=== PATIENT | female | born 1960 | race Caucasian/White ===

== ENCOUNTER 2020-09-26 15:17 | Inpatient (IN) | payer OTHER, SELFPAY ==
[2020-09-26] VITALS (10 sets, daily range): BP systolic 124–175; BP diastolic 64–111; PULSE 100–123; RESP 16–24; TEMP 36.2–39; O2SAT 96–100
--- NOTE | ~2020-09-26 | MR_ITS ---
EXAMINATION: MR brain/brain stem wo/w con EXAM DATE: 09/28/2020 12:40 INDICATION: Confusion, lethargy. TECHNIQUE: Magnetic resonance imaging (MRI) of the brain/brain stem obtained without contrast. Sagit shruthi T1, axial diffusion, gradient echo (T2*), T1, T2, FLAIR sequences obtained. Patient was then inj ected with 10 cc intravenous Multihance contrast. Axial and coronal postcontrast T1 weighted sequence s obtained. There is no prior study for comparison. FINDINGS: There are no areas of restricted diffusion to suggest acute infarction. There is no acute hemorrhage seen on the T2*, a hemosiderin sensitive sequence. No intraparenchymal brain mass lesion. There is mild periventricular and subcortical T2/FLAIR signal hyperintensity, nonspecific but probab ly related to small vessel ischemic disease (microangiopathy). There is mild prominence of the sulc i and ventricles related to cerebral atrophy. There are no extra-axial collections. Flow voids are seen in the cerebral arteries on the T2-weighted sequences consistent with their expected patency. The orbits are unremarkable. Soft tissue is unremarkable. Motion limiting postcontrast images, but no areas of abnormal enhancement suspected. IMPRESSION: 1. No acute intracranial findings. 2. Chronic age related findings. Reviewed, dictated and finalized at location B. S SALESPERSON
--- NOTE | ~2020-09-26 | XR_ITS ---
EXAMINATION: XR lumbar puncture diagnostic DATE: 09/27/2020 14:05 INDICATION: Fever and encephalopathy TECHNIQUE: Consent for the procedure was obtained in the ICU. Patient identity was confirmed. The ski n overlying the L4-5 level was prepared and draped in usual sterile fashion. Subcutaneous 1% lidocai ne was used for local anesthesia. A 22 gauge spinal needle was advanced under fluoroscopic guidance. The needle was removed and the entry site was cleaned and dressed. There were no immediate complicat ions. Fluoroscopy exposure time was 0.1 minutes. The DAP for this procedure was 0.436 Gycm2. One imag e was obtained. FINDINGS: Real-time fluoroscopy demonstrates the needle at the L4-5 level. 6 mL of clear fluid was co llected in 2 tubes. IMPRESSION: 1. Successful fluoro-guided lumbar puncture. Reviewed, dictated and finalized at location A. TAIN BRUSH ASSEMBLER
--- NOTE | ~2020-09-26 | CT_ITS ---
EXAMINATION: CT abdomen pelvis wo con DATE: 09/26/2020 17:21 INDICATION: Vomiting. Abdomen pain. TECHNIQUE: Computed tomography (CT) of the abdomen and pelvis was performed without intravenous contr ast. The dose-length product was 351.27 mGy-cm. Automated exposure control and iterative reconstructi on technique were employed. COMPARISON: None. FINDINGS: Lung bases unremarkable. Heart size normal. No significant pleural or pericardial effusion. There are calcified granulomas in the spleen. There is atherosclerosis of the aorta. The liver, pancreas, adrenal glands and right kidney are unremarkable. There is a small 11 mm fat-con taining mass in the left kidney consistent with angiomyolipoma. No renal stones. No ureteral stones. No lymphadenopathy. Nonobstructive bowel gas pattern. Moderate thoracic and lumbar spondylosis. There is scoliosis. No free air or free fluid. IMPRESSION: 1. No acute abdominal abnormality. Reviewed, dictated and finalized at location A.
--- NOTE | ~2020-09-26 | CT_ITS ---
EXAMINATION: CT brain wo con DATE: 09/26/2020 17:21 INDICATION: Altered mental status TECHNIQUE: Computed tomography (CT) of the head was performed without intravenous contrast. The dose- length product was 681.00 mGy-cm. The mA was adjusted according to patient size. Iterative reconstruc tion technique was employed. COMPARISON: None FINDINGS: Study is significantly limited by motion artifact. Generalized brain parenchymal atrophy. T here are scattered mild periventricular and subcortical white matter changes, most likely related to small vessel ischemic disease (microangiopathy). There is intracranial atherosclerosis. No acute intr acranial hemorrhage, infarction, mass or mass effect. Paranasal sinuses and mastoids are pneumatized. No depressed skull fractures. IMPRESSION: 1. No acute intracranial abnormality. 2: Chronic age-related findings. Reviewed, dictated and finalized at location A.
--- NOTE | ~2020-09-26 | XR_ITS ---
EXAMINATION: XR chest 1V portable 09/26/2020 17:33 INDICATION: Transient alteration of awareness. Nausea and vomiting. Diabetes. PROCEDURE: AP portable chest COMPARISON: No prior studies for comparison. FINDINGS: The lungs are clear. The cardiomediastinal silhouette is within normal limits. There are no pleural effusions. There is no pneumothorax suspected. There are calcified granulomas in the rig ht lung base. IMPRESSION: 1: NO ACUTE CARDIOPULMONARY DISEASE. Reviewed, dictated and finalized at location A.
[2020-09-26 15:24] LABS: Glucose Point of Care 369 (65-105)
--- NOTE | 2020-09-26 15:37 | ECG_ITS ---
Measurements Intervals Bee Rate: 107 P: 60 KY: 98 QRS: 58 QRSD: 74 T: 49 QT: 348 QTc: 465 Interpretive Statements SINUS TACHYCARDIA WITH SHORT [place] INTERVAL BASELINE ARTIFACT- I, III, AVR, AVL, AVF, V1-V6 ABNORMAL ECG Electronically Signed On 09-26-2020 18:07:10 CDT by Ryan Lim D.O.
[2020-09-26 15:47] LABS: Basophils Percent Auto 0.3 % (0.2-1.2); Hematocrit 43.3 % (37.0-47.0); Hemoglobin 14.7 g/dL (12.0-15.0); Immature Granulocyte Absolute 0.05 K/mm3 (0.00-0.031); Immature Granulocyte Percent A 0.4 % (0-0.5); Lymphocytes Absolute Auto 0.55 K/mm3 (0.9-3.2); Lymphocytes Percent Auto 4.7 % (18.3-44.2); Mean Corpuscular HGB Conc 33.9 g/dl (32-36); Mean Corpuscular Hemoglobin 30.9 pg (26-34); Mean Platelet Volume 10.5 fl (7.4-10.4); Monocytes Absolute Auto 0.5 K/mm3 (0.1-0.6); Monocytes Percent Auto 3.9 % (2.6-8.5); Neutrophils Absolute Auto 10.6 K/mm3 (1.3-6.7); Neutrophils Percent Auto 90.7 % (45.5-73.1); Platelet Count Result 287 k/mm3 (150-375); Red Blood Count 4.76 M/mm3 (4.2-5.4); Red Cell Distribution Width 12.4 % (11.5-14.5); White Blood Count 11.7 K/mm3 (4.5-10.0)
[2020-09-26 15:59] LABS: Lactic Acid Reflex 3.4 mmol/L (0.7-2.1)
[2020-09-26 16:04] LABS: Alanine Aminotransferase 22 U/L (4-35); Albumin Level 4.9 g/dL (3.5-5.1); Alkaline Phosphatase 129 U/L (38-126); Anion Gap 19 mmol/L (8-16); Aspartate Amino Transferase 43 U/L (14-36); Bilirubin,Total 0.8 mg/dL (0.2-1.3); Blood Urea Nitrogen 11 mg/dL (7-17); Calcium 10.1 mg/dL (8.4-10.2); Carbon Dioxide 21 mmol/L (22-30); Chloride 95 mmol/L (98-107); Estimated CRCL calculation 69 ml/min; Estimated Glomerular Filt Rate > 60; Glucose 392 mg/dL (65-105); Magnesium 1.6 mg/dL (1.6-2.3); Phosphorus 4.5 mg/dL (2.5-4.5); Potassium 4.6 mmol/L (3.4-5.0); Sodium 135 mmol/L (137-145)
[2020-09-26] MEDS: SODIUM CHLORIDE 0.9% IV 1,000 ML 999 ML IV CONT ×3 (16:07→18:59)
[2020-09-26] MEDS: ONDANSETRON INJ 4 MG/2 ML VIAL IV PUSH ×2 (16:07→18:01)
[2020-09-26] MEDS: FAMOTIDINE 20 MG/2 ML VIAL IV PUSH (16:07)
--- NOTE | 2020-09-26 16:28 | ED.GENADULT ---
HPI - General Adult General Chief complaint: Nausea/Vomiting/Diarrhea Stated complaint: N/V HX OF DM Time Seen by Provider: 09/26/20 15:32 Source: patient and family Mode of arrival: ambulatory Limitations: altered mental status History of Present Illness HPI narrative: Patient is a 59-year-old female who presents with nausea vomiting and altered mentation patient has been vomiting since the early hours of the morning notes that around 3 AM she began vomiting believes she may became altered around 9 AM, had been fine yesterday and had been without recent illness patient on arrival is uncomfortable appears to be in acute distress has been vomiting throughout the night and has become acutely altered. patient with history of insulin-dependent diabetes mellitus patient with multiple episodes of emesis is present on arrival patient has not had any new injury or trauma URI symptoms or complaint of other complaints on arrival patient is a limited historian due to clinical condition. Patient unable to answer questions appropriately and is writhing in the bed Related Data Home Medications Medication Instructions Recorded Confirmed citalopram mg 09/26/20 hydroxyzine HCl 09/26/20 09/26/20 insulin glargine [Lantus Solostar SUBCUT 09/26/20 U-100 Insulin] insulin lispro [Humalog KwikPen unit SUBCUT 09/26/20 Insulin] Allergies Allergy/AdvReac Type Severity Reaction Status Date / Time No Known Allergies Allergy Verified 09/26/20 15:36 Review of Systems Review of Systems: ROS unobtainable: Yes unobtainable due to medical condition PMFSH Past Medical History Medical History Diabetes mellitus type 1 Social History Social History (Updated 09/26/20 @ 16:32 by Darren Marin PA-C) Smoking status: Never smoker Alcohol intake: unknown Gender identity (if verbalized by the patient): Female Exam Narrative: Exam Narrative: GENERAL: Ill-appearing, well-nourished, uncomfortable in acute distress. HEAD: Normocephalic, atraumatic. EYES: PERRLA and EOMI. ENT: Nares clear, no rhinorrhea or epistaxis. Mucous membranes dry. NECK: Supple. No adenopathy or masses. CHEST: Clear to auscultation. No respiratory distress. No wheezes rales or rhonchi HEART: Regular rate and rhythm. No murmur heard. Normal peripheral pulses. ABDOMEN: Soft, patient appears uncomfortable on palpation of the abdomen, nondistended EXTREMITIES: Normal range of motion. No edema. SKIN: Warm, dry, no rash. NEURO: Patient is uncomfortable in the room writhing does not answer questions appropriately with garbled speech at this time i Course Course Emergency Course: Patient in the room at this time with normal vital signs aside from tachycardia patient's airway is stable and patient does not appear to have any respiratory compromise at this time continues to have some emesis has been hydrated given insulin and was started on insulin drip patient continues to be altered of unknown etiology patient will be placed in the ICU with continued hydration insulin drip and will be managed by the hospitalist and message and delivery service pricer team. Consultations Consultation #1: Discussed case with hospitalist who agrees to accept the patient would like message and delivery service pricer to be consulted Date: 09/26/20 Time: 18:28 Consultation #2: Discussed case with the message and delivery service pricer who does recommend placing the patient in the ICU with continued hydration on the insulin drip with no further instructions at this time and will evaluate the patient Date: 09/26/20 Time: 18:28 Vital Signs Vital signs: Vital Signs Temperature 97.2 F L 09/26/20 15:32 Pulse Rate 102 H 09/26/20 15:32 Respiratory Rate 20 09/26/20 15:32 Blood Pressure 175/91 H 09/26/20 15:32 Pulse Oximetry 99 09/26/20 15:32 Temperature 97.2 F L 09/26/20 15:32 Pulse Rate 120 H 09/26/20 18:00 Respiratory Rate 24 H 09/26/20 18:00 Blood Pressure 168/111 H
[2020-09-26 16:46] LABS: Add Urine Microscopic? YES; Appearance Urine Clear (Clear); Bilirubin Urine Negative (Negative); Blood Urine Negative (Negative); Color Urine Straw (Yellow); Glucose Urine UA 3+ mg/dL (Negative); Ketones Urine 2+ mg/dL (Negative); Leukocyte Esterase Ur 1+ LEU/UL (Negative); Mucus Urine Rare /lpf; Nitrate Urine Negative (Negative); Protein Urine 1+ mg/dL (Negative); RBC Urine 0-2 /hpf (0-2); Squamous Epithelial Cell Urine Rare /hpf (Few); Urobilinogen Urine Negative mg/dL (<2.0)
[2020-09-26 17:00] LABS: Alveolar/Arterial O2 Gradient 27.9 mmHg; Base Excess ABG -7.6 mEq/l (+/-2.0); Carboxyhemoglobin 0.7 % THb (0-2.0); Fractional Inspired Oxygen 21 %; HCO3 ABG 15.8 mEq/l (22.0-26.0); Methemoglobin ABG 0.2 %THb (0-1.5); Oxygen Content ABG 19.1 %vol (16.0-22.0); Oxygen Saturation ABG 96.9 % (95.0-100.0); Oxyhemoglobin 95.5 % THb (90.0-100.0); PCO2 ABG 27.2 mmHg (35.0-45.0); PO2 ABG 89.3 mmHg (80.0-100.0); PO2 FiO2 Ratio Arterial Blood 4.25 %; Reduced Hemoglobin 3.6 %THb (0-5.0); Total Hemoglobin 14.2 g/dL (12.0-18.0); pH ABG 7.383 (7.350-7.450)
[2020-09-26 17:01] LABS: Device ROOM AIR; Site Drawn RIGHT BRACHIAL
[2020-09-26] MEDS: LACTATED RINGERS 1,000 ML 999 ML IV CONT (17:07)
[2020-09-26] MEDS: INSULIN HUMAN REGULAR (*BKC) 100 UNITS/ML 7 UNITS IV PUSH (17:39)
[2020-09-26 18:11] LABS: Amphetamine Screen Urine Negative (Negative); Barbiturate Screen Urine Negative (Negative); Benzodiazepines Screen Urine Negative (Negative); Cannabinoid Screen Urine Negative (Negative); Cocaine Screen Urine Negative (Negative); Methadone Screen Urine Negative (Negative); Opiate Screen Urine Negative (Negative); Phencyclidine Screen Urine Negative (Negative)
[2020-09-26] MEDS: LORazepam INJ (*CRX) 2 MG/ML VIAL 0.5 MG IV PUSH ×2 (18:34→22:55)
[2020-09-26 18:43] LABS: Glucose Point of Care 451 (65-105)
[2020-09-26 18:45] LABS: Reflex Lactic Acid Yes or No Add Lactic
[2020-09-26 18:49] LABS: Ammonia < 9 umol/L (9-30)
[2020-09-26 18:50] LABS: Lactic Acid Reflex 4.1 mmol/L (0.7-2.1)
[2020-09-26 19:01] LABS: Troponin I < 0.012 ng/mL (0.000-0.034)
[2020-09-26 19:01] LABS: Glucose Point of Care 307 (65-105)
[2020-09-26] MEDS: INSULIN HUMAN REGULAR (*BKC) 100 UNITS in SODIUM CHLORIDE 0.9% IV 99 ML IV CONT (19:01)
[2020-09-26 19:04] LABS: Acetaminophen < 10 ug/mL (10-30); Ethanol < 10 mg/dL (<10); Salicylate < 1.0 mg/dL (2-20)
[2020-09-26 19:09] LABS: Beta-Hydroxybutyrate/Acetoacetate 3.44 mmol/L (0.02-0.27)
--- NOTE | 2020-09-26 19:21 | PC.NURSE ---
Report received from JAME Narayan. Assumed care of patient at this time.
[2020-09-26 19:26] LABS: CRP < 0.5 mg/dL (<1.0); Magnesium 1.4 mg/dL (1.6-2.3)
[2020-09-26 19:28] LABS: Hemoglobin A1C 9.1 % (<5.7)
--- NOTE | 2020-09-26 20:05 | PC.NURSE ---
Patient's bedside glucose is 199.
[2020-09-26 20:06] LABS: Glucose Point of Care 199 (65-105)
[2020-09-26 20:34] LABS: Thyroid Stimulating Hormone Reflex 0.033 uIU/mL (0.465-4.68)
--- NOTE | 2020-09-26 20:45 | PM.IMHP ---
H&P: HPI History of Present Illness Date/Time: 09/26/20 20:45 Chief complaint: Nausea, vomiting, confusion. Narrative: Kendy Hook is a 59-year-old female with type 1 diabetes mellitus and hypothyroidism presented to the emergency department earlier this afternoon from home for evaluation of nausea, vomiting, and confusion. She is encephalopathic at the time of my evaluation and is unable to provide me any history whatsoever. As such, all of this medical history is obtained via a review of her electronic medical records as well as discussions with her , Bryce, via phone. She was in her usual state of health yesterday and they spent today with her grandchildren, ate dinner at [employer], and then retired home for the night where they watched television. At approximately 03:30 she awoke with nausea and has had innumerable bouts of emesis since that time. As the day progressed, she became confused and according to her she was ?babbling and not making sense.? In fact he found her lying in bed in her own emesis and several times instead of vomiting into the trash or the toilet bowl, she would simply vomit on the floor, seemingly confused. She has had no recent signs of illness and denies any sick contacts. They have not had any recent travel, camping excursions, or exposure to those positive for COVID-19. To his knowledge she has not had fever however she did spike a temperature of 102.2? this evening. At the time my evaluation she is alert, opens her eyes, and withdrawals to pain, but is not answering questions. Review of Systems Review of Systems: Narrative: Unable to be assessed given the patient's current clinical condition. [facility] Past Medical History Medical History (Updated 09/26/20 @ 21:32 by Soniya Renteria PA-C) Diabetes mellitus type 1 Hypothyroidism Shingles Surgical History Surgical History (Updated 09/26/20 @ 21:20 by Soniya Renteria PA-C) History of hysteroscopy Family History Family History (Updated 09/26/20 @ 21:20 by Soniya Renteria PA-C) Mother Lung cancer Father Cerebrovascular accident Social History Social History (Updated 09/26/20 @ 21:21 by Soniya Renteria PA-C) Social History: The patient lives in [place] with her of 10 years, Bryce. She has no children. Former smoker, quit about 10 years ago. She used to drink alcohol in excess, but has not drank for several years. No illicit substance use. She is on disability. Tobacco type: cigarettes Substance use: never Spiritual care concerns: No Meds Home Medications and Allergies Home Medications Medication Instructions Recorded Confirmed Type citalopram mg 09/26/20 History hydroxyzine HCl 09/26/20 09/26/20 History insulin glargine [Lantus Solostar SUBCUT 09/26/20 History U-100 Insulin] insulin lispro [Humalog KwikPen unit SUBCUT 09/26/20 History Insulin] Allergies Allergy/AdvReac Type Severity Reaction Status Date / Time No Known Allergies Allergy Verified 09/26/20 15:36 Vital Signs Vital Signs - 24 hr 09/26/20 15:32 09/26/20 17:00 09/26/20 18:00 Temperature 97.2 F L Pulse Rate 102 H 100 120 H Respiratory Rate 20 20 24 H Blood Pressure 175/91 H 174/110 H 168/111 H Pulse Oximetry 99 98 100 09/26/20 18:30 09/26/20 18:38 09/26/20 19:06 Temperature Pulse Rate 120 H 122 H 123 H Respiratory Rate 22 H 18 20 Blood Pressure 140/81 168/86 H 152/86 H Pulse Oximetry 98 100 99 09/26/20 20:00 09/26/20 20:26 Temperature 102.2 F H 99.5 F Pulse Rate 117 H 120 H Respiratory Rate 16 20 Blood Pressure 142/64 H 124/76 Pulse Oximetry 96 97 Exam Narrative: Exam Narrative: General: Acutely ill-appearing female. Lying in her hospital bed, frequently moving to get in a more comfortable position. Weight: 73 kg. BMI: 26.8. HEENT: Normocephalic, atraumatic. Pupils are approximately 3 mm and are sluggishly reactive. Unable to assess extraocul
--- NOTE | 2020-09-26 20:51 | ADMGEN ---
This patient, Kendy Hook, was admitted to Intensive Care Unit-2 AT 2020. Patient/family oriented to hospital policies and general routines including ID bracelet, bed and alarms, visiting hours, pain management, procedures, bathroom and other care routines, personal items, smoking policy, room service/diet, and visiting hours. Information on how to activate the Rapid Response Team has been discussed. Patient/Family are encouraged to report perceived risks to care and to ask questions if they do not understand what they are told or what they should do.
[2020-09-26 21:23] LABS: Glucose Point of Care 189 (65-105)
[2020-09-26 21:23] LABS: Glucose Point of Care 209 (65-105)
--- NOTE | 2020-09-26 21:30 | PC.NURSE ---
Unable to administer multiple antibiotics at this time due to limited IV access, IV occlusion due to patient thrashing, Inability to obtain new access due to patient movement. Patient not following commands and unable to be redirected. Hospitalist Dexter notified. Awaiting orders.
--- NOTE | 2020-09-26 21:30 | PC.NURSE ---
Patient repeatedly pulling on IV tubing,
[2020-09-26 21:40] LABS: Free T4 Free Thyroxine Reflex 1.97 ng/dL (0.78-2.19)
[2020-09-26 22:00] LABS: Anion Gap 11 mmol/L (8-16); Blood Urea Nitrogen 10 mg/dL (7-17); Calcium 9.6 mg/dL (8.4-10.2); Carbon Dioxide 23 mmol/L (22-30); Chloride 107 mmol/L (98-107); Estimated CRCL calculation 79 ml/min; Estimated Glomerular Filt Rate > 60; Glucose 143 mg/dL (65-105); Potassium 3.5 mmol/L (3.4-5.0); Sodium 141 mmol/L (137-145)
[2020-09-26] MEDS: KCL 20 MEQ/D5/0.45% SOD CHL 1,000 ML 150 ML IV CONT (22:02)
[2020-09-26] MEDS: ACYCLOVIR SODIUM IVPB 800 MG in DEXTROSE 5% IN WATER 250 ML 266 MG IVPB (22:03)
[2020-09-26 22:08] LABS: Glucose Point of Care 94 (65-105)
[2020-09-26 22:12] LABS: Influenza Control Positive
[2020-09-26 22:25] LABS: Total Triiodothyronine (T3) 1.01 NG/ML (0.97-1.69)
[2020-09-26 22:26] LABS: Lactate Dehydrogenase 454 U/L (313-618)
[2020-09-26 22:53] LABS: Erythrocyte Sedimentation Rate 22 mm/hr (0-20)
[2020-09-26 23:00] LABS: Glucose Point of Care 99 (65-105)
[2020-09-27] VITALS (17 sets, daily range): BP systolic 104–145; BP diastolic 47–117; PULSE 64–121; RESP 14–30; TEMP 36.4–38.8; O2SAT 94–99
[2020-09-27 00:12] LABS: Glucose Point of Care 238 (65-105)
[2020-09-27] MEDS: INSULIN GLARGINE (*BKC) 100 UNITS/ML 10 UNITS SUB-Q (00:15)
[2020-09-27] MEDS: LACTATED RINGERS 1,000 ML 125 ML IV CONT ×3 (00:26→17:57)
[2020-09-27 00:51] LABS: Glucose Point of Care 266 (65-105)
[2020-09-27] MEDS: OLANZapine 10 MG INJ VIAL 5 MG IM (01:06)
[2020-09-27] MEDS: AMPICILLIN 2 GM/NS 100 ML 2 GM/100 ML BAG IVPB ×6 (01:15→20:55)
[2020-09-27] MEDS: THIAMINE HCL 200 MG/2 ML VIAL 100 MG IV PUSH (01:19)
[2020-09-27] MEDS: MAGNESIUM SULF 2 GM/WATER 50ML 2 GM/50 ML BAG IVPB (01:20)
[2020-09-27 02:00] LABS: Glucose Point of Care 145 (65-105)
[2020-09-27 02:03] LABS: Glucose Point of Care 131 (65-105)
[2020-09-27 02:07] LABS: Alanine Aminotransferase 16 U/L (4-35); Albumin Level 3.5 g/dL (3.5-5.1); Alkaline Phosphatase 76 U/L (38-126); Aspartate Amino Transferase 29 U/L (14-36); Bilirubin,Total 0.3 mg/dL (0.2-1.3); Magnesium 1.8 mg/dL (1.6-2.3)
[2020-09-27 02:11] LABS: Anion Gap 9 mmol/L (8-16); Blood Urea Nitrogen 8 mg/dL (7-17); Calcium 7.9 mg/dL (8.4-10.2); Carbon Dioxide 21 mmol/L (22-30); Chloride 109 mmol/L (98-107); Estimated CRCL calculation 93 ml/min; Estimated Glomerular Filt Rate > 60; Glucose 117 mg/dL (65-105); Potassium 3.1 mmol/L (3.4-5.0); Sodium 139 mmol/L (137-145)
[2020-09-27 03:16] LABS: Glucose Point of Care 125 (65-105)
[2020-09-27] MEDS: dexmedeTOMIDine 400 MCG/100 ML 400 MCG/100 ML BAG 10.95 MCG IV CONT (03:26)
--- NOTE | 2020-09-27 04:06 | PC.NURSE ---
Daylight Savings Time For Daylight Savings Time Ending in the Fall - Clocks are moved back. For Daylight Savings Time Beginning in the Spring - Clocks are moved ahead. For [facility], the time of change occurs at 0200 hrs. Time is taken from the room service server. This entry on the patient's chart recognizes the change in time reflected during documentation. Example: 2 entries for vital signs may be charted for 0200 hrs.
[2020-09-27 05:23] LABS: Glucose Point of Care 87 (65-105)
[2020-09-27] MEDS: ACYCLOVIR SODIUM IVPB 800 MG in DEXTROSE 5% IN WATER 250 ML 266 MG IVPB ×3 (05:24→20:56)
[2020-09-27] MEDS: LEVOTHYROXINE SODIUM INJ 100 MCG/5 ML VIAL 62.5 MCG IV PUSH (05:30)
[2020-09-27] MEDS: PANTOPRAZOLE SODIUM IV 40 MG VIAL IV PUSH (08:08)
[2020-09-27 08:13] LABS: Glucose Point of Care 138 (65-105)
[2020-09-27 08:37] LABS: Lactic Acid Reflex 1.4 mmol/L (0.7-2.1)
--- NOTE | 2020-09-27 09:23 | WPDCNINT ---
Assessment and Plan Assessment and plan (1) Acute encephalopathy: Code(s): G93.40 - Encephalopathy, unspecified Status: Acute Assessment and Plan: acute encephalopathy multifactorial, DKA, infection, medication related. - patient has been afebrile, started on ceftriaxone, vancomycin, has bacillus, acyclovir for possible encephalitis given history of shingles. - Patient able to protect her airway at this time - patient will require lumbar puncture - neurology and Infectious Disease has been consulted (2) DKA (diabetic ketoacidoses): Code(s): E11.10 - Type 2 diabetes mellitus with ketoacidosis without coma Status: Acute Assessment and Plan: patient with nausea, vomiting with anion gap metabolic acidosis was found to be in DKA in the ER, given adequate IV fluids, was started on insulin infusion per DKA protocol. - Early this morning patient was transition to long-acting insulin Lantus and sliding scale insulin with Accu-Cheks - hemoglobin A1c is 9.1 this admiss (3) Nausea & vomiting: Code(s): R11.2 - Nausea with vomiting, unspecified Status: Acute Assessment and Plan: resolved, patient adequately fluid-resuscitated and treated for DKA (4) Acute dehydration: Code(s): E86.0 - Dehydration Status: Acute Assessment and Plan: resolved, adequate fluid resuscitation (5) Strep throat: Code(s): J02.0 - Streptococcal pharyngitis Status: Acute Assessment and Plan: patient had positive group a strep from differential swab - continue antibiotics as above (6) Sepsis: Code(s): A41.9 - Sepsis, unspecified organism Status: Acute Assessment and Plan: patient with fevers, leukocytosis, lactic acidosis - lactic acid levels normalized - fevers persist, patient on antibiotics above - blood and urine cultures have been obtained (7) Suspected 2019 novel coronavirus infection: Code(s): Z20.828 - Contact with and (suspected) exposure to other viral communicable diseases Status: Acute Assessment and Plan: SARS-CoV-2 PCR has been obtained and pending - in the meantime will place patient on airborne, contact, droplet isolation /precautions Additional Plan discussed with family and updated him with patient's condition and plan of care code status: Full code critical care time spent: 47 minutes Due to a high probability of clinically significant, life threatening deterioration, the patient required my highest level of preparedness to intervene emergently and I personally spent this critical care time directly and personally managing the patient. This critical care time included obtaining a history; examining the patient; pulse oximetry; ordering and review of studies; arranging urgent treatment with development of a management plan; evaluation of patient's response to treatment; frequent reassessment; and discussions with other providers. It was exclusive of separately billable procedures and treating other patients and teaching time. Please see Assessment and Plan section and the rest of the note for further information on patient assessment and treatment Emergency Room Clerk Consult Note Consult date: 09/27/20 Time Seen: 07:01 Reason for consult: DKA, encephalopathy, strep throat , lactic acidosis HPI: Kendy Hook is a 59 year old female with past medical history of diabetes type 1 presented the ED complains of altered mental status, nausea, vomiting. according the records patient was her usual self a day prior to the admission with she had gone with her grandchildren to have dinner at [email or web address], went home, they all watch television. She woke up the early hours of the night with multiple episodes of nausea and vomiting. Her on the day of admission patient started become confused and her speech did not make sense. Patient was brought to ED which she had a temperature of 102.2?. Patient was found to be in DKA along with s
--- NOTE | 2020-09-27 10:55 | WPDNEURCNPN ---
Assessment and Plan Assessment and plan (1) Strep throat: Code(s): J02.0 - Streptococcal pharyngitis Status: Acute (2) Diabetic ketoacidosis: Code(s): E11.10 - Type 2 diabetes mellitus with ketoacidosis without coma Status: Acute (3) Acute alteration in mental status: Code(s): R41.82 - Altered mental status, unspecified Status: Acute (4) Encephalopathy: Code(s): G93.40 - Encephalopathy, unspecified Status: Acute Additional Plan agree with the plan of treatment as such will obtain the EEG later on Consult date: 09/27/20 Time Seen: 10:15 HPI: Kendy Hook is a 59 year old female Admitted to the hospital through the emergency room for the evaluation of nausea vomiting and confusion. At the time of initial evaluation she was noted to be encephalopathic, was unable to provide any further history except the information was obtained from the electronic records as well as former , by the initial physician, reportedly she was in her usual state of health , spent time with her grandchildren, went out for dinner and came back ,she has several bouts of vomiting as the time progressed became confused ,was babbling and not making sense ,she had no history of recent illness and she was not sick prior to that and at this time her temperature was 102.2?. patient does have history of diabetes mellitus type 1, hypothyroidism and in the past has had shingles . She has been taking citalopram daily in addition to her insulin. evaluation documented potassium 3.1 with sodium of 139 CO2 21 creatinine 0.5 glucose 117 calcium 7.9 SARS-CoV-2 pending, CT head negative chest x-ray negative abdomen and pelvis CT negative cultures pending and is receiving now ampicillin and ceftriaxone along with vancomycin, acyclovir, patient's step throat was positive ,ammonia level normal,hemoglobin A1c 9.1 Review of Systems Review of Systems: All systems reviewed & are unremarkable except as noted in HPI and below PMFSH Past Medical History Medical History (Updated 09/27/20 @ 11:12 by Shayan Arshad MD) Diabetes mellitus type 1 Hypothyroidism Shingles Surgical History Surgical History (Updated 09/26/20 @ 21:20 by Soniya Renteria PA-C) History of hysteroscopy Family History Family History (Updated 09/26/20 @ 21:20 by Soniya Renteria PA-C) Mother Lung cancer Father Cerebrovascular accident Social History Social History (Updated 09/26/20 @ 21:21 by Soniya Renteria PA-C) Social History: The patient lives in [place] with her of 10 years, Bryce. She has no children. Former smoker, quit about 10 years ago. She used to drink alcohol in excess, but has not drank for several years. No illicit substance use. She is on disability. Tobacco type: cigarettes Substance use: never Spiritual care concerns: No Meds Home Medications and Allergies Home Medications Medication Instructions Recorded Confirmed Type citalopram 10 mg PO DAILY 09/26/20 09/26/20 History hydroxyzine HCl 50 mg PO HS 09/26/20 09/26/20 History insulin glargine [Lantus Solostar See Protocol SUBCUT ACINSULIN 09/26/20 09/26/20 History U-100 Insulin] insulin lispro [Humalog KwikPen See Protocol SUBCUT ACINSULIN 09/26/20 09/26/20 History Insulin] levothyroxine 125 mcg PO DAILY 09/26/20 09/26/20 History lisinopril 5 mg PO DAILY 09/26/20 09/26/20 History Allergies Allergy/AdvReac Type Severity Reaction Status Date / Time No Known Allergies Allergy Verified 09/26/20 15:36 Vital Signs Vital Signs - 24 hr 09/26/20 15:32 09/26/20 17:00 09/26/20 18:00 Temperature 36.2 C L Pulse Rate 102 H 100 120 H Respiratory Rate 20 20 24 H Blood Pressure 175/91 H 174/110 H 168/111 H Pulse Oximetry 99 98 100 09/26/20 18:30 09/26/20 18:38 09/26/20 19:06 Temperature Pulse Rate 120 H 122 H 123 H Respiratory Rate 22 H 18 20 Blood Pressure 140/81 168/86 H 152/86 H Pulse Oximetry 98 100 99
[2020-09-27 10:59] LABS: Hematocrit 33.5 % (37.0-47.0); Hemoglobin 11.3 g/dL (12.0-15.0); Mean Corpuscular HGB Conc 33.7 g/dl (32-36); Mean Corpuscular Hemoglobin 30.9 pg (26-34); Mean Corpuscular Volume 91.5 fl (80-100); Mean Platelet Volume 10.7 fl (7.4-10.4); Platelet Count Result 201 k/mm3 (150-375); Red Blood Count 3.66 M/mm3 (4.2-5.4); Red Cell Distribution Width 12.5 % (11.5-14.5); White Blood Count 11.3 K/mm3 (4.5-10.0)
[2020-09-27] MEDS: dexmedeTOMIDine 400 MCG/100 ML 400 MCG/100 ML BAG 12.78 MCG IV CONT (11:28)
[2020-09-27 11:46] LABS: INR 1.1; Prothrombin Time 13.4 Seconds (11.1-14.7)
[2020-09-27 13:10] LABS: SARS-CoV-2 RNA PCR Negative
[2020-09-27 14:22] LABS: Glucose CSF 97 mg/dL (40-70); Total Protein CSF 68 mg/dL (12-60)
[2020-09-27 14:34] LABS: Appearance CSF Clear (Clear); CSF source CSF; Color CSF Colorless (Colorless); Lymphocytes CSF 68 % (40-80); Monocytes CSF 13 % (15-45); Neutrophils CSF 19 % (0-6); Nucleated Cell CSF 33 /uL (0-5); Red Blood Cell CSF 0 (0-2)
--- NOTE | 2020-09-27 14:55 | PM.IMPN ---
Progress Note: A&P Assessment and Plan (1) Acute encephalopathy: Code(s): G93.40 - Encephalopathy, unspecified Status: Acute (2) Diabetic ketoacidosis: Code(s): E11.10 - Type 2 diabetes mellitus with ketoacidosis without coma Status: Acute (3) Sepsis: Code(s): A41.9 - Sepsis, unspecified organism Status: Acute (4) Diabetes mellitus type 1: Code(s): E10.9 - Type 1 diabetes mellitus without complications Status: Acute (5) Dehydration: Code(s): E86.0 - Dehydration Status: Acute (6) Hypomagnesemia: Code(s): E83.42 - Hypomagnesemia Status: Acute (7) Hypothyroidism: Code(s): E03.9 - Hypothyroidism, unspecified Status: Acute (8) DVT prophylaxis: Code(s): Z29.9 - Encounter for prophylactic measures, unspecified Status: Acute Additional Plan :: 09/26/20 :: The patient was seen in the ED and found to have DKA with AG 19, BHO 3.44 and 2+urine ketones. Brain CT and Abd/Pelvis CT both normal. CXR clear. She had sepsis on admission with elevated Lactic acid, elevated WBC, mental status changes, fever, and tachycardia. She was admitted to the hospitalist service for further evaluation of acute encephalopathy, sepsis and treatment of diabetic ketoacidosis. She was started on DKA protocol. Her magnesium was replaced and monitored. She is receiving aggressive IV fluid rehydration given dehydration. Her lactic acid level has continued to climb, and we will monitor that closely. Blood cultures have been obtained and are pending. She has spiking fevers. Influenza negative. Group A Strept positive. She will need a lumbar puncture as well. That will have to be postponed unfortunately until her COVID testing comes back. In the interim she was started on broad-spectrum antibiotics including ceftriaxone, vancomycin, and ampicillin. Acyclovir has been started as well with concerns for herpes encephalitis given history of shingles in the last year or so. [place] coma scale at this time is 10 and she is protecting her airway. She will of course be a NPO. Her medications will be resumed and transition to IV form if indicated. :: 09/27/20 :: The patient was agitated with pulling out lines and thus was sedated with Precedex. COVID negative. LP performed today. CSF clear. 33 Nuc cells with 19% neutrophils, elevated protein and elevated glucose. Lactic acid normal now. She remains NPO. She has transitioned of the insulin drip and was given Lantus 10U around midnight. states she takes Lantus 15U QHS at home. Resume Lantus at half dose while NPO. Follow up on cultures. Continue IV abx. Wean off sedation. Consider MRI brain if no improvement. Subjective Date/time seen: 09/27/20 14:55 Interval history: Date of service 09/27 59yo female with DM Type I here for AMS, n/v and fever. She was found to have DKA, sepsis and possible meningitis/encephalitis. Patient currently sedated and unable to provide history. in the room and he was updated. No recent marijuana use. They have 2dogs and 2cats at home. Patient agitated and was pulling out lines so she was started on Precedex Exam Narrative: Exam Narrative: Tm 102.2 98.9 120/69 67 19 94% ra Gen - NARD lying semirecumbent in bed Chest - CTA bilaterally with quiet respirations, nml RR CV - RRR S1/S2; Tele showing no significant dysrhythmias Abd - Soft, ND, +BS, no apparent tenderness - Jaimes secured draining clear yellow urine Ext - No pedal edema Neuro - sedated, pupils 2-3mm Psych - unable to assess Skin - Warm and dry; no rash Objective Data Vital Signs Vital Signs: Vital Signs - 24 hr 09/26/20 17:00 09/26/20 18:00 09/26/20 18:30 Temperature Pulse Rate 100 120 H 120 H Respiratory Rate 20 24 H 22 H Blood Pressure 174/110 H 168/111 H 140/81 Pulse Oximetry 98 100 98 09/26/20 18:38 09/26/20 19:06 09/26/20 20:00 Temperature 102.2 F H Puls
[2020-09-27 15:19] LABS: Glucose Point of Care 311 (65-105)
[2020-09-27] MEDS: INSULIN ASPART (*BKC) 100 UNITS/ML SUB-Q (15:22)
[2020-09-27] MEDS: INSULIN GLARGINE (*BKC) 100 UNITS/ML 8 UNITS SUB-Q (20:55)
[2020-09-27 21:11] LABS: Glucose Point of Care 192 (65-105)
[2020-09-28] VITALS (16 sets, daily range): BP systolic 133–161; BP diastolic 45–90; PULSE 72–99; RESP 13–22; TEMP 37.2–38.2; O2SAT 92–97
[2020-09-28] MEDS: dexmedeTOMIDine 400 MCG/100 ML 400 MCG/100 ML BAG 9.13 MCG IV CONT
[2020-09-28 00:12] LABS: Glucose Point of Care 158 (65-105)
[2020-09-28] MEDS: LACTATED RINGERS 1,000 ML 125 ML IV CONT (02:15)
[2020-09-28 04:09] LABS: Basophils Percent Auto 0.4 % (0.2-1.2); Eosinophils Percent Auto 0.3 % (0-4.4); Hematocrit 38.7 % (37.0-47.0); Hemoglobin 12.9 g/dL (12.0-15.0); Immature Granulocyte Absolute 0.03 K/mm3 (0.00-0.031); Immature Granulocyte Percent A 0.3 % (0-0.5); Lymphocytes Absolute Auto 1.87 K/mm3 (0.9-3.2); Lymphocytes Percent Auto 20.8 % (18.3-44.2); Mean Corpuscular HGB Conc 33.3 g/dl (32-36); Mean Corpuscular Hemoglobin 30.9 pg (26-34); Mean Corpuscular Volume 92.6 fl (80-100); Mean Platelet Volume 10.6 fl (7.4-10.4); Monocytes Absolute Auto 0.8 K/mm3 (0.1-0.6); Monocytes Percent Auto 8.7 % (2.6-8.5); Neutrophils Absolute Auto 6.2 K/mm3 (1.3-6.7); Neutrophils Percent Auto 69.5 % (45.5-73.1); Platelet Count Result 209 k/mm3 (150-375); Red Blood Count 4.18 M/mm3 (4.2-5.4); Red Cell Distribution Width 12.4 % (11.5-14.5)
[2020-09-28 04:22] LABS: Lactic Acid Reflex 1.5 mmol/L (0.7-2.1)
[2020-09-28 04:23] LABS: Alanine Aminotransferase 18 U/L (4-35); Albumin Level 3.5 g/dL (3.5-5.1); Alkaline Phosphatase 93 U/L (38-126); Anion Gap 7 mmol/L (8-16); Aspartate Amino Transferase 30 U/L (14-36); Bilirubin,Total 0.5 mg/dL (0.2-1.3); Blood Urea Nitrogen 5 mg/dL (7-17); CRP 0.5 mg/dL (<1.0); Carbon Dioxide 26 mmol/L (22-30); Chloride 107 mmol/L (98-107); Estimated CRCL calculation 75 ml/min; Estimated Glomerular Filt Rate > 60; Glucose 221 mg/dL (65-105); Magnesium 1.8 mg/dL (1.6-2.3); Phosphorus 3.1 mg/dL (2.5-4.5); Potassium 3.6 mmol/L (3.4-5.0); Sodium 140 mmol/L (137-145)
[2020-09-28] MEDS: ACYCLOVIR SODIUM IVPB 800 MG in DEXTROSE 5% IN WATER 250 ML 266 MG IVPB ×2 (05:50→14:24)
[2020-09-28] MEDS: AMPICILLIN 2 GM/NS 100 ML 2 GM/100 ML BAG IVPB ×6 (05:50→21:08)
[2020-09-28] MEDS: LEVOTHYROXINE SODIUM INJ 100 MCG/5 ML VIAL 62.5 MCG IV PUSH (05:50)
[2020-09-28 06:20] LABS: Glucose Point of Care 276 (65-105)
--- NOTE | 2020-09-28 07:20 | WPDINTPN ---
Progress Note: A&P Assessment and Plan (1) Acute encephalopathy: Code(s): G93.40 - Encephalopathy, unspecified Status: Acute Assessment and Plan: acute encephalopathy multifactorial, DKA, infection, medication related. - patient has been afebrile, started empirically for meningitis and encephalitis on on ceftriaxone, vancomycin, ampicillin, acyclovir for possible encephalitis given history of shingles. - CT head was negative - patient patient had LP done yesterday which showed elevated glucose, protein and WBC of 33 suggestive of viral picture - patient seen by Neurology EEG ordered - will check MRI - ID consult pending. Will wait for Infectious Disease consultation before deescalating on antibiotics - hold Precedex and monitor during the day (2) DKA (diabetic ketoacidoses): Code(s): E11.10 - Type 2 diabetes mellitus with ketoacidosis without coma Status: Acute Assessment and Plan: patient with nausea, vomiting with anion gap metabolic acidosis was found to be in DKA in the ER, given adequate IV fluids, was started on insulin infusion per DKA protocol. - patient has been transitioned to long-acting insulin Lantus and sliding scale insulin with Accu-Cheks - increase Lantus dose - hemoglobin A1c is 9.1 this admiss (3) Nausea & vomiting: Code(s): R11.2 - Nausea with vomiting, unspecified Status: Acute Assessment and Plan: resolved, patient adequately fluid-resuscitated and treated for DKA swallow eval and start diet (4) Acute dehydration: Code(s): E86.0 - Dehydration Status: Acute Assessment and Plan: resolved, adequate fluid resuscitation (5) Strep throat: Code(s): J02.0 - Streptococcal pharyngitis Status: Acute Assessment and Plan: patient had positive group a strep from differential swab - continue antibiotics as above (6) Sepsis: Code(s): A41.9 - Sepsis, unspecified organism Status: Acute Assessment and Plan: patient with fevers, leukocytosis, lactic acidosis - lactic acid levels normalized - fevers persist, patient on antibiotics above - blood and urine cultures have been obtained (7) Suspected 2019 novel coronavirus infection: Code(s): Z20.828 - Contact with and (suspected) exposure to other viral communicable diseases Status: Acute Assessment and Plan: COVID-19 was suspected on admission SARS-CoV-2 PCR sent and results negative Patient was on Airborne, Droplet and Contact Isolation which has been discontinued now. Additional Plan Swallow eval start Lovenox for DVT prophylaxis code status: Full code Subjective Date/time seen: 09/28/20 patient was on Precedex infusion overnight she is awake but little confused. She follows commands with all 4 extremities answer some questions appropriately and is alert oriented x2 denies any pain or breathing difficulty Interval history: Date of service 09/27 59yo female with DM Type I here for AMS, n/v and fever. She was found to have DKA, sepsis and possible meningitis/encephalitis. Review of Systems Review of Systems: ROS unobtainable: Yes unobtainable due to mental status Exam Const: General: comfortable and no acute distress Other: calm and confused HENMT: Mouth: Yes moist mucous membranes Other: no teeth no redness seen on posterior pharyngeal wall Eyes: Sclera: sclerae normal Pupils: Equal, round and reactive pupils present Neck: Neck: supple Resp: Effort & Inspection: normal respiratory effort Auscultation: clear to auscultation bilaterally Cardio: Rate: regular rate Rhythm: regular rhythm GI: Inspection: non-distended Auscultation: abnormal bowel sounds ( hypoactive bowel sounds) : Other: Jaimes catheter in place Urinary Catheter: Urinary Catheter: patent and draining and urine clear Skin: Other: bruise noted on the right inner thigh and right forearm Neuro: Cranial nerves:
[2020-09-28 09:02] LABS: Glucose Point of Care 231 (65-105)
[2020-09-28] MEDS: INSULIN ASPART (*BKC) 100 UNITS/ML SUB-Q ×3 (09:03→17:39)
[2020-09-28] MEDS: LIDOCAINE HCL 1% PF INJ 5 ML VIAL INFILTRATE (09:25)
[2020-09-28] MEDS: PANTOPRAZOLE SODIUM IV 40 MG VIAL IV PUSH (10:00)
--- NOTE | 2020-09-28 11:02 | WPDINFPN2 ---
Progress Note: A&P Assessment and Plan (1) Fever: Code(s): R50.9 - Fever, unspecified Status: Acute Assessment and Plan: 1. Fever with CSF pleocytosis. 2. DKA. Type 1 DM REC Ctx/Vanc/Amp/ACV, CSF analysis in process Subjective Date/time seen: 09/28/20 11:02 Objective Data Vital Signs Vital Signs: Vital Signs - 24 hr 09/27/20 12:00 09/27/20 13:00 09/27/20 13:50 Temperature 36.4 C Pulse Rate 66 66 66 Respiratory Rate 19 17 14 Blood Pressure 111/59 L 126/69 134/71 Pulse Oximetry 94 96 95 09/27/20 14:00 09/27/20 15:10 09/27/20 16:00 Temperature 37.1 C Pulse Rate 64 72 73 Respiratory Rate 15 17 17 Blood Pressure 134/71 115/72 Pulse Oximetry 98 94 09/27/20 18:00 09/27/20 20:00 09/27/20 22:00 Temperature 37.3 C 37.7 C H Pulse Rate 69 71 80 Respiratory Rate 19 18 18 Blood Pressure 128/71 104/88 117/62 Pulse Oximetry 97 96 94 09/28/20 00:00 09/28/20 02:00 09/28/20 04:00 Temperature 37.9 C H 37.9 C H Pulse Rate 86 82 99 Respiratory Rate 18 18 22 H Blood Pressure 138/45 L 133/71 161/73 H Pulse Oximetry 92 94 95 09/28/20 05:47 09/28/20 06:00 09/28/20 06:17 Temperature 38.2 C H 38.2 C H Pulse Rate 88 Respiratory Rate 20 Blood Pressure 146/57 H Pulse Oximetry 96 Intake/Output Intake/Output: Intake & Output 09/26/20 09/27/20 09/27/20 09/28/20 00:59 00:59 23:59 23:59 Intake Total 2016 Output Total 1050 Balance 966 Meds/Results Medications: Active Medications Generic Name Dose Route Start Last Admin Trade Name Freq PRN Reason Stop Dose Admin Dextrose 12.5 gm 09/26/20 16:56 Dextrose 50% 25 Gm/50 Ml Syringe IV PUSH PRN PRN Hypoglycemia Protocol Enoxaparin Sodium 40 mg 09/29/20 09:00 Enoxaparin 40 Mg/0.4 Ml Syringe SUB-Q DAILY CHAZ Glucagon 1 mg 09/26/20 16:56 Glucagon For Inj 1 Mg Vial IM PRN PRN Hypoglycemia Protocol Glucose 15 gm 09/26/20 16:56 Glucose Oral Gel 15 Gm Of Glucse In 37.5 Gm Tube PO PRN PRN Hypoglycemia Protocol Dextrose 1,000 mls @ 100 mls/hr 09/26/20 16:56 Dextrose 5% 1,000 Ml IVPB PRN PRN Hypoglycemia Protocol Lactated Ringer's 1,000 mls @ 75 mls/hr 09/26/20 18:35 09/28/20 02:15 Lr - Lactated Ringers Iv IV CONT 125 mls/hr .[id number] CHAZ Administration Acyclovir Sodium 800 mg/ 266 mls @ 266 mls/hr 09/26/20 22:00 09/28/20 06:17 Dextrose IVPB Infused Q8HR CHAZ Infusion Ampicillin Sodium 2 gm in 100 mls @ 200 mls/hr 09/27/20 01:00 SUPERVISOR TYPE DISK QUALITY CONTROL 09/28/20 10:30 Ampicillin 2 Gm/Ns 100 Ml IVPB Infused Q4HR CHAZ Infusion Ceftriaxone Sodium 2 gm in 100 mls @ 200 mls/hr 09/27/20 01:00 SUPERVISOR TYPE DISK QUALITY CONTROL 09/28/20 10:30 Rocephin 2 Gm/D5w 100 Ml IVPB Infused Q12HR CHAZ Infusion Vancomycin HCl 1,250 mg in 250 mls @ 200 mls/hr 09/27/20 11:00 09/28/20 01:56 Vancomycin 1,250 Mg/D5w 250 Ml IVPB Infused Q12H CHAZ Infusion Dexmedetomidine HCl 400 mcg in 100 mls @ 9.125 mls/hr 09/27/20 02:55 09/28/20 00:00 Precedex 400 Mcg/100 Ml IV CONT 0.5 mcg/kg/hr .[id number] HCAZ 9.13 mls/hr Administration Protocol 0.5 MCG/KG/HR Acetaminophen 1,000 mg in 100 mls @ 400 mls/hr 09/27/20 22:08 09/28/20 06:17 Ofirmev 1,000 Mg Ivpb IVPB 09/28/20 22:09 Infused Q6H PRN Infusion Pain Rated 4-6 Insulin Aspart 3 - 6 units 09/27/20 12:00 09/28/20 09:03 Insulin Aspart (*Bkc) 100 Units/Ml SUB-Q 3 units TIDWM [facility] Administration Protocol Insulin Glargine 12 units 09/28/20 21:00 Insulin Glargine (*Bkc) 100 Units/Ml SUB-Q HS [facility] Levothyroxine Sodium 62.5 mcg 09/27/20 06:30 09/28/20 05:50 Levothyroxine Sodium Inj 100 Mcg/5 Ml Vial IV PUSH 62.5 mcg DAILY@0630 [facility] Administration Multi-Ingred Cream/Lotion/Oil/Oint 1 applic 09/27/20 09:00 09/28/20 07:40 Mineral Oil/Petrolatum,White 1 Applic EACH EYE Not Given Q12HR [facility] Ondansetron HCl 4 mg 09/26/20 18:31 On
[2020-09-28] MEDS: ENOXAPARIN 40 MG/0.4 ML SYRINGE SUB-Q (11:37)
--- NOTE | 2020-09-28 11:40 | PCSTNOTE ---
Please refer to the Bedside Swallow Evaluation in the EMR. Please note, silent aspiration cannot be ruled out at bedside.
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
[2020-09-28 12:32] LABS: Vancomycin Trough 5.2 ug/mL (10.0-20.0)
--- NOTE | 2020-09-28 14:44 | PM.IMPN ---
Progress Note: A&P Assessment and Plan (1) Acute encephalopathy: Code(s): G93.40 - Encephalopathy, unspecified Status: Acute (2) Diabetic ketoacidosis: Code(s): E11.10 - Type 2 diabetes mellitus with ketoacidosis without coma Status: Acute (3) Sepsis: Code(s): A41.9 - Sepsis, unspecified organism Status: Acute (4) Diabetes mellitus type 1: Code(s): E10.9 - Type 1 diabetes mellitus without complications Status: Acute (5) Dehydration: Code(s): E86.0 - Dehydration Status: Acute (6) Hypomagnesemia: Code(s): E83.42 - Hypomagnesemia Status: Acute (7) Hypothyroidism: Code(s): E03.9 - Hypothyroidism, unspecified Status: Acute (8) DVT prophylaxis: Code(s): Z29.9 - Encounter for prophylactic measures, unspecified Status: Acute Assessment and Plan: Lovenox Additional Plan :: 09/26/20 :: The patient was seen in the ED and found to have DKA with AG 19, BHO 3.44 and 2+urine ketones. Brain CT and Abd/Pelvis CT both normal. CXR clear. She had sepsis on admission with elevated Lactic acid, elevated WBC, mental status changes, fever, and tachycardia. She was admitted to the hospitalist service for further evaluation of acute encephalopathy, sepsis and treatment of diabetic ketoacidosis. She was started on DKA protocol. Her magnesium was replaced and monitored. She received aggressive IV fluid rehydration given dehydration. Her lactic acid level has continued to climb, and we will monitor that closely. Blood cultures have been obtained and are pending. She has spiking fevers. Influenza negative. Group A Strept positive. She will need a lumbar puncture as well. That will have to be postponed unfortunately until her COVID testing comes back. In the interim she was started on broad-spectrum antibiotics including ceftriaxone, vancomycin, and ampicillin. Acyclovir has been started as well with concerns for herpes encephalitis given history of shingles in the last year or so. [place] coma scale at this time is 10 and she is protecting her airway. She will of course be a NPO. Her medications will be resumed and transition to IV form if indicated. :: 09/27/20 :: The patient was agitated with pulling out lines and thus was sedated with Precedex. COVID negative. LP performed today. CSF clear. 33 Nuc cells with 19% neutrophils, elevated protein and elevated glucose. Lactic acid normal now. She remains NPO. She has transitioned of the insulin drip and was given Lantus 10U around midnight. states she takes Lantus 15U QHS at home. Resume Lantus at half dose while NPO. Follow up on cultures. Continue IV abx. Wean off sedation. Consider MRI brain if no improvement. :: 09/28/20 :: The patient's mental status is much improved and almost back to baseline. ID following and appreciate their input. Still having fevers. WBC normal. Brain MRI without contrast performed showing no acute findings. Gram stain negative. Cx remain negative. Continue current antibiotics and antivirals. Follow up on CSF studies. Increase activity. Remove Jaimes. Stop IV fluids once eating okay. A1c 9.1. Glucose higher this morning. Lantus advanced. Continue sliding scale. Subjective Date/time seen: 09/28/20 14:44 Interval history: Date of service 09/28 59yo female with DM Type I here for AMS, n/v and fever. She was found to have DKA, sepsis and possible meningitis/encephalitis. Patietn more awake and alert. She has been weaned off Precedex. She denies CP or SOB. SHe has been having ORTEGA which began on the day of admission. Had nausea with liquids today. Exam Narrative: Exam Narrative: Tm 100.7 99.0 134/65 79 18 97% ra Gen - NARD Chest - CTA bilaterally, nml RR CV - RRR S1/S2; Tele showing no significant dysrhythmias Abd - Soft, NT/ND, +BS - Jaimes secured draining clear yellow urine Ext - No pedal edema; 2+ DP and radi
[2020-09-28] MEDS: CENTRAL LINE FLUSH 10 ML IV PUSH ×2 (15:01→22:26)
[2020-09-28 17:34] LABS: Glucose Point of Care 290 (65-105)
[2020-09-28 17:38] LABS: Glucose Point of Care 227 (65-105)
[2020-09-28] MEDS: INSULIN GLARGINE (*BKC) 100 UNITS/ML 12 UNITS SUB-Q (21:08)
[2020-09-28] MEDS: ACYCLOVIR SODIUM IVPB 800 MG in DEXTROSE 5% IN WATER 250 ML 200 MG IVPB (22:26)
[2020-09-29] VITALS (8 sets, daily range): BP systolic 127–165; BP diastolic 64–92; PULSE 81–99; RESP 12–19; TEMP 36.8–37.7; O2SAT 94–100
[2020-09-29 00:09] LABS: Glucose Point of Care 126 (65-105)
[2020-09-29] MEDS: LACTATED RINGERS 1,000 ML 75 ML IV CONT (00:49)
[2020-09-29] MEDS: AMPICILLIN 2 GM/NS 100 ML 2 GM/100 ML BAG IVPB ×6 (00:51→20:34)
[2020-09-29 05:52] LABS: Basophils Absolute Auto 0.1 K/mm3 (0.0-0.1); Basophils Percent Auto 0.7 % (0.2-1.2); Eosinophils Absolute Auto 0.1 K/mm3 (0-0.3); Eosinophils Percent Auto 1.7 % (0-4.4); Hematocrit 36.7 % (37.0-47.0); Hemoglobin 12.4 g/dL (12.0-15.0); Immature Granulocyte Absolute 0.01 K/mm3 (0.00-0.031); Immature Granulocyte Percent A 0.1 % (0-0.5); Lymphocytes Absolute Auto 2.38 K/mm3 (0.9-3.2); Lymphocytes Percent Auto 34.5 % (18.3-44.2); Mean Corpuscular HGB Conc 33.8 g/dl (32-36); Mean Corpuscular Hemoglobin 30.4 pg (26-34); Mean Platelet Volume 10.9 fl (7.4-10.4); Monocytes Absolute Auto 0.7 K/mm3 (0.1-0.6); Monocytes Percent Auto 9.4 % (2.6-8.5); Neutrophils Absolute Auto 3.7 K/mm3 (1.3-6.7); Neutrophils Percent Auto 53.6 % (45.5-73.1); Platelet Count Result 202 k/mm3 (150-375); Red Blood Count 4.08 M/mm3 (4.2-5.4); Red Cell Distribution Width 11.9 % (11.5-14.5); White Blood Count 6.9 K/mm3 (4.5-10.0)
[2020-09-29] MEDS: ACYCLOVIR SODIUM IVPB 800 MG in DEXTROSE 5% IN WATER 250 ML 200 MG IVPB (05:55)
[2020-09-29] MEDS: CENTRAL LINE FLUSH 10 ML IV PUSH ×2 (05:56→13:07)
[2020-09-29] MEDS: LEVOTHYROXINE SODIUM INJ 100 MCG/5 ML VIAL 62.5 MCG IV PUSH (05:56)
[2020-09-29 06:19] LABS: Glucose Point of Care 90 (65-105)
[2020-09-29 06:43] LABS: Anion Gap 5 mmol/L (8-16); CRP 0.6 mg/dL (<1.0); Calcium 8.7 mg/dL (8.4-10.2); Carbon Dioxide 34 mmol/L (22-30); Chloride 103 mmol/L (98-107); Estimated CRCL calculation 90 ml/min; Estimated Glomerular Filt Rate > 60; Glucose 57 mg/dL (65-105); Potassium 2.8 mmol/L (3.4-5.0); Sodium 142 mmol/L (137-145)
[2020-09-29 06:46] LABS: Blood Urea Nitrogen < 2 mg/dL (7-17)
[2020-09-29 07:58] LABS: Glucose Point of Care 124 (65-105)
[2020-09-29] MEDS: PANTOPRAZOLE SODIUM IV 40 MG VIAL IV PUSH (08:33)
[2020-09-29] MEDS: ENOXAPARIN 40 MG/0.4 ML SYRINGE SUB-Q (08:33)
[2020-09-29] MEDS: POTASSIUM CHLORIDE 20 MEQ PACKET (FOR LIQUID) 40 MEQ PO ×2 (09:21→17:38)
[2020-09-29] MEDS: lisinopriL 5 MG TABLET PO (09:47)
--- NOTE | 2020-09-29 11:31 | PC.NURSE ---
TRANSFERRED TO ROOM 303-1 AT 1125. REPORT GIVEN TO JAME FIGUEROA. ALL QUESTIONS ANSWERED. ALL BELONGINGS SENT.
--- NOTE | 2020-09-29 11:31 | PC.NURSE ---
patient arrived to room 303 from ICU. patient in chair at this time and family at bedside
[2020-09-29] MEDS: CITALOPRAM HYDROBROMIDE 10 MG TABLET PO (11:35)
[2020-09-29 12:23] LABS: Glucose Point of Care 281 (65-105)
[2020-09-29] MEDS: INSULIN ASPART (*BKC) 100 UNITS/ML SUB-Q ×2 (12:30→17:38)
[2020-09-29] MEDS: ACYCLOVIR SODIUM IVPB 800 MG in DEXTROSE 5% IN WATER 250 ML 266 MG IVPB (13:06)
--- NOTE | 2020-09-29 13:20 | WPDINFPN2 ---
Progress Note: A&P Assessment and Plan (1) Fever: Code(s): R50.9 - Fever, unspecified Status: Acute Assessment and Plan: 1. Fever with CSF pleocytosis. Aseptic meningitis is likely 2. DKA. Type 1 DM REC Ctx/Vanc/Amp for another 1 day while culture incubates further. Stop ACV Subjective Date/time seen: 09/29/20 13:20 Interval history: no nichols no rash Exam Narrative: Exam Narrative: t max 37.7 Const: General: no acute distress Eyes: General: appearance normal, both eyes and all related structures Neck: Neck: supple Resp: Auscultation: clear to auscultation bilaterally Cardio: Rate: regular rate Rhythm: regular rhythm Heart sounds: no gallops and no murmurs Skin: General skin exam: normal color and no rashes or lesions noted Objective Data Vital Signs Vital Signs: Vital Signs - 24 hr 09/28/20 14:00 09/28/20 16:00 09/28/20 17:06 Temperature 37.5 C 37.6 C 37.8 C H Pulse Rate 86 93 Respiratory Rate 19 16 Blood Pressure 158/90 H 153/70 H Pulse Oximetry 09/28/20 17:39 09/28/20 18:00 09/28/20 20:00 Temperature 37.7 C H 37.9 C H Pulse Rate 84 91 Respiratory Rate 16 17 Blood Pressure 133/65 144/80 H Pulse Oximetry 95 09/28/20 22:00 09/29/20 00:00 09/29/20 02:00 Temperature 37.9 C H 37.7 C H 37.4 C Pulse Rate 87 89 96 Respiratory Rate 13 15 19 Blood Pressure 151/74 H 152/83 H 152/92 H Pulse Oximetry 97 09/29/20 04:00 09/29/20 06:00 09/29/20 08:00 Temperature 37.3 C 37.1 C 37.4 C Pulse Rate 83 81 98 Respiratory Rate 16 16 12 Blood Pressure 128/78 165/82 H 165/82 H Pulse Oximetry 94 100 09/29/20 11:36 Temperature 37.6 C Pulse Rate 99 Respiratory Rate 16 Blood Pressure 141/85 H Pulse Oximetry 99 Intake/Output Intake/Output: Intake & Output 09/27/20 09/27/20 09/28/20 09/29/20 00:59 23:59 23:59 23:59 Intake Total 5225 2216 Output Total 1428 7465 Balance 9248 -4847 Meds/Results Medications: Active Medications Generic Name Dose Route Start Last Admin Trade Name Freq PRN Reason Stop Dose Admin Citalopram Hydrobromide 10 mg 09/29/20 10:10 09/29/20 11:35 Citalopram Hydrobromide 10 Mg Tablet PO 10 mg QAM CHAZ Administration Dextrose 12.5 gm 09/26/20 16:56 Dextrose 50% 25 Gm/50 Ml Syringe IV PUSH PRN PRN Hypoglycemia Protocol Enoxaparin Sodium 40 mg 09/29/20 09:00 09/29/20 08:33 Enoxaparin 40 Mg/0.4 Ml Syringe SUB-Q 40 mg DAILY CHAZ Administration Glucagon 1 mg 09/26/20 16:56 Glucagon For Inj 1 Mg Vial IM PRN PRN Hypoglycemia Protocol Glucose 15 gm 09/26/20 16:56 Glucose Oral Gel 15 Gm Of Glucse In 37.5 Gm Tube PO PRN PRN Hypoglycemia Protocol Dextrose 1,000 mls @ 100 mls/hr 09/26/20 16:56 Dextrose 5% 1,000 Ml IVPB PRN PRN Hypoglycemia Protocol Acyclovir Sodium 800 mg/ 266 mls @ 266 mls/hr 09/26/20 22:00 09/29/20 13:06 Dextrose IVPB 266 mls/hr Q8HR CHAZ Administration Ampicillin Sodium 2 gm in 100 mls @ 200 mls/hr 09/27/20 01:00 [employer] REPA[employer]ER 09/29/20 13:04 Ampicillin 2 Gm/Ns 100 Ml IVPB Infused Q4HR CHAZ Infusion Ceftriaxone Sodium 2 gm in 100 mls @ 200 mls/hr 09/27/20 01:00 [employer] REPAIRER 09/29/20 10:54 Rocephin 2 Gm/D5w 100 Ml IVPB Infused Q12HR CHAZ Infusion Vancomycin HCl 1,750 mg in 500 mls @ 250 mls/hr 09/28/20 14:00 09/29/20 13:07 Vancomycin 1,750 Mg/D5w 500 Ml IVPB 250 mls/hr Q12H CHAZ Administration Insulin Aspart 3 - 6 units 09/27/20 12:00 09/29/20 12:30 Insulin Aspart (*Bkc) 100 Units/Ml SUB-Q 4 units TIDWM CHAZ Administration Protocol Insulin Glargine 10 units 09/29/20 21:00 Insulin Glargine (*Bkc) 100 Units/Ml SUB-Q HS CHAZ Levothyroxine Sodium 62.5 mcg 09/27/20 06:30 09/29/20 05:56 Levothyroxine Sodium Inj 100 Mcg/5 Ml Vial IV PUSH 62.5 mcg DAILY@0630 [facility] Administration Lisinopril 5 mg 09/29/20 09:00 09/29/20 09:47 Lisinopril 5 Mg Tablet PO 5 mg
--- NOTE | 2020-09-29 14:58 | PM.IMPN ---
Progress Note: A&P Assessment and Plan (1) Acute encephalopathy: Code(s): G93.40 - Encephalopathy, unspecified Status: Acute Assessment and Plan: probable aseptic meningitis per ID. Antiviral DC today and wait 1 more day on cultures before discontinuing antibiotics mental status slowly improving but not at baseline yet (2) Diabetic ketoacidosis: Code(s): E11.10 - Type 2 diabetes mellitus with ketoacidosis without coma Status: Acute Assessment and Plan: resolved with normal CO2 and gap. Fasting blood sugar 57 so Lantus HS decreased disc 10 units (3) Sepsis: Code(s): A41.9 - Sepsis, unspecified organism Status: Acute Assessment and Plan: resolved. secondary to DKA and aseptic meningitis (4) Diabetes mellitus type 1: Code(s): E10.9 - Type 1 diabetes mellitus without complications Status: Acute Assessment and Plan: as above on Lantus and sliding scale (5) Hypothyroidism: Code(s): E03.9 - Hypothyroidism, unspecified Status: Acute Assessment and Plan: continue thyroid replacement (6) DVT prophylaxis: Code(s): Z29.9 - Encounter for prophylactic measures, unspecified Status: Acute Assessment and Plan: Lovenox Subjective Date/time seen: 09/29/20 14:58 Interval history: Date of service 09/29 59yo female with DM Type I here for AMS, n/v and fever. She was found to have DKA, sepsis and possible meningitis/encephalitis. Patietn more awake and alert. She has been weaned off Precedex. She denies CP or SOB. Regular ada diet today and feels better Exam Narrative: Exam Narrative: Tm 37.9 37.6 140/84 90 18 97% ra Gen - NARD Chest - clear CV - RRR S1/S2; Abd - Soft, NT/ND, +BS Ext - No pedal edema; 2+ DP and radial bilaterally Neuro - AOx3 (except location) Psych - unml mood and affect; pleasant and cooperative Skin - Warm and dry; red, slightly warm reddish patch left forearm that is well demarcated Objective Data Vital Signs Vital Signs: Vital Signs - 24 hr 09/28/20 16:00 09/28/20 17:06 09/28/20 17:39 Temperature 37.6 C 37.8 C H 37.7 C H Pulse Rate 93 Respiratory Rate 16 Blood Pressure 153/70 H Pulse Oximetry 09/28/20 18:00 09/28/20 20:00 09/28/20 22:00 Temperature 37.9 C H 37.9 C H Pulse Rate 84 91 87 Respiratory Rate 16 17 13 Blood Pressure 133/65 144/80 H 151/74 H Pulse Oximetry 95 09/29/20 00:00 09/29/20 02:00 09/29/20 04:00 Temperature 37.7 C H 37.4 C 37.3 C Pulse Rate 89 96 83 Respiratory Rate 15 19 16 Blood Pressure 152/83 H 152/92 H 128/78 Pulse Oximetry 97 94 09/29/20 06:00 09/29/20 08:00 09/29/20 11:36 Temperature 37.1 C 37.4 C 37.6 C Pulse Rate 81 98 99 Respiratory Rate 16 12 16 Blood Pressure 165/82 H 165/82 H 141/85 H Pulse Oximetry 100 99 09/29/20 14:00 Temperature 36.9 C Pulse Rate 96 Respiratory Rate 16 Blood Pressure 133/75 Pulse Oximetry 100 Intake/Output Intake/Output: Intake & Output 09/27/20 09/27/20 09/28/20 09/29/20 00:59 23:59 23:59 23:59 Intake Total 5248 2482 Output Total 2550 3450 Balance 2698 -951 Meds/Results Medications: Active Medications Generic Name Dose Route Start Last Admin Trade Name Freq PRN Reason Stop Dose Admin Citalopram Hydrobromide 10 mg 09/29/20 10:10 09/29/20 11:35 Citalopram Hydrobromide 10 Mg Tablet PO 10 mg QAM CHAZ Administration Dextrose 12.5 gm 09/26/20 16:56 Dextrose 50% 25 Gm/50 Ml Syringe IV PUSH PRN PRN Hypoglycemia Protocol Enoxaparin Sodium 40 mg 09/29/20 09:00 09/29/20 08:33 Enoxaparin 40 Mg/0.4 Ml Syringe SUB-Q 40 mg DAILY CHAZ Administration Glucagon 1 mg 09/26/20 16:56 Glucagon For Inj 1 Mg Vial IM PRN PRN Hypoglycemia Protocol Glucose 15 gm 09/26/20 16:56 Glucose Oral Gel 15 Gm Of Glucse In 37.5 Gm Tube PO PRN PRN Hypoglycemia Protocol Dextrose 1,000 mls @ 100
[2020-09-29 18:18] LABS: Glucose Point of Care 254 (65-105)
[2020-09-29] MEDS: INSULIN GLARGINE (*BKC) 100 UNITS/ML 10 UNITS SUB-Q (20:37)
[2020-09-29 22:55] LABS: Glucose Point of Care 189 (65-105)
[2020-09-30] MEDS: CENTRAL LINE FLUSH 10 ML IV PUSH ×4 (03:52→22:48)
[2020-09-30] MEDS: AMPICILLIN 2 GM/NS 100 ML 2 GM/100 ML BAG IVPB ×6 (03:54→21:23)
[2020-09-30 06:00] VITALS: BP 139/67; PULSE 75; RESP 18; TEMP 36.9; O2SAT 98
[2020-09-30 06:07] LABS: Basophils Percent Auto 0.7 % (0.2-1.2); Eosinophils Absolute Auto 0.1 K/mm3 (0-0.3); Eosinophils Percent Auto 3.1 % (0-4.4); Hematocrit 33.6 % (37.0-47.0); Hemoglobin 11.1 g/dL (12.0-15.0); Immature Granulocyte Absolute 0.01 K/mm3 (0.00-0.031); Immature Granulocyte Percent A 0.2 % (0-0.5); Lymphocytes Absolute Auto 1.45 K/mm3 (0.9-3.2); Lymphocytes Percent Auto 31.9 % (18.3-44.2); Mean Corpuscular Volume 93.9 fl (80-100); Mean Platelet Volume 10.9 fl (7.4-10.4); Monocytes Absolute Auto 0.5 K/mm3 (0.1-0.6); Monocytes Percent Auto 10.1 % (2.6-8.5); Neutrophils Absolute Auto 2.5 K/mm3 (1.3-6.7); Platelet Count Result 166 k/mm3 (150-375); Red Blood Count 3.58 M/mm3 (4.2-5.4); Red Cell Distribution Width 12.3 % (11.5-14.5); White Blood Count 4.6 K/mm3 (4.5-10.0)
[2020-09-30] MEDS: LEVOTHYROXINE SODIUM INJ 100 MCG/5 ML VIAL 62.5 MCG IV PUSH (06:53)
[2020-09-30 07:01] LABS: Albumin Level 3.5 g/dL (3.5-5.1); Anion Gap 7 mmol/L (8-16); Blood Urea Nitrogen 5 mg/dL (7-17); Calcium 8.9 mg/dL (8.4-10.2); Carbon Dioxide 29 mmol/L (22-30); Chloride 101 mmol/L (98-107); Estimated CRCL calculation 93 ml/min; Estimated Glomerular Filt Rate > 60; Glucose 339 mg/dL (65-105); Phosphorus 3.8 mg/dL (2.5-4.5); Potassium 4.2 mmol/L (3.4-5.0); Sodium 137 mmol/L (137-145)
[2020-09-30 08:07] LABS: Glucose Point of Care 338 (65-105)
[2020-09-30] MEDS: INSULIN ASPART (*BKC) 100 UNITS/ML SUB-Q ×6 (08:58→17:47)
[2020-09-30] MEDS: ENOXAPARIN 40 MG/0.4 ML SYRINGE SUB-Q (09:55)
[2020-09-30] MEDS: CITALOPRAM HYDROBROMIDE 10 MG TABLET PO (09:55)
[2020-09-30] MEDS: lisinopriL 5 MG TABLET PO (09:55)
[2020-09-30] MEDS: PANTOPRAZOLE SODIUM IV 40 MG VIAL IV PUSH (09:55)
[2020-09-30 12:11] LABS: Glucose Point of Care 246 (65-105)
[2020-09-30 14:00] VITALS: BP 130/75; PULSE 96; RESP 20; TEMP 36.8; O2SAT 99
--- NOTE | 2020-09-30 17:12 | PM.IMPN ---
Progress Note: A&P Assessment and Plan (1) Acute encephalopathy: Code(s): G93.40 - Encephalopathy, unspecified Status: Acute Assessment and Plan: probable aseptic meningitis per ID. Antiviral DC 09/29 and will discontinuing antibiotics 10/01 if cultures still negative mental status slowly improving, appears at baseline (2) Diabetic ketoacidosis: Code(s): E11.10 - Type 2 diabetes mellitus with ketoacidosis without coma Status: Acute Assessment and Plan: resolved with normal CO2 and gap. Fasting blood sugar 339 so increase lantus and schedule novolog with meals (3) Sepsis: Code(s): A41.9 - Sepsis, unspecified organism Status: Acute Assessment and Plan: resolved. secondary to DKA and aseptic meningitis (4) Diabetes mellitus type 1: Code(s): E10.9 - Type 1 diabetes mellitus without complications Status: Acute Assessment and Plan: as above on Lantus and sliding scale (5) Hypothyroidism: Code(s): E03.9 - Hypothyroidism, unspecified Status: Acute Assessment and Plan: continue thyroid replacement (6) DVT prophylaxis: Code(s): Z29.9 - Encounter for prophylactic measures, unspecified Status: Acute Assessment and Plan: Lovenox Subjective Date/time seen: 09/30/20 17:12 Interval history: Date of service 09/30 59yo female with DM Type I here for AMS, n/v and fever. She was found to have DKA, sepsis and possible meningitis/encephalitis. Patient more awake and alert. She denies CP or SOB. Regular ada diet started 09/29 and feels better Exam Narrative: Exam Narrative: T 36.8 and AF last 24 hours 130/74 94 18 99% ra Gen - NARD sitting in chair eating breakfast Chest - clear CV - RRR S1/S2; Abd - Soft, NT/ND, +BS Ext - No pedal edema; 2+ DP and radial bilaterally Neuro - AOx4) Psych - normal mood and affect; pleasant and cooperative Skin - Warm and dry; Objective Data Vital Signs Vital Signs: Vital Signs - 24 hr 09/29/20 22:00 09/30/20 06:00 09/30/20 14:00 Temperature 36.8 C 36.9 C 36.8 C Pulse Rate 88 75 96 Respiratory Rate 18 18 20 Blood Pressure 127/64 139/67 130/75 Pulse Oximetry 99 98 99 Intake/Output Intake/Output: Intake & Output 09/27/20 09/28/20 09/29/20 09/30/20 23:59 23:59 23:59 23:59 Intake Total 5248 4582 2230 Output Total 2550 4800 400 Balance 2698 -218 1830 Meds/Results Medications: Active Medications Generic Name Dose Route Start Last Admin Trade Name Freq PRN Reason Stop Dose Admin Citalopram Hydrobromide 10 mg 09/29/20 10:10 09/30/20 09:55 Citalopram Hydrobromide 10 Mg Tablet PO 10 mg QAM CHAZ Administration Dextrose 12.5 gm 09/26/20 16:56 Dextrose 50% 25 Gm/50 Ml Syringe IV PUSH PRN PRN Hypoglycemia Protocol Enoxaparin Sodium 40 mg 09/29/20 09:00 09/30/20 09:55 Enoxaparin 40 Mg/0.4 Ml Syringe SUB-Q 40 mg DAILY CHAZ Administration Glucagon 1 mg 09/26/20 16:56 Glucagon For Inj 1 Mg Vial IM PRN PRN Hypoglycemia Protocol Glucose 15 gm 09/26/20 16:56 Glucose Oral Gel 15 Gm Of Glucse In 37.5 Gm Tube PO PRN PRN Hypoglycemia Protocol Dextrose 1,000 mls @ 100 mls/hr 09/26/20 16:56 Dextrose 5% 1,000 Ml IVPB PRN PRN Hypoglycemia Protocol Ampicillin Sodium 2 gm in 100 mls @ 200 mls/hr 09/27/20 01:00 [employer] 09/30/20 16:59 Ampicillin 2 Gm/Ns 100 Ml IVPB 200 mls/hr Q4HR CHAZ Administration Ceftriaxone Sodium 2 gm in 100 mls @ 200 mls/hr 09/27/20 01:00 [employer] 09/30/20 09:35 Rocephin 2 Gm/D5w 100 Ml IVPB Infused Q12HR CHAZ Infusion Vancomycin HCl 1,750 mg in 500 mls @ 250 mls/hr 09/28/20 14:00 09/30/20 15:15 Vancomycin 1,750 Mg/D5w 500 Ml IVPB Infused Q12H CHAZ Infusion Insulin Aspart 3 - 6 units 09/27/20 12:00 09/30/20 12:26 Insulin Aspart (*Bkc) 100 Units/Ml SUB-Q 3 units TIDWM CHAZ Administration Protocol
[2020-09-30 17:17] LABS: Glucose Point of Care 218 (65-105)
[2020-09-30 18:05] LABS: Herpes Simplex Type 1 DNA PCR Not Detected (Not Detected); Herpes Simplex Type 2 DNA PCR Not Detected (Not Detected)
[2020-09-30 20:00] VITALS: PULSE 78; RESP 18; O2SAT 99
[2020-09-30] MEDS: INSULIN GLARGINE (*BKC) 100 UNITS/ML 12 UNITS SUB-Q (21:34)
[2020-09-30 21:58] LABS: Glucose Point of Care 239 (65-105)
[2020-09-30 22:00] VITALS: BP 129/51; PULSE 84; RESP 18; TEMP 37.2; O2SAT 96
[2020-09-30] MEDS: MELATONIN 3 MG TABLET PO (23:10)
[2020-10-01] MEDS: AMPICILLIN 2 GM/NS 100 ML 2 GM/100 ML BAG IVPB ×2 (01:55→04:26)
[2020-10-01] MEDS: LEVOTHYROXINE SODIUM INJ 100 MCG/5 ML VIAL 62.5 MCG IV PUSH (05:42)
[2020-10-01 06:00] VITALS: BP 131/68; PULSE 78; RESP 18; TEMP 36.7; O2SAT 99
[2020-10-01] MEDS: CENTRAL LINE FLUSH 10 ML IV PUSH (06:02)
[2020-10-01 06:23] LABS: Anion Gap 4 mmol/L (8-16); Blood Urea Nitrogen 3 mg/dL (7-17); Calcium 8.6 mg/dL (8.4-10.2); Carbon Dioxide 33 mmol/L (22-30); Chloride 103 mmol/L (98-107); Estimated CRCL calculation 79 ml/min; Estimated Glomerular Filt Rate > 60; Glucose 165 mg/dL (65-105); Potassium 3.4 mmol/L (3.4-5.0); Sodium 140 mmol/L (137-145)
[2020-10-01 07:02] LABS: Glucose Point of Care 148 (65-105)
[2020-10-01 08:00] VITALS: PULSE 78; RESP 18; O2SAT 99
[2020-10-01 08:02] LABS: Glucose Point of Care 120 (65-105)
[2020-10-01] MEDS: POTASSIUM CHLORIDE 20 MEQ TABLET 40 MEQ PO (08:58)
[2020-10-01] MEDS: ENOXAPARIN 40 MG/0.4 ML SYRINGE SUB-Q (08:59)
[2020-10-01] MEDS: lisinopriL 5 MG TABLET PO (09:00)
[2020-10-01] MEDS: PANTOPRAZOLE SODIUM IV 40 MG VIAL IV PUSH (09:00)
[2020-10-01] MEDS: CITALOPRAM HYDROBROMIDE 10 MG TABLET PO (09:00)
[2020-10-01] MEDS: INSULIN ASPART (*BKC) 100 UNITS/ML SUB-Q (09:16)
--- NOTE | 2020-10-01 16:15 | PM.DS ---
DS: Admitting Diagnosis Admitting Diagnosis Admitting Diagnosis: DKA, Altered mental status DS: Discharge Diagnosis Discharge Diagnosis (1) Acute encephalopathy: Code(s): G93.40 - Encephalopathy, unspecified Status: Acute Assessment and Plan: aseptic meningitis per ID. Antiviral DC 09/29 with HSV by PCR negative and discontined antibiotics 10/01 with cultures still negative mental status slowly improved appears at baseline (2) Diabetic ketoacidosis: Code(s): E11.10 - Type 2 diabetes mellitus with ketoacidosis without coma Status: Acute Assessment and Plan: resolved with normal CO2( 33 at discharge) and gap. fasting glucose 165 day of discharge and resume her home regime A1c was 9.1 (3) Sepsis: Code(s): A41.9 - Sepsis, unspecified organism Status: Acute Assessment and Plan: resolved. secondary to DKA and aseptic meningitis (4) Diabetes mellitus type 1: Code(s): E10.9 - Type 1 diabetes mellitus without complications Status: Acute Assessment and Plan: as above on Lantus and sliding scale and resume her usual insulin dosages at home and follow-up with primary care within the next 2 weeks (5) Hypothyroidism: Code(s): E03.9 - Hypothyroidism, unspecified Status: Acute Assessment and Plan: continue thyroid replacement DS: Summary Hospital Course Hospital Course: 59-year-old type 1 diabetic admitted with confusion and in diabetic ketoacidosis with fever. CT was negative and LP revealed elevated protein with normal glucose and white count with predominant lymphocytes.. Initially treated with antibiotics until cultures were negative x4 days and they were discontinued. Acyclovir was also instituted until HSV by PCR returned negative. seen by ID and felt she had had aseptic meningitis which resolved. mental status returned to normal and able to be discharged home 10/01 Time Spent with Patient Time attestation: Total time spent providing and/or coordinating discharge services: 35 minutes Exam Narrative: Exam Narrative: condition on discharge blood pressure 130/74 pulse is 82 saturating 97% on room air afebrile pupil equal reactive light sclera anicteric neck supple lungs clear CV regular rate rhythm abdomen soft nontender extremities without edema good distal pulses neuro alert oriented x4 ambulating in room, stable and able to be discharged home DS: Data Data Completed and Pending Labs on day of discharge: Labs from last 24 hours 10/01/20 10/01/20 10/01/20 07:57 06:59 05:56 Sodium 140 Potassium 3.4 Chloride 103 Carbon Dioxide 33 H Anion Gap 4 L BUN 3 L Creatinine 0.60 L Estim Creat Clear Calc 79 Estimated GFR > 60 Glucose 165 H POC Capillary Glucose 120 H 148 H Calcium 8.6 CSF Herpes I DNA (PCR) CSF Herpes II DNA (PCR) CSF West Nile RNA HSV (PCR) Source 09/30/20 09/30/20 09/27/20 21:21 17:09 13:40 Sodium Potassium Chloride Carbon Dioxide Anion Gap BUN Creatinine Estim Creat Clear Calc Estimated GFR Glucose POC Capillary Glucose 239 H 218 H Calcium CSF Herpes I DNA (PCR) Not detected CSF Herpes II DNA (PCR) Not detected CSF [place] RNA Not detected HSV (PCR) Source Csf Preliminary micro results at discharge 09/27/20 13:40 CSF Culture - Preliminary Cerebral Spinal Fluid 09/26/20 18:55 Blood Culture - Preliminary Blood 09/26/20 18:56 Blood Culture - Preliminary Blood Discharge Plan Discharge Attending physician on discharge: Haroldo Velazquez Consulting providers: Nusrat Alvarez ; Shayan Arshad ; Tyrell Lane ; Darren Marin Discharging Clinician: Haroldo Velazquez Patient Disposition: Home, Self-Care Activity: as tolerated Diet: diabetic Patient Instructions: Antibiotic Form, Strep Throat (GEN), Pain Management (DC), Diabeti
[2020-10-01 18:04] LABS: VDRL Quantitative CSF Nonreactive (Nonreactive)
== END 2020-10-01 10:05 | disposition home or self-care (01) | DRG 871 ==
LOC: ANHED 18:42 → ANHICU 21:11 → ANH3MEDSUR 09-29 13:52 → ANHICU 10-05 17:16
PROVIDERS: Emergency Medicine Emergency Medical Services; Internal Medicine; Physician Assistant; Admitting Provider Family Medicine; Emergency Provider Emergency Medicine; Visit Provider Internal Medicine
DX: A41.9 Sepsis, unspecified organism (principal); E10.10 Type 1 diabetes mellitus with ketoacidosis without coma; G03.0 Nonpyogenic meningitis; G93.40 Encephalopathy, unspecified; E03.9 Hypothyroidism, unspecified; E86.0 Dehydration; J02.0 Streptococcal pharyngitis; E83.42 Hypomagnesemia; Z20.828 Contact with and (suspected) exposure to other viral communicable diseases; Z87.891 Personal history of nicotine dependence
CPT/HCPCS: 36415; 36569; 36600; 51701; 62328; 70450; 70553; 71045; 74176; 80048; 80053; 80069; 80076; 80202; 80307; 81001; 82010; 82140; 82375; 82607; 82728; 82805; 82945; 83036; 83050; 83605; 83615; 83735; 84100; 84157; 84439; 84443; 84480; 84484; 85025; 85027; 85610; 85652; 85730; 86140; 86592; 86617; 87040; 87070; 87086; 87205; 87529; 87635; 87798; 87804; 87880; 89051; 92610; 93005; 96361; 96374; 96375; 96376; 97110; 97116; 97161; 97165; 99291; A9270; A9577; C1751; C9113; C9803; J0131; J0133; J0290; J0696; J1650; J1815; J2060; J2250; J2405; J3370; J3411; J3475; J3480; J7030; J7060; J7120; U0003

== ENCOUNTER 2020-11-21 13:31 | Inpatient (IN) | payer OTHER, SELFPAY ==
[2020-11-21] VITALS (8 sets, daily range): BP systolic 133–181; BP diastolic 61–96; PULSE 84–113; RESP 16–22; TEMP 36–36.7; O2SAT 96–100; BMI 20.1
--- NOTE | ~2020-11-21 | MR_ITS ---
EXAMINATION: MR brain/brain stem wo con EXAM DATE: 11/23/2020 14:59 INDICATION: Alteration of awareness. TECHNIQUE: Magnetic resonance imaging (MRI) of the brain/brain stem obtained without contrast. Guille al T1, axial diffusion, gradient echo (T2*), sequences obtained. Other sequences could not be obtaine d, there is patient motion. Comparison is made to prior examination from 09/28/2020. FINDINGS: Small acute infarction in the right occipital lobe. There is mild to moderate microangiopat hy. No obstructive hydrocephalus, extra-axial collections or brain mass suspected. IMPRESSION: Limited exam. Small acute right occipital lobe infarction. Reviewed, dictated and finalized at location B. TUBING DYER
--- NOTE | ~2020-11-21 | XR_ITS ---
EXAMINATION: XR chest 1V portable 11/22/2020 20:30 INDICATION: Transient alteration of awareness PROCEDURE: AP portable chest COMPARISON: 09/26/2020 FINDINGS: The lungs are clear. The cardiomediastinal silhouette is within normal limits. There are no pleural effusions. There is no pneumothorax suspected. IMPRESSION: 1: NO ACUTE CARDIOPULMONARY DISEASE. Reviewed, dictated and finalized at location A. ANALYST REPORT WRITER
--- NOTE | ~2020-11-21 | CT_ITS ---
EXAMINATION: CTA BRAIN/CAROTID DATE: 11/24/2020 09:35 INDICATION: Stroke TECHNIQUE: Computed tomographic angiography (CTA) of the head and neck was performed with 100 mL Omni paque-350 intravenous contrast. Multiplanar reconstructions and maximum intensity projection 3D-recon structions of the carotid arteries and of the intracranial arteries were created by the technologist on a separate workstation. Precontrast CT of the head was also obtained. Automated exposure control and iterative reconstruction technique were employed.The dose-length product was 1620.44 mGy-cm. COMPARISON: Brain MR dated 11/23/2020 FINDINGS: Carotid arteries: The bilateral internal carotid arteries are tortuous. There is 0% stenosis of the right carotid bulb relative to normal distal artery lumen diameter (NASCET criteria). There is 0% stenosis of the left c arotid bulb relative to normal distal artery lumen diameter. Mild mosaic attenuation at the bilateral upper lung zones likely related to expiratory phase of imaging with small regions of air trapping in the posterior medial left upper lobe. Cervical soft tissues are unremarkable. Mild cervical spondylo sis. Head: Small region of loss of yip-white matter differentiation the right occipital lobe corresponding to t he region of restricted diffusion on prior MRI consistent with acute infarct. No acute intracranial h emorrhage or abnormal extra axial fluid collection. Ventricles are normal and symmetric. No mass/mass effect. There is mild to moderate scattered white matter hypoattenuation consistent with chronic sma ll vessel ischemic disease. The orbits, paranasal sinuses and mastoid air cells are normal. Intracranial arteries Mild atherosclerotic calcification is at the bilateral carotid siphons. There is no hemodynamically s ignificant stenosis in the vertebral and internal carotid arteries. Vertebral arteries are codominant . There is moderate 50-70% stenosis along the basilar artery cephalad to the level of the takeoff of the bilateral anterior inferior cerebellar arteries. Additional mild stenosis in the more distal basi lar artery immediately proximal to the takeoff of the bilateral superior cerebellar arteries. The ben ateral P1 segments are patent but diminutive at the majority of vascular flow to the posterior cerebr al arteries appearing to arise from the bilateral internal carotid arteries via patent significantly larger caliber bilateral posterior communicating arteries. The bilateral A1 segments are patent. Ther e appears to be a tiny patent anterior communicate artery. There are no aneurysms identified. Cerebra l arterial arborization appears symmetric. IMPRESSION: 1. Small acute infarct in the right occipital lobe. 2. 0% stenosis of the left and right carotid bulbs relative to normal distal artery lumen diameter (N ASCET criteria). 3. 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 Reviewed, dictated and finalized at location A. TH EDITOR IMPRESSION: 1. Small acute infarct in the right occipital lobe. 2. 0% stenosis of the left and right carotid bulbs relative to normal distal ar salomón lumen diameter (NASCET criteria). 3. 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
--- NOTE | ~2020-11-21 | CT_ITS ---
EXAMINATION: CT abdomen pelvis w con EXAM DATE: 11/22/2020 00:12 INDICATION: Abdominal pain, intractable vomiting. Intractable vomiting. TECHNIQUE: Spiral CT of the abdomen and pelvis was performed following intravenous injection of 100 m L Omnipaque 350. Axial, coronal and sagittal images were reviewed. The dose-length product (DLP) fo r this examination was 551.40 mGy-cm. The exposure was tailored according to patient size (auto mA e xposure control), and iterative reconstruction (ASIR) was used as additional dose reduction technique . Comparison is made to prior examination from 11/26/2020. FINDINGS: The liver, spleen, adrenal glands and pancreas are unremarkable. Gallbladder is unremarkab le. No biliary obstruction. Portal and splenic veins are patent. Kidneys enhance symmetrically. T here is no hydronephrosis. The uterus is unremarkable. The bladder is unremarkable. There is no retroperitoneal or pelvic lymphadenopathy. Probable identification of a normal appendix. No pericecal inflammation. The stomach and small lennox l are unremarkable. There is expected amount of colonic stool. No free intraperitoneal gas. The heart is normal in size. There are no pericardial or pleural effusions. Several right lower lobe gr anulomas. There are no osteoblastic or osteolytic lesions identified. IMPRESSION: 1. No acute intra-abdominal findings. Reviewed, dictated and finalized at location A. MOVER
--- NOTE | ~2020-11-21 | CT_ITS ---
CORRECTED REPORT Order changed to CT brain wo/w 12/01/2020 [facility] [place]ATION: CT brain wo/w con EXAM DATE: 11/22/2020 00:11 INDICATION: Confusion . Intractable vomiting. TECHNIQUE: Spiral CT of the head was performed without contrast. Axial, coronal and sagittal images were reviewed. Patient was then injected with 100 cc Omnipaque 350 intravenous contrast and reimaged. Postcontrast axial, coronal, sagittal reformatted images reviewed. The dose-length product (DLP) for this examination was 1210 mGy-cm. The exposure was tailored according to patient size, and iterative reconstruction (ASIR) was used as additional dose reduction technique. There is no prior study for comparison. FINDINGS: There is no acute intraparenchymal hemorrhage. No evidence of intraparenchymal brain mass lesion. No evidence of acute infarction. Please note that initial head CT has limited sensitivity for small or acute infarctions. There is mild periventricular and subcortical hypodensity, nonspecific but probably related to small vessel ischemic disease. There is mild prominence of the sulci and ventricles related to cerebral atrophy. There is intracranial carotid arteriosclerosis. There are no extra-axial collections. There is no mass effect or midline shift. The orbits are unremarkable. Soft tissue is unremarkable. The visualized sinuses and mastoid air cells are well aerated. There are no areas of abnormal enhancement on the postcontrast images. IMPRESSION: 1. No acute intracranial findings. 2. Chronic age related findings. Reviewed, dictated and finalized at location A. KEN HANGER MTDD
--- NOTE | ~2020-11-21 | XR_ITS ---
EXAMINATION: XR lumbar puncture diagnostic DATE: 11/23/2020 17:24 INDICATION: Altered mental status TECHNIQUE: The procedure including the risks and benefits was discussed with the patient's . R isks discussed included spinal headache, cerebrospinal fluid leak, bleeding, and infection. The patie nt's understood the risks and agreed to proceed. A timeout was performed to verify the pat ient's name, date of , and procedure to be performed. The skin overlying the L4-L5 level was pr epped and draped in usual sterile fashion. Subcutaneous 1% lidocaine was used for local anesthesia. A 20 gauge spinal needle was advanced under fluoroscopic guidance. The needle was removed and the en try site was cleaned and dressed. There were no immediate complications. FINDINGS: Real-time fluoroscopy demonstrates the needle at the L4-L5 level. Opening pressure was 13 c m water. (Normal range is variably defined as 6-20 cm water and up to 25 cm water in obese patients. Pressure >25 cm water is one of the modified Dandy criteria for idiopathic intracranial hypertension) . 14 mL of clear pinkish tinged fluid was collected in 4 tubes. IMPRESSION: 1. Successful fluoro-guided lumbar puncture. Reviewed, dictated and finalized at location A. WEAR SALES LEADER
[2020-11-21 13:52] LABS: Glucose Point of Care 164 (65-105)
[2020-11-21 14:09] LABS: Basophils Absolute Auto 0.1 K/mm3 (0.0-0.1); Basophils Percent Auto 0.9 % (0.2-1.2); Eosinophils Absolute Auto 0.1 K/mm3 (0-0.3); Eosinophils Percent Auto 1.1 % (0-4.4); Hematocrit 43.7 % (37.0-47.0); Hemoglobin 14.9 g/dL (12.0-15.0); Immature Granulocyte Absolute 0.02 K/mm3 (0.00-0.031); Immature Granulocyte Percent A 0.3 % (0-0.5); Lymphocytes Absolute Auto 1.13 K/mm3 (0.9-3.2); Lymphocytes Percent Auto 16.1 % (18.3-44.2); Mean Corpuscular HGB Conc 34.1 g/dl (32-36); Mean Corpuscular Hemoglobin 30.9 pg (26-34); Mean Corpuscular Volume 90.7 fl (80-100); Mean Platelet Volume 10.3 fl (7.4-10.4); Monocytes Absolute Auto 0.5 K/mm3 (0.1-0.6); Monocytes Percent Auto 6.6 % (2.6-8.5); Neutrophils Absolute Auto 5.3 K/mm3 (1.3-6.7); Platelet Count Result 264 k/mm3 (150-375); Red Blood Count 4.82 M/mm3 (4.2-5.4); Red Cell Distribution Width 12.6 % (11.5-14.5)
[2020-11-21 14:22] LABS: Alanine Aminotransferase 15 U/L (4-35); Albumin Level 4.4 g/dL (3.5-5.1); Alkaline Phosphatase 107 U/L (38-126); Anion Gap 11 mmol/L (8-16); Aspartate Amino Transferase 22 U/L (14-36); Bilirubin,Total 0.4 mg/dL (0.2-1.3); Blood Urea Nitrogen 9 mg/dL (7-17); Calcium 9.7 mg/dL (8.4-10.2); Carbon Dioxide 27 mmol/L (22-30); Chloride 103 mmol/L (98-107); Estimated CRCL calculation 76 ml/min; Estimated Glomerular Filt Rate > 60; Glucose 156 mg/dL (65-105); Lipase 68 U/L (23-300); Potassium 3.9 mmol/L (3.4-5.0); Sodium 141 mmol/L (137-145)
--- NOTE | 2020-11-21 15:02 | PC.NURSE ---
PT AMBULATED TO BATHROOM WITH STEADY GAIT. UNABLE TO VOID AT THIS TIME. DISCUSSED IMPORTANCE OF UA. VERBALIZES UNDERSTANDING.
--- NOTE | 2020-11-21 15:04 | ED.NAVMDI ---
HPI - Nausea/Vomiting/Diarrhea General Chief complaint: Nausea/Vomiting/Diarrhea Stated complaint: vomiting Time Seen by Provider: 11/21/20 14:53 History of Present Illness HPI Narrative: 59 yo female w/ h/o DM type I presents to the ED for nausea and vomiting. Symptoms started suddenly a few hours ago. Not tolerating anything PO. Associated with generalized weakness. Reports good glucose control. Her reports that she had a very similar illness previously which was determined to be DKA. No abdominal pain, headache, fever, dysuria, hematuria, cough, congestion, SOB. Related Data Home Medications Medication Instructions Recorded Confirmed Lantus Solostar U-100 Insulin 15 unit SUBCUT HS 09/26/20 11/22/20 citalopram 10 mg PO DAILY 09/26/20 11/22/20 hydroxyzine HCl 50 mg PO HS 09/26/20 11/22/20 insulin lispro [Humalog KwikPen See Protocol SUBCUT ACINSULIN 09/26/20 11/22/20 Insulin] lisinopril 5 mg PO DAILY 09/26/20 11/22/20 levothyroxine [Synthroid] 175 mcg PO DAILY 11/21/20 11/22/20 Allergies Allergy/AdvReac Type Severity Reaction Status Date / Time No Known Allergies Allergy Verified 09/26/20 15:36 Review of Systems Review of Systems: All systems reviewed & are unremarkable except as noted in HPI and below Constitutional: Constitutional: Reports chills, Reports fatigue, Denies fever(s) and Reports weakness ENT: Denies sore throat Cardiovascular: Cardiovascular: Denies chest pain Respiratory: Respiratory: Denies dyspnea Gastrointestinal: Gastrointestinal: Denies abdominal pain, Reports nausea and Reports vomiting Genitourinary: Genitourinary: Denies hematuria and Denies dysuria Musculoskeletal: Musculoskeletal: Denies back pain Neurologic: Denies focal weakness, Denies numbness and Reports weakness PMFSH Past Medical History Medical History Aseptic meningitis (~08/2020) Diabetes mellitus type 1 Hypothyroidism Shingles Surgical History Surgical History History of hysteroscopy Family History Family History Mother Lung cancer Father Cerebrovascular accident Social History Social History Social History: The patient lives in [place] with her of 10 years, Bryce. She has no children. Former smoker, quit about 10 years ago. She used to drink alcohol in excess, but has not drank for several years. No illicit substance use. She is on disability. Smoking status: Former smoker Tobacco type: cigarettes Additional smoking assessment comments: pt says quit 5 years ago Alcohol intake: unknown Substance use: unknown Substance use type: does not use Gender identity (if verbalized by the patient): Female Spiritual care concerns: No Exam Const: General: no acute distress, alert and ill appearing acutely Orientation/consciousness: patient oriented x3 HENMT: Ears: external ears normal and TM's normal bilaterally Mouth: Yes dry mucous membranes Eyes: Pupils: Equal, round and reactive pupils present EOM: EOMs intact bilaterally Neck: Neck: normal visual inspection and no meningeal signs Resp: Effort & Inspection: normal respiratory effort Auscultation: clear to auscultation bilaterally Cardio: Rate: regular rate Rhythm: regular rhythm GI: Inspection: non-distended GI Palp: Yes Soft to palpation and No Tenderness to palpation present (GI) Skin: General skin exam: normal color Neuro: General: patient oriented x3, moves all extremities, no meningeal signs and CN's II-XI intact bilaterally Cranial nerves: Yes Nystagmus not present Speech: normal speech Gait exam (Neuro): Normal gait present Extrem: General: normal to inspection Course Course Emergency Course: She presented for nausea and vomiting. During her time in the ED she di
[2020-11-21] MEDS: SODIUM CHLORIDE 0.9% IV 1,000 ML 999 ML IV CONT ×2 (15:38→17:42)
[2020-11-21] MEDS: ONDANSETRON INJ 4 MG/2 ML VIAL IV PUSH ×2 (15:38→21:38)
[2020-11-21 16:37] LABS: Add Urine Microscopic? YES; Appearance Urine Clear (Clear); Bacteria Urine Trace /hpf; Bilirubin Urine Negative (Negative); Blood Urine Negative (Negative); Color Urine Straw (Yellow); Glucose Urine UA 3+ mg/dL (Negative); Ketones Urine 1+ mg/dL (Negative); Leukocyte Esterase Ur Negative LEU/UL (Negative); Mucus Urine Rare /lpf; Nitrate Urine Negative (Negative); Protein Urine Negative (Negative); RBC Urine 0-2 /hpf (0-2); Squamous Epithelial Cell Urine Occasional /hpf (Few); Urobilinogen Urine Negative mg/dL (<2.0); WBC Urine 0-3 /hpf
[2020-11-21 17:10] LABS: Glucose Point of Care 337 (65-105)
--- NOTE | 2020-11-21 21:00 | PM.IMHP ---
H&P: HPI History of Present Illness Date/Time: 11/21/20 21:00 Chief Complaint: Nausea, vomiting, and diarrhea. Narrative: Kendy Hook is a 59-year-old female with type 1 diabetes mellitus and hypothyroidism who presented to the emergency department earlier today with reports of nausea, vomiting, and diarrhea for the past 4 hours. While in the emergency department she began exhibiting bizarre behavior, for instance squatting in the middle of the bathroom instead of using the toilet and calling out for her and her mother. At the time my evaluation she is not able to provide me with much in the way of history except for reports of continued nausea and mild diffuse abdominal discomfort. She says no to pretty much every other question I asked of her. Interestingly I admitted the patient with similar presentation on 09/26/2020 however at that time she was extremely encephalopathic and febrile. She was empirically treated for meningitis however her cultures and studies came back negative and it was deemed that she likely had aseptic meningitis. She denies fever, chills, sweats, headache, vertigo, focal weakness, paresthesias, chest pain, shortness of breath, hematemesis, melena, and dysuria. No alcohol consumption for several years however she apparently drank heavily prior to that. She denies recent alcohol consumption and drug use. Review of Systems Review of Systems: Narrative: Twelve systems were reviewed with pertinent positives and negatives as per HPI. Except as documented, all other systems were reviewed and are negative. [facility] Past Medical History Medical History (Updated 11/21/20 @ 22:41 by Soniya Renteria PA-C) Aseptic meningitis (~08/2020) Diabetes mellitus type 1 Hypothyroidism Shingles Surgical History Surgical History (Updated 09/26/20 @ 21:20 by Soniya Renteria PA-C) History of hysteroscopy Family History Family History Mother Lung cancer Father Cerebrovascular accident Social History Social History Social History: The patient lives in [place] with her of 10 years, Bryce. She has no children. Former smoker, quit about 10 years ago. She used to drink alcohol in excess, but has not drank for several years. No illicit substance use. She is on disability. Smoking status: Former smoker Tobacco type: cigarettes Additional smoking assessment comments: pt says quit 5 years ago Alcohol intake: unknown Substance use: unknown Substance use type: does not use Gender identity (if verbalized by the patient): Female Spiritual care concerns: No Meds Home Medications and Allergies Home Medications Medication Instructions Recorded Confirmed Type Lantus Solostar U-100 Insulin See Protocol SUBCUT ACINSULIN 09/26/20 09/26/20 History citalopram 10 mg PO DAILY 09/26/20 09/26/20 History hydroxyzine HCl 50 mg PO HS 09/26/20 09/26/20 History insulin lispro [Humalog KwikPen See Protocol SUBCUT ACINSULIN 09/26/20 09/26/20 History Insulin] levothyroxine 125 mcg PO DAILY 09/26/20 09/26/20 History lisinopril 5 mg PO DAILY 09/26/20 09/26/20 History Allergies Allergy/AdvReac Type Severity Reaction Status Date / Time No Known Allergies Allergy Verified 09/26/20 15:36 Vital Signs Vital Signs - 24 hr 11/21/20 13:48 11/21/20 16:38 11/21/20 17:15 Temperature 96.8 F L Pulse Rate 84 93 94 Respiratory Rate 18 20 20 Blood Pressure 133/96 H 181/82 H 167/81 H Pulse Oximetry 100 98 99 11/21/20 18:30 11/21/20 19:57 11/21/20 20:00 Temperature Pulse Rate 99 93 113 H Respiratory Rate 22 H 20 Blood Pressure 158/87 H 178/92 H Pulse Oximetry 100 99 11/21/20 20:10 11/21/20 21:56 Temperature 98.1 F Pulse Rate 93 88 Respiratory Rate 20 16 Blood Pressure 178/92 H 165/61 H Pulse Oximetry 99 96 Exam Narrative: Exam Narrative: Gene
--- NOTE | 2020-11-21 21:33 | ADMGEN ---
This patient, Kendy Hook, was admitted to Medical Room 258-01 at 2020. Patient/family oriented to hospital policies and general routines including ID bracelet, bed and alarms, visiting hours, pain management, procedures, bathroom and other care routines, personal items, smoking policy, room service/diet, and visiting hours. Information on how to activate the Rapid Response Team has been discussed. Patient/Family are encouraged to report perceived risks to care and to ask questions if they do not understand what they are told or what they should do.
[2020-11-21] MEDS: LACTATED RINGERS 1,000 ML 125 ML IV CONT (21:37)
[2020-11-21] MEDS: METOCLOPRAMIDE HCL INJ 10 MG/2 ML VIAL IV PUSH (23:28)
[2020-11-21 23:38] LABS: Ammonia < 9 umol/L (9-30); Anion Gap 14 mmol/L (8-16); Blood Urea Nitrogen 8 mg/dL (7-17); Calcium 9.5 mg/dL (8.4-10.2); Carbon Dioxide 22 mmol/L (22-30); Chloride 104 mmol/L (98-107); Estimated CRCL calculation 74 ml/min; Estimated Glomerular Filt Rate > 60; Glucose 155 mg/dL (65-105); Magnesium 1.6 mg/dL (1.6-2.3); Potassium 3.6 mmol/L (3.4-5.0); Sodium 140 mmol/L (137-145)
[2020-11-21 23:41] LABS: Hemoglobin A1C 8.6 % (<5.7)
[2020-11-22] VITALS (12 sets, daily range): BP systolic 134–165; BP diastolic 50–82; PULSE 85–115; RESP 18–20; TEMP 37.6–38.3; O2SAT 97–99
[2020-11-22 00:50] LABS: Thyroid Stimulating Hormone Reflex 0.902 uIU/mL (0.465-4.68)
[2020-11-22 01:36] LABS: Amphetamine Screen Urine Negative (Negative); Barbiturate Screen Urine Negative (Negative); Benzodiazepines Screen Urine Negative (Negative); Cannabinoid Screen Urine Negative (Negative); Cocaine Screen Urine Negative (Negative); Methadone Screen Urine Negative (Negative); Opiate Screen Urine Negative (Negative); Phencyclidine Screen Urine Negative (Negative)
[2020-11-22] MEDS: ONDANSETRON INJ 4 MG/2 ML VIAL IV PUSH ×4 (02:31→16:03)
[2020-11-22 06:04] LABS: Hematocrit 41.8 % (37.0-47.0); Hemoglobin 14.2 g/dL (12.0-15.0); Mean Corpuscular Hemoglobin 31.1 pg (26-34); Mean Corpuscular Volume 91.7 fl (80-100); Mean Platelet Volume 10.8 fl (7.4-10.4); Platelet Count Result 251 k/mm3 (150-375); Red Blood Count 4.56 M/mm3 (4.2-5.4); Red Cell Distribution Width 12.7 % (11.5-14.5); White Blood Count 12.1 K/mm3 (4.5-10.0)
[2020-11-22 06:10] LABS: Glucose Point of Care 496 (65-105)
[2020-11-22 06:18] LABS: Cholesterol 288 mg/dL (0-200); HDL Direct 109 mg/dL; Triglycerides 139 mg/dL (<150)
[2020-11-22] MEDS: INSULIN ASPART (*BKC) 100 UNITS/ML 7 UNITS SUB-Q (06:20)
[2020-11-22] MEDS: INSULIN GLARGINE (*BKC) 100 UNITS/ML 15 UNITS SUB-Q ×2 (06:21→20:25)
[2020-11-22] MEDS: LACTATED RINGERS 1,000 ML 125 ML IV CONT (06:24)
[2020-11-22 06:29] LABS: LDL Cholesterol Direct 169 mg/dL
[2020-11-22 06:30] LABS: Anion Gap 21 mmol/L (8-16); Blood Urea Nitrogen 12 mg/dL (7-17); Calcium 9.7 mg/dL (8.4-10.2); Carbon Dioxide 15 mmol/L (22-30); Chloride 99 mmol/L (98-107); Estimated CRCL calculation 57 ml/min; Estimated Glomerular Filt Rate > 60; Glucose 523 mg/dL (65-105); Magnesium 1.7 mg/dL (1.6-2.3); Potassium 4.6 mmol/L (3.4-5.0); Sodium 135 mmol/L (137-145)
[2020-11-22 07:55] LABS: Glucose Point of Care 383 (65-105)
[2020-11-22 08:16] LABS: Beta-Hydroxybutyrate/Acetoacetate 4.15 mmol/L (0.02-0.27)
[2020-11-22] MEDS: CITALOPRAM HYDROBROMIDE 10 MG TABLET PO (09:03)
[2020-11-22] MEDS: lisinopriL 5 MG TABLET PO (09:03)
[2020-11-22] MEDS: INSULIN ASPART (*BKC) 100 UNITS/ML SUB-Q ×3 (09:07→12:03)
[2020-11-22 10:26] LABS: Anion Gap 18 mmol/L (8-16); Blood Urea Nitrogen 16 mg/dL (7-17); Calcium 10.2 mg/dL (8.4-10.2); Carbon Dioxide 16 mmol/L (22-30); Chloride 103 mmol/L (98-107); Estimated CRCL calculation 57 ml/min; Estimated Glomerular Filt Rate > 60; Glucose 304 mg/dL (65-105); Potassium 3.7 mmol/L (3.4-5.0); Sodium 137 mmol/L (137-145)
[2020-11-22 11:47] LABS: Glucose Point of Care 235 (65-105)
--- NOTE | 2020-11-22 13:06 | PM.IMPN ---
Progress Note: A&P Assessment and Plan (1) Encephalopathy: Code(s): G93.40 - Encephalopathy, unspecified Status: Acute Assessment and Plan: Etiology unclear but now with fevers. Previous hospitalization in August for similar symptoms with concern for aseptic meningitis. Brain CT showing no acute findings but with left sided weakness noted on exam. Seizures with Tray's paralysis? Infectious meningitis? Withdrawals? Other infectious process? LP today broad spectrum abx and anti-virals neuro consult consider MRI brain (2) Gastroenteritis: Code(s): K52.9 - Noninfective gastroenteritis and colitis, unspecified Status: Acute Assessment and Plan: No further diarrhea listed but having multiple episodes of dry heaves and emesis. 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 Follow. COnsider NG tube if persistent. (3) Dehydration: Code(s): E86.0 - Dehydration Status: Acute Assessment and Plan: Related to the n/v and diarrhea. Continue IV fluids. (4) Diabetes mellitus type 1: Code(s): E10.9 - Type 1 diabetes mellitus without complications Status: Acute Assessment and Plan: Glucose reasonable on admission but much higher this morning with AG 21. She did not receive her Lantus last night but got it this morning at 6AM. Treating her with IV fluids and insulin SQ. Repeat BMP showing AG 18. Continue close monitoring. AG has closed. Glucose now 206. Follow for now. (5) Hypothyroidism: Code(s): E03.9 - Hypothyroidism, unspecified Status: Acute Assessment and Plan: TSH normal. Contineu Synthroid when able to swallow (6) DVT prophylaxis: Code(s): Z29.9 - Encounter for prophylactic measures, unspecified Status: Acute Assessment and Plan: SCDs Additional Plan 45 minutes spent on critical care Subjective Date/time seen: 11/22/20 13:06 Interval history: Date of service 11/22 59yo female with DM Type I and hypothyroidism here for nausea, vomiting and diarrhea who has become encephalopathic. Pateint unable to provide history. She is awake and talking but confused. Spoke to . Patient lost her short term memory since last admission. No other issues and no other symptoms prior to the acute onset of the n/v/d. denies that patient drinking alcohol or using other drugs. Review of Systems Review of Systems: ROS unobtainable: Yes unobtainable due to mental status Exam Narrative: Exam Narrative: Tm 100.9 165/82 87 20 97% ra Gen - NARD but mildly agitated and obtunded with eyes open but unfocused HEENT - PERRL, mmm, no obvious oral lesions, OP not visualized. Neck - supple, negative Kernig and Brudzinski, 2+ pulses and no obvious carotid bruits Chest -right base inspiratory crackles otherwise clear. Normal respiratory rate. CV - RRR S1/S2, 2/6 systolic murmur loudest in right upper sternal border without radiation; telemetry showing PVCs. Abd - Soft, ND, +BS, mild diffuse tenderness but worse in the lower abdomen - Jaimes secured draining clear yellow urine Ext - No pedal edema Neuro - left sided neglect. Babinski equivacol. left UE>LE weakness. follows commands intermittently Psych - awake but not alert; obtunded and eyes unfocused. Skin - Warm and dry; no rash Objective Data Vital Signs Vital Signs: Vital Signs - 24 hr 11/21/20 13:48 11/21/20 16:38 11/21/20 17:15 Temperature 96.8 F L Pulse Rate 84 93 94 Respiratory Rate 18 20 20 Blood Pressure 133/96 H 181/82 H 167/81 H Pulse Oximetry 100 98 99 11/21/20 18:30 11/21/20 19:57 11/21/20 20:00 Temperature Pulse Rate 99 93 113 H Respiratory Rate 22 H 20 Blood Pressure 158/87 H 178/92 H Pulse Oximetry 100 99 11/21/20 20:10 11/21/20 21:56 11/22/20 01:46 Temperature 98.1 F Pulse Rate 93 88 109 H Respiratory Rate 20 16 Blood Pressure 178/92 H 165/61 H Pulse Oximetry 99 96 11/22/20
[2020-11-22] MEDS: ACYCLOVIR SODIUM IVPB 800 MG in DEXTROSE 5% IN WATER 250 ML 266 MG IVPB ×2 (14:37→21:51)
[2020-11-22 15:02] LABS: Anion Gap 12 mmol/L (8-16); Blood Urea Nitrogen 18 mg/dL (7-17); CRP 0.6 mg/dL (<1.0); Carbon Dioxide 21 mmol/L (22-30); Chloride 104 mmol/L (98-107); Estimated CRCL calculation 51 ml/min; Estimated Glomerular Filt Rate > 60; Glucose 206 mg/dL (65-105); Potassium 3.8 mmol/L (3.4-5.0); Sodium 137 mmol/L (137-145)
[2020-11-22 16:43] LABS: Glucose Point of Care > 500 (65-105)
[2020-11-22] MEDS: AMPICILLIN 2 GM/NS 100 ML 2 GM/100 ML BAG IVPB ×2 (17:11→20:20)
[2020-11-22] MEDS: INSULIN ASPART (*BKC) 100 UNITS/ML 8 UNITS SUB-Q (17:14)
[2020-11-22] MEDS: LACTATED RINGERS 1,000 ML 100 ML IV CONT (17:39)
[2020-11-22] MEDS: cefTRIAXone 2 GM in SODIUM CHLORIDE 0.9% IV 100 ML IVPB (21:09)
[2020-11-22 21:23] LABS: Glucose Point of Care 345 (65-105)
[2020-11-23] VITALS (10 sets, daily range): BP systolic 129–172; BP diastolic 58–92; PULSE 84–107; RESP 16–20; TEMP 36.8–37.7; O2SAT 93–100
[2020-11-23] MEDS: AMPICILLIN 2 GM/NS 100 ML 2 GM/100 ML BAG IVPB ×6 (00:30→20:41)
[2020-11-23] MEDS: LACTATED RINGERS 1,000 ML 100 ML IV CONT (05:16)
[2020-11-23] MEDS: ACYCLOVIR SODIUM IVPB 800 MG in DEXTROSE 5% IN WATER 250 ML 266 MG IVPB ×3 (06:01→21:58)
[2020-11-23 06:12] LABS: Basophils Percent Auto 0.1 % (0.2-1.2); Hematocrit 42.7 % (37.0-47.0); Immature Granulocyte Absolute 0.06 K/mm3 (0.00-0.031); Immature Granulocyte Percent A 0.4 % (0-0.5); Lymphocytes Absolute Auto 1.12 K/mm3 (0.9-3.2); Lymphocytes Percent Auto 7.5 % (18.3-44.2); Mean Corpuscular HGB Conc 32.8 g/dl (32-36); Mean Corpuscular Hemoglobin 30.5 pg (26-34); Mean Platelet Volume 10.6 fl (7.4-10.4); Monocytes Absolute Auto 1.2 K/mm3 (0.1-0.6); Monocytes Percent Auto 7.7 % (2.6-8.5); Neutrophils Absolute Auto 12.6 K/mm3 (1.3-6.7); Neutrophils Percent Auto 84.3 % (45.5-73.1); Platelet Count Result 247 k/mm3 (150-375); Red Blood Count 4.59 M/mm3 (4.2-5.4); White Blood Count 14.9 K/mm3 (4.5-10.0)
[2020-11-23 06:15] LABS: Alanine Aminotransferase 13 U/L (4-35); Albumin Level 4.3 g/dL (3.5-5.1); Alkaline Phosphatase 108 U/L (38-126); Anion Gap 14 mmol/L (8-16); Aspartate Amino Transferase 21 U/L (14-36); Bilirubin,Total 0.7 mg/dL (0.2-1.3); Blood Urea Nitrogen 16 mg/dL (7-17); CRP 0.7 mg/dL (<1.0); Carbon Dioxide 22 mmol/L (22-30); Chloride 103 mmol/L (98-107); Estimated CRCL calculation 64 ml/min; Estimated Glomerular Filt Rate > 60; Glucose 269 mg/dL (65-105); Phosphorus 3.5 mg/dL (2.5-4.5); Potassium 3.8 mmol/L (3.4-5.0); Sodium 139 mmol/L (137-145)
[2020-11-23] MEDS: INSULIN ASPART (*BKC) 100 UNITS/ML SUB-Q ×3 (07:46→17:33)
--- NOTE | 2020-11-23 08:00 | PM.IMPN ---
Progress Note: A&P Assessment and Plan (1) Encephalopathy: Code(s): G93.40 - Encephalopathy, unspecified Status: Acute Assessment and Plan: Etiology unclear but now with fevers. Previous hospitalization in August for similar symptoms with concern for aseptic meningitis. Brain CT showing no acute findings. Exam better but limited. Seizures with Tray's paralysis? Infectious meningitis? Withdrawals? Other infectious process? LP not done yesterday so to be done today continue broad spectrum abx and antivirals neuro consult order MRI brain Brain MRI with artifact but does show new small acute right occipital lobe infarction. SHe is more awake now. Opening pressure for LP was 13cm H2o; clear pinkish fluid. RBC 285, WBC 31 wiht 17% neutrphils, 68% lymph. Glucose 135 , Protein 89. Add aspirin rectal until she can swallow okay. No answer at 's phone. (2) Gastroenteritis: Code(s): K52.9 - Noninfective gastroenteritis and colitis, unspecified Status: Acute Assessment and Plan: No further diarrhea. Nausea with dry heaves improved. 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 Follow. (3) Dehydration: Code(s): E86.0 - Dehydration Status: Acute Assessment and Plan: Related to the n/v and diarrhea. Continue IV fluids. (4) Diabetes mellitus type 1: Code(s): E10.9 - Type 1 diabetes mellitus without complications Status: Acute Assessment and Plan: Glucose reasonable on admission but much higher the next day with DKA with AG 21. She did not receive her Lantus that night but it was restarted. Treated with IV fluids and insulin SQ. Repeat BMP this morning showing normal AG 14. Continue close monitoring. (5) Hypothyroidism: Code(s): E03.9 - Hypothyroidism, unspecified Status: Acute Assessment and Plan: TSH normal. Continue Synthroid when able to swallow (6) DVT prophylaxis: Code(s): Z29.9 - Encounter for prophylactic measures, unspecified Status: Acute Assessment and Plan: SCDs Subjective Date/time seen: 11/23/20 08:00 Interval history: Date of service 11/23 59yo female with DM Type I and hypothyroidism here for nausea, vomiting and diarrhea who has become encephalopathic. Patient agitated last night but was able to sleep. Patient this morning is somnolent and still unable to provide history. She did not receive any medication cause her to be somnolent. Review of Systems Review of Systems: ROS unobtainable: Yes unobtainable due to mental status Exam Narrative: Exam Narrative: Tm 101.0 99.8 155/83 107 18 100% ra Gen -no acute respiratory distress lying semi recumbent Neck - supple, negative Kernig and Brudzinski Chest -lungs clear anteriorly and in the flanks CV - RRR S1/S2; telemetry showing no significant dysrhythmias. Abd -soft. Positive bowel sounds. No apparent tenderness. - Jaimes secured draining clear yellow urine Ext - No pedal edema Neuro -moving all extremities equally today. Arouses but not alert. mumbles answers. Skin - Warm and dry; no rash Objective Data Vital Signs Vital Signs: Vital Signs - 24 hr 11/22/20 09:03 11/22/20 12:00 11/22/20 14:40 Temperature 99.7 F H Pulse Rate 87 91 Respiratory Rate 20 20 Blood Pressure 134/50 L Pulse Oximetry 97 99 11/22/20 16:00 11/22/20 20:00 11/22/20 20:16 Temperature 101.0 F H Pulse Rate 115 H 94 111 H Respiratory Rate 18 Blood Pressure 149/59 H Pulse Oximetry 98 11/23/20 00:00 11/23/20 04:00 11/23/20 05:33 Temperature 99.8 F H Pulse Rate 89 96 107 H Respiratory Rate 18 Blood Pressure 155/83 H Pulse Oximetry 100 Intake/Output Intake/Output: Intake & Output 11/20/20 11/21/20 11/22/20 11/23/20 23:59 23:59 23:59 23:59 Intake Total 1999 3182 1466 Output Total 4600 1050 Balance 1999 -1418 416 Meds/Results Medications: Active Medi
[2020-11-23 08:17] LABS: Glucose Point of Care 280 (65-105)
[2020-11-23] MEDS: cefTRIAXone 2 GM in SODIUM CHLORIDE 0.9% IV 100 ML IVPB ×2 (08:30→21:08)
--- NOTE | 2020-11-23 10:30 | PC.NURSE ---
Spoke with tech in MRI regarding MRI and LP orders for today. Which one to be performed first? Per MRI, the patient must first have MRI done and then LP. They are aware consent is signed.
[2020-11-23] MEDS: ONDANSETRON INJ 4 MG/2 ML VIAL IV PUSH ×2 (11:01→15:36)
[2020-11-23 12:11] LABS: Glucose Point of Care 236 (65-105)
--- NOTE | 2020-11-23 14:08 | PC.NURSE ---
Patient to MRI per stretcher.
--- NOTE | 2020-11-23 15:43 | PC.NURSE ---
Patient return from MRI. Dr. Johnson notified of MRI results by supercharge repair supervisor Nicole. Per Dr. Johnson, he would still like to obtain LP today. Blasting Entry Specialist attempted to draw PT/INR in order for patient to have LP done 2-3 times while down in radiology. However, patient refused blood draws multiple times. Pt thrashing around in bed in radiology, N/Tisha. Elizabeth notified of inability to obtain labs. Patient returned to room, Zofran administered. Will attempt to obtain PT/INR again if patient cooperates.
[2020-11-23 16:12] LABS: INR 0.9; Prothrombin Time 12.8 Seconds (11.1-14.7)
[2020-11-23 16:13] LABS: Partial Thromboplastin Time 23.7 SECONDS (22.3-36.8)
[2020-11-23] MEDS: LORazepam INJ (*CRX) 2 MG/ML VIAL 0.5 MG IV PUSH (16:29)
--- NOTE | 2020-11-23 16:30 | PC.NURSE ---
Patient to radiology for lumbar puncture per stretcher. Sitter with patient.
[2020-11-23] MEDS: VANCOMYCIN HCL 750 MG in SODIUM CHLORIDE 0.9% IV 250 ML 250 MG IVPB (17:25)
--- NOTE | 2020-11-23 17:27 | PC.NURSE ---
Patient returned from radiology. Bandaid to medial back, dry/intact.
[2020-11-23 17:32] LABS: Glucose Point of Care 249 (65-105)
[2020-11-23 17:53] LABS: Glucose CSF 135 mg/dL (40-70); Total Protein CSF 89 mg/dL (12-60)
[2020-11-23 18:19] LABS: Appearance CSF Clear (Clear); CSF source CSF; Color CSF Colorless (Colorless); Neutrophils CSF 17 % (0-6); Nucleated Cell CSF 31 /uL (0-5); Red Blood Cell CSF 285 (0-2)
[2020-11-23 18:20] LABS: Lymphocytes CSF 68 % (40-80); Macrophages CSF 1; Monocytes CSF 14 % (15-45)
[2020-11-23] MEDS: ASPIRIN 300 MG SUPPOSITORY RECTAL (20:41)
[2020-11-23] MEDS: INSULIN GLARGINE (*BKC) 100 UNITS/ML 15 UNITS SUB-Q (20:42)
[2020-11-23 21:20] LABS: Glucose Point of Care 246 (65-105)
[2020-11-24] VITALS (7 sets, daily range): BP systolic 123–136; BP diastolic 59–75; PULSE 66–98; RESP 14–18; TEMP 36.3–37.1; O2SAT 95–99
--- NOTE | 2020-11-24 | ECHO_ITS ---
Patient Info Name: Kendy Hook Age: 59 years : 1960 Gender: Female Ht: 64 in Wt: 117 lbs BSA: 1.55 m2 HR: 70 bpm BP: 150 / 88 mmHg Heart Rhythm: Sinus Rhythm Technical Quality: Good Exam Date: 11/24/2020 11:08 AM Exam Location: [facility] Patient Status: Inpatient Admit Date: 11/23/2020 Staff Ordering Physician: Triston Johnson MD Inspector Balance Truing: Narendra Garza RDCS, RT Attending Provider: Haven Wilson PA-C Exam Type: CA echo doppler color flow Study Info Complete two-dimensional, color flow and Doppler transthoracic echocardiogram is performed. Strain analysis performed. Summary 1. Complete two-dimensional, color flow and Doppler transthoracic echocardiogram is performed. 2. Strain analysis performed. 3. Left ventricular chamber dimension is normal. 4. Left ventricular systolic function is normal, estimated at 60-65%. 5. There is mildly increased left ventricular wall thickness. 6. Left ventricular septal wall motion is normal. 7. The left ventricular diastolic function is grade I diastolic dysfunction. 8. Global longitudinal strain is normal at -19 %. 9. Left atrial chamber dimension is mildly enlarged. 10. There is mild mitral valve regurgitation. 11. There is mild tricuspid valve regurgitation. 12. Mild pulmonary hypertension, estimated pulmonary arterial systolic pressure is 35 mmHg. Left Ventricle Left ventricular chamber dimension is normal. Left ventricular systolic function is normal, estimated at 60-65%. There is mildly increased left ventricular wall thickness. Left ventricular septal wall motion is normal. The left ventricular diastolic function is grade I diastolic dysfunction. Global longitudinal strain is normal at -19 %. Right Ventricle Right ventricular chamber dimension is normal. Right ventricular systolic function is normal. Left Atria Left atrial chamber dimension is mildly enlarged. Right Atria Right atrial chamber dimension is normal. Atrial Septum Intact interatrial septum visualized by color flow imaging. Aortic Valve The aortic valve is trileaflet. There is mild aortic valve sclerosis. There is no aortic valve stenosis. There is trace aortic valve regurgitation. Pulmonic Valve The pulmonic valve is normal. There is no pulmonic valve stenosis. There is trace pulmonic regurgitation. Mitral Valve The mitral valve has thickened leaflets. There is no mitral valve stenosis. There is mild mitral valve regurgitation. Tricuspid Valve The tricuspid valve leaflets are normal. There is no significant tricuspid valve stenosis. There is mild tricuspid valve regurgitation. Mild pulmonary hypertension, estimated pulmonary arterial systolic pressure is 35 mmHg. Pericardium/Pleural The pericardium appears normal. There is no pericardial effusion. Inferior Vena Cava Dilated inferior vena cava with <50% collapse upon inspiration consistent with elevated right atrial pressure, 15 mmHg. Aorta The aortic root size at the sinus of Valsalva is normal. Left Ventricular Outflow Tract Name Value Normal LVOT 2D LVOT Diameter 2.0 cm LVOT Doppler
[2020-11-24] MEDS: AMPICILLIN 2 GM/NS 100 ML 2 GM/100 ML BAG IVPB ×6 (00:13→20:44)
[2020-11-24] MEDS: LACTATED RINGERS 1,000 ML 100 ML IV CONT (00:15)
[2020-11-24] MEDS: ACYCLOVIR SODIUM IVPB 800 MG in DEXTROSE 5% IN WATER 250 ML 266 MG IVPB ×3 (05:30→22:22)
[2020-11-24 05:34] LABS: Basophils Percent Auto 0.4 % (0.2-1.2); Eosinophils Percent Auto 0.1 % (0-4.4); Hematocrit 41.7 % (37.0-47.0); Immature Granulocyte Absolute 0.03 K/mm3 (0.00-0.031); Immature Granulocyte Percent A 0.3 % (0-0.5); Lymphocytes Absolute Auto 2.12 K/mm3 (0.9-3.2); Lymphocytes Percent Auto 21.7 % (18.3-44.2); Mean Corpuscular HGB Conc 33.6 g/dl (32-36); Mean Corpuscular Hemoglobin 30.5 pg (26-34); Mean Corpuscular Volume 90.8 fl (80-100); Mean Platelet Volume 10.5 fl (7.4-10.4); Monocytes Percent Auto 9.8 % (2.6-8.5); Neutrophils Absolute Auto 6.6 K/mm3 (1.3-6.7); Neutrophils Percent Auto 67.7 % (45.5-73.1); Platelet Count Result 244 k/mm3 (150-375); Red Blood Count 4.59 M/mm3 (4.2-5.4); Red Cell Distribution Width 12.4 % (11.5-14.5); White Blood Count 9.8 K/mm3 (4.5-10.0)
[2020-11-24 05:53] LABS: Anion Gap 7 mmol/L (8-16); Blood Urea Nitrogen 16 mg/dL (7-17); Calcium 8.9 mg/dL (8.4-10.2); Carbon Dioxide 31 mmol/L (22-30); Chloride 102 mmol/L (98-107); Estimated CRCL calculation 64 ml/min; Estimated Glomerular Filt Rate > 60; Glucose 94 mg/dL (65-105); Sodium 140 mmol/L (137-145)
[2020-11-24] MEDS: cefTRIAXone 2 GM in SODIUM CHLORIDE 0.9% IV 100 ML IVPB ×2 (07:59→20:03)
[2020-11-24] MEDS: ASPIRIN 300 MG SUPPOSITORY RECTAL (07:59)
[2020-11-24 09:15] LABS: Glucose Point of Care 96 (65-105)
[2020-11-24 12:19] LABS: Glucose Point of Care 194 (65-105)
--- NOTE | 2020-11-24 15:04 | PM.IMPN ---
Progress Note: A&P Assessment and Plan (1) Encephalopathy: Code(s): G93.40 - Encephalopathy, unspecified Status: Acute Assessment and Plan: Etiology unclear Previous hospitalization in August for similar symptoms with concern for aseptic meningitis. Brain CT showing no acute findings but with left sided weakness initially that seems to have resolved. Seizures with Tray's paralysis? Infectious meningitis? Withdrawals? Other infectious process? CTA and MRI small acute R occipital infarc LP 11/23 normal glucose with elevated protein and more lymph on cell count similar to last admission broad spectrum abx and anti-virals (2) Gastroenteritis: Code(s): K52.9 - Noninfective gastroenteritis and colitis, unspecified Status: Acute Assessment and Plan: No further diarrhea listed and N/V subsided. 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 Follow. Advance diet. (3) Dehydration: Code(s): E86.0 - Dehydration Status: Acute Assessment and Plan: Related to the n/v and diarrhea. will d/c IV fluids later today. (4) Diabetes mellitus type 1: Code(s): E10.9 - Type 1 diabetes mellitus without complications Status: Acute Assessment and Plan: Glucose reasonable on admission and now FBS of 74 so restarted hs lantus Continue close monitoring. AG has closed. . . (5) Hypothyroidism: Code(s): E03.9 - Hypothyroidism, unspecified Status: Acute Assessment and Plan: TSH normal. Continue Synthroid (6) DVT prophylaxis: Code(s): Z29.9 - Encounter for prophylactic measures, unspecified Status: Acute Assessment and Plan: SCDs Subjective Date/time seen: 11/24/20 15:04 Interval history: Date of service 11/24 59yo female with DM Type I and hypothyroidism here for nausea, vomiting and diarrhea who has become encephalopathic. She is sitting in chair , alert and much more conversent. She did not receive any medication orally yet.. Exam Narrative: Exam Narrative: Tm AF past 24 hrs 124/60 66 18 99% ra Gen -sitting in chair and appears comfortable Neck - supple, Chest -lungs clear anteriorly and post CV - RRR S1/S2; telemetry showing no significant dysrhythmias. Abd -soft. Positive bowel sounds. No apparent tenderness. - Jaimes secured draining clear yellow urine Ext - No pedal edema Neuro -moving all extremities equally today.CN 2-12 intact with no focal weakness Skin - Warm and dry; no rash Objective Data Vital Signs Vital Signs: Vital Signs - 24 hr 11/23/20 16:00 11/23/20 16:50 11/23/20 17:17 Temperature Pulse Rate 105 H 102 H 99 Respiratory Rate 20 20 Blood Pressure 151/86 H 153/88 H Pulse Oximetry 93 99 11/23/20 20:00 11/24/20 00:00 11/24/20 04:00 Temperature 37.3 C Pulse Rate 84 98 73 Respiratory Rate 18 Blood Pressure 129/58 L Pulse Oximetry 97 11/24/20 05:34 11/24/20 08:00 11/24/20 12:00 Temperature 37.1 C Pulse Rate 82 80 85 Respiratory Rate 18 Blood Pressure 131/64 Pulse Oximetry 95 11/24/20 14:00 Temperature 36.3 C L Pulse Rate 66 Respiratory Rate 14 Blood Pressure 123/59 L Pulse Oximetry 99 Intake/Output Intake/Output: Intake & Output 11/21/20 11/22/20 11/23/20 11/24/20 23:59 23:59 23:59 23:59 Intake Total 1999 3182 3848 2116 Output Total 4600 1999 350 Balance 1999 -2305 9443 8220 Meds/Results Medications: Active Medications Generic Name Dose Route Start Last Admin Trade Name Freq PRN Reason Stop Dose Admin Aspirin 300 mg 11/23/20 18:40 11/24/20 07:59 Aspirin 300 Mg Suppository RECTAL 300 mg DAILY CHAZ Administration Citalopram Hydrobromide 10 mg 11/22/20 09:00 11/22/20 09:03 Citalopram Hydrobromide 10 Mg Tablet PO 10 mg DAILY CHAZ Administration Dextrose 12.5 gm 11/21/20 22:46 Dextrose 50% 25 Gm/50 Ml Syringe IV PUSH PRN PRN Hypoglycemia Protocol Glucago
[2020-11-24] MEDS: VANCOMYCIN HCL 750 MG in SODIUM CHLORIDE 0.9% IV 250 ML 250 MG IVPB (15:53)
[2020-11-24] MEDS: POTASSIUM CHLORIDE 20 MEQ TABLET 40 MEQ PO (16:44)
[2020-11-24] MEDS: INSULIN ASPART (*BKC) 100 UNITS/ML SUB-Q (16:51)
[2020-11-24 16:59] LABS: Glucose Point of Care 354 (65-105)
[2020-11-24 20:26] LABS: Glucose Point of Care 183 (65-105)
[2020-11-24] MEDS: INSULIN GLARGINE (*BKC) 100 UNITS/ML 15 UNITS SUB-Q (20:45)
[2020-11-24] MEDS: ENOXAPARIN 40 MG/0.4 ML SYRINGE SUB-Q (20:45)
[2020-11-25] VITALS (10 sets, daily range): BP systolic 121–139; BP diastolic 53–74; PULSE 65–80; RESP 18; TEMP 36.4–36.9; O2SAT 96–100
[2020-11-25] MEDS: AMPICILLIN 2 GM/NS 100 ML 2 GM/100 ML BAG IVPB ×6 (01:04→20:45)
[2020-11-25 04:12] LABS: Legionella pneumophila Ag Ur Not Detected (Not Detected)
[2020-11-25] MEDS: ACYCLOVIR SODIUM IVPB 800 MG in DEXTROSE 5% IN WATER 250 ML 266 MG IVPB ×3 (05:20→22:18)
[2020-11-25 05:38] LABS: Basophils Percent Auto 0.5 % (0.2-1.2); Eosinophils Percent Auto 0.5 % (0-4.4); Hematocrit 38.2 % (37.0-47.0); Immature Granulocyte Absolute 0.01 K/mm3 (0.00-0.031); Immature Granulocyte Percent A 0.2 % (0-0.5); Lymphocytes Absolute Auto 2.51 K/mm3 (0.9-3.2); Lymphocytes Percent Auto 40.7 % (18.3-44.2); Mean Corpuscular Hemoglobin 30.2 pg (26-34); Mean Corpuscular Volume 88.6 fl (80-100); Mean Platelet Volume 10.4 fl (7.4-10.4); Monocytes Absolute Auto 0.5 K/mm3 (0.1-0.6); Monocytes Percent Auto 8.4 % (2.6-8.5); Neutrophils Absolute Auto 3.1 K/mm3 (1.3-6.7); Neutrophils Percent Auto 49.7 % (45.5-73.1); Platelet Count Result 202 k/mm3 (150-375); Red Blood Count 4.31 M/mm3 (4.2-5.4); White Blood Count 6.2 K/mm3 (4.5-10.0)
[2020-11-25 05:53] LABS: Anion Gap 4 mmol/L (8-16); Blood Urea Nitrogen 12 mg/dL (7-17); Calcium 8.2 mg/dL (8.4-10.2); Carbon Dioxide 32 mmol/L (22-30); Chloride 99 mmol/L (98-107); Estimated CRCL calculation 64 ml/min; Estimated Glomerular Filt Rate > 60; Glucose 126 mg/dL (65-105); Potassium 3.3 mmol/L (3.4-5.0); Sodium 135 mmol/L (137-145)
[2020-11-25] MEDS: LEVOTHYROXINE SODIUM 100 MCG TABLET PO (06:03)
[2020-11-25] MEDS: LEVOTHYROXINE SODIUM 75 MCG TABLET PO (06:03)
[2020-11-25 06:42] LABS: Methyl Alcohol Level None Detected (None Detected)
[2020-11-25 07:46] LABS: Glucose Point of Care 146 (65-105)
[2020-11-25] MEDS: ASPIRIN 325 MG TABLET PO (08:08)
[2020-11-25] MEDS: cefTRIAXone 2 GM in SODIUM CHLORIDE 0.9% IV 100 ML IVPB ×2 (08:37→21:37)
[2020-11-25 11:39] LABS: Glucose Point of Care 289 (65-105)
[2020-11-25] MEDS: INSULIN ASPART (*BKC) 100 UNITS/ML SUB-Q ×2 (11:52→16:50)
[2020-11-25] MEDS: POTASSIUM CHLORIDE 20 MEQ TABLET 40 MEQ PO (11:53)
[2020-11-25 15:33] LABS: Vancomycin Trough < 5.0 ug/mL (10.0-20.0)
[2020-11-25] MEDS: VANCOMYCIN HCL 750 MG in SODIUM CHLORIDE 0.9% IV 250 ML 250 MG IVPB (15:43)
[2020-11-25] MEDS: ATORVASTATIN 20 MG TABLET PO (15:43)
[2020-11-25 16:16] LABS: Glucose Point of Care 337 (65-105)
--- NOTE | 2020-11-25 17:48 | PM.IMPN ---
Progress Note: A&P Assessment and Plan (1) Encephalopathy: Code(s): G93.40 - Encephalopathy, unspecified Status: Acute Assessment and Plan: Etiology unclear Previous hospitalization in August for similar symptoms with concern for aseptic meningitis. Brain CT showing no acute findings but with left sided weakness initially that seems to have resolved. CTA and MRI small acute R occipital infarc LP 11/23 normal glucose with elevated protein and more lymph on cell count similar to last admission broad spectrum abx and anti-virals pending csf cultures and serology (2) Gastroenteritis: Code(s): K52.9 - Noninfective gastroenteritis and colitis, unspecified Status: Acute Assessment and Plan: No further diarrhea listed and N/V subsided. 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 Follow. Advanced diet 11/24 and no further issues. (3) Dehydration: Code(s): E86.0 - Dehydration Status: Acute Assessment and Plan: Related to the n/v and diarrhea. d/c IV fluids pm 11/24. (4) Diabetes mellitus type 1: Code(s): E10.9 - Type 1 diabetes mellitus without complications Status: Acute Assessment and Plan: Glucose reasonable on admission and now FBS of 135 and restarted hs lantus 11/24 Continue close monitoring. AG has closed. . . (5) Hypothyroidism: Code(s): E03.9 - Hypothyroidism, unspecified Status: Acute Assessment and Plan: TSH normal. Continue Synthroid (6) DVT prophylaxis: Code(s): Z29.9 - Encounter for prophylactic measures, unspecified Status: Acute Assessment and Plan: start lovenox hs Subjective Date/time seen: 11/25/20 17:48 Interval history: Date of service 11/25 59yo female with DM Type I and hypothyroidism here for nausea, vomiting and diarrhea who had become encephalopathic. She is sitting in chair eating her lunch. Feeling much better Exam Narrative: Exam Narrative: Tm AF past 48 hrs 124/74 74 18 100% ra Gen -sitting in chair and appears comfortable Neck - supple, Chest -lungs clear anteriorly and post CV - RRR S1/S2; telemetry showing no significant dysrhythmias. Abd -soft. Positive bowel sounds. No apparent tenderness. - Jaimes secured draining clear yellow urine Ext - No pedal edema Neuro -moving all extremities equally .CN 2-12 intact with no focal weakness Skin - Warm and dry; no rash Objective Data Vital Signs Vital Signs: Vital Signs - 24 hr 11/24/20 20:58 11/25/20 00:00 11/25/20 04:04 Temperature 37.1 C Pulse Rate 79 80 65 Respiratory Rate 18 Blood Pressure 136/75 Pulse Oximetry 98 11/25/20 04:25 11/25/20 08:00 11/25/20 12:00 Temperature 36.9 C Pulse Rate 70 76 77 Respiratory Rate 18 Blood Pressure 121/72 Pulse Oximetry 98 11/25/20 12:12 11/25/20 13:49 11/25/20 16:00 Temperature 36.4 C Pulse Rate 74 74 Respiratory Rate 18 Blood Pressure 124/74 Pulse Oximetry 96 100 Intake/Output Intake/Output: Intake & Output 11/22/20 11/23/20 11/24/20 11/25/20 23:59 23:59 23:59 23:59 Intake Total 3182 3848 3838 2087 Output Total 4600 2000 1350 2050 Balance -1418 3358 1248 37 Meds/Results Medications: Active Medications Generic Name Dose Route Start Last Admin Trade Name Freq PRN Reason Stop Dose Admin Aspirin 325 mg 11/25/20 08:00 11/25/20 08:08 Aspirin 325 Mg Tablet PO 325 mg DAILY@0800 CHAZ Administration Atorvastatin Calcium 20 mg 11/25/20 12:20 11/25/20 15:43 Atorvastatin 20 Mg Tablet PO 20 mg DAILY CHAZ Administration Citalopram Hydrobromide 10 mg 11/22/20 09:00 11/22/20 09:03 Citalopram Hydrobromide 10 Mg Tablet PO 10 mg DAILY CHAZ Administration Dextrose 12.5 gm 11/21/20 22:46 Dextrose 50% 25 Gm/50 Ml Syringe IV PUSH PRN PRN Hypoglycemia Protocol Enoxaparin Sodium 40 mg 11/24/20 21:00 11/24/20 20:45 Enoxaparin 40 Mg/0.4 Ml
[2020-11-25] MEDS: INSULIN GLARGINE (*BKC) 100 UNITS/ML 15 UNITS SUB-Q (20:57)
[2020-11-25] MEDS: ENOXAPARIN 40 MG/0.4 ML SYRINGE SUB-Q (20:59)
[2020-11-25 21:55] LABS: Glucose Point of Care 288 (65-105)
[2020-11-26] VITALS (8 sets, daily range): BP systolic 126–137; BP diastolic 61–80; PULSE 66–79; RESP 16; TEMP 36.4–37.1; O2SAT 99–100
[2020-11-26] MEDS: AMPICILLIN 2 GM/NS 100 ML 2 GM/100 ML BAG IVPB ×6 (00:58→20:30)
[2020-11-26] MEDS: VANCOMYCIN HCL 750 MG in SODIUM CHLORIDE 0.9% IV 250 ML 250 MG IVPB ×2 (03:42→15:25)
[2020-11-26] MEDS: ACYCLOVIR SODIUM IVPB 800 MG in DEXTROSE 5% IN WATER 250 ML 266 MG IVPB ×2 (05:27→13:36)
[2020-11-26] MEDS: LEVOTHYROXINE SODIUM 100 MCG TABLET PO (05:30)
[2020-11-26] MEDS: LEVOTHYROXINE SODIUM 75 MCG TABLET PO (05:30)
[2020-11-26 06:09] LABS: Albumin Level 3.1 g/dL (3.5-5.1); Anion Gap 4 mmol/L (8-16); Blood Urea Nitrogen 6 mg/dL (7-17); Calcium 8.4 mg/dL (8.4-10.2); Carbon Dioxide 31 mmol/L (22-30); Chloride 99 mmol/L (98-107); Estimated CRCL calculation 74 ml/min; Estimated Glomerular Filt Rate > 60; Glucose 221 mg/dL (65-105); Potassium 3.4 mmol/L (3.4-5.0); Sodium 134 mmol/L (137-145)
[2020-11-26] MEDS: POTASSIUM CHLORIDE 20 MEQ TABLET 40 MEQ PO (08:11)
[2020-11-26] MEDS: ASPIRIN 325 MG TABLET PO (08:11)
[2020-11-26] MEDS: cefTRIAXone 2 GM in SODIUM CHLORIDE 0.9% IV 100 ML IVPB ×2 (08:12→19:53)
[2020-11-26 08:20] LABS: Glucose Point of Care 234 (65-105)
[2020-11-26] MEDS: INSULIN ASPART (*BKC) 100 UNITS/ML SUB-Q ×3 (08:20→17:06)
[2020-11-26] MEDS: ATORVASTATIN 20 MG TABLET PO (08:53)
[2020-11-26] MEDS: lisinopriL 5 MG TABLET PO (10:31)
[2020-11-26 11:52] LABS: Glucose Point of Care 315 (65-105)
--- NOTE | 2020-11-26 12:29 | WPDNEURCNPN ---
Assessment and Plan Assessment and plan (1) Diabetes mellitus type 1: Code(s): E10.9 - Type 1 diabetes mellitus without complications Status: Acute (2) Encephalopathy: Code(s): G93.40 - Encephalopathy, unspecified Status: Acute (3) Suspected 2019 novel coronavirus infection: Code(s): Z20.828 - Contact with and (suspected) exposure to other viral communicable diseases Status: Acute (4) Acute encephalopathy: Code(s): G93.40 - Encephalopathy, unspecified Status: Acute Additional Plan treatment is being continued as such Consult date: 11/26/20 Time Seen: 12:00 HPI: Kendy Hook is a 59 year old female admitted to the hospital for the complaints of nausea vomiting with diarrhea in addition to the ongoing history of diabetes mellitus type 1, hypothyroidism, bizarre behavior observation in emergency room, like with squatting in the middle of the bathroom instead of using the toilet and calling out for her and her mother patient had been admitted with a similar presentation on September 26, 2020 but at that time she was extremely encephalopathic and febrile and was empirically treated for meningitis but all the cultures and studies came back negative and she was left with the diagnosis of aseptic meningitis she does have ongoing history of hypothyroidism and shingles in the past. Former smoker . 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 Echocardiogram with 60 to 65% function and mild enlargement of the left atrial chamber mild mitral valve regurgitation MRI documenting only small right occipital infarct as noted on CTA, negative abdominal and pelvic CT scan at this stage patient is covered with ampicillin acyclovir IV piggyback q.8 hours and also ceftriaxone and vancomycin that is triple antibiotic Review of Systems Review of Systems: All systems reviewed & are unremarkable except as noted in HPI and below PMFSH Past Medical History Medical History Aseptic meningitis (~08/2020) Diabetes mellitus type 1 Hypothyroidism Shingles Surgical History Surgical History History of hysteroscopy Family History Family History Mother Lung cancer Father Cerebrovascular accident Social History Social History Social History: The patient lives in [place] with her of 10 years, Bryce. She has no children. Former smoker, quit about 10 years ago. She used to drink alcohol in excess, but has not drank for several years. No illicit substance use. She is on disability. Smoking status: Former smoker Tobacco type: cigarettes Additional smoking assessment comments: pt says quit 5 years ago Alcohol intake: unknown Substance use: unknown Substance use type: does not use Gender identity (if verbalized by the patient): Female Spiritual care concerns: No Meds Home Medications and Allergies Home Medications Medication Instructions Recorded Confirmed Type Lantus Solostar U-100 Insulin 15 unit SUBCUT HS 09/26/20 11/22/20 History citalopram 10 mg PO DAILY 09/26/20 11/22/20 History hydroxyzine HCl 50 mg PO HS 09/26/20 11/22/20 History insulin lispro [Humalog KwikPen See Protocol SUBCUT ACINSULIN 09/26/20 11/22/20 History Insulin] lisinopril 5 mg PO DAILY 09/26/20 11/22/20 History levothyroxine [Synthroid] 175 mcg PO DAILY 11/21/20 11/22/20 History Allergies Allergy
--- NOTE | 2020-11-26 15:30 | PM.IMPN ---
Progress Note: A&P Assessment and Plan (1) Encephalopathy: Code(s): G93.40 - Encephalopathy, unspecified Status: Acute Assessment and Plan: Etiology unclear Previous hospitalization in August for similar symptoms with concern for aseptic meningitis. Brain CT showing no acute findings but with left sided weakness initially that seems to have resolved. CTA and MRI small acute R occipital infarc LP 11/23 normal glucose with elevated protein and more lymph on cell count similar to last admission broad spectrum abx and anti-virals , csf cultures and serology still pending (2) Gastroenteritis: Code(s): K52.9 - Noninfective gastroenteritis and colitis, unspecified Status: Acute Assessment and Plan: No further diarrhea listed and N/V subsided. 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 Follow. Advanced diet 11/24 and no further issues. (3) Dehydration: Code(s): E86.0 - Dehydration Status: Acute Assessment and Plan: Related to the n/v and diarrhea. d/c IV fluids pm 11/24. (4) Diabetes mellitus type 1: Code(s): E10.9 - Type 1 diabetes mellitus without complications Status: Acute Assessment and Plan: Glucose reasonable on admission and now FBS of 221 and restarted hs lantus 11/24 and with eating better increased lantus to 20 Units this pm Continue close monitoring. . . (5) Hypothyroidism: Code(s): E03.9 - Hypothyroidism, unspecified Status: Acute Assessment and Plan: TSH normal. Continue Synthroid (6) DVT prophylaxis: Code(s): Z29.9 - Encounter for prophylactic measures, unspecified Status: Acute Assessment and Plan: lovenox hs (7) CVA (cerebral vascular accident): Code(s): I63.9 - Cerebral infarction, unspecified Status: Acute Assessment and Plan: seen on MRI and CTA, echo ok and carotids clean. ASA and statin with BS control Subjective Date/time seen: 11/26/20 15:30 Interval history: Date of service 11/26 59yo female with DM Type I and hypothyroidism here for nausea, vomiting and diarrhea who had become encephalopathic. She is. Feeling much better, up with PT Exam Narrative: Exam Narrative: Tm AF 136/60 68 18 99% ra Gen - comfortable, lying semierect in bed Neck - supple, Chest -lungs clear anteriorly and post CV - RRR S1/S2; Abd -soft. Positive bowel sounds. No apparent tenderness. Ext - No pedal edema Neuro -moving all extremities equally .CN 2-12 intact with no focal weakness Skin - Warm and dry; no rash Objective Data Vital Signs Vital Signs: Vital Signs - 24 hr 11/25/20 16:00 11/25/20 20:00 11/25/20 21:41 Temperature 36.4 C L Pulse Rate 74 76 65 Respiratory Rate 18 Blood Pressure 139/53 L Pulse Oximetry 100 11/26/20 00:00 11/26/20 04:00 11/26/20 06:00 Temperature 36.4 C Pulse Rate 75 72 66 Respiratory Rate 16 Blood Pressure 137/61 Pulse Oximetry 99 11/26/20 08:00 11/26/20 08:11 Temperature Pulse Rate 69 Respiratory Rate 16 Blood Pressure Pulse Oximetry 99 Intake/Output Intake/Output: Intake & Output 11/23/20 11/24/20 11/25/20 11/26/20 23:59 23:59 23:59 23:59 Intake Total 3848 3838 2187 2468 Output Total 1999 1350 2850 1200 Balance 1848 2488 -663 1268 Meds/Results Medications: Active Medications Generic Name Dose Route Start Last Admin Trade Name Freq PRN Reason Stop Dose Admin Aspirin 325 mg 11/25/20 08:00 11/26/20 08:11 Aspirin 325 Mg Tablet PO 325 mg DAILY@0800 CHAZ Administration Atorvastatin Calcium 20 mg 11/25/20 12:20 11/26/20 08:53 Atorvastatin 20 Mg Tablet PO 20 mg DAILY CHAZ Administration Citalopram Hydrobromide 10 mg 11/22/20 09:00 11/22/20 09:03 Citalopram Hydrobromide 10 Mg Tablet PO 10 mg DAILY CHAZ Administration Dextrose 12.5 gm 11/21/20 22:46 Dextrose 50% 25 Gm/50 Ml Syringe IV PUSH PRN PRN Hyp
[2020-11-26 16:51] LABS: Glucose Point of Care 334 (65-105)
[2020-11-26] MEDS: ENOXAPARIN 40 MG/0.4 ML SYRINGE SUB-Q (20:30)
[2020-11-26] MEDS: INSULIN GLARGINE (*BKC) 100 UNITS/ML 20 UNITS SUB-Q (20:35)
[2020-11-26 20:41] LABS: Glucose Point of Care 171 (65-105)
[2020-11-26] MEDS: ACYCLOVIR SODIUM IVPB 800 MG in DEXTROSE 5% IN WATER 250 ML 200 MG IVPB (21:18)
[2020-11-26 21:32] LABS: Glucose Point of Care 208 (65-105)
[2020-11-27] MEDS: AMPICILLIN 2 GM/NS 100 ML 2 GM/100 ML BAG IVPB ×3 (00:51→08:18)
[2020-11-27] MEDS: VANCOMYCIN HCL 750 MG in SODIUM CHLORIDE 0.9% IV 250 ML 200 MG IVPB (03:17)
[2020-11-27 03:42] LABS: Anion Gap 7 mmol/L (8-16); Blood Urea Nitrogen 5 mg/dL (7-17); Calcium 8.8 mg/dL (8.4-10.2); Carbon Dioxide 32 mmol/L (22-30); Chloride 101 mmol/L (98-107); Estimated CRCL calculation 74 ml/min; Estimated Glomerular Filt Rate > 60; Glucose 63 mg/dL (65-105); Sodium 140 mmol/L (137-145)
[2020-11-27 03:52] LABS: Vancomycin Trough 6.9 ug/mL (10.0-20.0)
[2020-11-27] MEDS: ACYCLOVIR SODIUM IVPB 800 MG in DEXTROSE 5% IN WATER 250 ML 200 MG IVPB (05:38)
[2020-11-27 05:39] VITALS: BP 145/60; PULSE 69; RESP 16; TEMP 36.5; O2SAT 92
[2020-11-27] MEDS: LEVOTHYROXINE SODIUM 75 MCG TABLET PO (05:41)
[2020-11-27] MEDS: LEVOTHYROXINE SODIUM 100 MCG TABLET PO (05:41)
[2020-11-27 08:22] LABS: Glucose Point of Care 155 (65-105)
[2020-11-27] MEDS: CITALOPRAM HYDROBROMIDE 10 MG TABLET PO (08:24)
[2020-11-27] MEDS: ATORVASTATIN 20 MG TABLET PO (08:24)
[2020-11-27] MEDS: POTASSIUM CHLORIDE 20 MEQ TABLET 40 MEQ PO (08:24)
[2020-11-27] MEDS: ASPIRIN 325 MG TABLET PO (08:24)
[2020-11-27] MEDS: lisinopriL 5 MG TABLET PO (08:25)
[2020-11-27] MEDS: cefTRIAXone 2 GM in SODIUM CHLORIDE 0.9% IV 100 ML IVPB (09:19)
[2020-11-27 09:29] LABS: Herpes Simplex Type 1 DNA PCR Not Detected (Not Detected); Herpes Simplex Type 2 DNA PCR Not Detected (Not Detected)
[2020-11-27 12:47] LABS: Glucose Point of Care 399 (65-105)
[2020-11-27] MEDS: POTASSIUM CHLORIDE 20 MEQ PACKET (FOR LIQUID) 40 MEQ PO (12:50)
[2020-11-27 12:51] LABS: Anion Gap 4 mmol/L (8-16); Blood Urea Nitrogen 5 mg/dL (7-17); Calcium 8.4 mg/dL (8.4-10.2); Carbon Dioxide 31 mmol/L (22-30); Chloride 98 mmol/L (98-107); Estimated CRCL calculation 74 ml/min; Estimated Glomerular Filt Rate > 60; Glucose 368 mg/dL (65-105); Potassium 4.4 mmol/L (3.4-5.0); Sodium 133 mmol/L (137-145)
--- NOTE | 2020-11-27 12:53 | PC.NURSE ---
glucose 399 Dr Velazquez aware, new orders recieved
[2020-11-27] MEDS: INSULIN ASPART (*BKC) 100 UNITS/ML 10 UNITS SUB-Q (13:27)
--- NOTE | 2020-11-27 16:29 | PM.DS ---
DS: Admitting Diagnosis Admitting Diagnosis Admitting Diagnosis: Nausea and vomiting with elevated blood sugar and altered mental status DS: Discharge Diagnosis Discharge Diagnosis (1) Encephalopathy: Code(s): G93.40 - Encephalopathy, unspecified Status: Acute Assessment and Plan: Previous hospitalization in August for similar symptoms with concern for aseptic meningitis. Brain CT showing no acute findings but with left sided weakness initially that seems to have resolved. CTA and MRI small acute R occipital infarc LP 11/23 normal glucose with elevated protein and more lymph on cell count similar to last admission broad spectrum abx and anti-virals given until time of discharge when bacterial culture was negative and PCR for HSV returned negative as did titers for West Nile. Again as in August appeared to be possible aseptic meningitis. Unusual to have recurred this quickly. She will follow-up with neurology. (2) Gastroenteritis: Code(s): K52.9 - Noninfective gastroenteritis and colitis, unspecified Status: Acute Assessment and Plan: No further diarrhea listed and N/V subsided. 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 Advanced diet 11/24 and no further issues. (3) Dehydration: Code(s): E86.0 - Dehydration Status: Acute Assessment and Plan: Related to the n/v and diarrhea. d/c IV fluids pm 11/24 with no further problems.. (4) Diabetes mellitus type 1: Code(s): E10.9 - Type 1 diabetes mellitus without complications Status: Acute Assessment and Plan: Glucose reasonable on admission and now FBS 73. restarted hs lantus 11/24 and with eating better increased lantus to 20 Units 11/26 pm. By time of discharge blood sugar was up after IV dextrose with her antibiotics. And she will continue this 20 units of Lantus HS at home. A1c here was 8.6 . . (5) Hypothyroidism: Code(s): E03.9 - Hypothyroidism, unspecified Status: Acute Assessment and Plan: TSH normal. Continue Synthroid (6) CVA (cerebral vascular accident): Code(s): I63.9 - Cerebral infarction, unspecified Status: Acute Assessment and Plan: seen on MRI and CTA, echo ok and carotids clean. ASA and statin with BS control. No significant residual and follow-up with primary as well as neurologist Activity as tolerated but would refrain from driving initially. DS: Summary Hospital Course Hospital Course: Date of visit and date of discharge 11/27/2020 59-year-old insulin-dependent diabetic presented with nausea vomiting dehydration and uncontrolled diabetes. Was given aggressive hydration with insulin and blood sugar fell appropriately. She continued to be slightly lethargic and lumbar puncture was performed after negative CT of the brain. CSF fluid revealed some white cells with predominantly lymphocytes, elevated protein at 89 and glucose 135. She is placed on broad-spectrum antibiotics for possible meningitis along with acyclovir until cultures returned negative and P CR for HSV returned negative. MR scan revealed a small right occipital lobe infarct which was also seen on CTA. No significant carotid lesions and normal echocardiogram. Aspirin and statin were added to her regime. She will follow up with primary care and Neurology Time Spent with Patient Time attestation: Total time spent providing and/or coordinating discharge services: 35 minutes Exam Narrative: Exam Narrative: Condition on discharge Blood pressure 144/60 pulse is 70 saturating 92% on room air afebrile Pupils equal reactive light sclera anicteric Lungs clear CV regular rate rhythm no murmurs Abdomen is soft nontender Extremities without edema distal pulses are 2+ Neuro alert oriented no focal deficits up and about ambulating with physical therapy, she was stable and able to be discharged home DS: Data Data Completed and Pending Completed studies during hospitalizatio
[2020-11-29 18:35] LABS: VDRL Quantitative CSF Nonreactive (Nonreactive)
[2020-11-29 18:57] LABS: Cryptococcus Antigen Not Detected (Not Detected); Cryptococcus Specimen Source CSF
[2020-11-30 23:08] LABS: Lactoferrin, Stool Negative (Negative)
[2020-12-04 00:28] LABS: Calprotectin, Stool 131 mcg/g
== END 2020-11-27 15:27 | disposition home or self-care (01) | DRG 97 ==
LOC: ANHED 14:53 → ANH2MED 19:59
PROVIDERS: Internal Medicine; Physician Assistant; Radiology Diagnostic Radiology; Student in an Organized Health Care Education/Training Program; Admitting Provider Internal Medicine; Emergency Provider Emergency Medicine; PCP Family Medicine; Visit Provider Internal Medicine
DX: G03.0 Nonpyogenic meningitis (principal); I63.9 Cerebral infarction, unspecified; G93.40 Encephalopathy, unspecified; K52.9 Noninfective gastroenteritis and colitis, unspecified; E86.0 Dehydration; E10.9 Type 1 diabetes mellitus without complications; E03.9 Hypothyroidism, unspecified; Z87.891 Personal history of nicotine dependence
CPT/HCPCS: 36415; 62328; 70460; 70470; 70496; 70498; 70551; 71045; 74177; 80048; 80053; 80061; 80069; 80202; 80307; 81001; 82010; 82140; 82945; 82948; 83036; 83605; 83630; 83690; 83735; 83993; 84100; 84157; 84443; 84600; 85025; 85027; 85610; 85730; 86140; 86403; 86592; 86617; 87015; 87040; 87045; 87046; 87070; 87102; 87116; 87206; 87255; 87427; 87449; 87529; 87798; 88108; 89051; 92610; 93306; 96361; 96365; 96366; 96367; 96374; 96375; 96376; 97110; 97116; 97161; 97165; 97530; 97535; 99285; A9270; G0378; J0131; J0133; J0290; J0696; J1650; J1815; J2060; J2405; J2765; J3370; J3480; J7030; J7050; J7060; J7120; Q9967

== ENCOUNTER 2020-12-10 19:09 | Observation (INO) | payer OTHER, SELFPAY ==
[2020-12-10 19:07] VITALS: BP 110/78; PULSE 90; RESP 16; TEMP 36.8; O2SAT 99
--- NOTE | 2020-12-10 19:18 | ED.NAVMDI ---
HPI - Nausea/Vomiting/Diarrhea General Chief complaint: Nausea/Vomiting/Diarrhea Stated complaint: n/v/d Time Seen by Provider: 12/10/20 19:13 History of Present Illness HPI Narrative: 59 yo female w/ h/o DM, aseptic meningitis x2 presents to the ED for nausea, vomiting, and weakness. She reports that she has been sick for a few weeks. I personally saw her on 11/21/2020 when she presented with nausea and vomiting. During her time in the ED she became increasingly confused. I admitted her to the hospital and she was ultimately determined to have aseptic meningitis. She was discharged from the hospital on 11/27/2020. She reports that she was never really feeling better. She tested positive for COVID-19 on on 12/01/2020. She feels weak and dehydrated. She denies fever, ORTEGA, Abdominal pain, cough, SOB. Related Data Home Medications Medication Instructions Recorded Confirmed citalopram 10 mg PO DAILY 09/26/20 11/22/20 hydroxyzine HCl 50 mg PO HS 09/26/20 11/22/20 insulin lispro [Humalog KwikPen See Protocol SUBCUT ACINSULIN 09/26/20 11/22/20 Insulin] lisinopril 5 mg PO DAILY 09/26/20 11/22/20 levothyroxine [Synthroid] 175 mcg PO DAILY 11/21/20 11/22/20 Allergies Allergy/AdvReac Type Severity Reaction Status Date / Time No Known Allergies Allergy Verified 12/10/20 19:11 Review of Systems Review of Systems: All systems reviewed & are unremarkable except as noted in HPI and below Constitutional: Constitutional: Denies fever(s) and Reports weakness Cardiovascular: Cardiovascular: Denies chest pain Respiratory: Respiratory: Denies dyspnea Gastrointestinal: Gastrointestinal: Denies abdominal pain, Reports diarrhea, Reports nausea and Reports vomiting Genitourinary: Genitourinary: Denies hematuria, Denies nocturia and Denies dysuria Neurologic: Denies confusion, Denies numbness and Reports weakness PMFSH Past Medical History Medical History Aseptic meningitis (~08/2020) Diabetes mellitus type 1 Hypothyroidism Shingles Surgical History Surgical History History of hysteroscopy Family History Family History Mother Lung cancer Father Cerebrovascular accident Social History Social History Social History: The patient lives in [place] with her of 10 years, Bryce. She has no children. Former smoker, quit about 10 years ago. She used to drink alcohol in excess, but has not drank for several years. No illicit substance use. She is on disability. Smoking status: Former smoker Tobacco type: cigarettes Additional smoking assessment comments: pt says quit 5 years ago Alcohol intake: unknown Substance use: unknown Substance use type: does not use Gender identity (if verbalized by the patient): Female Spiritual care concerns: No Exam Const: General: no acute distress, alert and ill appearing Orientation/consciousness: patient oriented x3 HENMT: Head: normal to inspection Eyes: Pupils: Equal, round and reactive pupils present EOM: EOMs intact bilaterally Resp: Effort & Inspection: normal respiratory effort Auscultation: clear to auscultation bilaterally Cardio: Rate: regular rate Rhythm: regular rhythm GI: Inspection: non-distended GI Palp: Yes Soft to palpation and No Tenderness to palpation present (GI) Skin: General skin exam: normal color Neuro: General: patient oriented x3, moves all extremities, no meningeal signs, no focal motor deficits and CN's II-XI intact bilaterally Speech: normal speech Extrem: General: normal to inspection Course Vital Signs Vital signs: Vital Signs Temperature 36.8 C 12/10/20 19:07 Pulse Rate 90 12/10/20 19:07 Respiratory Rate 16 12/10/20 19:07 Blood Pressure 110/78 12/10/20 19:07 Pulse Oximetry 99
[2020-12-10 19:26] LABS: Basophils Percent Auto 0.2 % (0.2-1.2); Hematocrit 46.4 % (37.0-47.0); Hemoglobin 16.2 g/dL (12.0-15.0); Immature Granulocyte Absolute 0.01 K/mm3 (0.00-0.031); Immature Granulocyte Percent A 0.2 % (0-0.5); Lymphocytes Absolute Auto 1.18 K/mm3 (0.9-3.2); Lymphocytes Percent Auto 19.2 % (18.3-44.2); Mean Corpuscular HGB Conc 34.9 g/dl (32-36); Mean Corpuscular Hemoglobin 30.7 pg (26-34); Mean Corpuscular Volume 87.9 fl (80-100); Mean Platelet Volume 9.8 fl (7.4-10.4); Monocytes Absolute Auto 0.5 K/mm3 (0.1-0.6); Neutrophils Absolute Auto 4.5 K/mm3 (1.3-6.7); Neutrophils Percent Auto 72.4 % (45.5-73.1); Platelet Count Result 307 k/mm3 (150-375); Red Blood Count 5.28 M/mm3 (4.2-5.4); Red Cell Distribution Width 13.3 % (11.5-14.5); White Blood Count 6.2 K/mm3 (4.5-10.0)
[2020-12-10] MEDS: ONDANSETRON INJ 4 MG/2 ML VIAL IV PUSH (19:27)
[2020-12-10] MEDS: SODIUM CHLORIDE 0.9% IV 1,000 ML 999 ML IV CONT ×2 (19:27→19:59)
[2020-12-10 19:36] LABS: Alanine Aminotransferase 19 U/L (4-35); Albumin Level 4.5 g/dL (3.5-5.1); Alkaline Phosphatase 129 U/L (38-126); Anion Gap 18 mmol/L (8-16); Aspartate Amino Transferase 27 U/L (14-36); Bilirubin,Total 0.4 mg/dL (0.2-1.3); Blood Urea Nitrogen 19 mg/dL (7-17); Calcium 9.6 mg/dL (8.4-10.2); Carbon Dioxide 20 mmol/L (22-30); Chloride 96 mmol/L (98-107); Estimated CRCL calculation 41 ml/min; Estimated Glomerular Filt Rate 57; Glucose 138 mg/dL (65-105); Lipase 48 U/L (23-300); Potassium 3.7 mmol/L (3.4-5.0); Sodium 134 mmol/L (137-145)
[2020-12-10 19:40] LABS: Lactic Acid Reflex 2.3 mmol/L (0.7-2.1)
[2020-12-10 19:45] LABS: Beta-Hydroxybutyrate/Acetoacetate 4.43 mmol/L (0.02-0.27)
[2020-12-10 20:26] VITALS: BP 126/88; PULSE 73; RESP 16; O2SAT 99
[2020-12-10 20:29] LABS: Add Urine Microscopic? YES; Appearance Urine Clear (Clear); Bacteria Urine Trace /hpf; Bilirubin Urine Negative (Negative); Blood Urine 1+ (Negative); Color Urine Yellow (Yellow); Glucose Urine UA 3+ mg/dL (Negative); Hyaline Casts Urine 30-49 /lpf; Ketones Urine 2+ mg/dL (Negative); Leukocyte Esterase Ur 2+ LEU/UL (Negative); Mucus Urine Rare /lpf; Nitrate Urine Negative (Negative); Protein Urine 2+ mg/dL (Negative); Specific Grav Ur 1.017 (1.001-1.035); Squamous Epithelial Cell Urine Many /hpf (Few); Urobilinogen Urine Negative mg/dL (<2.0); WBC Urine 16-20 /hpf
[2020-12-10 21:12] VITALS: BP 132/70; PULSE 75; RESP 16; O2SAT 97
[2020-12-10 22:27] LABS: Reflex Lactic Acid Yes or No Add Lactic
--- NOTE | 2020-12-10 22:30 | ADMGEN ---
This patient, Kendy Hook, was admitted to 3 [facility] Surg Room 317-01. Patient/family oriented to hospital policies and general routines including ID bracelet, bed and alarms, visiting hours, pain management, procedures, bathroom and other care routines, personal items, smoking policy, room service/diet, and visiting hours. Information on how to activate the Rapid Response Team has been discussed. Patient/Family are encouraged to report perceived risks to care and to ask questions if they do not understand what they are told or what they should do.
[2020-12-10 22:55] VITALS: BP 131/57; PULSE 66; RESP 16; TEMP 37.1; O2SAT 100; BMI 20.9
--- NOTE | 2020-12-10 22:56 | ECG_ITS ---
Measurements Intervals [place] Rate: 71 P: 43 ND: 126 QRS: 37 QRSD: 68 T: 7 QT: 390 QTc: 426 Interpretive Statements SINUS RHYTHM CANNOT RULE OUT SEPTAL INFARCT, AGE INDETERMINATE BORDERLINE T WAVE ABNORMALITY- ANTEROLAT/INF LEADS BASELINE WANDER- I, III ABNORMAL ECG Electronically Signed On 12-11-2020 6:57:13 BOX CUTTER by Ryan Lim D.O.
--- NOTE | 2020-12-10 23:03 | PM.IMHP ---
H&P: HPI History of Present Illness Date/Time: 12/10/20 23:03 Chief Complaint: Nausea and vomiting Narrative: This is a 59-year-old female with history of type 1 diabetes mellitus and hypothyroidism presented to the emergency department with a complaint of nausea, vomiting, and weakness for the past 2 weeks. she states that eating or drinking anything leads to nausea and vomiting. The patient was most recently admitted to the hospital at the end of October when she was diagnosed with aseptic meningitis. She states that since she was discharged home she really has never gotten better and she continues to have nausea and vomiting. The patient tested positive for COVID-19 approximately 5 days ago. She reports that she has had elevated blood sugars at home and has been using her insulin. She denies any headache, neck stiffness, fevers, chills, shortness of breath, chest pain, palpitations, dysuria, hematuria, diarrhea, rectal bleeding, or lower extremity swelling. The patient has had a sporadic nonproductive cough and does complain of mild diffuse abdominal tenderness which she attributes to her vomiting. She reports decreased urine output. The patient was evaluated emergency room this evening and found to have a metabolic acidosis with an elevated anion gap. The patient did not meet criteria for acute DKA. We are asked to admit the patient to the hospital for her acute dehydration and ongoing nausea and vomiting. Review of Systems Review of Systems: All systems reviewed & are unremarkable except as noted in HPI and below PMFSH Past Medical History Medical History Aseptic meningitis (~08/2020) Diabetes mellitus type 1 Hypothyroidism Shingles Surgical History Surgical History History of hysteroscopy Family History Family History Mother Lung cancer Father Cerebrovascular accident Social History Social History Social History: The patient lives in [place] with her of 10 years, Bryce. She has no children. Former smoker, quit about 10 years ago. She used to drink alcohol in excess, but has not drank for several years. No illicit substance use. She is on disability. Smoking packs per day: 1 Smoking cigarettes per day: 20.0 Years smoked: 10 Smoking pack-years: 10.00 Smoking status: Former smoker Tobacco type: cigarettes Additional smoking assessment comments: pt says quit 5 years ago Alcohol intake: former Drinks per week: 0 Substance use: never Substance use type: does not use Gender identity (if verbalized by the patient): Female Sexual Orientation (if Verbalized by the Patient): Straight or Heterosexual Spiritual care concerns: No Meds Home Medications and Allergies Home Medications Medication Instructions Recorded Confirmed Type citalopram 20 mg PO DAILY 09/26/20 12/10/20 History hydroxyzine HCl 50 mg PO HS 09/26/20 12/10/20 History insulin lispro [Humalog KwikPen See Protocol SUBCUT ACINSULIN 09/26/20 12/10/20 History Insulin] lisinopril 5 mg PO DAILY 09/26/20 12/10/20 History levothyroxine [Synthroid] 175 mcg PO DAILY 11/21/20 12/10/20 History Lantus Solostar U-100 Insulin 20 unit SUBCUT HS #0 ml 11/27/20 12/10/20 Rx aspirin 325 mg PO DAILY@0800 #30 tablet 11/27/20 12/10/20 Rx atorvastatin 20 mg PO DAILY #30 tablet 11/27/20 12/10/20 Rx Allergies Allergy/AdvReac Type Severity Reaction Status Date / Time No Known Allergies Allergy Verified 12/10/20 19:11 Vital Signs Vital Signs - 24 hr 12/10/20 19:07 12/10/20 20:26 12/10/20 21:12 Temperature 36.8 C Pulse Rate 90 73 75 Respiratory Rate 16 16 16 Blood Pressure 110/78 126/88 132/70 Pulse Oximetry 99 99 97 Exam Const: General: cooperative, healthy appearing, no acu
[2020-12-10 23:08] LABS: Glucose Point of Care 117 (65-105)
[2020-12-10 23:30] LABS: Magnesium 1.8 mg/dL (1.6-2.3)
[2020-12-10 23:31] VITALS: BMI 20.8
[2020-12-11] VITALS (7 sets, daily range): BP systolic 118–177; BP diastolic 66–78; PULSE 63–93; RESP 16–18; TEMP 36.4–36.9; O2SAT 94–100
[2020-12-11] MEDS: DEXTROSE 5%/0.9% SOD CHL 1,000 ML 150 ML IV CONT ×2 (00:14→10:30)
[2020-12-11] MEDS: ONDANSETRON INJ 4 MG/2 ML VIAL IV PUSH ×2 (00:17→04:05)
[2020-12-11] MEDS: PROMETHAZINE HCL 25 MG/ML AMPUL IM (00:18)
[2020-12-11] MEDS: LEVOTHYROXINE SODIUM INJ 100 MCG/5 ML VIAL 87.5 MCG IV PUSH (06:16)
[2020-12-11] MEDS: INSULIN ASPART (*BKC) 100 UNITS/ML SUB-Q ×2 (06:19→09:10)
[2020-12-11 06:28] LABS: Basophils Percent Auto 0.1 % (0.2-1.2); Hematocrit 40.7 % (37.0-47.0); Hemoglobin 13.6 g/dL (12.0-15.0); Immature Granulocyte Absolute 0.02 K/mm3 (0.00-0.031); Immature Granulocyte Percent A 0.3 % (0-0.5); Lymphocytes Percent Auto 13.4 % (18.3-44.2); Mean Corpuscular HGB Conc 33.4 g/dl (32-36); Mean Corpuscular Hemoglobin 29.7 pg (26-34); Mean Corpuscular Volume 88.9 fl (80-100); Mean Platelet Volume 10.3 fl (7.4-10.4); Monocytes Absolute Auto 0.4 K/mm3 (0.1-0.6); Monocytes Percent Auto 6.1 % (2.6-8.5); Neutrophils Absolute Auto 5.4 K/mm3 (1.3-6.7); Neutrophils Percent Auto 80.1 % (45.5-73.1); Platelet Count Result 264 k/mm3 (150-375); Red Blood Count 4.58 M/mm3 (4.2-5.4); Red Cell Distribution Width 13.1 % (11.5-14.5); White Blood Count 6.7 K/mm3 (4.5-10.0)
[2020-12-11 06:43] LABS: Glucose Point of Care 291 (65-105)
--- NOTE | 2020-12-11 06:53 | PC.NURSE ---
0400: PT HAVING NAUSEA AND EMESIS. VIOLENT HEAVES. BP HIGH AFTER EPISODE OF N/V.
[2020-12-11 07:10] LABS: Anion Gap 15 mmol/L (8-16); Blood Urea Nitrogen 12 mg/dL (7-17); Carbon Dioxide 13 mmol/L (22-30); Chloride 104 mmol/L (98-107); Estimated CRCL calculation 58 ml/min; Estimated Glomerular Filt Rate > 60; Glucose 295 mg/dL (65-105); Sodium 132 mmol/L (137-145)
[2020-12-11] MEDS: ENOXAPARIN 40 MG/0.4 ML SYRINGE SUB-Q (08:53)
[2020-12-11] MEDS: PANTOPRAZOLE SODIUM IV 40 MG VIAL IV PUSH (08:54)
[2020-12-11] MEDS: INSULIN GLARGINE (*BKC) 100 UNITS/ML 20 UNITS SUB-Q (09:10)
--- NOTE | 2020-12-11 09:25 | PCRCNOTE ---
PT REFUSED ABGS AT THID TIME , CHACORTA STEIN AWARE
[2020-12-11 10:59] LABS: Glucose Point of Care 178 (65-105)
[2020-12-11 12:25] LABS: Anion Gap 4 mmol/L (8-16); Blood Urea Nitrogen 10 mg/dL (7-17); Carbon Dioxide 23 mmol/L (22-30); Chloride 108 mmol/L (98-107); Estimated CRCL calculation 66 ml/min; Estimated Glomerular Filt Rate > 60; Glucose 129 mg/dL (65-105); Magnesium 1.7 mg/dL (1.6-2.3); Potassium 3.5 mmol/L (3.4-5.0); Sodium 135 mmol/L (137-145)
[2020-12-11 13:52] LABS: Glucose Point of Care 127 (65-105)
--- NOTE | 2020-12-11 14:15 | WPDGICN ---
Assessment and Plan Assessment and plan (1) Nausea and vomiting: Qualifiers: Vomiting type: unspecified Vomiting Intractability: non-intractable Qualified Code(s): R11.2 - Nausea with vomiting, unspecified Code(s): R11.2 - Nausea with vomiting, unspecified Status: Acute Assessment and Plan: she is feeling better, probably now triggered by COVID-10 infection, also hyperglycemia and recent meningitis ok to start diet as she is feeling better, no need to proceed with endoscopy supportive care, antiemetics prn (2) COVID-19: Code(s): U07.1 - COVID-19 Status: Acute Assessment and Plan: on isolation, by primary team (3) Lactic acidosis: Code(s): E87.2 - Acidosis Status: Acute Assessment and Plan: resolved now, iv fluids (4) Acute dehydration: Code(s): E86.0 - Dehydration Status: Acute (5) Gastroenteritis: Code(s): K52.9 - Noninfective gastroenteritis and colitis, unspecified Status: Acute (6) Diabetes mellitus type 1: Qualifiers: Diabetes mellitus complication status: with other specified complication Qualified Code(s): E10.69 - Type 1 diabetes mellitus with other specified complication Code(s): E10.9 - Type 1 diabetes mellitus without complications Status: Chronic Assessment and Plan: on insulin, no more acidosis GI Consult Note Consult date/time: 12/11/20 14:15 Reason for consult: nausea and vomiting HPI: Kendy Hook is a 59 year old female with history of type 1 diabetes mellitus, hypothyroidism and recent hospitalization late October with aseptic meningitis who came to the emergency department with nausea, vomiting, and weakness for the last several days, also was diagnosed with COVID-19 about 5 days ago after had fever, cough. She has been using her insulin at home but sugars have been 300's range, feeling dehydrated with decrease urine output. She had mild metabolic acidosis with an elevated anion gap. This morning denies any more nausea and she is hungry, feeling better. Review of Systems Constitutional: Constitutional: Reports weakness Eyes: Eyes: Reports no additional eye complaints ENT: Reports system reviewed and no additional complaints, except as documented Cardiovascular: Cardiovascular: Denies lightheadedness Respiratory: Respiratory: Reports cough Gastrointestinal: Gastrointestinal: Reports abdominal pain, Reports nausea and Reports vomiting Genitourinary: Genitourinary: Denies flank pain Musculoskeletal: Musculoskeletal: Denies neck pain Integumentary/Breasts: Skin/Breast: Denies dry skin Neurologic: Comments: recent hospitalization with aseptic meningitis [facility] Past Medical History Medical History Aseptic meningitis (~08/2020) Diabetes mellitus type 1 Hypothyroidism Shingles Surgical History Surgical History History of hysteroscopy Family History Family History Mother Lung cancer Father Cerebrovascular accident Social History Social History Social History: The patient lives in [place] with her of 10 years, Bryce. She has no children. Former smoker, quit about 10 years ago. She used to drink alcohol in excess, but has not drank for several years. No illicit substance use. She is on disability. Smoking packs per day: 1 Smoking cigarettes per day: 20.0 Years smoked: 10 Smoking pack-years: 10.00 Smoking status: Former smoker Tobacco type: cigarettes Additional smoking assessment comments: pt says quit 5 years ago Alcohol intake: former Drinks per week: 0 Substance use: never Substance use type: does not use Gender identity (if verbalized by the patient): Female Sexual Orientation (if Verbalized by the
--- NOTE | 2020-12-11 14:47 | PM.IMPN ---
Progress Note: A&P Assessment and Plan (1) Nausea and vomiting: Qualifiers: Vomiting Intractability: non-intractable Vomiting type: unspecified Qualified Code(s): R11.2 - Nausea with vomiting, unspecified Code(s): R11.2 - Nausea with vomiting, unspecified Status: Acute Assessment and Plan: May be secondary to metabolic acidosis or secondary to COVID. Clear liquids for now, monitor labs closely and advance diet gradually. (2) Acute dehydration: Code(s): E86.0 - Dehydration Status: Acute Assessment and Plan: Secondary to nausea and vomiting. Continue IV hydration, monitor vital signs and urine output closely. (3) Metabolic acidosis with increased anion gap and accumulation of organic acids: Code(s): E87.2 - Acidosis Status: Acute Assessment and Plan: On AM labs CO2 is 13 with anion gap of 15, blood glucose 295. Gave 20 units lantus plus 5 additional Novolog around 9AM. Repeat labs this afternoon CO2 is improved to 23, anion gap 4, glucose 129. Monitor glucose q4hr and continue D5NS for now. (4) COVID-19: Code(s): U07.1 - COVID-19 Status: Acute Assessment and Plan: Continue droplet isolation. COVID positive 12/01/20. She has no shortness of breath or hypoxia thus steroid or antiviral therapy are not indicated at this time. Continue supportive care. (5) Diabetes mellitus type 1: Qualifiers: Diabetes mellitus complication status: with other specified complication Qualified Code(s): E10.69 - Type 1 diabetes mellitus with other specified complication Code(s): E10.9 - Type 1 diabetes mellitus without complications Status: Chronic Assessment and Plan: Accuchecks, SSI Coverage, hypoglycemic protocol. Monitor blood sugars closely as mentioned above. Lantus was given this morning thus will hold off giving her evening dose, may consider changing lantus to AM for now but will reassess early AM. (6) Hypothyroidism: Qualifiers: Hypothyroidism type: unspecified Qualified Code(s): E03.9 - Hypothyroidism, unspecified Code(s): E03.9 - Hypothyroidism, unspecified Status: Chronic Assessment and Plan: Continue Levothryoxine IV. Subjective Date/time seen: 12/11/20 1230 Interval history: Ms. Hook is a 59yo F with type 1 diabetes admitted due to nausea, vomiting, dehydration. COVID positive 12/01/20. She denies abdominal pain and notes nausea and vomiting have resolved today. She denies chest pain, shortness of breath or cough. Notes she has noticed her taste and smell changing but they are still present. Review of Systems Review of Systems: All systems reviewed & are unremarkable except as noted in HPI and below Exam Narrative: Exam Narrative: General: Mildly ill appearing female resting supine in bed in no acute distress. HEENT: Normocephalic, EOMI, oral mucosa moist. Cardiovascular: Rate and rhythm are regular. Respiratory: Lungs clear to auscultation bilaterally. Respirations even and non-labored. Tolerating room air. Abdomen: Soft, non-distended, bowel sounds present. No point tenderness to palpation. Extremities: Peripheral pulses intact. No edema. Neuro: No focal neurological deficits. Speech is clear. Objective Data Vital Signs Vital Signs: Last Vital Signs Temp 98.5 F 12/11/20 12:00 Pulse 78 12/11/20 12:00 Resp 16 12/11/20 12:00 BP 118/69 12/11/20 12:00 Pulse Ox 94 12/11/20 12:00 Intake/Output Intake/Output: Intake & Output 12/08/20 12/09/20 12/10/20 12/11/20 23:59 23:59 23:59 23:59 Intake Total 1999 1000 Output Total 740 Balance 1999 260 Meds/Results Medications: Ac
[2020-12-11 21:27] LABS: Glucose Point of Care 89 (65-105)
[2020-12-12 00:40] LABS: Glucose Point of Care 124 (65-105)
[2020-12-12 00:51] LABS: Glucose Point of Care 71 (65-105)
[2020-12-12 01:00] VITALS: BP 129/68; PULSE 69; RESP 16; TEMP 36.9; O2SAT 97
[2020-12-12 01:26] LABS: Glucose Point of Care 90 (65-105)
[2020-12-12 03:45] LABS: Glucose Point of Care 90 (65-105)
[2020-12-12 04:00] VITALS: BP 127/62; PULSE 67; RESP 16; TEMP 36.9; O2SAT 94
[2020-12-12] MEDS: DEXTROSE 5%/0.9% SOD CHL 1,000 ML 150 ML IV CONT ×2 (06:23)
[2020-12-12] MEDS: LEVOTHYROXINE SODIUM INJ 100 MCG/5 ML VIAL 87.5 MCG IV PUSH (06:23)
[2020-12-12 07:10] LABS: Basophils Percent Auto 0.3 % (0.2-1.2); Eosinophils Percent Auto 0.8 % (0-4.4); Hematocrit 37.9 % (37.0-47.0); Immature Granulocyte Absolute 0.01 K/mm3 (0.00-0.031); Immature Granulocyte Percent A 0.3 % (0-0.5); Lymphocytes Absolute Auto 1.16 K/mm3 (0.9-3.2); Lymphocytes Percent Auto 30.6 % (18.3-44.2); Mean Corpuscular HGB Conc 34.3 g/dl (32-36); Mean Corpuscular Hemoglobin 30.1 pg (26-34); Mean Corpuscular Volume 87.7 fl (80-100); Mean Platelet Volume 10.1 fl (7.4-10.4); Monocytes Absolute Auto 0.4 K/mm3 (0.1-0.6); Monocytes Percent Auto 9.2 % (2.6-8.5); Neutrophils Absolute Auto 2.2 K/mm3 (1.3-6.7); Neutrophils Percent Auto 58.8 % (45.5-73.1); Platelet Count Result 193 k/mm3 (150-375); Red Blood Count 4.32 M/mm3 (4.2-5.4); Red Cell Distribution Width 13.2 % (11.5-14.5); White Blood Count 3.8 K/mm3 (4.5-10.0)
[2020-12-12 07:20] LABS: Alanine Aminotransferase 12 U/L (4-35); Albumin Level 2.6 g/dL (3.5-5.1); Alkaline Phosphatase 68 U/L (38-126); Anion Gap 0 mmol/L (8-16); Aspartate Amino Transferase 28 U/L (14-36); Bilirubin,Total 0.3 mg/dL (0.2-1.3); Blood Urea Nitrogen 5 mg/dL (7-17); Calcium 7.5 mg/dL (8.4-10.2); Carbon Dioxide 23 mmol/L (22-30); Chloride 112 mmol/L (98-107); Estimated CRCL calculation 76 ml/min; Estimated Glomerular Filt Rate > 60; Glucose 106 mg/dL (65-105); Magnesium 1.6 mg/dL (1.6-2.3); Potassium 2.9 mmol/L (3.4-5.0); Sodium 135 mmol/L (137-145)
[2020-12-12 08:00] VITALS: BP 133/70; PULSE 64; RESP 16; TEMP 36.5; O2SAT 94
[2020-12-12 08:25] LABS: Glucose Point of Care 130 (65-105)
[2020-12-12] MEDS: MAGNESIUM SULF 2 GM/WATER 50ML 2 GM/50 ML BAG IVPB (09:31)
[2020-12-12] MEDS: POTASSIUM CHLORIDE 20 MEQ TABLET 40 MEQ PO (09:31)
[2020-12-12] MEDS: PANTOPRAZOLE SODIUM IV 40 MG VIAL IV PUSH (09:37)
[2020-12-12] MEDS: ENOXAPARIN 40 MG/0.4 ML SYRINGE SUB-Q (09:37)
[2020-12-12 12:00] VITALS: BP 124/61; PULSE 73; RESP 16; TEMP 37.1; O2SAT 97
[2020-12-12] MEDS: INSULIN ASPART (*BKC) 100 UNITS/ML SUB-Q (12:41)
[2020-12-12 12:47] LABS: Glucose Point of Care 382 (65-105)
[2020-12-12] MEDS: SODIUM CHLORIDE 0.9% IV 1,000 ML 100 ML IV CONT (13:20)
[2020-12-12] MEDS: INSULIN GLARGINE (*BKC) 100 UNITS/ML 10 UNITS SUB-Q ×2 (14:03→21:06)
[2020-12-12 14:34] LABS: Glucose Point of Care 268 (65-105)
[2020-12-12 16:00] VITALS: BP 121/69; PULSE 79; RESP 16; TEMP 36.8; O2SAT 99
--- NOTE | 2020-12-12 16:14 | PM.IMPN ---
Progress Note: A&P Assessment and Plan (1) Nausea and vomiting: Qualifiers: Vomiting type: unspecified Vomiting Intractability: non-intractable Qualified Code(s): R11.2 - Nausea with vomiting, unspecified Code(s): R11.2 - Nausea with vomiting, unspecified Status: Acute Assessment and Plan: May be secondary to metabolic acidosis or secondary to COVID. Resolved today, advance diet as tolerated today and hopeful for possible discharge tomorrow. (2) Acute dehydration: Code(s): E86.0 - Dehydration Status: Acute Assessment and Plan: Secondary to nausea and vomiting. Continue IV hydration, monitor vital signs and urine output closely. (3) Metabolic acidosis with increased anion gap and accumulation of organic acids: Code(s): E87.2 - Acidosis Status: Acute Assessment and Plan: Resolved on AM labs. Continue to monitor blood sugar and BMP closely. (4) COVID-19: Code(s): U07.1 - COVID-19 Status: Acute Assessment and Plan: Continue droplet isolation. COVID positive 12/01/20. She has no shortness of breath or hypoxia thus steroid or antiviral therapy are not indicated at this time. Continue supportive care. (5) Diabetes mellitus type 1: Qualifiers: Diabetes mellitus complication status: with other specified complication Qualified Code(s): E10.69 - Type 1 diabetes mellitus with other specified complication Code(s): E10.9 - Type 1 diabetes mellitus without complications Status: Chronic Assessment and Plan: Accuchecks, SSI Coverage, hypoglycemic protocol. Monitor blood sugars closely as mentioned above. Blood sugars in 100s this AM then up to 382 this afternoon. Stop D5 in fluids, switch to NS - give half of Lantus dose now (10 units), then half Lantus dose at bedtime (10U). (6) Hypothyroidism: Qualifiers: Hypothyroidism type: unspecified Qualified Code(s): E03.9 - Hypothyroidism, unspecified Code(s): E03.9 - Hypothyroidism, unspecified Status: Chronic Assessment and Plan: Continue Levothryoxine IV. Subjective Date/time seen: 12/12/20 1230 Interval history: Ms. Hook is a 59yo F with type 1 diabetes admitted due to nausea, vomiting, dehydration. COVID positive 12/01/20. Today she denies abdominal pain, nausea or vomiting. She is hungry and wanting more food to eat, otherwise offers no complaints. She denies chest pain, shortness of breath, or cough. Review of Systems Review of Systems: All systems reviewed & are unremarkable except as noted in HPI and below Exam Narrative: Exam Narrative: General: Female resting sitting up in bed in no acute distress. HEENT: Normocephalic, EOMI, oral mucosa moist. Cardiovascular: Rate and rhythm are regular. Respiratory: Lungs clear to auscultation bilaterally. Respirations even and non-labored. Tolerating room air. Abdomen: Soft, non-distended, bowel sounds present. No point tenderness to palpation. Extremities: Peripheral pulses intact. No edema. Neuro: No focal neurological deficits. Speech is clear. Objective Data Vital Signs Vital Signs: Last Vital Signs Temp 98.2 F 12/12/20 16:00 Pulse 79 12/12/20 16:00 Resp 16 12/12/20 16:00 BP 121/69 12/12/20 16:00 Pulse Ox 99 12/12/20 16:00 Intake/Output Intake/Output: Intake & Output 12/09/20 12/10/20 12/11/20 12/12/20 23:59 23:59 23:59 23:59 Intake Total 1999 8570 8920 Output Total 1340 250 Balance 1999 1440 1940 Meds/Results Medications: Active Medications Generic Name Dose Route Start Last Admin Trade Name Freq PRN Reason Stop Dose Admin Dextrose 12.5 gm 12/10/20 23:10 Dextrose 50%
[2020-12-12 16:39] LABS: Anion Gap 7 mmol/L (8-16); Blood Urea Nitrogen 3 mg/dL (7-17); Calcium 7.4 mg/dL (8.4-10.2); Carbon Dioxide 17 mmol/L (22-30); Chloride 109 mmol/L (98-107); Estimated CRCL calculation 76 ml/min; Estimated Glomerular Filt Rate > 60; Glucose 201 mg/dL (65-105); Magnesium 2.2 mg/dL (1.6-2.3); Potassium 4.2 mmol/L (3.4-5.0); Sodium 133 mmol/L (137-145)
[2020-12-12 18:27] LABS: Glucose Point of Care 192 (65-105)
[2020-12-12 20:00] VITALS: BP 120/68; PULSE 74; RESP 18; TEMP 36.8; O2SAT 95
[2020-12-12 21:21] LABS: Glucose Point of Care 188 (65-105)
[2020-12-13] VITALS: BP 142/81; PULSE 75; RESP 18; TEMP 36.7; O2SAT 97
[2020-12-13 04:00] VITALS: BP 133/75; PULSE 69; RESP 16; TEMP 36.3; O2SAT 92
[2020-12-13 06:02] LABS: Glucose Point of Care 46 (65-105)
[2020-12-13] MEDS: LEVOTHYROXINE SODIUM INJ 100 MCG/5 ML VIAL 87.5 MCG IV PUSH (06:32)
[2020-12-13 06:42] LABS: Glucose Point of Care 65 (65-105)
[2020-12-13 06:56] LABS: Basophils Percent Auto 0.5 % (0.2-1.2); Eosinophils Absolute Auto 0.1 K/mm3 (0-0.3); Eosinophils Percent Auto 2.4 % (0-4.4); Hematocrit 37.7 % (37.0-47.0); Hemoglobin 12.7 g/dL (12.0-15.0); Immature Granulocyte Absolute 0.01 K/mm3 (0.00-0.031); Immature Granulocyte Percent A 0.2 % (0-0.5); Lymphocytes Absolute Auto 1.11 K/mm3 (0.9-3.2); Lymphocytes Percent Auto 26.7 % (18.3-44.2); Mean Corpuscular HGB Conc 33.7 g/dl (32-36); Mean Corpuscular Hemoglobin 30.2 pg (26-34); Mean Corpuscular Volume 89.5 fl (80-100); Mean Platelet Volume 10.2 fl (7.4-10.4); Monocytes Absolute Auto 0.4 K/mm3 (0.1-0.6); Monocytes Percent Auto 8.4 % (2.6-8.5); Neutrophils Absolute Auto 2.6 K/mm3 (1.3-6.7); Neutrophils Percent Auto 61.8 % (45.5-73.1); Platelet Count Result 188 k/mm3 (150-375); Red Blood Count 4.21 M/mm3 (4.2-5.4); Red Cell Distribution Width 13.3 % (11.5-14.5); White Blood Count 4.2 K/mm3 (4.5-10.0)
[2020-12-13 07:12] LABS: Anion Gap 4 mmol/L (8-16); Blood Urea Nitrogen 3 mg/dL (7-17); Calcium 7.8 mg/dL (8.4-10.2); Carbon Dioxide 22 mmol/L (22-30); Chloride 110 mmol/L (98-107); Estimated CRCL calculation 89 ml/min; Estimated Glomerular Filt Rate > 60; Glucose 54 mg/dL (65-105); Potassium 3.5 mmol/L (3.4-5.0); Sodium 136 mmol/L (137-145)
[2020-12-13 08:00] VITALS: BP 138/73; PULSE 75; RESP 20; TEMP 36.8; O2SAT 98
[2020-12-13] MEDS: DEXTROSE 50% 25 GM/50 ML SYRINGE IV PUSH (08:35)
[2020-12-13] MEDS: ENOXAPARIN 40 MG/0.4 ML SYRINGE SUB-Q (08:50)
[2020-12-13 08:59] LABS: Glucose Point of Care 36 (65-105)
[2020-12-13 08:59] LABS: Glucose Point of Care 113 (65-105)
[2020-12-13] MEDS: PANTOPRAZOLE 40 MG TABLET PO (10:08)
[2020-12-13 10:15] LABS: Glucose Point of Care 138 (65-105)
[2020-12-13 11:55] VITALS: BP 140/74; PULSE 88; RESP 20; TEMP 36.9; O2SAT 100
[2020-12-13 12:25] LABS: Glucose Point of Care 107 (65-105)
--- NOTE | 2020-12-13 13:34 | PM.DS ---
DS: Admitting Diagnosis Admitting Diagnosis Admitting Diagnosis: Dehydration, Vomiting DS: Discharge Diagnosis Discharge Diagnosis (1) Nausea and vomiting: Qualifiers: Vomiting type: unspecified Vomiting Intractability: non-intractable Qualified Code(s): R11.2 - Nausea with vomiting, unspecified Code(s): R11.2 - Nausea with vomiting, unspecified Status: Acute Assessment and Plan: Date of Admission 12/10/20 Date of Discharge/DOS 12/13/20 Ms. Hook is a 59yo F with type 1 diabetes and hypothyroidism who presented to the ED for evaluation of nausea and vomiting. She was recently discharged from [facility] 11/27/20 when she was treated for gastroenteritis, concern for aseptic meningitis, small acute right occipital infarct on CTA and MRI. After her recent hospital discharge she was found to be COVID positive on 12/01/20 and she noted increased nausea and vomiting since then. She was dehydrated on arrival and treated with IV hydration. She was seen by gastroenterology, felt that she did not need EGD at this time. Her GI symptoms may be related to viral syndrome with COVID. She has a nonproductive cough but no shortness of breath or hypoxia. Vomiting resolved on first day of admission and her diet was gradually advanced. Blood sugars were quite variable, as low as 36 and as high as 300s. She is hemodynamically stable and eager for discharge on 12/13/20 and will follow up with her PCP and solid state tester. (2) Acute dehydration: Code(s): E86.0 - Dehydration Status: Acute Assessment and Plan: Secondary to nausea and vomiting. Resolved with IV hydration, tolerating a diabetic diet prior to discharge. (3) Metabolic acidosis with increased anion gap and accumulation of organic acids: Code(s): E87.2 - Acidosis Status: Resolved Assessment and Plan: Noted on arrival, resolved with IV fluids and insulin. Suspect related to acute dehydration and vomiting. (4) COVID-19: Code(s): U07.1 - COVID-19 Status: Acute Assessment and Plan: Continue droplet isolation. COVID positive 12/01/20. She has no shortness of breath or hypoxia thus steroid or antiviral therapy are not indicated at this time. Continue supportive care. (5) Diabetes mellitus type 1: Qualifiers: Diabetes mellitus complication status: with other specified complication Qualified Code(s): E10.69 - Type 1 diabetes mellitus with other specified complication Code(s): E10.9 - Type 1 diabetes mellitus without complications Status: Chronic Assessment and Plan: Accuchecks, SSI Coverage, hypoglycemic protocol. She will continue to monitor blood glucose levels closely at home and follow up with endocrinology. (6) Hypothyroidism: Qualifiers: Hypothyroidism type: unspecified Qualified Code(s): E03.9 - Hypothyroidism, unspecified Code(s): E03.9 - Hypothyroidism, unspecified Status: Chronic Assessment and Plan: Maintained on IV levothyroxine. DS: Summary Hospital Course Hospital Course: See above. Time Spent with Patient Time attestation: Total time spent providing and/or coordinating discharge services: 35 minutes Exam Narrative: Exam Narrative: General: Female resting sitting up in bed in no acute distress. HEENT: Normocephalic, EOMI, oral mucosa moist. Cardiovascular: Rate and rhythm are regular. Respiratory: Lungs clear to auscultation bilaterally. Respirations even and non-labored. Tolerating room air. Abdomen: Soft, non-distended, bowel sounds present. No point tenderness to palpation. Extremities: Peripheral pulses intact. No edema. Neuro: No focal neurological deficits. Speech i
[2020-12-13 14:33] LABS: Glucose Point of Care 124 (65-105)
== END 2020-12-13 14:50 | disposition home or self-care (01) ==
LOC: ANHED 21:04 → ANH3MEDSUR 21:39
PROVIDERS: Physician Assistant; Admitting Provider Family Medicine; Emergency Provider Emergency Medicine; PCP Family Medicine; Visit Provider Internal Medicine
DX: U07.1 COVID-19 (principal); R11.2 Nausea with vomiting, unspecified; E10.10 Type 1 diabetes mellitus with ketoacidosis without coma; E86.0 Dehydration; E87.8 Other disorders of electrolyte and fluid balance, not elsewhere classified; K52.9 Noninfective gastroenteritis and colitis, unspecified; E03.9 Hypothyroidism, unspecified; Z86.61 Personal history of infections of the central nervous system; Z79.4 Long term (current) use of insulin; Z87.891 Personal history of nicotine dependence; Z79.82 Long term (current) use of aspirin; Z79.899 Other long term (current) drug therapy
CPT/HCPCS: 36415; 80048; 80053; 81001; 82010; 83605; 83690; 83735; 85025; 87086; 87088; 93005; 96361; 96365; 96372; 96374; 96375; 96376; 99285; A9270; C9113; G0378; J1650; J1815; J2405; J2550; J3475; J3480; J7030; J7042

== ENCOUNTER 2021-08-28 04:40 | Observation (INO) | payer OTHER, SELFPAY ==
[2021-08-28] VITALS (11 sets, daily range): BP systolic 140–156; BP diastolic 63–80; PULSE 84–99; RESP 18–25; TEMP 36.7; O2SAT 91–96
--- NOTE | ~2021-08-28 | CT_ITS ---
EXAMINATION: CT brain [facility] EXAM DATE: 08/30/2021 13:06 INDICATION: Fall, unknown if hit head. TECHNIQUE: Spiral CT of the head was performed without contrast. Axial, coronal and sagittal images were reviewed. The dose-length product (DLP) for this examination was 605.33 mGy-cm. The exposure w as tailored according to patient size, and iterative reconstruction (ASIR) was used as additional dos e reduction technique. Comparison is made to prior examination from 11/24/2020. FINDINGS: There is no acute intraparenchymal hemorrhage. No evidence of intraparenchymal brain mass lesion. No evidence of acute infarction. Please note that initial head CT has limited sensitivity f or small or acute infarctions. Some beam hardening artifact toward the vertex. There is mild to mod erate periventricular and subcortical hypodensity, nonspecific but probably related to small vessel i schemic disease. There is mild to moderate prominence of the sulci and ventricles related to cerebr al atrophy. There is intracranial carotid arteriosclerosis. There are no extra-axial collections. There is no mass effect or midline shift. The orbits are unremarkable. Soft tissue is unremarkable . The visualized sinuses and mastoid air cells are well aerated. There is no interval change. IMPRESSION: 1. No acute intracranial findings. 2. Chronic age related findings. Reviewed, dictated and finalized at location A.
--- NOTE | ~2021-08-28 | MR_ITS ---
EXAMINATION: MR pelvis wo con DATE: 08/29/2021 11:59 INDICATION: Sacral and pubic rami fractures. TECHNIQUE: Magnetic resonance imaging (MRI) of the pelvis was performed without intravenous contrast. Fullfield sequences of the pelvis included axial and coronal T1-weighted FSE and T2-weighted FS FSE as well as axial, sagittal and coronal T2-weighted FS FSE and small field of view of the right hip. COMPARISON: CT dated 08/28/2021 FINDINGS: Nondisplaced sagittally oriented incomplete minimally displaced fracture of the right inferior pubic ramus and nondisplaced fractures at the right pubic body and the lateral aspect of the right superior -inferior fracture at the S1 component of the right superior pubic ramus which does not definitively extend to directly involve the acetabulum. Otherwise normal marrow signal. No pathologic marrow repla cing process. Mild bilateral hip osteoarthritis with small marginal osteophytes about the acetabula a nd femoral heads. Physiologic amount fluid at the bilateral hip joint spaces. There is some reactive edema in the proximal right adductor compartment involving the muscles originating along the inferior pubic ramus. No discrete hematoma. The bladder, uterus and adnexa and visualized portions of the bow els including the appendix are normal. Small amount of fluid in the pelvis. No pathologically enlarge d abdominal or pelvic lymphadenopathy. IMPRESSION: 1. Nondisplaced fractures of the right sacral ala, right superior pubic ramus, right pubic body and i nferiorly displaced fracture of the right inferior pubic ramus. No involvement of the right acetabulu m proper. Reviewed, dictated and finalized at location A. IMPRESSION: 1. Nondisplaced fractures of the right sacral ala, right superior pubic ramus, right pubic body and inferiorly displaced fracture of the right inferior pubic ramus. No involvement of the right acetabulum proper.
--- NOTE | ~2021-08-28 | XR_ITS ---
XR hip BI 2V w AP pelvis 08/28/2021 07:41 Indication: Status post fall. Pelvic pain. Procedure: AP pelvis and 2 views each hip Comparison: No prior studies for comparison. Findings: Pelvic rings are intact. Sacral foramen are symmetric. Vascular calcifications are present in the femoral regions. No fracture, subluxation or dislocation. Impression: 1: No acute fracture. Reviewed, dictated and finalized at location A. Impression: 1: No acute fracture.
--- NOTE | ~2021-08-28 | CT_ITS ---
EXAMINATION: CT pelvis wo con DATE: 08/28/2021 09:24 INDICATION: Pelvic pain. Bilateral hip pain. TECHNIQUE: Computed tomography (CT) of the pelvis was performed without intravenous contrast. The dos e-length product was 207.54 mGy-cm. Automated exposure control and iterative reconstruction technique were employed. COMPARISON: Bilateral hip series dated 08/28/[address] dated 11/21/2020 FINDINGS: There are nondisplaced fractures of the right pubic symphysis and right inferior pubic kulwinder s. There is cortical discontinuity along the anterior margin of the right acetabulum. Cannot exclude fracture. There is mild joint space narrowing of the hips. No free air or free fluid in the pelvis. N onobstructive bowel pattern. No significant vascular abnormality. No lymphadenopathy. Possible nondis placed right sacral fracture anteriorly. IMPRESSION: 1. Nondisplaced fractures right pubic symphysis and inferior pubic ramus. 2: Possible nondisplaced right acetabular and sacral fractures. Consider correlation with MRI. Reviewed, dictated and finalized at location A. IMPRESSION: 1. Nondisplaced fractures right pubic symphysis and inferior pubic ramus. 2: Possible nondisplaced right acetabular and sacral fractures. Consider corre lation with MRI.
--- NOTE | ~2021-08-28 | XR_ITS ---
[[id number] ] INDICATION: Rib pain after fall TECHNIQUE: Frontal projection of the upper ribs, frontal projection of the lower ribs, oblique projec tion of all the ribs, frontal inspiratory chest x-ray for interpretation. FINDINGS: There are no displaced rib fractures identified. There are no soft tissue abnormality see n. The lungs are clear. There are mild degenerative changes of the shoulders and thoracic spine. IMPRESSION: 1:No acute displaced rib fractures. Reviewed, dictated and finalized at location A.
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
[2021-08-28] MEDS: HYDROcodone/acetaminophen (*CRX) 5-325 MG TABLET 1 TAB PO ×3 (08:30→21:21)
--- NOTE | 2021-08-28 09:02 | PC.NURSE ---
Tari RN and myself unable to get patient out of bed. patient c/o pain to R groin and unable to get out of stretcher. pt not letting staff assist, pt states I can't do it . Dr. Brian made aware and to bedside to further assess patient.
--- NOTE | 2021-08-28 10:13 | PC.NURSE ---
pt able to sit up in bed and stand on own. pt unable to ambulate with crutches.
[2021-08-28 10:43] LABS: Basophils Percent Auto 0.3 % (0.2-1.2); Eosinophils Absolute Auto 0.1 K/mm3 (0-0.3); Eosinophils Percent Auto 1.1 % (0-4.4); Hematocrit 38.2 % (37.0-47.0); Hemoglobin 12.7 g/dL (12.0-15.0); Immature Granulocyte Absolute 0.02 K/mm3 (0.00-0.031); Immature Granulocyte Percent A 0.3 % (0-0.5); Lymphocytes Absolute Auto 0.87 K/mm3 (0.9-3.2); Lymphocytes Percent Auto 13.5 % (18.3-44.2); Mean Corpuscular HGB Conc 33.2 g/dl (32-36); Mean Corpuscular Hemoglobin 29.2 pg (26-34); Mean Corpuscular Volume 87.8 fl (80-100); Mean Platelet Volume 10.2 fl (7.4-10.4); Monocytes Absolute Auto 0.6 K/mm3 (0.1-0.6); Monocytes Percent Auto 8.5 % (2.6-8.5); Neutrophils Absolute Auto 4.9 K/mm3 (1.3-6.7); Neutrophils Percent Auto 76.3 % (45.5-73.1); Platelet Count Result 208 k/mm3 (150-375); Red Blood Count 4.35 M/mm3 (4.2-5.4); Red Cell Distribution Width 13.2 % (11.5-14.5); White Blood Count 6.5 K/mm3 (4.5-10.0)
[2021-08-28 10:56] LABS: Alanine Aminotransferase 22 U/L (4-35); Albumin Level 4.4 g/dL (3.5-5.1); Alkaline Phosphatase 96 U/L (38-126); Anion Gap 12 mmol/L (8-16); Aspartate Amino Transferase 25 U/L (14-36); Bilirubin,Total 0.6 mg/dL (0.2-1.3); Blood Urea Nitrogen 12 mg/dL (7-17); Calcium 9.3 mg/dL (8.4-10.2); Carbon Dioxide 21 mmol/L (22-30); Chloride 109 mmol/L (98-107); Estimated CRCL calculation 62 ml/min; Estimated Glomerular Filt Rate > 60; Glucose 139 mg/dL (65-110); Potassium 3.8 mmol/L (3.4-5.0); Sodium 142 mmol/L (137-145)
[2021-08-28 11:01] LABS: Prothrombin Time 12.8 Seconds (11.1-14.7)
[2021-08-28 11:02] LABS: Partial Thromboplastin Time 27.5 SECONDS (22.3-36.8)
--- NOTE | 2021-08-28 12:50 | ADMGEN ---
This patient, Kendy Hook, was admitted to 2 Medical Room 240-. Patient/family oriented to hospital policies and general routines including ID bracelet, bed and alarms, visiting hours, pain management, procedures, bathroom and other care routines, personal items, smoking policy, room service/diet, and visiting hours. Information on how to activate the Rapid Response Team has been discussed. Patient/Family are encouraged to report perceived risks to care and to ask questions if they do not understand what they are told or what they should do.
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
[2021-08-28 15:21] LABS: Hemoglobin A1C 7.8 % (<5.7)
--- NOTE | 2021-08-28 18:33 | PC.NURSE ---
Patient insulin pump discontinued. Insulin total was 14.6 units. This includes insulin administered before admission.
[2021-08-28 18:55] LABS: Glucose Point of Care 180 mg/dl (65-105)
[2021-08-28] MEDS: INSULIN GLARGINE (*BKC) 100 UNITS/ML 15 UNITS SUB-Q (21:25)
[2021-08-28 21:32] LABS: Glucose Point of Care 371 mg/dl (65-105)
[2021-08-28] MEDS: ONDANSETRON INJ 4 MG/2 ML VIAL IV PUSH (22:14)
[2021-08-28 23:32] LABS: Glucose Point of Care 328 mg/dl (65-105)
[2021-08-28] MEDS: INSULIN ASPART (*BKC) 100 UNITS/ML SUB-Q (23:40)
[2021-08-29] MEDS: ONDANSETRON INJ 4 MG/2 ML VIAL IV PUSH ×2 (04:03→19:52)
[2021-08-29] MEDS: KETOROLAC 30 MG/ML VIAL (*BKC) 15 MG IV PUSH (04:28)
[2021-08-29] MEDS: INSULIN ASPART (*BKC) 100 UNITS/ML 6 UNITS SUB-Q (04:46)
[2021-08-29 05:12] LABS: Basophils Percent Auto 0.5 % (0.2-1.2); Eosinophils Percent Auto 0.1 % (0-4.4); Hematocrit 40.2 % (37.0-47.0); Hemoglobin 13.1 g/dL (12.0-15.0); Immature Granulocyte Absolute 0.05 K/mm3 (0.00-0.031); Immature Granulocyte Percent A 0.6 % (0-0.5); Lymphocytes Absolute Auto 0.64 K/mm3 (0.9-3.2); Lymphocytes Percent Auto 8.1 % (18.3-44.2); Mean Corpuscular HGB Conc 32.6 g/dl (32-36); Mean Corpuscular Hemoglobin 29.1 pg (26-34); Mean Corpuscular Volume 89.3 fl (80-100); Mean Platelet Volume 11.1 fl (7.4-10.4); Monocytes Absolute Auto 0.6 K/mm3 (0.1-0.6); Monocytes Percent Auto 7.6 % (2.6-8.5); Neutrophils Absolute Auto 6.6 K/mm3 (1.3-6.7); Neutrophils Percent Auto 83.1 % (45.5-73.1); Platelet Count Result 192 k/mm3 (150-375); Red Cell Distribution Width 13.2 % (11.5-14.5); White Blood Count 7.9 K/mm3 (4.5-10.0)
[2021-08-29 05:35] LABS: Glucose Point of Care 353 mg/dl (65-105)
[2021-08-29 05:37] LABS: Alanine Aminotransferase 19 U/L (4-35); Albumin Level 4.3 g/dL (3.5-5.1); Alkaline Phosphatase 114 U/L (38-126); Anion Gap 16 mmol/L (8-16); Aspartate Amino Transferase 23 U/L (14-36); Bilirubin,Total 0.9 mg/dL (0.2-1.3); Blood Urea Nitrogen 17 mg/dL (7-17); Calcium 9.7 mg/dL (8.4-10.2); Carbon Dioxide 16 mmol/L (22-30); Chloride 105 mmol/L (98-107); Estimated CRCL calculation 62 ml/min; Estimated Glomerular Filt Rate > 60; Glucose 372 mg/dL (65-110); Potassium 4.2 mmol/L (3.4-5.0); Sodium 137 mmol/L (137-145)
[2021-08-29 06:00] VITALS: BP 144/52; PULSE 110; RESP 20; TEMP 36.6; O2SAT 100
[2021-08-29] MEDS: LEVOTHYROXINE SODIUM 75 MCG TABLET PO (06:02)
[2021-08-29] MEDS: LEVOTHYROXINE SODIUM 100 MCG TABLET PO (06:02)
[2021-08-29] MEDS: INSULIN ASPART (*BKC) 100 UNITS/ML SUB-Q ×4 (08:05→17:01)
[2021-08-29] MEDS: CITALOPRAM HYDROBROMIDE 10 MG TABLET PO (08:07)
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
[2021-08-29 10:04] LABS: Glucose Point of Care 289 mg/dl (65-105)
[2021-08-29] MEDS: HYDROcodone/acetaminophen (*CRX) 5-325 MG TABLET 1 TAB PO ×2 (12:19→19:48)
[2021-08-29 12:47] LABS: Glucose Point of Care 305 mg/dl (65-105)
[2021-08-29] MEDS: PANTOPRAZOLE 40 MG TABLET PO (16:50)
[2021-08-29 17:26] LABS: Glucose Point of Care 335 mg/dl (65-105)
[2021-08-29 17:40] VITALS: BP 142/61; PULSE 97; RESP 16; TEMP 37.1; O2SAT 94
[2021-08-29 20:35] VITALS: BP 155/55; PULSE 95; RESP 20; TEMP 36.7; O2SAT 93
[2021-08-29 20:36] LABS: Glucose Point of Care 258 mg/dl (65-105)
[2021-08-29] MEDS: DOCUSATE SODIUM 100 MG CAPSULE PO (21:25)
[2021-08-29] MEDS: hydrOXYzine HCL 25 MG TABLET 50 MG PO (21:26)
[2021-08-29] MEDS: INSULIN GLARGINE (*BKC) 100 UNITS/ML 20 UNITS SUB-Q (21:27)
[2021-08-30 05:52] VITALS: BP 144/71; PULSE 91; RESP 22; TEMP 36.2; O2SAT 92
[2021-08-30 06:55] LABS: Glucose Point of Care 276 mg/dl (65-105)
[2021-08-30] MEDS: LEVOTHYROXINE SODIUM 100 MCG TABLET PO (06:58)
[2021-08-30] MEDS: LEVOTHYROXINE SODIUM 75 MCG TABLET PO (06:58)
--- NOTE | 2021-08-30 07:48 | PCOTNOTE ---
Attempted OT evaluation, per RN wait for ortho consult to complete OT evaluation, will follow.
[2021-08-30] MEDS: INSULIN ASPART (*BKC) 100 UNITS/ML SUB-Q ×3 (08:00→17:48)
[2021-08-30] MEDS: LIDOCAINE 5% PATCH 3 PATCH TRANSDERM (08:02)
[2021-08-30] MEDS: DOCUSATE SODIUM 100 MG CAPSULE PO ×2 (08:02→22:19)
[2021-08-30] MEDS: PANTOPRAZOLE 40 MG TABLET PO (08:03)
[2021-08-30] MEDS: CITALOPRAM HYDROBROMIDE 10 MG TABLET PO (08:03)
[2021-08-30] MEDS: HYDROcodone/acetaminophen (*CRX) 5-325 MG TABLET 1 TAB PO ×2 (10:36→19:55)
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
[2021-08-30 12:23] LABS: Glucose Point of Care 281 mg/dl (65-105)
--- NOTE | 2021-08-30 12:49 | PC.NURSE ---
Pt's called while I was in with another pt. I returned his call. Pt's , Bryce, wanted to know test results and if the MRI results were filed. I answered his questions. He then asked to be transferred to pt's room, however, pt is not in her room as she was taken for testing.
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
[2021-08-30 14:00] VITALS: BP 132/73; PULSE 93; RESP 20; TEMP 37.2; O2SAT 96
[2021-08-30 17:48] LABS: Glucose Point of Care 353 mg/dl (65-105)
[2021-08-30 19:15] VITALS: BP 137/57; PULSE 94; RESP 17; TEMP 37.2; O2SAT 94
[2021-08-30] MEDS: INSULIN GLARGINE (*BKC) 100 UNITS/ML 20 UNITS SUB-Q (22:20)
[2021-08-30] MEDS: hydrOXYzine HCL 25 MG TABLET 50 MG PO (22:28)
[2021-08-30 22:40] LABS: Glucose Point of Care 233 mg/dl (65-105)
[2021-08-31 04:11] VITALS: BP 158/81; PULSE 98; RESP 16; TEMP 36.6; O2SAT 92
[2021-08-31 06:21] LABS: Hematocrit 36.7 % (37.0-47.0); Hemoglobin 12.5 g/dL (12.0-15.0); Mean Corpuscular HGB Conc 34.1 g/dl (32-36); Mean Corpuscular Hemoglobin 29.3 pg (26-34); Mean Corpuscular Volume 85.9 fl (80-100); Platelet Count Result 192 k/mm3 (150-375); Red Blood Count 4.27 M/mm3 (4.2-5.4); Red Cell Distribution Width 12.6 % (11.5-14.5); White Blood Count 6.5 K/mm3 (4.5-10.0)
[2021-08-31] MEDS: LEVOTHYROXINE SODIUM 100 MCG TABLET PO (06:21)
[2021-08-31] MEDS: LEVOTHYROXINE SODIUM 75 MCG TABLET PO (06:21)
[2021-08-31 06:36] LABS: Anion Gap 12 mmol/L (8-16); Blood Urea Nitrogen 13 mg/dL (7-17); Calcium 9.1 mg/dL (8.4-10.2); Carbon Dioxide 23 mmol/L (22-30); Chloride 104 mmol/L (98-107); Estimated CRCL calculation 72 ml/min; Estimated Glomerular Filt Rate > 60; Glucose 193 mg/dL (65-110); Potassium 3.7 mmol/L (3.4-5.0); Sodium 139 mmol/L (137-145)
[2021-08-31 08:05] LABS: Glucose Point of Care 160 mg/dl (65-105)
[2021-08-31] MEDS: DOCUSATE SODIUM 100 MG CAPSULE PO ×2 (08:48→20:19)
[2021-08-31] MEDS: LIDOCAINE 5% PATCH 3 PATCH TRANSDERM (08:48)
[2021-08-31] MEDS: CITALOPRAM HYDROBROMIDE 10 MG TABLET PO (08:48)
[2021-08-31] MEDS: PANTOPRAZOLE 40 MG TABLET PO (08:48)
[2021-08-31] MEDS: ENOXAPARIN 40 MG/0.4 ML SYRINGE SUB-Q (08:48)
[2021-08-31] MEDS: INSULIN ASPART (*BKC) 100 UNITS/ML SUB-Q ×3 (08:49→17:05)
[2021-08-31] MEDS: HYDROcodone/acetaminophen (*CRX) 5-325 MG TABLET 1 TAB PO ×2 (08:59→20:26)
--- NOTE | 2021-08-31 10:01 | PM.PNORT ---
Progress Note: A&P Assessment and Plan (1) Closed sacral fracture: Qualifiers: Encounter type: initial encounter Zone of sacrum fracture: unspecified portion of sacrum Qualified Code(s): S32.10XA - Unspecified fracture of sacrum, initial encounter for closed fracture Code(s): S32.10XA - Unspecified fracture of sacrum, initial encounter for closed fracture Status: Acute Assessment and Plan: MRI of the pelvis reveals a nondisplaced fracture of the right sacral ala, right superior pubic ramus, right pubic body and inferiorly displaced fracture of the right inferior pubic ramus. Again, no involvement acetabulum was noted. Long discussion with patient's via telephone performed last night clarifying questions. Patient currently working with PT and OT. She reports continued right hip pain today. Difficulty with weight-bearing on the right side. She is utilizing a walker for ambulation with PT and OT. Discussed today the potential needs for discharge to acute rehab facility for assistance with mobilization. The patient may benefit from scheduled pain medications. Okay to discharge when medically stable, pain controlled and safe discharge planned to Acute Rehab vs. Home pending evaluation by PT/TO. Additional Plan Reviewed case and findings as well as physical exam with attending physician, Dr. Steiner. Agrees with plan of care. No further recommendations at this time. This document was completed by using [employer] Direct speech recognition software, therefore biofuels technology development manager variances may occur. Despite proofreading, typographical errors may also occur. Subjective Subjective Date/Time Seen: 08/31/21 10:01 Principal diagnosis: Right pelvic fractures Interval history: Patient continues to endorse pain. She reports increased pain overnight and feels that her pain medication regimen was delayed. She did just recently received pain medication and is attempting to work with physical therapy and occupational therapy. Still with difficulty with weight-bearing on the right lower extremity. Patient is hopeful for discharge home however understands potential need for discharge to acute rehab facility. No new complaints today. Review of Systems Constitutional: Constitutional: Reports no additional constitutional complaints, Denies excessive sweating, Denies fever(s) and Denies weight gain Eyes: Eyes: Reports no additional eye complaints and Denies change in vision ENT: Reports system reviewed and no additional complaints, except as documented and Reports Normal hearing present Cardiovascular: Cardiovascular: Denies chest pain, Denies diaphoresis, Denies leg ulcers and Denies dyspnea on exertion Respiratory: Respiratory: Reports no additional respiratory complaints, Denies cough and Denies dyspnea on exertion Gastrointestinal: Gastrointestinal: Reports no additional gastrointestinal complaints, Denies abdominal pain, Denies constipation, Denies nausea and Denies vomiting Genitourinary: Genitourinary: Denies hematuria and Denies urinary frequency Musculoskeletal: Musculoskeletal: Reports no additional musculoskeletal complaints and Reports as per HPI Neurologic: Reports Normal hearing present Endocrine: Endocrine: Reports no additional endocrine complaints, Denies change in body appearance, Denies excessive sweating, Denies polyphagia, Denies polydipsia and Denies polyuria Exam Const: General: cooperative, no acute distress and uncomfortable Nutritional Appearance: average body habitus Orientation/consciousness: patient oriented x3 Limitations: no limitations HENMT: Head: normal to inspection Ears: hearing grossly normal bilaterally General nose exam: Normal external nose present Face and sinus: normal facial exam Mouth: Yes moist mucous membranes Teeth and gingiva: dentition normal Eyes: General: appearance normal, both eyes and all related structures Pupils: Equal, round and reactive pupils pre
[2021-08-31 11:41] LABS: Glucose Point of Care 97 mg/dl (65-105)
[2021-08-31] MEDS: IBUPROFEN 600 MG TABLET PO ×2 (11:42→17:04)
[2021-08-31 14:00] VITALS: BP 112/63; PULSE 94; RESP 18; TEMP 36.7; O2SAT 96
[2021-08-31 16:35] LABS: Glucose Point of Care 210 mg/dl (65-105)
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
[2021-08-31] MEDS: polyethylene glycoL 3350 17 GM POWD.PACK PO (17:04)
[2021-08-31 19:13] VITALS: BP 137/69; PULSE 86; RESP 17; TEMP 36.6; O2SAT 95
[2021-08-31] MEDS: hydrOXYzine HCL 25 MG TABLET 50 MG PO (20:18)
[2021-08-31] MEDS: INSULIN GLARGINE (*BKC) 100 UNITS/ML 24 UNITS SUB-Q (20:20)
[2021-08-31 21:13] LABS: Glucose Point of Care 232 mg/dl (65-105)
[2021-09-01] MEDS: IBUPROFEN 600 MG TABLET PO ×3 (00:12→11:35)
[2021-09-01 04:19] VITALS: BP 140/73; PULSE 78; RESP 17; TEMP 36.3; O2SAT 94
[2021-09-01] MEDS: LEVOTHYROXINE SODIUM 75 MCG TABLET PO (05:41)
[2021-09-01] MEDS: LEVOTHYROXINE SODIUM 100 MCG TABLET PO (05:41)
[2021-09-01 05:46] LABS: Hematocrit 37.4 % (37.0-47.0); Hemoglobin 12.8 g/dL (12.0-15.0); Mean Corpuscular HGB Conc 34.2 g/dl (32-36); Mean Corpuscular Hemoglobin 29.2 pg (26-34); Mean Corpuscular Volume 85.4 fl (80-100); Mean Platelet Volume 10.5 fl (7.4-10.4); Platelet Count Result 203 k/mm3 (150-375); Red Blood Count 4.38 M/mm3 (4.2-5.4); Red Cell Distribution Width 12.6 % (11.5-14.5)
[2021-09-01 05:55] LABS: Anion Gap 10 mmol/L (8-16); Blood Urea Nitrogen 15 mg/dL (7-17); Calcium 9.1 mg/dL (8.4-10.2); Carbon Dioxide 26 mmol/L (22-30); Chloride 107 mmol/L (98-107); Estimated CRCL calculation 72 ml/min; Estimated Glomerular Filt Rate > 60; Glucose 43 mg/dL (65-110); Potassium 3.3 mmol/L (3.4-5.0); Sodium 143 mmol/L (137-145)
[2021-09-01 06:30] LABS: Glucose Point of Care 83 mg/dl (65-105)
[2021-09-01 06:58] LABS: Thyroid Stimulating Hormone Reflex < 0.015 uIU/mL (0.465-4.68)
[2021-09-01 07:34] LABS: Free T4 Free Thyroxine Reflex 2.25 ng/dL (0.78-2.19)
[2021-09-01 07:48] LABS: Glucose Point of Care 131 mg/dl (65-105)
[2021-09-01] MEDS: HYDROcodone/acetaminophen (*CRX) 5-325 MG TABLET 1 TAB PO (08:46)
[2021-09-01] MEDS: POTASSIUM CHLORIDE 20 MEQ PACKET (FOR LIQUID) PO (08:46)
[2021-09-01] MEDS: DOCUSATE SODIUM 100 MG CAPSULE PO (08:47)
[2021-09-01] MEDS: CITALOPRAM HYDROBROMIDE 10 MG TABLET PO (08:47)
[2021-09-01] MEDS: ENOXAPARIN 40 MG/0.4 ML SYRINGE SUB-Q (08:47)
[2021-09-01] MEDS: PANTOPRAZOLE 40 MG TABLET PO (08:47)
[2021-09-01] MEDS: polyethylene glycoL 3350 17 GM POWD.PACK PO (08:48)
[2021-09-01] MEDS: LIDOCAINE 5% PATCH 3 PATCH TRANSDERM (08:48)
[2021-09-01] MEDS: INSULIN ASPART (*BKC) 100 UNITS/ML SUB-Q ×2 (08:48→16:38)
[2021-09-01 11:24] LABS: Glucose Point of Care 79 mg/dl (65-105)
[2021-09-01 14:00] VITALS: BP 140/68; PULSE 84; RESP 18; TEMP 36.7; O2SAT 96
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
[2021-09-01 16:30] LABS: Glucose Point of Care 178 mg/dl (65-105)
== END 2021-09-01 19:28 ==
LOC: ANHED 11:25 → ANH2MED 11:42
PROVIDERS: Physician Assistant; Admitting Provider Internal Medicine; Emergency Provider Emergency Medicine; Visit Provider Family Medicine
DX: S32.591A Other specified fracture of right pubis, initial encounter for closed fracture (principal); S32.10XA Unspecified fracture of sacrum, initial encounter for closed fracture; Y93.55 Activity, bike riding; V18.0XXA Pedal cycle driver injured in noncollision transport accident in nontraffic accident, initial encounter; E10.9 Type 1 diabetes mellitus without complications; E03.9 Hypothyroidism, unspecified; F41.8 Other specified anxiety disorders; I10 Essential (primary) hypertension; Z79.4 Long term (current) use of insulin
CPT/HCPCS: 36415; 70450; 71111; 72192; 72195; 73521; 80048; 80053; 82948; 83036; 84439; 84443; 85025; 85027; 85610; 85730; 96372; 96374; 96375; 97110; 97116; 97162; 97165; 97530; 97535; 99285; A9270; G0378; J1650; J1815; J1885; J2405

== ENCOUNTER 2025-02-05 10:20 | Outpatient (CLI) | payer MEDICARE, SELFPAY ==
[2025-02-05 11:21] LABS: Alanine Aminotransferase 13 U/L (6-35); Albumin Level 4.1 g/dL (3.5-5.1); Alkaline Phosphatase 69 U/L (38-126); Anion Gap 9 mmol/L (4-12); Aspartate Amino Transferase 19 U/L (14-36); Bilirubin,Total 0.6 mg/dL (0.2-1.3); Blood Urea Nitrogen 11 mg/dL (7-17); Calcium 9.2 mg/dL (8.4-10.2); Carbon Dioxide 26 mmol/L (22-30); Chloride 106 mmol/L (98-107); Cholesterol 139 mg/dL (0-200); Estimated Glomerular Filt Rate > 60; Glucose 120 mg/dL (65-110); HDL Direct 71 mg/dL; Potassium 4.3 mmol/L (3.4-5.0); Sodium 141 mmol/L (137-145); Triglycerides 70 mg/dL (<150)
[2025-02-05 11:43] LABS: LDL Cholesterol Direct 46 mg/dL
[2025-02-05 11:50] LABS: Free T4 Free Thyroxine 1.58 ng/dL (0.78-2.19); Vitamin D 25 Hydroxy 66.5 ng/mL
[2025-02-05 11:58] LABS: Thyroid Stimulating Hormone 0.372 uIU/mL (0.465-4.680)
--- OUTSIDE RECORDS SUMMARY | 2025-02-05 12:02 | XMS_ITS | Patient Health Summary ---
Author Organization [facility] Address [address] [place] [address] Care Team Providers Care Maple Syrup Maker Name Role Phone Unavailable Primary Care Provider Unavailabl e Note from [facility],non-owned Affiliates and Associated Physician Practices is amultiple site organization consisting of ambulatory clinics and hospital sitesin [place], [place], [place] and [place]. This disclosure is being madepursuant to the Care Everywhere program and may not contain all information available regarding this patient. Last updated 18.[facility] Allergies No known active allergies Active Problems Problem Noted Date Diagnosed Date Polyp of cervix 10/27/2021 Enlarged uterus 10/27/2021 Dyspareunia 10/27/2021 Acquired trigger finger 10/27/2021 Personal history of transien t ischemic attack (TIA), and cerebral infarction without residual deficits 09/01/2021 Essential hypertension 09/01/2021 Presence of insulin pump (external) (internal) 1 Gastro-esophageal reflux disease without esophag itis 09/01/2021 Drug induced constipation 09/01/2021 skilled nursing (current) use of aspirin 09/01/2021 Unspecified fracture of righ t acetabulum, subsequent encounter for fracture with routine healing 08/28/2021 Arthritis of spine 07/29/2021 Thoracic back pain 07/08/2021 Nicotine dependence with current use 07/08/2021 Vitamin D deficiency 06/08/2021 Ganglion cyst 02/03/2021 Hypothyroidism 06/01/2015 Mixed anxiety and depressive disorder 05/31/2010 Type 1 diabetes mellitus 06/01/1970 Immunizations * Covid Moderna primary monovalent 12+ yr 0.5mL(Given 02/01/2021) * INFLUENZA VACCINE, QUADR. (FLUZONE; FLULAVAL; FLUARIX; AFLURIA QUADRIVALENT; 6MO+), 0.5 ML (IIV4)(Given 09/16/2021) Social History Tobacco Use Types Packs/Day Years Used Date Smoking Tobacco: Never Assessed Sex and Gender Information Value Date Recorded Sex Assigned at Not on file Gender Identity Not on file Sexual Orientation Not on file
--- OUTSIDE RECORDS SUMMARY | 2025-02-05 12:02 | XMS_ITS | Referral Summary ---
Author Organization [facility] Address [address] [place] [address] Care Team Providers Care Family Resource Specialist Name Role Phone Unavailable Primary Care Provider Unavailabl e Source Comments [facility],non-owned Affiliates and Associated Physician Practices is amultiple site organization consisting of ambulatory clinics and hospital sitesin [place], [place], [place] and [place]. This disclosure is being madepursuant to the Care Everywhere program and may not contain all information available regarding this patient. Last updated 18.[facility] Allergies No known active allergies Active Problems Problem Noted Date Diagnosed Date Polyp of cervix 10/27/2021 Enlarged uterus 10/27/2021 Dyspareunia 10/27/2021 Acquired trigger finger 10/27/2021 Personal history of transien t ischemic attack (TIA), and cerebral infarction without residual deficits 09/01/2021 Essential hypertension 09/01/2021 Presence of insulin pump (external) (internal) 1 Gastro-esophageal reflux disease without esophag itis 09/01/2021 Drug induced constipation 09/01/2021 continuous churn buttermaker (current) use of aspirin 09/01/2021 Unspecified fracture of righ t acetabulum, subsequent encounter for fracture with routine healing 08/28/2021 Arthritis of spine 07/29/2021 Thoracic back pain 07/08/2021 Nicotine dependence with current use 07/08/2021 Vitamin D deficiency 06/08/2021 Ganglion cyst 02/03/2021 Hypothyroidism 06/01/2015 Mixed anxiety and depressive disorder 05/31/2010 Type 1 diabetes mellitus 06/01/1970 Immunizations Name Administration Dates Next Due Teodora Melendrez primary monovalent 12+ yr 0.5mL INFLUENZA VACCINE, QUADR. (F LUZONE; FLULAVAL; FLUARIX; AFLURIA QUADRIVALENT; 6MO+), 0.5 ML (IIV4) 09/16/2021 Social History Tobacco Use Types Packs/Day Years Used Date Smoking Tobacco: Never Assessed Sex and Gender Information Value Date Recorded Sex Assigned at Not on file Gender Identity Not on file Sexual Orientation Not on file Plan of Treatment Not on file
--- OUTSIDE RECORDS SUMMARY | 2025-02-05 12:02 | XMS_ITS | CONTINUITY OF CARE DOCUMENT ---
Author Name tammy munoz Address Unknown Organization [facility] Address [address] [place] [address] Phone [phone] Care Team Providers Care Outdoor Recreation Specialist Name Role Phone Ricardo Santos MD Unavailable Pedro Luis TACK DRILLER-BC, Michelle Oh Unavailable INSURANCE PROVIDERS Payer name Policy type / Coverage type Marcia red democrat ID [facility] [id number] Other [id number]
--- OUTSIDE RECORDS SUMMARY | 2025-02-05 12:02 | XMS_ITS ---
Care Plan - [facility] Created on: February 05, 2025 WINNIE JARAMILLO : 1960 Sex: Female Author Organization [facility] Medical [facility] Address [address] [place] [phone] Phone Care Team Providers Care Bowling Ball Engraver Name Role Phone CHRISTIANA ZAMORANO, SHELLEY CHRISTIE [facility] [phone]
--- OUTSIDE RECORDS SUMMARY | 2025-02-05 12:02 | XMS_ITS ---
Author Organization [facility] Address [address] [place] [address] Phone Care Team Providers Care Certified Emergency Vehicle Technician Name Role Phone CHRISTIANA ZAMORANO, SHELLEY [place] [phone] Plan of Treatment No Plan of Treatment Recorded Assessments Includes: Assessments for all patient encounters No Assessments Recorded Medical Equipment - Implanted Devices Includes: Current and historical Devices No Medical Equipment Recorded Medications Administered Includes: Administered Medications in patient's chart No Administered Medications Recorded Results Includes: Results from 02/06/2024 through 02/05/2025 No Results Recorded For Specified Dates History of Present Illness History of Present Illness not supported for this document type No History of Present Illness Recorded Social History No Social History Recorded - Smoking Status Unknown Medical History Includes: Medical History in patient's chart No Medical History Recorded Family History Includes: Family History in patient's chart No Family History Recorded Review of Systems Review of Systems not supported for this document type No Review of Systems Recorded Mental Status No Mental Status Recorded Functional Status No Functional Status Recorded Physical Exam Physical Exam not supported for this document type No Physical Exam Recorded Clinical Notes Includes: Signed Clinical Notes starting from 12/16/2022 No Clinical Notes Recorded
--- OUTSIDE RECORDS SUMMARY | 2025-02-05 12:03 | XMS_ITS ---
Author Organization [facility] Address [address] [place] [address] Care Team Providers Care Deckhand Fishing Vessel Name Role Phone Cardona Leo Unavailable [phone] SOCIAL HISTORY Sex Assigned At : Social History Observation Description Sex Assigned At Female PROBLEMS Problem Type ICD Code Onset Dates Problem Status W/U Status Risk SNOMED Code Notes Problem Chronic kidney disease, stage 3a (N18.31) Active confirmed Chronic kidney disease stage 3A (disorder) (060555929) Problem Anxiety disorder, unspecified (F41.9) Active confirmed Anxiety disorde r (795123867) Problem Chronic fatigue, unspecified (R53.82) Active confirmed Chronic fatigue syndrome (disorder) (53857027) Problem Essential (primary) hypertension (I10) Active confirmed Essential hypertension (19465915) Problem Hematuria, unspecified (R31.9) Active confirmed Hematuria (50946849) Encounters Encounter Location Date Provider Diagnosis [place] [facility] [address] [facility] 15 [place] [address] 03/15/2024 Leo Cardona Chronic kidney disease, stage 3a N18.31 ; Anxiety disorder, unspecified F41.9 ; Chronic fatigue, unspecified R53.82 ; Essential (primary) hypertension I10 and Hematuria, unspecified R31.9 ASSESSMENTS Encounter Date Diagnosis Assessment Notes Treatment Notes Treatment Clinical Notes Section Notes 03/15/2024 Chronic kidney disease, stage 3a (ICD-10 - N18.31) 03/15/2024 Anxiety disorder, unspecified (ICD-10 - F41.9) 03/15/2024 Chronic fatigue, unspecified (ICD-10 - R53.82) 03/15/2024 Essential (primary) hypertension (ICD-10 - I10) 03/15/2024 Hematuria, unspecified (ICD-10 - R31.9) PLAN OF TREATMENT No Information Progress Notes * Butch JARAMILLO:1960 ( 64 yo F)Acc No.[id number]:03/15/2024 Progress Notes Patient: Kendy JARAMILLO Provider: MD THADDEUS, Mingo.Beto.P, F.A.S.N. :1960 Age:63 Y Sex:Female Date:03/15/2024 Address:[address] [place] [address], [place] [address] Subjective: * Chief Complaints: * * Medical History: Objective: Assessment: * Assessment: 1. Chronic kidney disease, stage 3a - N18.31 2. Anxiety disorder, unspecified - F41.9 3. Chronic fatigue, unspecified - R53.82 4. Essential (primary) hypertension - I10 5. Hematuria, unspecified - R31.9 Plan: * Treatment: * Billing Information: * Visit Code: 12554 Office Visit, New Pt., Level 5. * Procedure Codes: * Sign off status: Pending * Provider: MD THADDEUS, Cristal.Catrina.Beto.P, F.A.S.N. Date: 03/15/2024
--- OUTSIDE RECORDS SUMMARY | 2025-02-05 12:03 | XMS_ITS | Clinical Summary ---
Author Organization [facility] Address [facility] [place] [address] Care Team Providers Care Card Assembler Name Role Phone Unavailable Primary Care Provider Unavailabl e Source Comments [facility],non-owned Affiliates and Associated Physician Practices is amultiple site organization consisting of ambulatory clinics and hospital sitesin [place], [place], [place] and [place]. This disclosure is being madepursuant to the Care Everywhere program and may not contain all information available regarding this patient. Last updated 18.[facility] Allergies No known active allergies Active Problems Problem Noted Date Diagnosed Date Polyp of cervix 10/27/2021 Enlarged uterus 10/27/2021 Dyspareunia 10/27/2021 Acquired trigger finger 10/27/2021 Personal history of transien t ischemic attack (TIA), and cerebral infarction without residual deficits 09/01/2021 Essential hypertension 09/01/2021 Presence of insulin pump (external) (internal) 1 Gastro-esophageal reflux disease without esophag itis 09/01/2021 Drug induced constipation 09/01/2021 terminal clerk (current) use of aspirin 09/01/2021 Unspecified fracture of righ t acetabulum, subsequent encounter for fracture with routine healing 08/28/2021 Arthritis of spine 07/29/2021 Thoracic back pain 07/08/2021 Nicotine dependence with current use 07/08/2021 Vitamin D deficiency 06/08/2021 Ganglion cyst 02/03/2021 Hypothyroidism 06/01/2015 Mixed anxiety and depressive disorder 05/31/2010 Type 1 diabetes mellitus 06/01/1970 Immunizations Name Administration Dates Next Due Covid Moderna primary monovalent 12+ yr 0.5mL INFLUENZA VACCINE, QUADR. (F LUZONE; FLULAVAL; FLUARIX; AFLURIA QUADRIVALENT; 6MO+), 0.5 ML (IIV4) 09/16/2021 Social History Tobacco Use Types Packs/Day Years Used Date Smoking Tobacco: Never Assessed Sex and Gender Information Value Date Recorded Sex Assigned at Not on file Gender Identity Not on file Sexual Orientation Not on file Plan of Treatment Health Maintenance Due Date Last Done Comments COLOGUARD (AGES 45-75) - COL ON CA SCREENING 1960 COLON MONITORING 1962 COLONOSCOPY - COLON CA SCREENING 1962 CT COLONOGRAPHY - COLON CA SCREENING 1960 Colorectal Cancer Screening 1962 FIT - COLON CA SCREENING 1962 FLEX SIG - COLON CA SCREENING 1962 MAMMOGRAM 1962 PAP SMEAR 1962 HIV SCREENING 1977 HEPATITIS C SCREENING 12/24/1980 DIABETES-SERUM CREATININE 1980 DTAP/TDAP/TD VACCINES (1 - Tdap) 1981 PNEUMOCOCCAL VACCINE 50+ (1 of 2 - PCV) 1981 DIABETES-STATIN 2002 ZOSTER VACCINE (1 of 2) 2012 DIABETES RETINOPATHY SCREENING 10/27/2021 DIABETES-FOOT EXAM WITH MONOFILAMENT 10/27/2021 DIABETES-HGB A1C 10/27/2021 Respiratory Syncytial Virus (RSV) Vaccine Pt: or over 60 yrs (1 - Risk 60-74 years 1-dose series) 2022 COVID-19 VACCINE (2 - 2023-2 5 season) 2024 02/01/2021 INFLUENZA VACCINE (#1) 2024 09/16/2021 DEPRESSION SCREENING 11/27/2024 DIABETES - URINE PROTEIN SCREENING 11/27/2024 HEPATITIS B VACCINE Aged Out No longe r eligible based on patient's age to complete this topic HIB VACCINE Aged Out No longer eligi ble based on patient's age to complete this topic HPV VACCINE Aged Out No longer eligi ble based on patient's age to complete this topic MENINGOCOCCAL (Group B) VACC INE SHARED DECISION-MAKING Aged Out No longer eligibl e based on patient's age to complete this topic MENINGOCOCCAL GROUPS A/C/Y/W VACCINE Aged Out No longer eligible b ased on patient's age to complete this topic
--- OUTSIDE RECORDS SUMMARY | 2025-02-05 12:03 | XMS_ITS ---
Author Organization [facility] Address [address] [place] [address] Care Team Providers Care Copy Operator Name Role Phone Leo Cardona Unavailable [phone] SOCIAL HISTORY Sex Assigned At : Social History Observation Description Sex Assigned At Female Encounters Encounter Location Date Provider Diagnosis [place] [facility] [address] [facility] 15 [place] [address] 07/03/2024 Leo Cardona PLAN OF TREATMENT No Information Progress Notes * Consuelo JARAMILLOOB:1960 ( 64 yo F)Acc No.[id number]:07/03/2024 Progress Notes Patient: Kendy JARAMILLO Provider: MD THADDEUS, Cristal.Catrina.C.P, F.A.S.N. :1960 Age:63 Y Sex:Female Date:07/03/2024 Address:[address] , [place] [address] Subjective: * Chief Complaints: * * Medical History: Objective: Assessment: Plan: * Treatment: * Billing Information: * Visit Code: * Procedure Codes: * Sign off status: Pending * Provider: MD THADDEUS, Cristal.Catrina.C.P, F.A.S.N. Date: 07/03/2024
--- OUTSIDE RECORDS SUMMARY | 2025-02-05 12:03 | XMS_ITS ---
Author Organization [facility] Address [address] [place] [address] Care Team Providers Care Visitor Services Representative Name Role Phone Brendan Leo Unavailable [phone] SOCIAL HISTORY Sex Assigned At : Social History Observation Description Sex Assigned At Female Encounters Encounter Location Date Provider Diagnosis [place] [facility] [address] [facility] 15 [place] [address] 04/12/2024 Leo Cardona Chronic kidney disease, stage [...] I10) 04/12/2024 Hematuria, unspecified (ICD-10 - R31.9) PLAN OF TREATMENT No Information Progress Notes * Consuelo HOOKOB:1960 ( 64 yo F)Acc No.[id number]:04/12/2024 Progress Notes Patient: Kendy HOOK Provider: MD THADDEUS, F.A.C.P, F.A.S.N. :1960 Age:63 Y Sex:Female Date:04/12/2024 Address:[address], [facility] Subjective: * Chief Complaints: * * Medical History: Objective: Assessment: * Assessment: 1. Chronic kidney disease, stage 3a - N18.31 2. Anxiety disorder, unspecified - F41.9 3. Chronic fatigue, unspecified - R53.82 4. Essential (primary) hypertension - I10 5. Hematuria, unspecified - R31.9 Plan: * Treatment: * Billing Information: * Visit Code: 45273 Office Visit, Est Pt., Level 4. * Procedure Codes: * Sign off status: Pending * Provider: MD THADDEUS, F.A.C.P, F.A.S.N. Date: 04/12/2024
--- OUTSIDE RECORDS SUMMARY | 2025-02-05 12:03 | XMS_ITS ---
Care Plan - [facility] Created on: February 05, 2025 WINNIE JARAMILLO : 1960 Sex: Female Author Organization [facility] Address [address] [place] [address] Phone Care Team Providers Care Sand Mixer Operator Name Role Phone CHRISTIANA ZAMORANO, SHELLEY CHRISTIE [facility] [phone]
--- OUTSIDE RECORDS SUMMARY | 2025-02-05 12:03 | XMS_ITS | Patient Health Record ---
Author Organization [facility] Address [address] [facility] [address] [place] [address] Care Team Providers Care Railcar Switchman Name Role Phone Leo Cardona Unavailable [phone] REASON FOR REFERRAL No Information SOCIAL HISTORY Sex Assigned At : Social History Observation Description Sex Assigned At Female PROBLEMS Problem Type ICD Code Onset Dates Problem Status W/U Status Risk SNOMED Code Notes Problem Anxiety disorder, unspecified (F41.9) Active confirmed Anxiety disorde r (736025961) Problem Essential (primary) hypertension (I10) Active confirmed Essential hypertension (00390851) Problem Hematuria, unspecified (R31.9) Active confirmed Hematuria (05653860) Problem Chronic fatigue, unspecified (R53.82) Active confirmed Chronic fatigue syndrome (disorder) (08560656) Problem Chronic kidney disease, stage 3a (N18.31) Active confirmed Chronic kidney disease stage 3A (disorder) (767695947) Encounters Encounter Location Date Provider Diagnosis [facility] [address] [place] [address] 03/15/2024 Leo Cardona Chronic kidney disease, stage 3a N18.31 ; Anxiety disorder, unspecified F41.9 ; Chronic fatigue, unspecified R53.82 ; Essential (primary) hypertension I10 and Hematuria, unspecified R31.9 [place] [facility] [address] [place] [address] 04/12/2024 Leo Cardona Chronic kidney disease, stage 3a N18.31 ; Anxiety disorder, unspecified F41.9 ; Chronic fatigue, unspecified R53.82 ; Essential (primary) hypertension I10 and Hematuria, unspecified R31.9 [facility] [address] [place] [address] 07/03/2024 Leo Cardona ASSESSMENTS Encounter Date Diagnosis Assessment Notes Treatment Notes Treatment Clinical Notes Section Notes 03/15/2024 Chronic kidney disease, stage 3a (ICD-10 - N18.31) 04/12/2024 Chronic kidney disease, stage 3a (ICD-10 - N18.31) 04/12/2024 Anxiety disorder, unspecified (ICD-10 - F41.9) 03/15/2024 Anxiety disorder, unspecified (ICD-10 - F41.9) 03/15/2024 Chronic fatigue, unspecified (ICD-10 - R53.82) 04/12/2024 Chronic fatigue, unspecified (ICD-10 - R53.82) 03/15/2024 Essential (primary) hypertension (ICD-10 - I10) 04/12/2024 Essential (primary) hypertension (ICD-10 - I10) 04/12/2024 Hematuria, unspecified (ICD-10 - R31.9) 03/15/2024 Hematuria, unspecified (ICD-10 - R31.9) PLAN OF TREATMENT No Information
--- OUTSIDE RECORDS SUMMARY | 2025-02-05 12:03 | XMS_ITS ---
Author Organization [facility] S Address [address] [place] [address] Phone Care Team Providers Care Child Care Worker Name Role Phone CHRISTIANA ZAMORANO, SHELLEY CHRISTIE [facility] [phone] Plan of Treatment No Plan of Treatment [...]
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
== END 2025-02-05 10:21 | disposition home or self-care (01) ==
PROVIDERS: Visit Provider Internal Medicine
DX: E10.9 Type 1 diabetes mellitus without complications (principal); Z46.81 Encounter for fitting and adjustment of insulin pump; E10.69 Type 1 diabetes mellitus with other specified complication; Z79.899 Other long term (current) drug therapy
CPT/HCPCS: 36415; 80053; 80061; 82306; 84439; 84443

== ENCOUNTER 2025-05-13 15:15 | Outpatient (CLI) | payer MEDICARE, SELFPAY ==
--- OUTSIDE RECORDS SUMMARY | 2025-05-13 16:15 | XMS_ITS ---
Author Organization [facility] Address [address] [facility] [address] [facility] [address] [place] [address] Care Team Providers Care Care Transitions Manager Name Role Phone Jayesh Cardonaerjit Unavailable [phone] Social History Sex Assigned At : Social History Observation Description Sex Assigned At Female Problems Problem Type SNOMED Code ICD Code Onset Dates Problem Status W/U Status Risk Notes Problem Chronic kidney disease stage 3A (disorder) (823010225) Chronic kidney disease, stage 3a (N18.31) Active confirmed Problem Anxiety disorder (318872896) Anxiety disorder, unspecified (F41.9) Active confirmed Problem Chronic fatigue syndrome (disorder) (03632987) Chronic fatigue, unspecified (R53.82) Active confirmed Problem Essential hypertension (49428912) Essential (primary) hypertension (I10) Active confirmed Problem Hematuria (59209089) Hematuria, unspecified (R31.9) Active confirmed Encounters Encounter Location Date Provider Diagnosis [place] [facility] [address] [facility] 15 [place] [address] 03/15/2024 Leo Cardona Chronic kidney disease, stage [...] * Butch HOOK:1960 ( 64 yo F)Acc No.[id number]:03/15/2024 Progress Notes Patient: Kendy ALBARADO Provider: Natasha LA MD, F.Catrina.Beto.P, F.A.S.N. :1960 A ge:63 Y S ex:Female Date:03/15/2024 Address:[address] [facility], [place] [address] Subjective: * Chief Complaints: * * Medical History: Objective: * Vitals: Assessment: * Assessment: 1. C hronic kidney disease, stage 3a - N18.31 2 . A nxiety disorder, unspecified - F41.9 3 . C hronic fatigue, unspecified - R53.82 4 .?Essential (primary) hypertension - I10 5 . H ematuria, unspecified - R31.9? Plan: * Treatment: * Billing Information: * Visit Code: 67092 Office Visit, New Pt., Level 5. * Procedure Codes: * Electronic signature of Patsy Cardona MD on 05/13/2025 at 04:15 PM CDT Sign off status: Pending * Provider: Natasha LA MD, Cristal.Catrina.Beto.P, F.A.S.N. Date: 03/15/2024 Generated for Printing/Faxing/eTransmitting on: 0 05/13/2025 04:15 PM CDT
--- OUTSIDE RECORDS SUMMARY | 2025-05-13 16:15 | XMS_ITS | CONTINUITY OF CARE DOCUMENT ---
Author Name tammy munoz Address Unknown Organization [facility] Address [address] [facility] [address] [place] [address] Phone [phone] Care Team Providers Care Immersion Metalcleaner Name Role Phone Ricardo Santos MD Unavailable Pedro Luis DATA PROCESSING MANAGER-BC, Michelle Oh Unavailable INSURANCE PROVIDERS Payer name Policy type / Coverage type Marcia red democrat ID [facility] [id number] Other [id number]
--- OUTSIDE RECORDS SUMMARY | 2025-05-13 16:16 | XMS_ITS | Patient Health Record ---
Author Organization [facility] Address [address] [place] [address] Care Team Providers Care Autism Motor Specialist Name Role Phone Cardona Leo Unavailable [phone] Reason For Referral No Information Social History Sex Assigned At : Social History Observation Description Sex Assigned At Female Problems Problem Type SNOMED Code ICD Code Onset Dates Problem Status W/U Status Risk Notes Problem Anxiety disorder (263492023) Anxiety disorder, unspecified (F41.9) Active confirmed Problem Essential hypertension (65803995) Essential (primary) hypertension (I10) Active confirmed Problem Hematuria (48384604) Hematuria, unspecified (R31.9) Active confirmed Problem Chronic fatigue syndrome (disorder) (89370256) Chronic fatigue, unspecified (R53.82) Active confirmed Problem Chronic kidney disease stage 3A (disorder) (544006165) Chronic kidney disease, stage 3a (N18.31) Active confirmed Plan Of Treatment No Information
--- OUTSIDE RECORDS SUMMARY | 2025-05-13 16:16 | XMS_ITS ---
Author Organization [facility] Address [address] [facility] [address] [facility] [address] [place] [address] Care Team Providers Care Call Center Operator Name Role Phone Leo Cardona Unavailable [phone] Social History Sex Assigned At : Social History Observation Description Sex Assigned At Female Encounters Encounter Location Date Provider Diagnosis [place] [facility] [address] [facility] [address] [place] [address] 07/03/2024 Leo Cardona Plan Of Treatment No Information Progress Notes * Consuelo HOOKOB:1960 ( 64 yo F)Acc No.[id number]:07/03/2024 Progress Notes Patient: Kendy ALBARADO Provider: Natasha LA MD, F.Catrina.C.P, F.A.S.N. :1960 A ge:63 Y S ex:Female Date:07/03/2024 Address:[address], [place] [address] Subjective: * Chief Complaints: * * Medical History: Objective: * Vitals: Assessment: Plan: * Treatment: * Billing Information: * Visit Code: * Procedure Codes: * Electronic signature of Patsy Cardona MD on 05/13/2025 at 04:15 PM CDT Sign off status: Pending * Provider: Natasha LA MD, F.Catrina.C.P, F.A.S.N. Date: 07/03/2024 Generated for Printing/Faxing/eTransmitting on: 05/13/2025 04:15 PM CDT
--- OUTSIDE RECORDS SUMMARY | 2025-05-13 16:16 | XMS_ITS | Clinical Summary ---
Author Organization [facility] Address [address] [place] [address] Care Team Providers Care Welt Cutter Name Role Phone Rebeka Mcmanus APRN-EMPLOYMENT REPRESENTATIVE Unavailable [phone] [facility],non-owned Affiliates and Associated Physician Practices is amultiple site organization consisting of ambulatory clinics and hospital sitesin [place], [place], [place] and [place]. This disclosure is being madepursuant to the Care Everywhere program and may not contain all information available regarding this patient. Last updated 18.[facility] Allergies No known active allergies Active Problems Problem Noted Date Diagnosed Date Polyp of cervix 10/27/2021 Enlarged uterus 10/27/2021 Dyspareunia 10/27/2021 Acquired trigger finger 10/27/2021 Personal history of transien t ischemic attack (TIA), and cerebral infarction without residual deficits 09/01/2021 Essential hypertension 09/01/2021 Presence of insulin pump (external) (internal) 1 Gastro-esophageal reflux disease without esophag itis 09/01/2021 Drug induced constipation 09/01/2021 detention (current) use of aspirin 09/01/2021 Unspecified fracture of righ t acetabulum, subsequent encounter for fracture with routine healing 08/28/2021 Arthritis of spine 07/29/2021 Thoracic back pain 07/08/2021 Nicotine dependence with current use 07/08/2021 Vitamin D deficiency 06/08/2021 Ganglion cyst 02/03/2021 Hypothyroidism 06/01/2015 Mixed anxiety and depressive disorder 05/31/2010 Type 1 diabetes mellitus 06/01/1970 Immunizations Immunization Administration Dates Next Due Covid Moderna primary monovalent 12+ yr 0.5mL INFLUENZA VACCINE, QUADR. 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 Gender Identity Not on file Sexual Orientation [...] EXAM WITH MONOFILAMENT 10/27/2021 DIABETES-HGB A1C 10/27/2021 COVID-19 VACCINE (2 - 2023-2 5 season) 2024 02/01/2021 DEPRESSION SCREENING 11/27/2024 DIABETES - URINE PROTEIN SCREENING 11/27/2024 INFLUENZA VACCINE (Season Ended) 2025 09/16/20 21 Respiratory Syncytial Virus (RSV) Vaccine Pt: or over 60 yrs (1 - 1-dose 75+ series) 2037 HEPATITIS B VACCINE Aged Out No longe [...] on patient's age to complete this topic Insurance Care Teams Welt Cutter Relationship Specialty Start Date End Date Rebeka Mcmanus, BANKRUPTCY PROCESSOR-EMPLOYMENT REPRESENTATIVE [id number] [id number] [facility] JUAN GARCIA P4P 03/27/25
--- OUTSIDE RECORDS SUMMARY | 2025-05-13 16:16 | XMS_ITS | Data Portability ---
Author Organization [place] - [facility], Main Office Address [address] [place] [address] Assessment Encounter Date Assessment Date Assessment LastModified by Organization Details LastModified Time 08/17/2023 08/17/2023 The patient has chronic history of right 4th trigger finger which has been treated multiple times, it appears she may have developed some chronic stiffness and scarring due to the chronic inflammation, she has significant pain and discomfort and dysfunction. No rajiv locking or catching is noted today. She states she cannot tolerate this any longer she wants something done. We I did talk about doing a shot of cortisone today however I do not think this is going to give her significant relief. We will refer her to see Dr. Isidro for consultation for possible surgical release of the scarring in the flexor tendon sheath. Today she was given his name and phone number we will get her set up with him. She voiced understanding agrees above plan she will call for any further problems difficulties or questions. [email or web address] Not available 08/17/2023 15:22:32 10/05/2023 10/05/2023 [employer]- [facility] [facility] Mammogram- 01/2023 DEXA- 09/2021- osteoporosis, next 09/2024 Cscope- 09/2014- retained stool but no polyps- repeat 09/2024 Call office if worse, ER if life threatening illness RTC 4 months She voices understanding of plan and agree [email or web address] Not available 10/05/2023 13:05:16 Plan of Treatment Reminders Order Date Submit Date Provider Last Modified By Organization Details Last Modified Time Details Appointments None recorded. Lab lipid panel, serum 2023 03/04/2 024 [email or web address] [facility] ([facility]), [address] [place], [address], 4 11:04:21 CBC w/ auto diff [address] (Lab), [address] [place], [address], 4 11:04:22 TSH, serum or plasma [address] (Lab), [address] [place], [address], 4 11:04:22 CMP, serum or plasma [address] (Lab), [address] [place], [address], 4 11:04:22 vitamin D, 25-hydroxy, total, serum [address] (Lab), [address] [place], [address], 4 11:04:21 rapid flu (A+B) [address] [facility], [address] [place], [address], 4 11:04:39 rapid strep group A, throat [address] [facility], [address] [place], [address], 4 17:31:33 SARS CoV 2 RNA (COVID-19), QL, 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, 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 [address] [facility], [address] [place], [address], 4 17:31:34 glycohemogl obin, total, blood [address] (Lab), [address] [place], [address], 4 11:04:22 microalbumi n, urine [address] (Lab), [address] [place], [address], 4 11:04:22 vitamin D, 25-hydroxy, total, serum [address] (Lab), [address] [place], [address], 3 14:48:37 HbA1c (hemoglobin A1c), blood [address] (Lab), [address] [place], [address], 3 14:48:38 microalbumi n/creatinin e, mass ratio, urine [address] (Lab), [address] [place], [address], 3 14:48:38 TSH + free T4, serum [address] (Lab), [address] [place], [address], 3 14:48:38 lipid panel, serum 2022 023 [facility] (Lab), [address] [place], [address], 3 16:23:23 CMP, serum or plasma 2022 023 [facility] (Lab), [address] [place], [address], 3 16:23:33 CBC w/ auto diff 2022 023 [facility] (Lab), [address] [place], [address], 3 16:06:24 vitamin B12 + folate, serum or blood 2022 023 [email or web address] [facility] (Lab), [address] [place], [address], 3 14:48:38 Referral gynecologis t referral 2023 024 [email or web address] 6 Adan Miranda MD, [address] [facility] [address], [place], [address], 4 08:43:29 diabetic ophthalmolo gy referral [email or web address] [facility], [address], [place], [address], 4 08:43:30 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 Thank you 2022 023 JESENIA Isidro MD, [address] [place], [address], 3 06:14:44 Procedures None recorded. Surgeries None recorded. Imaging MAMMO, screening, digital, bilateral 2023 024 [email or web address] 6 [facility] ([facility]), [address] [place], [address], 4 13:37:18 DEXA, axial skeleton 2023 024 [facility] ([facility]), [address] [facility] [place], [address], 4 16:47:49 Medication Orders Ubrelvy 100 mg tablet 2023 024 JESENIA [facility], [address], [address], [place], [place], [id number], 4 11:41:45 Zithromax Z-Nigel 250 mg tablet 2023 024 JESENIA [facility], [address], [address], [place], [place], [id number], 4 17:16:14 alendronate 70 mg tablet 2022 023 JESENIA [facility], [address], [address], [place], [place], [id number], 3 12:26:05 atorvastati n 20 mg tablet 2022 023 JESENIA [facility], [address], [address], [place], [place], [id number], 3 12:26:02 Humalog U-100 Insulin 100 unit/mL subcutaneou s solution 2022 023 JESENIA [facility], [address], [address], [place], [place], [id number], 3 12:26:04 Synthroid 88 mcg tablet 2022 023 JESENIA [facility], [address], [address], [place], [place], [id number], 3 12:26:03 atorvastati n 20 mg tablet 2022 023 [id number], [address], [place], [place], [id number], 3 13:23:28 levothyroxi ne 112 mcg tablet [email or web address] [id number], [address], [place], [place], [id number], 3 12:04:58 mometasone 0.1 % topical cream 2022 023 [facility] #[id number], [address], [place], [place], [id number], 3 11:32:47 Patient TargetsNo targets recorded. Patient InstructionsNo instructions recorded. 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 Referral for Gy necologic examination Referring Physician: Phillip Santo, Internal Medicine, Encounter Date: 01/29/2024 Diabetic Ophthalmology Refer ral for Type 2 diabetes mellitus without complication Referring Physician: Phillip Santo Internal Medicine, Encounter Date: 01/29/2024 Pictures Editor Referral for Type 2 diabetes mellitus without complication Referring Physician: Phillip Santo Internal Medicine, Encounter Date: 01/29/2024 Results Created Date Observation Date Name Description Value Unit Range Abnormal Flag Note LastModifiedBy Organization Detail LastModifiedTime 10/05/20 23 10/05/2023 CBC/C OMPLE TE BLD COUNT W/DIF F white blood cells 4.3 x10'3 /uL 4.2-10 .8 Not Available [facility] (Lab) [address], [place], [address], 10/05/2023 16:06:24 10/05/20 23 10/05/2023 CBC/C OMPLE TE BLD COUNT W/DIF F red blood cells 4.83 x10'6 /uL 3.80-5 .20 Not Available [facility] (Lab) [address] [place], [address], 10/05/2023 16:06:24 10/05/20 23 10/05/2023 CBC/C OMPLE TE BLD COUNT W/DIF F hemoglobin 14.5 g/dL 12.0-1 5.6 Not Available [facility] (Lab) [address] [facility] [place], [address], 10/05/2023 16:06:24 10/05/20 23 10/05/2023 CBC/C OMPLE TE BLD COUNT W/DIF F hematocrit 45.1 % 35.7-4 5.7 Not Available [facility] (Lab) [address] [place], [address], 10/05/2023 16:06:24 10/05/20 23 10/05/2023 CBC/C OMPLE TE BLD COUNT W/DIF F mean red cell volume 93.4 fL 82.0-9 9.0 Not Available [facility] (Lab) [address] [place], [address], 10/05/2023 16:06:24 10/05/20 23 10/05/2023 CBC/C OMPLE TE BLD COUNT W/DIF F mean red cell hemoglobin 30.0 pg 27.0-3 3.0 Not Available [facility] (Lab) [address] [place], [address], 10/05/2023 16:06:24 10/05/20 23 10/05/2023 CBC/C OMPLE TE BLD COUNT W/DIF F mean RBC HGB concentratio n 32.2 g/dL 31.0-3 6.0 Not Available [facility] (Lab) [address] [place], [address], 10/05/2023 16:06:24 10/05/20 23 10/05/2023 CBC/C OMPLE TE BLD COUNT W/DIF F red cell distribution width 13.6 % 11.8-1 5.5 Not Available [facility] (Lab) [address] [place], [address], 10/05/2023 16:06:24 10/05/20 23 10/05/2023 CBC/C OMPLE TE BLD COUNT W/DIF F platelets 236 x10'3 /uL 150-40 0 Not Available [facility] (Lab) [address] [place], [address], 10/05/2023 16:06:24 10/05/20 23 10/05/2023 CBC/C OMPLE TE BLD COUNT W/DIF F mean platelet volume 11.1 fL 9.0-12 .4 Not Available [facility] (Lab) [address] [place], [address], 10/05/2023 16:06:24 10/05/20 23 10/05/2023 CBC/C OMPLE TE BLD COUNT W/DIF F neutrophils 55.0 % 39.0-7 2.0 Not Available [facility] (Lab) [address] [place], [address], 10/05/2023 16:06:24 10/05/20 23 10/05/2023 CBC/C OMPLE TE BLD COUNT W/DIF F lymphocytes 32.8 % 16.0-4 7.0 Not Available [facility] (Lab) [address] [place], [address], 10/05/2023 16:06:24 10/05/20 23 10/05/2023 CBC/C OMPLE TE BLD COUNT W/DIF F monocytes 7.5 % 5.0-12 .0 Not Available [facility] (Lab) [address] [place], [address], 10/05/2023 16:06:24 10/05/20 23 10/05/2023 CBC/C OMPLE TE BLD COUNT W/DIF F eosinophils 3.0 % 1.0-7. 0 Not Available [facility] (Lab) [address] [facility] [place], [address], 10/05/2023 16:06:24 10/05/20 23 10/05/2023 CBC/C OMPLE TE BLD COUNT W/DIF F basophils 1.2 % 0.0-2. 0 Not Available [facility] (Lab) [address] [place], [address], 10/05/2023 16:06:24 10/05/20 23 10/05/2023 CBC/C OMPLE TE BLD COUNT W/DIF F immature granulocytes 0.5 % 0.00-0 .50 Not Available [facility] (Lab) [address] [place], [address], 10/05/2023 16:06:24 10/05/20 23 10/05/2023 CBC/C OMPLE TE BLD COUNT W/DIF F neutrophils, absolute count 2.35 x10'3 /uL 1.5-8. 0 Not Available [facility] (Lab) [address] [place], [address], 10/05/2023 16:06:24 10/05/20 23 10/05/2023 CBC/C OMPLE TE BLD COUNT W/DIF F lymphocytes, absolute count 1.40 x10'3 /uL 1.07-3 .43 Not Available [facility] (Lab) [address] [place], [address], 10/05/2023 16:06:24 10/05/20 23 10/05/2023 CBC/C OMPLE TE BLD COUNT W/DIF F monocytes, absolute count 0.32 x10'3 /uL 0.29-0 .99 Not Available [facility] (Lab) [address] [place], [address], 10/05/2023 16:06:24 10/05/20 23 10/05/2023 CBC/C OMPLE TE BLD COUNT W/DIF F eosinophils, absolute count 0.13 x10'3 /uL 0.02-0 .53 Not Available [facility] (Lab) [address] [place], [address], 10/05/2023 16:06:24 10/05/20 23 10/05/2023 CBC/C OMPLE TE BLD COUNT W/DIF F basophils, absolute count 0.05 x10'3 /uL 0.01-0 .08 Not Available [facility] (Lab) [address] [place], [address], 10/05/2023 16:06:24 10/05/20 23 10/05/2023 CBC/C OMPLE TE BLD COUNT W/DIF F immature granulocytes ,absolute 0.02 x10'3 /uL 0.00-0 .05 Not Available [facility] (Lab) [address] [place], [address], 10/05/2023 16:06:24 10/05/20 23 10/05/2023 CBC/C OMPLE TE BLD COUNT W/DIF F nucleated red blood cells 0.0 % -0 Not Available [facility] (Lab) [address] [place], [address], 10/05/2023 16:06:24 10/05/20 23 10/05/2023 CBC/C OMPLE TE BLD COUNT W/DIF F NRBC# 0.00 x10'3 /uL Not Available [facility] (Lab) [address] [place], [address], 10/05/2023 16:06:24 10/05/20 23 10/05/2023 LIPID PANEL cholesterol 192 mg/dL 140-19 9 NIH REGGIE NSUS RECOM MENDA TION FOR YAW STERO L: ADULT CHILD LOW RISK: <200 <170 BORDE RLINE : <200- 239 ----- HIGH RISK: >240 >200 Not Available [facility] (Lab) [address] [place], [address], 10/05/2023 16:23:23 10/05/20 23 10/05/2023 LIPID PANEL triglyceride s 111 mg/dL 0-150 NIH REGGIE NSUS REPOR T RECOM MENDA TION FOR TRIGL YCERI JAKE: ADULT CHILD LOW RISK: <150 ----- BODER LINE: 150-1 99 ----- HIGH RISK: >200 ----- Not Available [facility] (Lab) [address] [place], [address], 10/05/2023 16:23:23 10/05/20 23 10/05/2023 LIPID PANEL HDL cholesterol 63 mg/dL 40- Not Available [facility] (Lab) [address] [place], [address], 10/05/2023 16:23:23 10/05/20 23 10/05/2023 LIPID PANEL LDL cholesterol, calculated 107 mg/dL 0-130 NIH REGGIE NSUS REPOR T RECOM MENDA TIONS FOR LDL: ADULT CHILD LOW RISK <130 <110 (OPTI MAL LDL) <100 ----- BORDE RLINE : 130-1 59 ----- HIGH RISK: >160 >130 A TRIGL YCERI DE RESUL T >400 INVAL IDATE S THE CALCU LATIO N FOR LDL FRACT IONAT ION - THE LDL RESUL T WILL NOT BE REPOR MARCEL. Not Available [facility] (Lab) [address] [place], [address], 10/05/2023 16:23:23 10/05/20 23 10/05/2023 COMPR EHENS DIANNA METAB OLIC PANEL sodium 138 mmol/ L 137-14 5 Not Available [facility] (Lab) [address] [place], [address], 10/05/2023 16:23:33 10/05/20 23 10/05/2023 COMPR EHENS DIANNA METAB OLIC PANEL potassium 3.9 mmol/ L 3.5-5. 1 Not Available [facility] (Lab) [address] [place], [address], 10/05/2023 16:23:33 10/05/20 23 10/05/2023 COMPR EHENS DIANNA METAB OLIC PANEL chloride 104 mmol/ L 98-107 Not Available [facility] (Lab) [address] [place], [address], 10/05/2023 16:23:33 10/05/20 23 10/05/2023 COMPR EHENS DIANNA METAB OLIC PANEL carbon dioxide 28 mmol/ L 22-30 Not Available [facility] (Lab) [address] [place], [address], 10/05/2023 16:23:33 10/05/20 23 10/05/2023 COMPR EHENS DIANNA METAB OLIC PANEL anion gap 9.9 mmol/ L 14-22 low Not Available [facility] (Lab) [address] [place], [address], 10/05/2023 16:23:33 10/05/20 23 10/05/2023 COMPR EHENS DIANNA METAB OLIC PANEL glucose 68 mg/dL 70-99 low Not Available [facility] (Lab) [address] [place], [address], 10/05/2023 16:23:33 10/05/20 23 10/05/2023 COMPR EHENS DIANNA METAB OLIC PANEL BUN 14 mg/dL 8-19 Not Available [facility] (Lab) [address] [place], [address], 10/05/2023 16:23:33 10/05/20 23 10/05/2023 COMPR EHENS DIANNA METAB OLIC PANEL creatinine 0.88 mg/dL 0.66-1 .25 Not Available [facility] (Lab) [address] [place], [address], 10/05/2023 16:23:33 10/05/2010/05/2023 COMPR EHENS DIANNA METAB OLIC PANEL GFR >60 Refer ence Range : [place] ge GFR Healt hy Adult : >60 mL/mi n/1.7 3 m2 Chron ic Kidne y Disea se: 15-60 mL/mi n/1.7 3 m2 Kidne y Failu re: <15/m L/min /1.73 m2 www.n iddk. nih.g ov The MDRD study equat ion has not been valid ated in child katherine <18 years of age; pregn ant women ; the elder ly >85 years of age; or in some racia l or ethni c subgr oups, such as Hismn nics. Outsi de the valid ated seferino eters , estim ated GFR is less accur ate, requi ring clini taisha judgm ent on a case- by-ca se basis . Clini taisha inter preta tion for other races and ages must be made by the clini se. The MDRD study equat ion has not been valid ated for the evalu ation of serum creat inine relat ed to nutri nicolle l statu s or medic ation usage . For perso ns <18 years of age, a pedia tric GFR calcu lator is avail able on the [facility] websi te: https ://stanton rodney.bere rg/pr ofess ional s/kdo qi/gf r_cal culat or Not Available [facility] (Lab) [address] [place], [address], 10/05/2023 16:23:33 10/05/2010/05/2023 COMPR EHENS DIANNA METAB OLIC PANEL alkaline phosphatase 65 U/L 38-126 Not Available [facility] (Lab) [address] [place], [address], 10/05/2023 16:23:33 10/05/20 23 10/05/2023 COMPR EHENS DIANNA METAB OLIC PANEL alanine aminotransfe rase 13 U/L 0-35 Not Available [facility] (Lab) [address] [place], [address], 10/05/2023 16:23:33 10/05/20 23 10/05/2023 COMPR EHENS DIANNA METAB OLIC PANEL aspartate aminotransfe rase 21 U/L 15-37 Not Available [facility] (Lab) [address] [place], [address], 10/05/2023 16:23:33 10/05/20 23 10/05/2023 COMPR EHENS DIANNA METAB OLIC PANEL bilirubin, total 0.60 mg/dL 0.20-1 .30 Not Available [facility] (Lab) [address] [place], [address], 10/05/2023 16:23:33 10/05/20 23 10/05/2023 COMPR EHENS DIANNA METAB OLIC PANEL calcium 9.7 mg/dL 8.4-10 .2 Not Available [facility] (Lab) [address] [place], [address], 10/05/2023 16:23:33 10/05/20 23 10/05/2023 COMPR EHENS DIANNA METAB OLIC PANEL total protein 7.3 g/dL 6.3-8. 2 Not Available [facility] (Lab) [address] [place], [address], 10/05/2023 16:23:33 10/05/20 23 10/05/2023 COMPR EHENS DIANNA METAB OLIC PANEL albumin 4.2 g/dL 3.4-5. 0 Not Available [facility] (Lab) [address] [place], [address], 10/05/2023 16:23:33 10/05/20 23 10/05/2023 COMPR EHENS DIANNA METAB OLIC PANEL globulin 3.1 g/dL 2.6-4. 2 Not Available [facility] (Lab) [address] [place], [address], 10/05/2023 16:23:33 10/05/20 23 10/05/2023 COMPR EHENS DIANNA METAB OLIC PANEL A/G ratio 1.4 ratio 1.0-2. 0 Not Available [facility] (Lab) [address] [place], [address], 10/05/2023 16:23:33 10/05/20 23 10/05/2023 T4 FREE free T4 1.13 NG/dL 0.78-2 .19 Not Available [facility] (Lab) [address] [place], [address], 10/05/2023 16:34:14 10/05/20 23 10/05/2023 VITAM IN D 25-HY DROXY vd25oh 65.8 NG/mL 30-100 Vitam in D Statu s: Defic ient: <20 ng/mL Insuf ficie nt: 20-29 ng/mL Suffi cient : 30-10 0 ng/mL Not Available [facility] (Lab) [address] [place], [address], 10/05/2023 16:36:05 10/05/20 23 10/05/2023 MICRO ALBUM N RNDM W/CRE AT RATIO ur creat 176.89 mg/dL REFER ENCE RANGE NOT ESTAB LISHE D FOR RANDO M URINE CREAT ININE Not Available [facility] (Lab) [address] [place], [address], 10/05/2023 16:45:43 10/05/20 23 10/05/2023 MICRO ALBUM N RNDM W/CRE AT RATIO microalbumin , urine 8.1 mg/L 0.0-16 .6 Not Available [facility] (Lab) [address] [place], [address], 10/05/2023 16:45:43 10/05/20 23 10/05/2023 MICRO ALBUM N RNDM W/CRE AT RATIO microalbumin /creatinine ratio 5 mcg/m g 0-29 THE AMERI CAN DIABE LASHONDA ASSOC IATIO N DEFIN ES ABNOR MALIT IES IN ALBUM IN EXCRE TION FOLLO WS: CATEG ORY RESUL T (MCG/ MG CREAT ININE ) ARACELY L <30 MICRO ALBUM INURI A 30-29 9 CLINI TAISHA ALBUM INURI A > OR = 300 THE ADA RECOM MENDS THAT 2 OF 2 SPECI MENS COLLE CTED WITHI N A 3- TO 6-MON TH PERIO D BE ABNOR MAL BEFOR E CONSI ADRIAN G A PATIE NT TO HAVE CROSS ED ONE OF THESE DIAGN OSTIC THRES HOLDS . REFER ENCE: DIABE LASHONDA CARE, VOL. 26: [id number] 96, 2002 Not Available [facility] (Lab) [address] [place], [address], 10/05/2023 16:45:43 10/05/20 23 10/05/2023 TSH thyroid-stim ulating hormone 7.630 uIU/m L 0.465- 4.680 high Not Available [facility] (Lab) [address] [place], [address], 10/05/2023 16:42:19 10/05/20 23 10/05/2023 VITAM IN B12 (CAMELIA LARRY ) vb12 233 pg/mL 239-93 1 low Not Available [facility] (Lab) [address] [place], [address], 10/05/2023 17:22:37 10/05/2010/05/2023 FOLAT E, SERUM /PLAS MA folate 12.7 NG/mL 2.76-2 0.0 Not Available [facility] (Lab) [address] [place], [address], 10/05/2023 17:22:42 11/0910/05/2023 HEMOG LOBIN A1C HA1C 7.2 % 4.0-6. 0 high Diabe lashonda Elidae cyndi Crite elsy: <5.7% Consi stent with absen ce of diabe lashonda 5.7-6 .4% Consi stent with incre ased risk for diabe lashonda (pred iabet es) >OR=6 .5% Consi stent with diabe lashonda REFER ENCE: Diabe lashonda Care 2016, 39( ppl.1 ):s13 -s22 Not Available [facility] (Lab) [address] [place], [address], 10/05/2023 20:06:33 02/12/20 24 02/12/2024 CBC/C OMPLE TE BLD COUNT W/DIF F white blood cells 6.0 x10'3 /uL 4.2-10 .8 Not Available [facility] (Lab) [address] [place], [address], 02/12/2024 13:36:25 02/12/20 24 02/12/2024 CBC/C OMPLE TE BLD COUNT W/DIF F red blood cells 4.86 x10'6 /uL 3.80-5 .20 Not Available [facility] (Lab) [address] [place], [address], 02/12/2024 13:36:25 02/12/20 24 02/12/2024 CBC/C OMPLE TE BLD COUNT W/DIF F hemoglobin 14.7 g/dL 12.0-1 5.6 Not Available [facility] (Lab) [address] [place], [address], 02/12/2024 13:36:25 02/12/20 24 02/12/2024 CBC/C OMPLE TE BLD COUNT W/DIF F hematocrit 46.3 % 35.7-4 5.7 high Not Available [facility] (Lab) [address] [place], [address], 02/12/2024 13:36:25 02/12/20 24 02/12/2024 CBC/C OMPLE TE BLD COUNT W/DIF F mean red cell volume 95.3 fL 82.0-9 9.0 Not Available [facility] (Lab) [address] [place], [address], 02/12/2024 13:36:25 02/12/20 24 02/12/2024 CBC/C OMPLE TE BLD COUNT W/DIF F mean red cell hemoglobin 30.2 pg 27.0-3 3.0 Not Available [facility] (Lab) [address] [place], [address], 02/12/2024 13:36:25 02/12/20 24 02/12/2024 CBC/C OMPLE TE BLD COUNT W/DIF F mean RBC HGB concentratio n 31.7 g/dL 31.0-3 6.0 Not Available [facility] (Lab) [address] [place], [address], 02/12/2024 13:36:25 02/12/20 24 02/12/2024 CBC/C OMPLE TE BLD COUNT W/DIF F red cell distribution width 13.1 % 11.8-1 5.5 Not Available [facility] (Lab) [address] [place], [address], 02/12/2024 13:36:25 02/12/20 24 02/12/2024 CBC/C OMPLE TE BLD COUNT W/DIF F platelets 226 x10'3 /uL 150-40 0 Not Available [facility] (Lab) [address] [place], [address], 02/12/2024 13:36:25 02/12/20 24 02/12/2024 CBC/C OMPLE TE BLD COUNT W/DIF F mean platelet volume 11.1 fL 9.0-12 .4 Not Available [facility] (Lab) [address] [place], [address], 02/12/2024 13:36:25 02/12/20 24 02/12/2024 CBC/C OMPLE TE BLD COUNT W/DIF F neutrophils 62.7 % 39.0-7 2.0 Not Available [facility] (Lab) [address] [place], [address], 02/12/2024 13:36:25 02/12/20 24 02/12/2024 CBC/C OMPLE TE BLD COUNT W/DIF F lymphocytes 28.1 % 16.0-4 7.0 Not Available [facility] (Lab) [address] [place], [address], 02/12/2024 13:36:25 02/12/20 24 02/12/2024 CBC/C OMPLE TE BLD COUNT W/DIF F monocytes 5.5 % 5.0-12 .0 Not Available [facility] (Lab) [address] [place], [address], 02/12/2024 13:36:25 02/12/20 24 02/12/2024 CBC/C OMPLE TE BLD COUNT W/DIF F eosinophils 2.2 % 1.0-7. 0 Not Available [facility] (Lab) [address] [place], [address], 02/12/2024 13:36:25 02/12/20 24 02/12/2024 CBC/C OMPLE TE BLD COUNT W/DIF F basophils 1.3 % 0.0-2. 0 Not Available [facility] (Lab) [address] [place], [address], 02/12/2024 13:36:25 02/12/20 24 02/12/2024 CBC/C OMPLE TE BLD COUNT W/DIF F immature granulocytes 0.2 % 0.00-0 .50 Not Available [facility] (Lab) [address] [place], [address], 02/12/2024 13:36:25 02/12/20 24 02/12/2024 CBC/C OMPLE TE BLD COUNT W/DIF F neutrophils, absolute count 3.74 x10'3 /uL 1.5-8. 0 Not Available [facility] (Lab) [address] [place], [id number], 02/12/2024 13:36:25 02/12/20 24 02/12/2024 CBC/C OMPLE TE BLD COUNT W/DIF F lymphocytes, absolute count 1.68 x10'3 /uL 1.07-3 .43 Not Available [facility] (Lab) [address] [place], [address], 02/12/2024 13:36:25 02/12/20 24 02/12/2024 CBC/C OMPLE TE BLD COUNT W/DIF F monocytes, absolute count 0.33 x10'3 /uL 0.29-0 .99 Not Available [facility] (Lab) [address] [place], [address], 02/12/2024 13:36:25 02/12/20 24 02/12/2024 CBC/C OMPLE TE BLD COUNT W/DIF F eosinophils, absolute count 0.13 x10'3 /uL 0.02-0 .53 Not Available [facility] (Lab) [address] [place], [address], 02/12/2024 13:36:25 02/12/20 24 02/12/2024 CBC/C OMPLE TE BLD COUNT W/DIF F basophils, absolute count 0.08 x10'3 /uL 0.01-0 .08 Not Available [facility] (Lab) [address] [place], [address], 02/12/2024 13:36:25 02/12/20 24 02/12/2024 CBC/C OMPLE TE BLD COUNT W/DIF F immature granulocytes ,absolute 0.01 x10'3 /uL 0.00-0 .05 Not Available [facility] (Lab) [address] [place], [address], 02/12/2024 13:36:25 02/12/20 24 02/12/2024 CBC/C OMPLE TE BLD COUNT W/DIF F nucleated red blood cells 0.0 % -0 Not Available [facility] (Lab) [address] [place], [address], 02/12/2024 13:36:25 02/12/20 24 02/12/2024 CBC/C OMPLE TE BLD COUNT W/DIF F NRBC# 0.00 x10'3 /uL Not Available [facility] (Lab) [address] [place], [address], 02/12/2024 13:36:25 02/12/20 24 02/12/2024 LIPID PANEL cholesterol 147 mg/dL 140-19 9 NIH REGGIE NSUS RECOM MENDA TION FOR YAW STERO L: ADULT CHILD LOW RISK: <200 <170 BORDE RLINE : <200- 239 ----- HIGH RISK: >240 >200 Not Available [facility] (Lab) [address] [place], [address], 02/12/2024 13:55:39 02/12/20 24 02/12/2024 LIPID PANEL triglyceride s 84 mg/dL 0-150 NIH REGGIE NSUS REPOR T RECOM MENDA TION FOR TRIGL YCERI JAKE: ADULT CHILD LOW RISK: <150 ----- BODER LINE: 150-1 99 ----- HIGH RISK: >200 ----- Not Available [facility] (Lab) [address] [place], [address], 02/12/2024 13:55:39 02/12/20 24 02/12/2024 LIPID PANEL HDL cholesterol 66 mg/dL 40- Not Available [facility] (Lab) [address] [place], [address], 02/12/2024 13:55:39 02/12/20 24 02/12/2024 LIPID PANEL LDL cholesterol, calculated 64 mg/dL 0-130 NIH REGGIE NSUS REPOR T RECOM MENDA TIONS FOR LDL: ADULT CHILD LOW RISK <130 <110 (OPTI MAL LDL) <100 ----- BORDE RLINE : 130-1 59 ----- HIGH RISK: >160 >130 A TRIGL YCERI DE RESUL T >400 INVAL IDATE S THE CALCU LATIO N FOR LDL FRACT IONAT ION - THE LDL RESUL T WILL NOT BE REPOR MARCEL. Not Available [facility] (Lab) [address] [place], [address], 02/12/2024 13:55:39 02/12/20 24 02/12/2024 COMPR EHENS DIANNA METAB OLIC PANEL sodium 140 mmol/ L 137-14 5 Not Available [facility] (Lab) [address] [place], [address], 02/12/2024 13:55:51 02/12/20 24 02/12/2024 COMPR EHENS DIANNA METAB OLIC PANEL potassium 4.2 mmol/ L 3.5-5. 1 Not Available [facility] (Lab) [address] [place], [address], 02/12/2024 13:55:51 02/12/20 24 02/12/2024 COMPR EHENS DIANNA METAB OLIC PANEL chloride 110 mmol/ L 98-107 high Not Available [facility] (Lab) [address] [place], [address], 02/12/2024 13:55:51 02/12/20 24 02/12/2024 COMPR EHENS DIANNA METAB OLIC PANEL carbon dioxide 22 mmol/ L 22-30 Not Available [facility] (Lab) [address] [place], [address], 02/12/2024 13:55:51 02/12/20 24 02/12/2024 COMPR EHENS DIANNA METAB OLIC PANEL anion gap 12.2 mmol/ L 14-22 low Not Available [facility] (Lab) [address] [place], [address], 02/12/2024 13:55:51 02/12/20 24 02/12/2024 COMPR EHENS DIANNA METAB OLIC PANEL glucose 200 mg/dL 70-99 high Not Available [facility] (Lab) [address] [place], [address], 02/12/2024 13:55:51 02/12/20 24 02/12/2024 COMPR EHENS DIANNA METAB OLIC PANEL BUN 10 mg/dL 8-19 Not Available [facility] (Lab) [address] [place], [address], 02/12/2024 13:55:51 02/12/20 24 02/12/2024 COMPR EHENS DIANNA METAB OLIC PANEL creatinine 0.69 mg/dL 0.66-1 .25 Not Available [facility] (Lab) [address] [place], [address], 02/12/2024 13:55:51 02/12/20 24 02/12/2024 COMPR EHENS DIANNA METAB OLIC PANEL GFR >60 Refer ence Range : [place] ge GFR Healt hy Adult : >60 mL/mi n/1.7 3 m2 Chron ic Kidne y Disea se: 15-60 mL/mi n/1.7 3 m2 Kidne y Failu re: <15/m L/min /1.73 m2 www.n iddk. nih.g ov The MDRD study equat ion has not been valid ated in child katherine <18 years of age; pregn ant women ; the elder ly >85 years of age; or in some racia l or ethni c subgr oups, such as Hispa nics. Outsi de the valid ated seferino eters , estim ated GFR is less accur ate, requi ring clini taisha judgm ent on a case- by-ca se basis . Clini taisha inter preta tion for other races and ages must be made by the clini se. The MDRD study equat ion has not been valid ated for the evalu ation of serum creat inine relat ed to nutri nicolle l statu s or medic ation usage . For perso ns <18 years of age, a pedia tric GFR calcu lator is avail able on the [facility] websi te: https ://stanton w.chemo cabreray.o rg/pr ofess ional s/kdo qi/gf r_cal culat or Not Available [facility] (Lab) [address] [place], [address], 02/12/2024 13:55:51 02/12/20 24 02/12/2024 COMPR EHENS DIANNA METAB OLIC PANEL alkaline phosphatase 75 U/L 38-126 Not Available [facility] (Lab) [address] [place], [address], 02/12/2024 13:55:51 02/12/20 24 02/12/2024 COMPR EHENS DIANNA METAB OLIC PANEL alanine aminotransfe rase 14 U/L 0-35 Not Available [facility] (Lab) [address] [place], [address], 02/12/2024 13:55:51 02/12/20 24 02/12/2024 COMPR EHENS DIANNA METAB OLIC PANEL aspartate aminotransfe rase 23 U/L 15-37 Not Available [facility] (Lab) [address] [place], [address], 02/12/2024 13:55:51 02/12/20 24 02/12/2024 COMPR EHENS DIANNA METAB OLIC PANEL bilirubin, total 0.80 mg/dL 0.20-1 .30 Not Available [facility] (Lab) [address] [place], [address], 02/12/2024 13:55:51 02/12/20 24 02/12/2024 COMPR EHENS DIANNA METAB OLIC PANEL calcium 9.2 mg/dL 8.4-10 .2 Not Available [facility] (Lab) [address] [place], [address], 02/12/2024 13:55:51 02/12/20 24 02/12/2024 COMPR EHENS DIANNA METAB OLIC PANEL total protein 6.9 g/dL 6.3-8. 2 Not Available [facility] (Lab) [address] [place], [address], 02/12/2024 13:55:51 02/12/20 24 02/12/2024 COMPR EHENS DIANNA METAB OLIC PANEL albumin 4.0 g/dL 3.4-5. 0 Not Available [facility] (Lab) [address] [place], [address], 02/12/2024 13:55:51 02/12/20 24 02/12/2024 COMPR EHENS DIANNA METAB OLIC PANEL globulin 2.9 g/dL 2.6-4. 2 Not Available [facility] (Lab) [address] [place], [address], 02/12/2024 13:55:51 02/12/20 24 02/12/2024 COMPR EHENS DIANNA METAB OLIC PANEL A/G ratio 1.4 ratio 1.0-2. 0 Not Available [facility] (Lab) [address] [place], [address], 02/12/2024 13:55:51 02/12/20 24 02/12/2024 MICRO ALBUM N RNDM W/CRE AT RATIO ur creat 289.30 mg/dL REFER ENCE RANGE NOT ESTAB LISHE D FOR RANDO M URINE CREAT ININE Not Available [facility] (Lab) [address] [place], [address], 02/12/2024 14:53:00 02/12/20 24 02/12/2024 MICRO ALBUM N RNDM W/CRE AT RATIO microalbumin , urine 35.0 mg/L 0.0-16 .6 high Not Available [facility] (Lab) [address] [place], [address], 02/12/2024 14:53:00 02/12/20 24 02/12/2024 MICRO ALBUM N RNDM W/CRE AT RATIO microalbumin /creatinine ratio 12 mcg/m g 0-29 THE AMERI CAN DIABE LASHONDA ASSOC IATIO N DEFIN ES ABNOR MALIT IES IN ALBUM IN EXCRE TION FOLLO WS: CATEG ORY RESUL T (MCG/ MG CREAT ININE ) ARACELY L <30 MICRO ALBUM INURI A 30-29 9 CLINI TAISHA ALBUM INURI A > OR = 300 THE ADA RECOM MENDS THAT 2 OF 2 SPECI MENS COLLE CTED WITHI N A 3- TO 6-MON TH PERIO D BE ABNOR MAL BEFOR E CONSI ADRIAN G A PATIE NT TO HAVE CROSS ED ONE OF THESE DIAGN OSTIC THRES HOLDS . REFER ENCE: DIABE LASHONDA CARE, VOL. 26: S94-S , 2002 Not Available [facility] (Lab) [address] [place], [address], 02/12/2024 14:53:00 02/12/20 24 02/12/2024 VITAM IN D 25-HY DROXY vd25oh 80.6 NG/mL 30-100 Vitam in D Statu s: Defic ient: <20 ng/mL Insuf ficie nt: 20-29 ng/mL Suffi cient : 30-10 0 ng/mL Not Available [facility] (Lab) [address] [place], [address], 02/12/2024 14:45:01 02/12/20 24 02/12/2024 HEMOG LOBIN A1C HA1C 7.1 % 4.0-6. 0 high Diabe lashonda Scree cyndi Crite elsy: <5.7% Consi stent with absen ce of diabe lashonda 5.7-6 .4% Consi stent with incre ased risk for diabe lashonda (pred iabet es) >OR=6 .5% Consi stent with diabe lashonda REFER ENCE: Diabe lashonda Care 2016, 39(Rousseau ppl.1 ):s13 -s22 Not Available [facility] (Lab) [address] [place], [address], 02/12/2024 15:15:49 02/12/20 24 02/12/2024 TSH W/REF RAJ FT4 TSH with reflex free T4 0.146 uIU/m L 0.465- 4.680 low Not Available [facility] (Lab) [address] [place], [address], 02/12/2024 18:19:22 02/12/20 24 02/12/2024 T4 FREE free T4 1.36 NG/dL 0.78-2 .19 Not Available [facility] (Lab) [address] [place], [address], 02/12/2024 19:06:47 02/12/20 24 02/12/2024 DEXA, axial skele ton [facility] [address] [place], [place] [id number] Patien t Name: KENDY HOOK ion #: [id number] Sex: F : 1960 5 Dictat ed By: Shelton Florez Attend ing Physic enoc: SHAHID COSTELLO Orderi Physic enoc: SHAHID COSTELLO Exam Date: 2023 12:00 PM Exam Name: XR DEXA-H IPS PELVIS SPINE Admitt ing Diagno sis(es ): INDICA TION: post menopa usal DEXA SCAN: BONE DENSIT Y REPORT : AP SPINE (L1-L4 ) : T Score: -2.7 LEFT HIP TOTAL : T Score: -2.8 RT HIP TOTAL : T Score: -2.6 TOTAL BILAT HIP AVG: T Score: -2.7 10 YEAR FRACTU RE RISK* not report ed IMPRES KAN: osteop orosis hips and spine ------ ------ ------ ------ ------ ------ ------ ------ ----- *FRAX versio n 3.08. Fractu re probab ility calcul ated for an untrea marcel patien t. Fractu re probab ility may be lower if the patien t has receiv ed treatm ent. T-scor e: compar heidy by samm trivedi deviat ion (SD) to a young adult popula tion, matche d for sex and ethnic ity (used for postme nopaus al women and men >50 years) and classi fied by WHO criter ia. -1.0: normal <-1.0 to >-2.5: osteop enia -2.5: osteop orosis -2.5 plus fragil ity fractu re: severe osteop orosis Page 1 [facility] [address] [place] [address] Patien t Name: KENDY HOOK Access ion #: [id number] Sex: F : 1960 5 Dictat ed By: Shelton Florez Attend ing Physic enoc: MARI MILLS [facility] Physic enoc: SHAHID COSTELLO Exam Date: 2023 12:00 PM Exam Name: XR DEXA-H IPS PELVIS SPINE Admitt ing Diagno sis(es ): Z-scor e: compar ed by SD to an age, sex, and ethnic ity popula tion (used for premen opausa l women, men <50 years, and childr en instea d of T-scor e WHO criter ia 4) <-2.0: below expect ed range/ low bone densit y for age, and a cause should be sought Electr onical ly Signed by: Shelton Florez at 2023 15:46: 39 PM Page 2 [employer] [facility] [address] [place], [address], 02/12/2024 16:47:50 02/12/20 24 02/12/2024 DEXA, axial skele ton No observ ation record ed. JESENIA [facility] [address] [place], [address], 02/12/2024 16:49:59 Result Notes Documentation Provider Name and Address Organization Details Recorded Time Dexa, Axial Skeleton : [facility] [address] [place] [address] Patient Name: KENDY HOOK Sex: F : 1960 Dictated By: Shelton Florez Attending Physician: PHILLIP SANTO Ordering Physician: PHILLIP SANTO Exam Date: 02/12/2024 12:00 PM Exam Name: XR DEXA-HIPS PELVIS SPINE Admitting Diagnosis(es): INDICATION: post menopausal DEXA SCAN: BONE DENSITY REPORT: AP SPINE (L1-L4) : T Score: -2.7 LEFT HIP TOTAL : T Score: -2.8 RT HIP TOTAL : T Score: -2.6 TOTAL BILAT HIP AVG: T Score: -2.7 10 YEAR FRACTURE RISK* not reported IMPRESSION: osteoporosis hips and spine --- *FRAX version 3.08. Fracture probability calculated for an untreated patient. Fracture probability may be lower if the patient has received treatment. T-score: comparison by standard deviation (SD) to a young adult population, matched for sex and ethnicity (used for postmenopausal women and men >50 years) and classified by WHO criteria. -1.0: normal <-1.0 to >-2.5: osteopenia -2.5: osteoporosis -2.5 plus fragility fracture: severe osteoporosis Page 1 [facility] [address] [place] [address] Patient Name: KEND[facility] HOOK [facility]: F : 1960 [id number] Dictated By: Shelton Florez Attending Physician: ELIDIA FISHER Ordering Physician: PHILLIP SANTO Exam Date: 02/12/2024 12:00 PM Exam Name: XR DEXA-HIPS PELVIS SPINE Admitting Diagnosis(es): Z-score: compared by SD to an age, sex, and ethnicity population (used for premenopausal women, men <50 years, and children instead of T-score WHO criteria 4) <-2.0: below expected range/low bone density for age, and a cause should be sought Page 2 Not Available [facility] 02/12/2024 16:47:50 Problems Name Problem SNOMED Code Status Onset Date Resolution Date Notes Provider Name and Address Organization Details Recorded Time Acquired trigger finger 1631058 Active Not Available [facility] 3 06:12:27 Otalgia 55287545 Active 2021 Not Available [facility] 3 06:12:27 Enlarged uterus 212122158 Active Not Available [facility] 3 06:12:27 Chronic otitis media 54093433 Active 2021 Not Available [facility] 3 06:12:27 Mixed anxiety and depressiv e disorder 963627700 Active [address] Geiger [id number] Not Available [facility] 3 06:12:27 Thoracic back pain 230283282 Active 2020 Not Available [facility] 3 06:12:27 Pain of ear 146347248 Active 2021 Not Available [facility] 3 06:12:27 Pain in right hand 03788398183 9109 Active 2021 Not Available [facility] 3 06:12:27 Acquired trigger finger of right ring finger 43603867440 9108 Active 2021 Not Available [facility] 3 06:12:27 Vitamin D deficienc y 68548969 Active 2020 Not Available [facility] 3 06:12:27 Dyslipide joce 513471643 Active 2021 Not Available [facility] 3 06:12:27 Arthritis of spine 664669230 Active 2020 Not Available [facility] 3 06:12:27 Hypothyro idism 95224778 Active 2014 Not Available [facility] 3 06:12:27 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 180198222 Active 2021 Not Available [facility] 3 06:12:27 Ganglion cyst 615703568 Active 2020 Not Available [facility] 3 06:12:27 Type 1 diabetes mellitus 13055520 Active 1969 Not Available [facility] 3 06:12:27 Hyperlipi demia 26815535 Active 2021 Not Available [facility] 3 06:12:28 Vitamin B12 deficienc y (non anemic) 82034222 Active 2021 Not Available [facility] 3 06:12:28 Polyp of cervix 27131508 Active Not Available [facility] 3 06:12:28 Dyspareun ia 80243042 Active Not Available [facility] 3 06:12:28 Nicotine dependenc e with current use 596339580 Active 2020 Not Available [facility] 3 06:12:28 Disorder of parathyro id gland 32859364 Active 2021 Not Available [facility] 3 06:12:28 Diabetes mellitus 13413929 Active 2021 Not Available [facility] 3 06:12:28 Eczema of external auditory canal 34452286 Active 2021 Not Available [facility] 3 06:12:28 Cobalamin deficienc y 327037778 Active 2022 Not Available [facility] 3 06:12:27 Major depressiv e disorder 755348864 Active 2022 Not Available [facility] 3 06:12:27 Osteoporo sis 70321220 Active 2022 Not Available [facility] 3 06:12:28 Migraine 53745846 Active 2022 Not Available [facility] 3 06:12:27 Urinary symptoms 131333894 Active 2022 Not Available [facility] 3 06:12:27 Pharyngit is 871936227 Active 2022 Not Available [facility] 3 06:12:27 Fracture of pelvis 05402082 Active 2022 Not Available [facility] 3 06:12:28 Spinal stenosis of lumbar region 30922500 Active 2022 Not Available [facility] 3 06:12:27 Onychomyc osis of toenails 123245058 Active 2022 Not Available [facility] 3 06:12:27 Cataract 574275841 Active 2022 Not Available [facility] 3 06:12:27 Type 2 diabetes mellitus without complicat ion 584241634 Active 2023 Phillip ruelas MD [address] [facility], [address], [address] , [employer] [facility] [employer] 4 11:18:30 Low back pain 977384669 Active 2023 Phillip ruelas MD [address], [address], [place], [address] , [employer] [facility] [employer] 4 11:20:23 Upper respirato ry infection 64578368 Active 2023 Phillip ruelas MD [address], [facility] [address], [place], [address] , [employer] [facility] [employer] 4 11:40:27 Proteinur ia 26070454 Active 2023 Venita Greco MA null, [place] [facility] [employer] 12:40:52 Notes:Some problems listed i n Document: #[id number] could not be added to this patient's chart. Please review this document and add these problems to the patient's chart manually as needed. Problem Notes None recorded. Procedures Surgical History Date Name Laterality Status Provider Name and Address Organization Details Recorded Time 01/18/20 24 Colonoscopy completed Bri Janay ITZ PA [employer] [facility] [employer] 01/29/2024 11:07:41 10/02/20 23 release of trigger finger completed Bri Mckeonham Catrina PA [employer] [facility] [employer] 10/05/2023 12:06:04 Hand completed Not Available [facility] 11/2022 16:42:38 Imaging Results None recorded. Procedure Notes None recorded. Medical Equipment None Reported. Allergies No known drug allergies Medications Name Sig Start Date Stop Date Status Note LastModified by Organization Details LastModified Time omnipod op5 controlle r USE DIRECTED active Not Available Not Available No t Available amoxicill in 500 mg capsule active Not Available Not Available Not Available levothyro xine 175 mcg tablet TAKE 1 TABLET BY MOUTH EVERY DAY 10/18 completed Not Available Not Available Not Available bupropion HCl SR 150 mg tablet,12 hr sustained -release active Not Available Not Available Not Available neomycin- polymyxin -hydrocor t 3.5 mg/mL-10, 000 unit/mL-1 % ear solution INSTILL 3 DROPS INTO AFFECTED EAR(S) BY OTIC ROUTE 3 TIMES PER DAY active Use into Rt ear, TID for next 7-10 days. Not Available Not Available Not Available levothyro xine 137 mcg tablet TAKE 1 TABLET BY MOUTH EVERY DAY 12/16 completed Not Available Not Available Not Available acetamino phen 325 mg tablet 11/23 completed Not Available Not Available Not Available doxycycli ne hyclate 100 mg capsule Take 1 capsule twice a day by oral route for 7 days. active Not Available Not Available No t Available atorvasta tin 20 mg tablet TAKE 1 TABLET BY MOUTH ONCE DAILY 2023 active Not Available Not Available Not Avai lable tizanidin e 2 mg tablet TAKE 1 TABLET BY MOUTH EVERY 12 HOURS NEEDED 10/13 completed Not Available Not Available Not Available citalopra m 40 mg tablet active Not Available Not Available Not Available polyethyl ksenia glycol 3350 17 gram oral powder packet DISSOLVE CONTENTS OF 1 PACKET IN LIQUID AND TAKE BY MOUTH EVERY MORNING 06/17 completed Not Available Not Available Not Available azithromy bessy 250 mg tablet Take 1 dose pk by oral route as directed . active Not Available Not Available No t Available Glucagon Emergency Kit 1 mg solution for injection U UTD PRN 06/28 completed Not Available Not Available Not Available Cytotec 200 mcg tablet Take 2 tablets by oral route at bedtime for 1 day. 10/29 completed Not Available Not Available Not Available citalopra m 10 mg tablet TAKE 1 TABLET BY MOUTH EVERY DAY FOR 7 DAYS. 10/05 completed Not Available Not Available Not Available valacyclo vir 1 gram tablet 06/18 completed Not Available Not Available Not Available hydrocodo ne 5 mg-acetam inophen 325 mg tablet TAKE ONE TABLET BY MOUTH EVERY 6 HOURS NEEDED 10/05 completed Not Available Not Available Not Available Synthroid 150 mcg tablet 06/16 completed Not Available Not Available Not Available Synthroid 125 mcg tablet Take 1 tablet every day by oral route for 90 days. 04/05 completed Not Available Not Available Not Available alendrona te 70 mg tablet TAKE 1 TABLET BY MOUTH WEEKLY WITH 8 OZ OF PLAIN WATER 30 MINUTES BEFORE FIRST FOOD, DRINK OR MEDS. STAY UPRIGHT FOR 30 MINS active Not Available Not Available No t Available Synthroid 100 mcg tablet active Not Available Not Available Not Available hydroxyzi ne pamoate 50 mg capsule active Not Available Not Available Not Available hydroxyzi ne HCl 50 mg tablet active Not Available Not Available No t Available ciproflox acin 500 mg tablet TK 1 T PO BID active Not Available Not Available No t Available peg-elect rolyte solution 420 gram oral solution 01/28 completed Not Available Not Available Not Available tramadol 50 mg tablet active Not Available Not Available Not Available meloxicam 7.5 mg tablet Take 1 tablet every day by oral route after meals for 30 days. 09/16 completed Not Available Not Available Not Available oxycodone -acetamin ophen 5 mg-325 mg tablet TK 1 TO 2 TS PO Q 4 H active Not Available Not Available No t Available citalopra m 20 mg tablet TAKE 1 TABLET BY MOUTH EVERY DAY FOR 7 DAYS. active takes everyday Not Available Not Available Not Available ziprasido ne 20 mg capsule TK ONE C PO QHS active Not Available Not Available No t Available aspirin 325 mg tablet,de layed release TAKE 1 TABLET BY MOUTH DAILY AT 8 AM 04/20 completed Not Available Not Available Not Available Humalog U-100 Insulin 100 unit/mL subcutane ous solution INJECT UP TO 100 UNITS EVERY THIRD DAY VIA PUMP 2023 active Not Available Not Available Not Avai lable Kenalog 10 mg/mL suspensio n for injection In office injectio n administ ered by the provider 06/28 completed [facility]: [id number] 03-16 Not Available Not Available Not Available bisacodyl 10 mg rectal supposito ry UNWRAP AND INSERT 1 SUPPOSIT ORY RECTALLY DAILY NEEDED FOR CONSTIPA TION 09/16 completed Not Available Not Available Not Available pantopraz ole 40 mg tablet,de layed release TAKE 1 TABLET BY MOUTH EVERY MORNING 12/16 completed Not Available Not Available Not Available simvastat in 20 mg tablet active Not Available Not Available Not Available cyanocoba larry (vit B-12) 1,000 mcg/mL injection solution Inject 1 mL every week by subcutan eous route in the morning for 90 days. active Not Available Not Available No t Available lisinopri l 10 mg tablet active Not Available Not Available Not Available Synthroid 88 mcg tablet one tablet daily x 90 days active Not Available Not Available No t Available docusate sodium 100 mg capsule TAKE ONE CAPSULE BY MOUTH EVERY 12 HOURS 10/13 completed Not Available Not Available Not Available bisacodyl 5 mg tablet,de layed release TAKE 6 TABLETS BY MOUTH AT 8AM ON 01/18 completed Not Available Not Available Not Available lisinopri l 5 mg tablet 06/18 completed Not Available Not Available Not Available mupirocin 2 % topical ointment APPLY A SMALL AMOUNT TO THE AFFECTED NARE BY TOPICAL ROUTE 3 TIMES PER DAY X 7 DAYS active Not Available Not Available No t Available ergocalci ferol (vitamin D2) 1,250 mcg (50,000 unit) capsule TAKE 1 CAPSULE EVERY WEEK 10/05 completed Not Available Not Available Not Available BD Tuberculi n Syringe 1 mL 25 gauge x 5/8 USE TO INJECT B12 ONCE WEEKLY DIRECTED 12/09 completed Not Available Not Available Not Available ibuprofen 600 mg tablet TAKE 1 TABLET BY MOUTH EVERY 6 HOURS 10/13 completed Not Available Not Available Not Available levofloxa bessy 500 mg tablet TAKE 1 TABLET BY MOUTH EVERY DAY 04/05 completed Not Available Not Available Not Available estradiol 0.01% (0.1 mg/gram) vaginal cream USE 1 GRAM VAGINALL Y 3 TIMES A WEEK 01/28 completed Not Available Not Available Not Available methylpre dnisolone 4 mg tablets in a dose pack FOLLOW PACKAGE DIRECTIO NS 07/29 completed Not Available Not Available Not Available albuterol sulfate HFA 90 mcg/actua tion aerosol inhaler INHALE 2 PUFFS NEEDED FOUR TIMES DAILY FOR SHORTNES S OF BREATH OR WHEEZING active Not Available Not Available No t Available ondansetr on 4 mg disintegr ating tablet DISSOLVE 1 TABLET ON THE TONGUE EVERY 8 HOURS NEEDED FOR NAUSEA OR VOMITING 04/29 completed Not Available Not Available Not Available cefdinir 300 mg capsule Take 1 capsule every 12 hours by oral route. 04/14 completed Not Available Not Available Not Available naproxen 500 mg tablet active Not Available Not Available Not Available mometason e 0.1 % topical cream APPLY THIN LAYER TO AFFECTED AREAS BY TOPICAL ROUTE ONCE DAILY active Not Available Not Available No t Available levothyro xine 112 mcg tablet TAKE 1 TABLET BY MOUTH EVERY DAY 10/05 completed Not Available Not Available Not Available amoxicill in 875 mg-potass ium clavulana te 125 mg tablet Take 1 tablet every 12 hours by oral route for 7 days. active Not Available Not Available No t Available hydroxyzi ne pamoate 25 mg capsule 06/16 completed Not Available Not Available Not Available meclizine 25 mg chewable tablet Chew 1 tablet 3 times a day by oral route as needed. active Not Available Not Available No t Available Premarin 0.625 mg/gram vaginal cream PLACE 1 FINGERTI P WORTH OF CREAM VAGINALL Y EVERY NIGHT AT BEDTIME 01/28 completed Not Available Not Available Not Available Ciprodex 0.3 %-0.1 % ear drops,rita pension INSTILL 4 DROPS INTO AFFECTED EAR(S) BY OTIC ROUTE 2 TIMES PER DAY FOR 7 DAYS active Not Available Not Available No t Available rosuvasta tin 10 mg tablet 06/16 completed Not Available Not Available Not Available BD Ultra-Fin e Mini Pen Needle 31 gauge x 3/16 12/09 completed Not Available Not Available Not Available Humalog U-100 Insulin 08/05 completed Not Available Not Available Not Available Crestor 04/05 completed Not Available Not Available Not Available Abilify 2 mg tablet active Not Available Not Available No t Available Lantus Solostar U-100 Insulin 100 unit/mL (3 mL) subcutane ous pen inject 4 units in morning and 5 units at bedtime 12/09 completed Not Available Not Available Not Available Humalog KwikPen (U-100) Insulin 100 unit/mL subcutane ous ADMINIST ER 2 UNITS UNDER THE SKIN THREE TIMES DAILY BEFORE MEALS DIRECTED 12/09 completed Not Available Not Available Not Available GaviLyte- G 236 gram-22.7 4 gram-6.74 gram-5.86 gram oral solution active Not Available Not Available Not Available estradiol 10 mcg vaginal tablet INSERT 1 TABLET VAGINALL Y DAILY FOR 2 WEEKS active Not Available Not Available No t Available Prolia 60 mg/mL subcutane ous syringe Inject 1mL SQ q6 months- bring to office for injectio n 11/02 completed Not Available Not Available Not Available ropivacai ne (PF) 5 mg/mL (0.5 %) injection solution Take 10 mg by injectio n route. 06/28 completed Not Available Not Available Not Available OneTouch Verio test strips Take 1 strip 4 times a day by miscell. route as directed . 06/28 completed Not Available Not Available Not Available Flowero SoloStar U-300 Insulin 300 unit/mL (1.5 mL) subcutane ous pen inject 4 units in morning and 5 units at bedtime 08/28 completed Not Available Not Available Not Available OneTouch Ultra Blue Test Strip 06/28 completed Not Available Not Available Not Available Dexcom G6 Sensor device CHANGE SENSOR EVERY 10 DAYS 2023 active Not Available Not Available Not Avai lable Dexcom G6 Cupola Tender active Not Available Not Available Not Available Dexcom G6 Transmitt er device active Not Available Not Available No t Available Omnipod Dash Pods (Gen 4) subcutane ous cartridge USE DIRECTED , CHANGE POD EVERY 3 DAYS active Not Available Not Available No t Available Robitussi n Cough-Shalini st Congestio n DM 5 mg-50 mg/5 mL oral liquid TAKE 10 ML BY MOUTH EVERY 4 TO 8 HOURS NEEDED FOR COUGH 04/05 completed Not Available Not Available Not Available Ubrelvy 100 mg tablet TAKE 1 TABLET AT ONSET OF MIGRAINE . THE SECOND DOSE AFTER 2 HOURS IF NEEDED. MAXIMUM OF 2 TABLETS IN 24 HOURS. 2023 active Not Available Not Available Not Avai lable Gvoke HypoPen 2-Pack 1 mg/0.2 mL subcutane ous auto-inje ctor INJECT 1 MG UNDER THE SKIN NEEDED FOR 1 DAY active Not Available Not Available No t Available Vitals Date Recorded Body height Body mass index (BMI) Body weight Body temperature Heart rate Systolic blood pressure Diastolic blood pressure Provider Name and Address Organization Details Last Updated DateTime 4 160.02 cm 22.1 kg/m2 54056.0 5 g 97.7 [degF] 72 /min 130 mm[Hg] 80 mm[Hg] ITZ Bhardwaj [facility] [employer] 4 11:11:52 Date Recorded Body height Body mass index (BMI) Body weight Body temperature Provider Name and Address Organization Details Last Updated DateTime 06/28/2023 154.94 cm 25.8 kg/m2 41592.44 g 97.8 [degF] Rebeka Redding RN [facility] [employer] 06/28/2023 10:51:08 Date Recorded Body height Body mass index (BMI) Body weight Heart rate Respiratory rate Systolic blood pressure Diastolic blood pressure Provider Name and Address Organization Details Last Updated DateTime 3 154.94 cm 25.9 kg/m2 57401.8 7 g 95 /min 71 /min 143 mm[Hg] 76 mm[Hg] Piedad Concepcion PA [employer] [facility] [employer] 3 12:58:23 Date Recorded Body height Body mass index (BMI) Body weight Provider Name and Address Organization Details Last Updated DateTime 08/17/2023 160.02 cm 23.9 kg/m2 12746.97 g Sherice Tavarez CNA [facility] [employer] 08/17/2023 15:03:54 Date Recorded Body height Body mass index (BMI) Body weight Body temperature Heart rate Systolic blood pressure Diastolic blood pressure Provider Name and Address Organization Details Last Updated DateTime 3 160.02 cm 24.3 kg/m2 69732.1 5 g 97.3 [degF] 78 /min 126 mm[Hg] 68 mm[Hg] ITZ Bhardwaj [place] - [employer] 3 12:08:04 Social History Question Answer Notes LastModified by Organizat ion Details LastModified Time Tobacco Smoking Status Former Smoker quit 2013 ITZ Bhardwaj brooke NIKI Goncalves [facility] [employer] 01/29/2024 11:09:06 Do You Have An Advance Directive? No MIGRATION.[id number] Information not available 01/25/2023 What Is Your Level Of Caffeine Consumption? Moderate MIGRATION.478745 0556 Information not available 01/25/2023 In The 14 Days Before Symptom Onset, Have You Had Close Contact With A Laboratory-confir med COVID-19 While That Case Was Ill? No MIGRATION.063758 7279 Information not available 01/25/2023 In The 14 Days Before Symptom Onset, Have You Had Close Contact With A Person Who Is Under Investigation For COVID-19 While That Person Was Ill? No MIGRATION.112764 1935 Information not available 01/25/2023 What Type Of Diet Are You Following? REGULAR MIGRATION.201911 9645 Information not available 01/25/2023 Which Illicit Or Recreational Drugs Have You Used? No MIGRATION.087646 1821 Information not available 01/25/2023 Have There Been Any Changes To Your Family Or Social Situation? No MIGRATION.949112 6480 Information not available 01/25/2023 What Is The Fluoride Status Of Your Home? Unknown MIGRATION.152913 0517 Information not available 01/25/2023 When Did You Quit Smoking? 11-15yearssi ncelastcigar ette Information not available 01/29/2024 Are There Any Guns Present In Your Home? Yes MIGRATION.971422 4215 Information not available 01/25/2023 Do You Use Insect Repellent Routinely? No MIGRATION.632807 7130 Information not available 01/25/2023 Are You Following A Low Salt Diet? No MIGRATION.597759 7196 Information not available 01/25/2023 Do You Have A Medical Power Of Boom Truck Driver? No MIGRATION.722240 4341 Information not available 01/25/2023 What Was The Date Of Your Most Recent Tobacco Screening? 01/29/2024 Information not available 01/29/2024 Do You Have Any Pets? Yes MIGRATION.276242 4151 Information not available 01/25/2023 What Is Your Relationship Status? MIGRATION.250397 6004 Information not available 01/25/2023 Do You Use Your Seat Belt Or Car Seat Routinely? Yes MIGRATION.623684 1604 Information not available 01/25/2023 Do You Have Smoke And Carbon Monoxide Detectors In Your Home? Yes MIGRATION.756905 4337 Information not available 01/25/2023 Are You Passively Exposed To Smoke? No MIGRATION.137861 1498 Information not available 01/25/2023 Are There Any Smokers In Your House? Yes MIGRATION.568226 8420 Information not available 01/25/2023 Do You Participate In Social Media? No MIGRATION.537717 1261 Information not available 01/25/2023 Do You Use Sunscreen Routinely? No MIGRATION.342572 5445 Information not available 01/25/2023 Has Tobacco Cessation Counseling Been Provided? No MIGRATION.587931 9850 Information not available 01/25/2023 Have You Recently Traveled Abroad? No MIGRATION.981229 0802 Information not available 01/25/2023 Do You Have Any Dietary Restrictions? Yes Diabetic MIGRATION.507305 1218 Information not available 01/25/2023 Sex: Female Functional Status Question Answer Note LastModified by Organizat ion Details LastModified Time Do you use any illicit or recreational drugs? No MIGRATION.848554 7255 Information not available 01/25/2023 Do you or have you ever used any other forms of tobacco or nicotine? Yes Information not available 01/29/2024 What is your level of alcohol consumption? None MIGRATION.075973 9767 Information not available 01/25/2023 Do you or have you ever used smokeless tobacco? Never used smokeless tobacco Information not available 01/29/2024 Are you currently employed? No Information not available 01/29/2024 What is your occupation? Unemployed MIGRATION.859538 3361 Information not available 01/25/2023 Do you or have you ever used e-cigarettes or vape? Current user of electronic cigarettes MIGRATION.331050 8551 Information not available 01/25/2023 What is your exercise level? None MIGRATION.856247 2998 Information not available 01/25/2023 Mental Status Question Answer Note LastModified by Organizat ion Details LastModified Time Do you feel stressed (tense, restless, nervous, or anxious, or unable to sleep at night)? [id number] MIGRATION.[id number] 6 Information not available 01/25/2023 Family History Relationship Description Onset Age of this Age Resolved Age Notes LastModified by Organization Details LastModified Time Father Harmful pattern of use of alcohol MIGRATION.[id number] Not available 01/25/2023 16:42:39 Father Diabetes mellitus MIGRATION.611 [id number] Not available 01/25/2023 16:42:39 Father Family history of stroke MIGRATION.176 [id number] Not available 01/25/2023 16:42:39 Mother Malignant neoplasm of lung MIGRATION.641 [id number] Not available 01/25/2023 16:42:39 Notes:NO ENT Medical History Condition Response SLEEP APNEA N MRSA N ALLERGIES/HAYFEVER N LUNG DISEASE/DISORDER N HISTORY OF DRUG ABUSE N INSOMNIA N RADIATION / CHEMOTHERAPY N COPD N HIGH CHOLESTEROL / HYPERLIPIDEMIA Y HYPERTHYROIDISM N BLOOD DISEASES N EAR OR HEARING PROBLEMS N HYPOTHYROIDISM Y SHINGLES Y DEPRESSION (INCLUDING POST ) Y HAVE YOU BEEN HOSPITALIZED OR SEEN IN [facility] IN THE PAST YEAR ? N STROKE/TIA Y THYROID DISEASE Y ULCERS N OBESITY N ANEURYSM N HISTORY WITH COMPLICATIONS WITH ANESTHES IA ? N USE OF BLOOD THINNERS N NO SIGNIFICANT PAST MEDICAL HISTORY N DIABETES, TYPE Y PARATHYROID DISEASE N ENT N SEASONAL ALLERGIES N HEARTBURN / REFLUX N HEPATITIS / LIVER DISEASE N SLEEP DISORDER N SEIZURES/EPILEPSY Y HEADACHES/MIGRAINES Y CHF N PACEMAKER N DIZZINESS N AIDS/HIV N HEART DISEASE/HEART PROBLEMS N FRACTURES N HYPERTENSION N CANCER: SPECIFY N TOURETTE'S N BLOOD TRANSFUSION N ANEMIA/BLOOD DISORDER Y ANESTHESIA COMPLICATIONS N CHRONIC EAR INFECTIONS N AUTOIMMUNE DISEASE N TUBERCULOSIS N Gynecological History Statement/Question Response Date of Last Mammogram 05/20/2021 Obstetrics History GPAL:G 0 P 0 0 0 0 Immunizations Vaccine Type Date Status Note Provider Nam e and Address Organization Details Recorded Time COVID-19, mRNA, LNP-S, PF, 100 mcg/0.5mL dose or 50 mcg/0.25mL dose 02/01/2021 completed Not Available [facility] 3 06:12:28 Influenza, split virus, quadrivalent, PF 09/16/2021 completed Not Available [facility] 3 06:12:28 Past Encounters Encounter ID Performer Location Encounter Start Date Encounter Closed Date Diagnosis/Indication Diagnosis SNOMED-CT Code Diagnosis ICD10 Code Diagnosis Note [id number] [facility] _ATHENA_M IGRATION_ DEFAULT_1 _1 , 02/03/2021 00:00:00 02/03/2021 22:56:18 [id number] [facility] _ATHENA_M IGRATION_ DEFAULT_1 _1 , 04/05/2021 00:00:00 04/05/2021 17:44:39 [id number] [facility] Endo [place] [address] [place] [address] 04/20/2021 00:00:00 04/20/2021 12:16:38 [id number] Danny Staton MD S_[facility] [address] [address] 04/29/2021 00:00:00 04/29/2021 13:50:56 [id number] MD NIRAV Zavala IGRATION_ DEFAULT_1 _1 , 06/17/2021 00:00:00 06/17/2021 14:56:03 [id number] Danny Staton MD [address] [address] 07/08/2021 00:00:00 07/08/2021 16:18:21 [id number] Danny Staton MD [facility]_[address] [address] 07/29/2021 00:00:00 07/29/2021 16:01:14 [id number] MD NIRAV Zavala IGRATION_ DEFAULT_1 _1 , 08/05/2021 00:00:00 08/05/2021 20:37:26 [id number] MD EMEKA MonrealS_[facility] Internal Med [facility] [address] [place] [address] 09/16/2021 00:00:00 09/17/2021 16:40:09 [id number] Phillip ruelas MD [facility] Internal Med [facility] [address] [facility] [address] [place] [address] 10/28/2021 00:00:00 10/28/2021 19:59:09 [id number] MD NIRAV Zavala IGRATION_ DEFAULT_1 _1 , 12/09/2021 00:00:00 12/09/2021 11:51:22 [id number] MD JUSTINO Monreal_[facility] Internal Med [facility] [address] [address] 12/16/2021 00:00:00 12/16/2021 16:54:20 [id number] MD EMEKA MonrealS_[facility] Internal Med [facility] [address] [address] 04/05/2022 00:00:00 04/05/2022 15:15:08 [id number] [facility] _JESENIA_Laura IGRATION_ DEFAULT_1 _1 , 05/05/2022 00:00:00 05/05/2022 10:22:13 [id number] MD EMEKA JamesS_[facility] ENT [place] [address] [address] [address] [place] [address] 06/07/2022 00:00:00 06/07/2022 15:30:44 [id number] DAINA Garcia [facility] Internal Med [facility] [address] [facility] [address] 06/17/2022 00:00:00 06/17/2022 16:48:46 [id number] MD EMEKA MonrealS_[facility] Internal Med [facility] [address] [facility] [address] 07/26/2022 00:00:00 07/26/2022 13:25:34 [id number] [facility] End[facility] [place] [address] [facility] [place] [address] 09/09/2022 00:00:00 09/09/2022 13:36:39 [id number] Luis Carlos Montague MD S_[facility] Ortho [place] [address] [place] [address] 10/13/2022 00:00:00 10/13/2022 15:27:42 [id number] Sixto Ness MD S_[facility] ENT [place] [address] [place], [place] [address] [place] [address] 11/24/2022 00:00:00 11/24/2022 15:47:57 [id number] Phillip ruelas MD [facility]_GMG Internal Med [facility] [address] [address] 01/20/2023 00:00:00 01/20/2023 14:03:37 [id number] Phillip ruelas MD [facility]_G Internal Med [facility] [address] [address] 04/14/2023 14:44:30 04/14/2023 15:07:35 Vitamin D deficiency 96923885 E55.9 on supplement Hyperlipidemia 94362121 E78.5 mild- no meds 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 Velázquez omnipod pump and CGM needs to get her eye exam done- has referral, encouraged her to schedule, she missed her last appt- she states she will call Hypothyroidism 41827035 E03.9 follows endocrinol carito levothyrox ine Cobalamin deficiency 190 328255 E53.8 managed by endocrindavid arzate B12 shots Major depr essive disorder 250493813 F32.9 follows psychiatry - Dr. Janki espana citalopram and hydroxyzin eshe states she will call him about the panic attackcall office if any change in mood or behavior Fracture of pelvis 55547 009 S32.9XXD s/p hospitaliz ti and her are aware that I do not write for chronic pain Neville has HH and PT with [facility] Osteoporosis 99229132 M8 1.0 noted on BMD 09/2021on alendronat e Spinal pawel nosis of lumbar region 38330588 M48.061 following neurosurge ry- Dr. Marvin at [facility] patient, no surgery for now, is doing PTER precaution s discussed Migraine 13273956 G43.90 9 on ubrelvy- she is aware of side effects, risks, and benefitsER precaution s discussed referral as above to eye MD for ocular sx Pain of ear 182953586 H9 2.09 on mometasone cream from ENT- Dr. Ness Onychomyco sis of toenails 471479214 B35.1 get appt with podiatry Cataract 425506458 H26.9 get appt with opthalamol ogy as above- has been referred [id number] Sixto Ness MD S_[facility] [place] [address] [place] [address] 06/28/2023 10:36:20 06/28/2023 11:33:48 Pain of ear 582475440 H92.09 Eczema of external auditory canal 09303391 H60.549 [id number] Layla Acharya MD S_G Endo [place] [address] [place] [address] 06/29/2023 12:36:01 06/29/2023 13:29:37 Latent autoimmune diabetes mellitus in adult 053448468 E13.9 A1C of 7.1% down from 8% range Continue settings as follows:12 am to 10 am at 0.6 u/hr10 am to 3 pm at 0.75 u/hr3 pm to 12 am at 0.75 u/hr liberate carb ratio to 1:12 due to some hypoglycem ia related to overbolus; and continue correction 50 mg/dl. She is compliant with her dexcom and well controlled due to controlled system. refill sensor/tra nsmitters/ pods per patient request. Hypothyroidism 09635591 E03.9 FT4 in range- continue on LT4 112 mcg daily. She was reminded to take her LT4 on empty stomach with glass of water and wait one hour to eat or have her coffee in morning and up to 4 hours if ever taking any heartburn or reflux medication s to help optimize absorption . Discussed paleo like diet with restrictio n of GMOs to help with energy and to optimize absorption of vitamins and minerals and reduce inflammati on. Dyslipidemia 771399209 E 78.5 Continue on atorvastat in 20 mg daily. Spent up to 25 minutes preparing to see the patient (eg, review of tests), obtaining and/or reviewing separately obtained history, performing a medically appropriat e examinatio n and evaluation , counseling and educating the patient, ordering medication s, tests, along with documentin g clinical informatio n in the electronic health record, independen tly interpreti ng results and communicat ing results to the patient. Patient can be followed by PCP - she/he is aware of my resignatio n and last day of September 08. If needed his/her PCP can refer patient to another endocrinol ogist in the area. All questions /concerns answered and refills necessary at visit today. [id number] Luis Carlos Montague MD [facility] Ortho [place] 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 Cruz- has first appt in 2 weekson omnipod pump and CGM needs to get her eye exam done- has referral, encouraged her to schedule, she missed her last appt- she states she will call Hypothyroidism 53445520 E03.9 follows endocrinol ogyon levothyrox ine Cobalamin deficiency 190 487580 E53.8 managed by endocrinol ogyon B12 shots Major depr essive disorder 989961505 F32.9 follows psychiatry - Dr. Janki espana citalopram and hydroxyzin eschristopher states she will call him about the panic attackcall office if any change in mood or behavior Osteoporosis 65330720 M8 1.0 noted on BMD 09/2021ins urance would not cover proliaon alendronat eshe is aware to take with a full glass of water and remain upright for 60min after taking it Spinal pawel nosis of lumbar region 26759922 M48.061 following neurosurge ry- Dr. Marvin at [facility] patient, no surgery for now, is doing PTER precaution s discussed Migraine 17639214 G43.90 9 on ubrelvy- she is aware of side effects, risks, and benefitsER precaution s discussed referral as above to eye MD for ocular sx Pain of ear 474302832 H9 2.09 on mometasone cream from ENT- Dr. Ness Onychomyco sis of toenails 974994541 B35.1 get appt with podiatry- has been referred to Dr. Burgess Dyslipidemia 330671215 E 78.5 [id number] Phillip ruelas MD [facility] Internal Med Jennifer singh [address] [place] [address] 01/29/2024 10:53:24 01/29/2024 11:44:07 Screening - NAD 850876750 Z13.9 C-scope: Get the report, done by Dr Adams Mammogram: Get thisDEXA: Get this done on fosamaxWWE : Get this apt Get yearly flu shot, get tdap if not done, get Shingrix vaccine, get COVID 19 vaccine boostersCa n do RSV vaccine RTC in 3 months, do labs, ER if worse, she and her did verbalize his understand ing of the above Screening mammography 24 711132 Z12.31 Screening for osteoporosis 593468238 Z13.820 Gynecologi c examination 60630619 Z01.419 Hyperlipidemia 83550884 E78.5 On atorvastat in 20mg dailyGet labs 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 032251153 E11.9 Dr Shell ZAMORANOOn Omnipad pump: Huumalog Hypothyroidism 13443582 E03.9 On synthroid 88mcgs dailyGet labs Major depr essive disorder 473723860 F32.9 On citalopram 20mg dailyOn hydroxyzin e 50g dailySees Dr Edi rodriguez suicidal or homicidal Low back pain 156257379 M54.[address] Yon Cannon well Migraine 04080665 G43.90 9 On ubrelvyDoe s well Eczema of external auditory canal 80220198 H60.549 On mometasone creamUse as needed Upper resp iratory infection 25811541 J06.9 Health Concerns Section Related Observation LastModified by Organization Detai ls LastModified Time None Recorded Concern Status LastModified by Organization Details LastModified Time None Recorded Advance Directives Directive N: Payers Insurance Date Sequence Insurance Name Policy Number Policy Marin Covered Member ID Marin Member ID Guarantor Name 04/12/2024 1 [facility] (MEDICARE REPLACEMENT/A DVANTAGE - HMO) [id number] Kendy House Monster [id number] Kendy House Monster 04/12/2024 2 MEDICARE-ID (MEDICARE) Kendy House Omnster [id number] Kendy House Monster 10/05/2023 1 [facility] [id number] Bryce Fidencio Monster [id number] Kendy House Monster 04/12/2024 2 [facility] [id number] Bryce J Monster [id number] Kendy House Monster 01/29/2024 1 [facility] (MEDICARE REPLACEMENT/A DVANTAGE - HMO) [id number] Kendy House Monster [id number] Kendy House Monster Notes Date Note Type Note Provider Name and Address Organization Details Recorded Time 06/28/2023 text/html This patient ran out of her mometasone for eczema and needs a refill. She also reports some nonspecific swelling in her neck bilaterally Sixto Ness MD [address] [facility], [facility] [address], [place], [address], [place] [facility] [employer] [facility] 06/28/2023 11:33:02 06/29/2023 text/html 62 yo female com es in for follow up in management of well controlled TAYLOR (A1C of 7.1% down from 8.2%), hypothyroidism and dyslipidemia. last seen in Aug at that time time we had patient continue pump settings:12 am to 10 am at 0.6 u/hr10 am to 3 pm at 0.75 u/hr3 pm to 12 am at 0.75 u/hrcarb ratio 1:8; correction 50 mg/dl. We continued atorvastatin 20 mg daily at bedtime along with LT4 112 mcg daily. we continued alendronate weekly and she is due for repeat BMD this winter. sugars are running in range per patient/dexcom:under 140 mg/dL fastingpremeals under 180 mg/dLrare hypoglycemia labs from 02/01/23:a1c of 7.1%TSH of 0.288 uIU/mlFT4 of 1.21 ng/dLFT3 of 2.8 pg/ML170/85/70/83glucos e 168 mg/dLCr normalLFT normalmicroalbumin <6 ug/mg Layla Acharya MD [address] [facility], [facility] [address], [place], [address], [place] [facility] [employer] 06/29/2023 13:52:15 08/17/2023 text/html the patient is a 8-year-old female who presents with a chronic history of right 4th finger pain in the flexor tendon sheath. The patient was seen about a year ago at that point she had severe flexor tenosynovitis with a locked right 4th finger. The patient was treated with a shot of cortisone and she was working on range of motion. She states that the locking stop happening but she was never really able to get her finger fully straight. She never followed up after her last visit. She states she has also had a previous cortisone injection for this problem several years ago. Attempts in the office a year ago here were unsuccessful in getting the finger to unlock we did talk about surgical intervention at that time but again she never followed up. She comes in today stating that she got some good pain relief for about a month but her symptoms quickly returned. She denies any rajiv locking or catching now. She cannot fully straighten her finger any attempt at trying to straighten her finger causes significant pain in the flexor tendon sheath. She states it feels little puffy and swollen denies any erythema heat or other signs of infection no weakness. She states the pain is so significant that she has trouble sleeping at night or doing any activities with this right hand. She comes in today for evaluation and treatment. Previous x-rays showed polyarticular osteoarthritis particularly the PIP and D IP joints of the 2nd through 5th fingers. One hundred joint space narrowing is noted in the right 4th finger. SARITA Rodriguez [address], [place], [address], [facility] [employer] [facility] [employer] 08/17/2023 15:23:03 10/05/2023 text/html Kendy presents t antoinette for follow-up. She has been lost to care for few months as she had an insurance change. She is here today with her . Her radio mechanic apprentice left the practice. She was referred to new radio mechanic apprentice and she has an appointment with them in 2 weeks. However she is running very low on her Omnipod, Dexcom and Humalog. She needs refills on these to get her to her appointment. She reports her sugars have been running higher than her baseline. She denies any polyuria or polydipsia. I have advised her and her that we are not set up to do any pump changes so she would need to wait until she has her endocrinology appointment. Her mood meds are managed by her psychiatrist. She denies any SI or HI today. She has been tolerating the alendronate without issue. She is due for labs. She thinks she already may have had her flu shot at [facility], she is going to check with them because she is unsure. ANNA Garcia-Beto [address], [place], [address], [employer] [facility] [employer] 10/05/2023 13:06:14 01/29/2024 text/html OV 01/29/2024:He re to establish care Past Hx:DepressionOPDMIIMigr ainesHypothyroidism Here to discuss above, she wells c/o URI symptoms, +ve cough, no fevers or chills, no chest pain or SOB, she is here with her Phillip Santo MD [address], [facility] [address], [place], [address], [place] [facility] 01/29/2024 18:30:21 OBGyn Episode No OBEpisode recorded.
--- OUTSIDE RECORDS SUMMARY | 2025-05-13 16:16 | XMS_ITS ---
Author Organization [facility] Office Address [address] [facility] [address] [facility] [address] [place] [address] Care Team Providers Care Ad Setter Name Role Phone Brendan Leo Unavailable [phone] Social History Sex Assigned At : Social History Observation Description Sex Assigned At Female Encounters Encounter Location Date Provider Diagnosis [facility] [address] [facility] [address] [place] [address] 04/12/2024 Leo Cardona Chronic kidney disease, stage [...] * Belem HOOKNaraOB:1960 ( 64 yo F)Acc No.[id number]:04/12/2024 Progress Notes Patient: Kendy ALBARADO Provider: Natasha LA MD, F.A.C.P, F.A.S.N. :1960 A ge:63 Y S ex:Female Date:04/12/2024 Address:[address] , [place] [address] Subjective: * Chief Complaints: * * Medical History: Objective: * Vitals: Assessment: * Assessment: 1. C hronic kidney disease, stage 3a - N18.31 2 . A nxiety disorder, unspecified - F41.9 3 . C hronic fatigue, unspecified - R53.82 4 .?Essential (primary) hypertension - I10 5 . H ematuria, unspecified - R31.9? Plan: * Treatment: * Billing Information: * Visit Code: 28615 Office Visit, Est Pt., Level 4. * Procedure Codes: * Electronic signature of Patsy Cardona MD on 05/13/2025 at 04:16 PM CDT Sign off status: Pending * Provider: Natasha LA MD, F.A.C.P, F.A.S.N. Date: 0 04/12/2024 Generated for Printing/Faxing/eTransmitting on: 05/13/2025 04:16 PM CDT
--- OUTSIDE RECORDS SUMMARY | 2025-05-13 16:16 | XMS_ITS ---
Author Name Auto Generated, Auto Generated Organization [facility] Address [address] [place] [address] Phone [phone] Care Team Providers Care Cell Tender Name Role Phone Arcenio Flynn Unavailable Jorge Alberto Wang Unavailable [phone] Functional Status Mental Status Allergies and Intolerances Medications Problems Reason for Referral Past Medical History
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
[2025-05-13 16:21] LABS: Creatinine Urine 173.4 mg/dL
[2025-05-13 16:26] LABS: MALB Creatinine Ratio 7.3 mg/g (0-30); Microalbumin Urine Random 12.6 mg/L (0-16.7)
[2025-05-13 16:57] LABS: Free T4 Free Thyroxine 1.21 ng/dL (0.78-2.19)
[2025-05-13 17:12] LABS: Thyroid Stimulating Hormone 0.095 uIU/mL (0.465-4.680)
== END 2025-05-13 15:16 | disposition home or self-care (01) ==
LOC: ANHLAB 15:21
PROVIDERS: Visit Provider Internal Medicine
DX: E03.9 Hypothyroidism, unspecified (principal); E10.69 Type 1 diabetes mellitus with other specified complication; E86.0 Dehydration
CPT/HCPCS: 36415; 82043; 84439; 84443

== ENCOUNTER 2025-07-23 12:11 | Outpatient (CLI) | payer MEDICARE, SELFPAY ==
--- OUTSIDE RECORDS SUMMARY | 2024-03-15 09:00 | XMS_ITS ---
Author Organization [facility] Address [address] [facility] [address] [facility] [address] [place] [address] Care Team Providers Care Sed High School Teacher Name Role Phone Jayesh Cardonaerjit Unavailable [phone] Social History Sex Assigned At : Social History Observation Description Sex Assigned At Female Problems Problem Type SNOMED Code ICD Code Onset Dates Problem Status W/U Status Risk Notes Problem Chronic kidney disease stage 3A (disorder) (792836217) Chronic kidney disease, stage 3a (N18.31) Active confirmed Problem Anxiety disorder (861993780) Anxiety disorder, unspecified (F41.9) Active confirmed Problem Chronic fatigue syndrome (disorder) (09825360) Chronic fatigue, unspecified (R53.82) Active confirmed Problem Essential hypertension (39962592) Essential (primary) hypertension (I10) Active confirmed Problem Hematuria (13713057) Hematuria, unspecified (R31.9) Active confirmed Encounters Encounter Location Date Provider Diagnosis [place] [facility] [address] [facility] [address] [place] [address] 03/15/2024 Leo Cardona Chronic kidney disease, stage [...] * Butch HOOK:1960 ( 64 yo F)Acc No.[id number]:03/15/2024 Progress Notes Patient: Kendy ALBARADO Provider: Natasha LA MD, F.Catrina.Beto.P, F.A.S.N. :1960 A ge:63 Y S ex:Female Date:03/15/2024 Address:[address] [facility], [place] [address] Subjective: * Chief Complaints: * * Medical History: Objective: * Vitals: Assessment: * Assessment: 1. C hronic kidney disease, stage 3a - N18.31 2 . A nxiety disorder, unspecified - F41.9 3 . C hronic fatigue, unspecified - R53.82 4 .?Essential (primary) hypertension - I10 5 . H ematuria, unspecified - R31.9? Plan: * Treatment: * Billing Information: * Visit Code: 61304 Office Visit, New Pt., Level 5. * Procedure Codes: * Electronic signature of Patsy Cardona MD on 07/23/2025 at 12:14 PM CDT Sign off status: Pending * Provider: Natasha LA MD, Cristal.Catrina.Beto.P, F.A.S.N. Date: 03/15/2024 Generated for Printing/Faxing/eTransmitting on: 0 07/23/2025 12:14 PM CDT
--- OUTSIDE RECORDS SUMMARY | 2024-04-12 09:30 | XMS_ITS ---
Author Organization [facility] Address [address] [facility] [address] [facility] [address] [place] [address] Care Team Providers Care Agricultural Scientist Name Role Phone Brendan Leo Unavailable [phone] Social History Sex Assigned At : Social History Observation Description Sex Assigned At Female Encounters Encounter Location Date Provider Diagnosis [place] [facility] [address] [facility] [address] [place] [address] 04/12/2024 Leo Cardona Chronic kidney disease, stage 3a N18.31 ; Anxiety disorder, unspecified F41.9 ; Chronic fatigue, unspecified R53.82 ; Essential (primary) hypertension I10 and Hematuria, unspecified R31.9 Assessments Encounter Date Diagnosis (ICD Code) Assessment Notes Treatment Notes Treatment Clinical Notes Section Notes 04/12/2024 Chronic kidney disease, stage 3a (ICD-10 - N18.31) 04/12/2024 Anxiety disorder, unspecified (ICD-10 - F41.9) 04/12/2024 Chronic fatigue, unspecified (ICD-10 - R53.82) 04/12/2024 Essential (primary) hypertension (ICD-10 - I10) 04/12/2024 Hematuria, unspecified (ICD-10 - R31.9) Plan Of Treatment No Information Progress Notes * Belem HOOKNaraOB:1960 ( 64 yo F)Acc No.[id number]:04/12/2024 Progress Notes Patient: Kendy ALBARADO Provider: Natasha LA MD, F.A.C.P, F.A.S.N. :1960 A ge:63 Y S ex:Female Date:04/12/2024 Address:[address] , [place] [address] Subjective: * Chief Complaints: * * Medical History: Objective: * Vitals: Assessment: * Assessment: 1. C hronic kidney disease, stage 3a - N18.31 2 . A nxiety disorder, unspecified - F41.9 3 . C hronic fatigue, unspecified - R53.82 4 .?Essential (primary) hypertension - I10 5 . H ematuria, unspecified - R31.9? Plan: * Treatment: * Billing Information: * Visit Code: 19589 Office Visit, Est Pt., Level 4. * Procedure Codes: * Electronic signature of Patsy Cardona MD on 07/23/2025 at 12:14 PM CDT Sign off status: Pending * Provider: Natasha LA MD, F.A.C.P, F.A.S.N. Date: 0 04/12/2024 Generated for Printing/Faxing/eTransmitting on: 0 07/23/2025 12:14 PM CDT
--- OUTSIDE RECORDS SUMMARY | 2024-07-03 10:15 | XMS_ITS ---
Author Organization [facility] Address [address] [facility] [address] [facility] [address] [place] [address] Care Team Providers Care Core Shaper Name Role Phone Leo Cardona Unavailable [phone] Social History Sex Assigned At : Social History Observation Description Sex Assigned At Female Encounters Encounter Location Date Provider Diagnosis [place] [facility] [address] [facility] [address] [place] [address] 07/03/2024 Leo Cardona Plan Of Treatment No Information Progress Notes * Consuelo HOOKOB:1960 ( 64 yo F)Acc No.[id number]:07/03/2024 Progress Notes Patient: Kendy ALBARADO Provider: Natasha LA MD, F.Catrina.C.P, F.A.S.N. :1960 A ge:63 Y S ex:Female Date:07/03/2024 Address:[address] , [place] [address] Subjective: * Chief Complaints: * * Medical History: Objective: * Vitals: Assessment: Plan: * Treatment: * Billing Information: * Visit Code: * Procedure Codes: * Electronic signature of Patsy Cardona MD on 07/23/2025 at 12:14 PM CDT Sign off status: Pending * Provider: Natasha LA MD, F.Catrina.C.P, F.A.S.N. Date: 07/03/2024 Generated for Printing/Faxing/eTransmitting on: 07/23/2025 12:14 PM CDT
--- NOTE | ~2025-07-23 | DEXA_ITS ---
Bone Density Report Name: WINNIE JARAMILLO Age: 64 Sex: Female Ethnicity: White Date of : 1960 Indication: postmenopausal; screening for osteoporosis; height loss; prior fracture; secondary osteoporosis; Referring Provider: GERALD HEATON Study: Bone densitometry was performed. Exam Date: July 23, 2025 Accession number: [id number] Bone Density: Region BMD T-score Z-score Classification AP Spine(L1-L4) 0.806 -2.2 -0.6 Osteopenia Femoral Neck (Left) 0.460 -3.5 -2.1 Osteoporosis Total Hip (Left) 0.683 -2.1 -1.0 Osteopenia Femoral Neck (Right) 0.494 -3.2 -1.8 Osteoporosis Total Hip (Right) 0.709 -1.9 -0.8 Osteopenia Total Hip Mean 0.696 -2.0 -0.9 Osteopenia World Health Organization criteria for BMD impression classify patients as: Normal (T-score at or above -1.0), Osteopenia (T-score between -1.0 and -2.5), or Osteoporosis (T-score at or below -2.5). 10-year Fracture Risk: FRAX not reported because: Some T-score for Spine Total or Hip Total or Femoral Neck at or below -2.5 Prior hip or vertebral fracture Clinical Information Provided by Patient: Have had a previous hip or vertebral fracture Has had a low trauma fracture Has secondary osteoporosis Patient maximum height was 63.0 Menopause Age: 52 No regular weight bearing exercise Does not regularly consume dairy products Drinks caffeinated beverages Onset of menses at age 18 Number of children 1 Impression: The patient has established osteoporosis, based on the Left Femoral Neck T-score and the existence of a prior fracture. The patient has risk factors, including: previous fracture. Discussion: HIGH RISK OF FRACTURE. BONE DENSITY IS UNDESIRABLY LOW AT ONE OR MORE SKELETAL SITES, CONSISTENT WITH POSTMENOPAUSAL OSTEOPOROSIS. This patient's lowest T-score, in a patient who has previously fractured, meets the World Health Organization's (WHO) criteria for severe osteoporosis. In untreated patients, the risk of osteoporotic fracture increases approximately two-fold for each 1.0 SD decrease in T-score. Low bone density is not the only risk factor for fracture; also consider factors such as patient's age, frailty or poor health, risk of falling, risk of injury, previous osteoporotic fracture, family history of osteoporosis, cigarette smoking, low body weight, etc. Not everyone with low bone mineral density has osteoporosis; osteomalacia and other metabolic bone disorders should also be considered. Patients who have osteoporosis should be evaluated for specific diseases and conditions (secondary causes) that may cause or contribute to bone loss. The [place] Association of Clinical Endocrinologists (AACE) and National Osteoporosis Foundation (NOF) recommend pharmacologic intervention for all postmenopausal women with a previous hip or vertebral fracture and a T-score in this range. The patient should follow a healthful lifestyle (good nutrition with adequate calcium and vitamin D, and appropriate weight-bearing exercise). Follow-Up: Consider a repeat BMD and Vertebral Fracture Assessment (VFA) exam in 2 years or sooner if medically necessary, to reassess this patient's status. Reported by: NORBERT on 07/23/2025 12:51:00 PM. Reviewed, dictated and finalized at location A.
--- OUTSIDE RECORDS SUMMARY | 2025-07-23 12:12 | XMS_ITS ---
Author Name Auto Generated, Auto Generated Organization [facility] ices Address [address] [place] [address] Phone [phone] Care Team Providers Care Nursing Department Chairperson Name Role Phone Arcenio Flynn Unavailable Jorge [...] 2020 * End Date: * Text: * snf (current) use of aspirin* Code: * Start Date: MonSep 01 00:00:00 EDT 2020 * End Date: * Text: * snf (current) use of insulin* Code: * Start [...]
--- OUTSIDE RECORDS SUMMARY | 2025-07-23 12:14 | XMS_ITS | Patient Health Record ---
Author Organization [facility] Address [address] [facility] [address] [facility] [address] [place] [address] Reason For Referral No Information Social History Sex Assigned At : Social History Observation Description Sex Assigned At Female Problems Problem Type SNOMED Code ICD Code Onset Dates Problem Status W/U Status Risk Notes Problem Anxiety disorder (578451985) Anxiety disorder, unspecified (F41.9) Active confirmed Problem Essential hypertension (66307105) Essential (primary) hypertension (I10) Active confirmed Problem Hematuria (49303918) Hematuria, unspecified (R31.9) Active confirmed Problem Chronic fatigue syndrome (disorder) (01482577) Chronic fatigue, unspecified (R53.82) Active confirmed Problem Chronic kidney disease stage 3A (disorder) (316499066) Chronic kidney disease, stage 3a (N18.31) Active confirmed Plan Of Treatment No Information
--- OUTSIDE RECORDS SUMMARY | 2025-07-23 12:15 | XMS_ITS | Clinical Summary ---
Author Organization [facility] Address [address] [place] [address] Care Team Providers Care Body Sander Name Role Phone Merry Julien APRN-SURGICAL CODER Unavailable [phone] Source Comments [facility],non-owned Affiliates and Associated Physician Practices is amultiple site organization consisting of ambulatory clinics and hospital sitesin [place], [place], [place] and [place]. This disclosure is being madepursuant to the Care Everywhere program and may not contain all information available regarding this patient. Last updated 18.[facility] [employer] Allergies No known active allergies Active Problems Problem Noted Date Diagnosed Date Polyp of cervix 10/27/2021 Enlarged uterus 10/27/2021 Dyspareunia 10/27/2021 Acquired trigger finger 10/27/2021 Personal history of transien t ischemic attack (TIA), and cerebral infarction without residual deficits 09/01/2021 Essential hypertension 09/01/2021 Presence of insulin pump (external) (internal) 1 Gastro-esophageal reflux disease without esophag itis 09/01/2021 Drug induced constipation 09/01/2021 [facility] (current) use of aspirin 09/01/2021 Unspecified fracture [...] on file Legal Sex Female 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 Gender Identity Not on file Sexual Orientation [...] - COLON CA SCREENING 1960 MAMMOGRAM 1960 HIV SCREENING 1977 HEPATITIS C SCREENING 12/24/1980 DIABETES-SERUM CREATININE 1980 DTAP/TDAP/TD VACCINES (1 - Tdap) 1981 PNEUMOCOCCAL VACCINE 50+ (1 of 2 - PCV) 1981 PAP SMEAR 1983 DIABETES-STATIN 2002 ZOSTER VACCINE (1 of 2) 2012 DIABETES RETINOPATHY SCREENING 10/27/2021 DIABETES-FOOT EXAM WITH MONOFILAMENT 10/27/2021 DIABETES-HGB A1C 10/27/2021 COVID-19 VACCINE (2 - 2023-2 5 season) 2024 02/01/2021 DEPRESSION SCREENING 11/27/2024 DIABETES - URINE PROTEIN SCREENING 11/27/2024 INFLUENZA VACCINE (#1) 2025 09/16/2021 Respiratory Syncytial Virus (RSV) Vaccine Pt: or [...] to complete this topic Insurance Care Teams Body Sander Relationship Specialty Start Date End Date Merry Julien APRN-YUSRA [address] [place] [phone] PCP - Attributed-[facility] 06/27/25
== END 2025-07-23 12:12 | disposition home or self-care (01) ==
LOC: ANHFOHIMG 12:12
PROVIDERS: PCP Internal Medicine; Visit Provider Internal Medicine
DX: M81.0 Age-related osteoporosis without current pathological fracture (principal); M85.88 Other specified disorders of bone density and structure, other site; M85.852 Other specified disorders of bone density and structure, left thigh; M85.851 Other specified disorders of bone density and structure, right thigh
CPT/HCPCS: 77080

== ENCOUNTER 2025-08-18 12:28 | Outpatient (CLI) | payer MEDICARE, SELFPAY ==
--- OUTSIDE RECORDS SUMMARY | 2024-03-15 09:00 | XMS_ITS ---
Author Organization [facility] Address [address] [facility] [address] [facility] [address] [place] [address] Care Team Providers Care Environmental Monitoring Technician Name Role Phone Jayesh Cardonaerjit Unavailable [phone] Social History Sex Assigned At : Social History Observation Description Sex Assigned At Female Problems Problem Type SNOMED Code ICD Code Onset Dates Problem Status W/U Status Risk Notes Problem Chronic kidney disease stage 3A (disorder) (270551205) Chronic kidney disease, stage 3a (N18.31) Active confirmed Problem Anxiety disorder (318108931) Anxiety disorder, unspecified (F41.9) Active confirmed Problem Chronic fatigue syndrome (disorder) (42527870) Chronic fatigue, unspecified (R53.82) Active confirmed Problem Essential hypertension (35160726) Essential (primary) hypertension (I10) Active confirmed Problem Hematuria (24158683) Hematuria, unspecified (R31.9) Active confirmed Encounters Encounter Location Date Provider Diagnosis [place] [facility] [address] [facility] [address] [place] [address] 03/15/2024 Leo Cardona Chronic kidney disease, stage 3a N18.31 ; Anxiety disorder, unspecified F41.9 ; Chronic fatigue, unspecified R53.82 ; Essential (primary) hypertension I10 and Hematuria, unspecified R31.9 Assessments Encounter Date Diagnosis (ICD Code) Assessment Notes Treatment Notes Treatment Clinical Notes Section Notes 03/15/2024 Chronic kidney disease, stage 3a (ICD-10 - N18.31) 03/15/2024 Anxiety disorder, unspecified (ICD-10 - F41.9) 03/15/2024 Chronic fatigue, unspecified (ICD-10 - R53.82) 03/15/2024 Essential (primary) hypertension (ICD-10 - I10) 03/15/2024 Hematuria, unspecified (ICD-10 - R31.9) Plan Of Treatment No Information Progress Notes * Butch HOOK:1960 ( 64 yo F)Acc No.[id number]:03/15/2024 Progress Notes Patient: Kendy ALBARADO Provider: Natasha LA MD, F.Catrina.Beto.P, F.A.S.N. :1960 A ge:63 Y S ex:Female Date:03/15/2024 Address:[address] [facility], [place] [address] Subjective: * Chief Complaints: * * Medical History: Objective: * Vitals: Assessment: * Assessment: 1. C hronic kidney disease, stage 3a - N18.31 2 . A nxiety disorder, unspecified - F41.9 3 . C hronic fatigue, unspecified - R53.82 4 .?Essential (primary) hypertension - I10 5 . H ematuria, unspecified - R31.9? Plan: * Treatment: * Billing Information: * Visit Code: 29824 Office Visit, New Pt., Level 5. * Procedure Codes: * Electronic signature of Patsy Cardona MD on 08/18/2025 at 12:59 PM CDT Sign off status: Pending * Provider: Natasha LA MD, Cristal.Catrina.Beto.P, F.A.S.N. Date: 03/15/2024 Generated for Printing/Faxing/eTransmitting on: 0 08/18/2025 12:59 PM CDT
--- OUTSIDE RECORDS SUMMARY | 2024-04-12 09:30 | XMS_ITS ---
Author Organization [facility] Address [address] [facility] [address] [facility] [address] [place] [address] Care Team Providers Care Athletic Events Scorer Name Role Phone Brendan Leo Unavailable [phone] Social History Sex Assigned At : Social History Observation Description Sex Assigned At Female Encounters Encounter Location Date Provider Diagnosis [place] [facility] [address] [facility] [address] [place] [address] 04/12/2024 Leo Cardona Chronic kidney disease, stage [...] * Belem HOOKNaraOB:1960 ( 64 yo F)Acc No.[id number]:04/12/2024 Progress Notes Patient: Kendy ALBARADO Provider: Natasha LA MD, F.A.C.P, F.A.S.N. :1960 A ge:63 Y S ex:Female Date:04/12/2024 Address:[address] , [place] [address] Subjective: * Chief Complaints: * * Medical History: Objective: * Vitals: Assessment: * Assessment: 1. C hronic kidney disease, stage 3a - N18.31 2 . A nxiety disorder, unspecified - F41.9 3 . C hronic fatigue, unspecified - R53.82 4 .?Essential (primary) hypertension - I10 5 . H ematuria, unspecified - R31.9? Plan: * Treatment: * Billing Information: * Visit Code: 90070 Office Visit, Est Pt., Level 4. * Procedure Codes: * Electronic signature of Patsy Cardona MD on 08/18/2025 at 12:59 PM CDT Sign off status: Pending * Provider: Natasha LA MD, F.A.C.P, F.A.S.N. Date: 0 04/12/2024 Generated for Printing/Faxing/eTransmitting on: 0 08/18/2025 12:59 PM CDT
--- OUTSIDE RECORDS SUMMARY | 2024-07-03 10:15 | XMS_ITS ---
Author Organization [facility] Address [address] [facility] 61 [facility] [address] [place] [address] Care Team Providers Care Head Inspector Name Role Phone Leo Cardona Unavailable [phone] Social History Sex Assigned At : Social History Observation Description Sex Assigned At Female Encounters Encounter Location Date Provider Diagnosis [place] [facility] [address] [facility] [address] [place] [address] 07/03/2024 Leo Cardona Plan Of Treatment No Information Progress Notes * Consuelo HOOKOB:1960 ( 64 yo F)Acc No.[id number]:07/03/2024 Progress Notes Patient: Kendy ALBARADO Provider: Natasha LA MD, F.Catrina.C.P, F.A.S.N. :1960 A ge:63 Y S ex:Female Date:07/03/2024 Address:[address] , [place] [address] Subjective: * Chief Complaints: * * Medical History: Objective: * Vitals: Assessment: Plan: * Treatment: * Billing Information: * Visit Code: * Procedure Codes: * Electronic signature of Patsy Cardona MD on 08/18/2025 at 12:59 PM CDT Sign off status: Pending * Provider: Natasha LA MD, F.Catrina.C.P, F.A.S.N. Date: 07/03/2024 Generated for Printing/Faxing/eTransmitting on: 08/18/2025 12:59 PM CDT
--- OUTSIDE RECORDS SUMMARY | 2025-08-18 13:00 | XMS_ITS | Patient Health Record ---
Author Organization [facility] Address [address] [facility] [address] [facility] [address] [place] [address] Reason For Referral No Information Social History Sex Assigned At : Social History Observation Description Sex Assigned At Female Problems Problem Type SNOMED Code ICD Code Onset Dates Problem Status W/U Status Risk Notes Problem Anxiety disorder (992494909) Anxiety disorder, unspecified (F41.9) Active confirmed Problem Essential hypertension (42362006) Essential (primary) hypertension (I10) Active confirmed Problem Hematuria (19580377) Hematuria, unspecified (R31.9) Active confirmed Problem Chronic fatigue syndrome (disorder) (48893262) Chronic fatigue, unspecified (R53.82) Active confirmed Problem Chronic kidney disease stage 3A (disorder) (985125195) Chronic kidney disease, stage 3a (N18.31) Active confirmed Plan Of Treatment No Information
--- OUTSIDE RECORDS SUMMARY | 2025-08-18 13:00 | XMS_ITS | Clinical Summary ---
Author Organization [facility] Address [address] [place] [address] Care Team Providers Care Cable Assembler Name Role Phone Merry Julien APRN-ORDER CHECKER Unavailable [phone] Source Comments [facility],non-owned Affiliates and Associated Physician Practices is amultiple site organization consisting of ambulatory clinics and hospital sitesin [place], [place], [place] and [place]. This disclosure is being madepursuant to the Care Everywhere program and may not contain all information available regarding this patient. Last updated 18.[facility] [employer] Allergies No known active allergies Active Problems Problem Noted Date Diagnosed Date Polyp of cervix 10/27/2021 Enlarged uterus 10/27/2021 Dyspareunia 10/27/2021 Acquired trigger finger 10/27/2021 Personal history of transien t ischemic attack (TIA), and cerebral infarction without residual deficits 09/01/2021 Essential hypertension 09/01/2021 Presence of insulin pump (external) (internal) 1 Gastro-esophageal reflux disease without esophag itis 09/01/2021 Drug induced constipation 09/01/2021 meterman (current) use of aspirin 09/01/2021 Unspecified fracture [...] on file Legal 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
[2025-08-18 14:26] LABS: Free T4 Free Thyroxine 0.94 ng/dL (0.78-2.19)
[2025-08-18 14:54] LABS: Thyroid Stimulating Hormone 29.800 uIU/mL (0.465-4.680)
== END 2025-08-18 12:29 | disposition home or self-care (01) ==
LOC: ANHLAB 12:30
PROVIDERS: Visit Provider Internal Medicine
DX: E03.9 Hypothyroidism, unspecified (principal)
CPT/HCPCS: 36415; 84439; 84443

== ENCOUNTER 2025-09-23 14:59 | Outpatient (CLI) | payer MEDICARE, SELFPAY ==
[2025-09-23 15:32] LABS: Add Urine Microscopic? YES; Appearance Urine Clear (Clear); Glucose Urine UA Negative (Negative); Leukocyte Esterase Ur Trace LEU/UL (Negative); Nitrate Urine Negative (Negative); Non Pathogenic Casts 0-2; Specific Grav Ur 1.017 (1.001-1.035)
--- OUTSIDE RECORDS SUMMARY | 2025-09-23 17:21 | XMS_ITS | Clinical Summary ---
Author Organization [facility] Address [address] [place] [address] Care Team Providers Care Computer Hardware Engineer Name Role Phone Merry Julien APRN-AUTOMOTIVE LOT ATTENDANT Unavailable [phone] Source Comments [facility],non-owned Affiliates and Associated Physician Practices is amultiple site organization consisting of ambulatory clinics and hospital sitesin [place], [place], [place] and [place]. This disclosure is being madepursuant to the Care Everywhere program and may not contain all information available regarding this patient. Last updated 18.[facility] [employer] Allergies No known active allergies Active Problems Problem Noted Date Diagnosed Date Polyp of cervix 10/27/2021 Enlarged uterus 10/27/2021 Dyspareunia 10/27/2021 Acquired trigger finger 10/27/2021 Personal history of transien t ischemic attack (TIA), and cerebral infarction without residual deficits 09/01/2021 Essential hypertension 09/01/2021 Presence of insulin pump (external) (internal) 1 Gastro-esophageal reflux disease without esophag itis 09/01/2021 Drug induced constipation 09/01/2021 manager terminal (current) use of aspirin 09/01/2021 Unspecified fracture [...] on file Legal Sex Female 12:07 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
--- OUTSIDE RECORDS SUMMARY | 2025-09-23 17:21 | XMS_ITS | Data Portability ---
Author Organization [place] - 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 Lab lipid panel, serum 2023 03/04/2 024 [email or web address] [facility] ([facility]), [address] [place], [address], 4 11:04:21 CBC w/ auto diff [address] (Lab), [address] [place], [address], 4 11:04:22 TSH, serum or plasma [address] (Lab), [address] [place], [address], 4 11:04:22 CMP, serum or plasma [address] (Lab), [address] [place], [address], 4 11:04:22 vitamin D, 25-hydroxy, total, serum [address] (Lab), [address] [place], [address], 4 11:04:21 rapid flu (A+B) [address] [facility], [address] [place], [address], 4 11:04:39 rapid strep group A, throat [address] [facility], [address] [place], [address], 4 17:31:33 SARS CoV 2 RNA (COVID-19), QL, technical professional-PCR, 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 [address] [facility], [address] [place], [address], 4 17:31:34 glycohemogl obin, total, blood [address] (Lab), [address] [place], [address], 4 11:04:22 microalbumi n, urine [address] (Lab), [address] [place], [address], 4 11:04:22 vitamin D, 25-hydroxy, total, serum [address] (Lab), [address] [place], [address], 3 14:48:37 HbA1c (hemoglobin A1c), blood [address] (Lab), [address] [place], [address], 3 14:48:38 microalbumi n/creatinin e, mass ratio, urine [address] (Lab), [address] [place], [address], 3 14:48:38 TSH + free T4, serum [address] (Lab), [address] [place], [address], 3 14:48:38 lipid panel, serum 2022 023 [email or web address] [facility] (Lab), [address] [place], [address], 3 16:23:23 CMP, serum or plasma 2022 023 [facility] (Lab), [address] [place], [address], 3 16:23:33 CBC w/ auto diff 2022 023 [facility] (Lab), [address] [place], [address], 3 16:06:24 vitamin B12 + folate, serum or blood 2022 023 [email or web address] [facility] (Lab), [address] [place], [address], 3 14:48:38 Referral gynecologis t referral 2023 024 [email or web address] Adan Miranda MD, [address] [facility] [address], [place], [address], 4 08:43:29 diabetic ophthalmolo gy referral 2023 024 [email or web address] 6 [facility], [address], [place], [address], 4 08:43:30 wire photo operator referral 2023 024 [email or web address] 6 Elsa Burgess DP, [address] [place], [address], 4 08:43:32 orthopedic surgeon referral - Please contact patient to schedule... Thank you 2022 023 JESENIA Isidro MD, [address] [place], [address], 3 06:14:44 Procedures None recorded. Surgeries None recorded. Imaging MAMMO, screening, digital, bilateral 2023 024 [email or web address] [facility] ([facility]), [address] [place], [address], 4 13:37:18 DEXA, axial skeleton 2023 024 [facility] ([facility]), [address], [place], [address], 4 16:47:49 Medication Orders Ubrelvy 100 mg tablet 2023 024 JESENIA [facility], [address], [address], [place], [place], [id number], 4 11:41:45 Zithromax Z-Nigel 250 mg tablet 2023 024 [facility], [address], [address], [place], [place], [id number], 5 12:09:59 alendronate 70 mg tablet 2022 023 JESENIA [facility], [address], [address], [place], [place], [id number], 3 12:26:05 atorvastati n 20 mg tablet 2022 023 JESENIA [facility], [address], [address], [place], [place], [id number], 3 12:26:02 Humalog U-100 Insulin 100 unit/mL subcutaneou s solution 2022 023 JESENIA [facility], [address], [address], [place], [place], [id number], 3 12:26:04 Synthroid 88 mcg tablet 2022 023 JESENIA [facility], [address], [address], [place], [place], [id number], 3 12:26:03 atorvastati n 20 mg tablet 2022 023 [id number], [address], [place], [place], [id number], 3 13:23:28 levothyroxi ne 112 mcg tablet [email or web address] [id number], [address], [place], [place], [id number], 3 12:04:58 mometasone 0.1 % topical cream 2022 023 [facility] #[id number], [address], [place], [place], [id number], 3 11:32:47 Patient TargetsNo targets recorded. Patient InstructionsNo instructions recorded. Reason for Referral Orthopedic Surgeon Referral for Acquired trigger finger Please contact patient to schedule...Thank you Referring Physician: Michael Skaggs, Orthopedic Surgery, Encounter Date: 08/17/2023 Resolution Specialist Referral for Gy necologic examination Referring Physician: Phillip Santo, Internal Medicine, Encounter Date: 01/29/2024 Diabetic Ophthalmology Refer ral for Type 2 diabetes mellitus without complication Referring Physician: Phillip Santo Internal Medicine, Encounter Date: 01/29/2024 Vrt Mechanic Referral for Type 2 diabetes mellitus without complication Referring Physician: Phillip Santo Internal Medicine, Encounter Date: 01/29/2024 Results Created Date Observation Date Name Description Value Unit Range Abnormal Flag Note LastModifiedBy Organization Detail LastModifiedTime 10/05/20 23 10/05/2023 CBC/C OMPLE TE BLD COUNT W/DIF F white blood cells 4.3 x10'3 /uL 4.2-10 .8 Not Available [facility] (Lab) [address] [place], [address], 10/05/2023 16:06:24 10/05/20 23 10/05/2023 CBC/C OMPLE TE BLD COUNT W/DIF F red blood cells 4.83 x10'6 /uL 3.80-5 .20 Not Available [facility] (Lab) [address] [place], [address], 10/05/2023 16:06:24 10/05/20 23 10/05/2023 CBC/C OMPLE TE BLD COUNT W/DIF F hemoglobin 14.5 g/dL 12.0-1 5.6 Not Available [facility] (Lab) [address] [facility] [place], [address], 10/05/2023 16:06:24 10/05/20 23 10/05/2023 CBC/C OMPLE TE BLD COUNT W/DIF F hematocrit 45.1 % 35.7-4 5.7 Not Available [facility] (Lab) [address] [place], [address], 10/05/2023 16:06:24 10/05/20 23 10/05/2023 CBC/C OMPLE TE BLD COUNT W/DIF F mean red cell volume 93.4 fL 82.0-9 9.0 Not Available [facility] (Lab) [address] [place], [address], 10/05/2023 16:06:24 10/05/20 23 10/05/2023 CBC/C OMPLE TE BLD COUNT W/DIF F mean red cell hemoglobin 30.0 pg 27.0-3 3.0 Not Available [facility] (Lab) [address] [facility] [place], [address], 10/05/2023 16:06:24 10/05/20 23 10/05/2023 CBC/C OMPLE TE BLD COUNT W/DIF F mean RBC HGB concentratio n 32.2 g/dL 31.0-3 6.0 Not Available [facility] (Lab) [address] [place], [address], 10/05/2023 16:06:24 10/05/20 23 10/05/2023 CBC/C OMPLE TE BLD COUNT W/DIF F red cell distribution width 13.6 % 11.8-1 5.5 Not Available [facility] (Lab) [address] [place], [address], 10/05/2023 16:06:24 10/05/20 23 10/05/2023 CBC/C OMPLE TE BLD COUNT W/DIF F platelets 236 x10'3 /uL 150-40 0 Not Available [facility] (Lab) [address] [place], [address], 10/05/2023 16:06:24 10/05/20 23 10/05/2023 CBC/C OMPLE TE BLD COUNT W/DIF F mean platelet volume 11.1 fL 9.0-12 .4 Not Available [facility] (Lab) [address] [place], [address], 10/05/2023 16:06:24 10/05/20 23 10/05/2023 CBC/C OMPLE TE BLD COUNT W/DIF F neutrophils 55.0 % 39.0-7 2.0 Not Available [facility] (Lab) [address] [place], [address], 10/05/2023 16:06:24 10/05/20 23 10/05/2023 CBC/C OMPLE TE BLD COUNT W/DIF F lymphocytes 32.8 % 16.0-4 7.0 Not Available [facility] (Lab) [address] [place], [address], 10/05/2023 16:06:24 10/05/20 23 10/05/2023 CBC/C OMPLE TE BLD COUNT W/DIF F monocytes 7.5 % 5.0-12 .0 Not Available [facility] (Lab) [address] [place], [address], 10/05/2023 16:06:24 10/05/20 23 10/05/2023 CBC/C OMPLE TE BLD COUNT W/DIF F eosinophils 3.0 % 1.0-7. 0 Not Available [facility] (Lab) [address] [place], [address], 10/05/2023 16:06:24 10/05/20 23 10/05/2023 CBC/C OMPLE TE BLD COUNT W/DIF F basophils 1.2 % 0.0-2. 0 Not Available [facility] (Lab) [address] [place], [address], 10/05/2023 16:06:24 10/05/20 23 10/05/2023 CBC/C OMPLE TE BLD COUNT W/DIF F immature granulocytes 0.5 % 0.00-0 .50 Not Available [facility] (Lab) [address] [place], [address], 10/05/2023 16:06:24 10/05/20 23 10/05/2023 CBC/C OMPLE TE BLD COUNT W/DIF F neutrophils, absolute count 2.35 x10'3 /uL 1.5-8. 0 Not Available [facility] (Lab) [address] [place], [address], 10/05/2023 16:06:24 10/05/20 23 10/05/2023 CBC/C OMPLE TE BLD COUNT W/DIF F lymphocytes, absolute count 1.40 x10'3 /uL 1.07-3 .43 Not Available [facility] (Lab) [address] [place], [address], 10/05/2023 16:06:24 10/05/20 23 10/05/2023 CBC/C OMPLE TE BLD COUNT W/DIF F monocytes, absolute count 0.32 x10'3 /uL 0.29-0 .99 Not Available [facility] (Lab) [address] [place], [address], 10/05/2023 16:06:24 10/05/20 23 10/05/2023 CBC/C OMPLE TE BLD COUNT W/DIF F eosinophils, absolute count 0.13 x10'3 /uL 0.02-0 .53 Not Available [facility] (Lab) [address] [place], [address], 10/05/2023 16:06:24 10/05/20 23 10/05/2023 CBC/C OMPLE TE BLD COUNT W/DIF F basophils, absolute count 0.05 x10'3 /uL 0.01-0 .08 Not Available [facility] (Lab) [address] [place], [address], 10/05/2023 16:06:24 10/05/20 23 10/05/2023 CBC/C OMPLE TE BLD COUNT W/DIF F immature granulocytes ,absolute 0.02 x10'3 /uL 0.00-0 .05 Not Available [facility] (Lab) [address] [place], [address], 10/05/2023 16:06:24 10/05/20 23 10/05/2023 CBC/C OMPLE TE BLD COUNT W/DIF F nucleated red blood cells 0.0 % -0 Not Available [facility] (Lab) [address] [place], [address], 10/05/2023 16:06:24 10/05/20 23 10/05/2023 CBC/C OMPLE TE BLD COUNT W/DIF F NRBC# 0.00 x10'3 /uL Not Available [facility] (Lab) [address] [place], [address], 10/05/2023 16:06:24 10/05/20 23 10/05/2023 LIPID PANEL cholesterol 192 mg/dL 140-19 9 NIH REGGIE NSUS RECOM MENDA TION FOR YAW STERO L: ADULT CHILD LOW RISK: <200 <170 BORDE RLINE : <200- 239 ----- HIGH RISK: >240 >200 Not Available [facility] (Lab) [address] [place], [address], 10/05/2023 16:23:23 10/05/20 23 10/05/2023 LIPID PANEL triglyceride s 111 mg/dL 0-150 NIH REGGIE NSUS REPOR T RECOM MENDA TION FOR TRIGL YCERI JAKE: ADULT CHILD LOW RISK: <150 ----- BODER LINE: 150-1 99 ----- HIGH RISK: >200 ----- Not Available [facility] (Lab) [address] [place], [address], 10/05/2023 16:23:23 10/05/20 23 10/05/2023 LIPID PANEL HDL cholesterol 63 mg/dL 40- Not Available [facility] (Lab) [address] [place], [address], 10/05/2023 16:23:23 10/05/2010/05/2023 LIPID PANEL LDL cholesterol, calculated 107 mg/dL [...] WILL NOT BE REPOR MARCEL. Not Available [facility] (Lab) [address] [place], [address], 10/05/2023 16:23:23 10/05/20 23 10/05/2023 COMPR EHENS DIANNA METAB OLIC PANEL sodium 138 mmol/ L 137-14 5 Not Available [facility] (Lab) [address] [place], [address], 10/05/2023 16:23:33 10/05/20 23 10/05/2023 COMPR EHENS DIANNA METAB OLIC PANEL potassium 3.9 mmol/ L 3.5-5. 1 Not Available [facility] (Lab) [address] [facility] [place], [address], 10/05/2023 16:23:33 10/05/20 23 10/05/2023 COMPR EHENS DIANNA METAB OLIC PANEL chloride 104 mmol/ L 98-107 Not Available [facility] (Lab) [address] [place], [address], 10/05/2023 16:23:33 10/05/20 23 10/05/2023 COMPR EHENS DIANNA METAB OLIC PANEL carbon dioxide 28 mmol/ L 22-30 Not Available [facility] (Lab) [address] [place], [address], 10/05/2023 16:23:33 10/05/20 23 10/05/2023 COMPR EHENS DIANNA METAB OLIC PANEL anion gap 9.9 mmol/ L 14-22 low Not Available [facility] (Lab) [address] [place], [address], 10/05/2023 16:23:33 10/05/20 23 10/05/2023 COMPR EHENS DIANNA METAB OLIC PANEL glucose 68 mg/dL 70-99 low Not Available [facility] (Lab) [address] [place], [address], 10/05/2023 16:23:33 10/05/20 23 10/05/2023 COMPR EHENS DIANNA METAB OLIC PANEL BUN 14 mg/dL 8-19 Not Available [facility] (Lab) [address] [place], [address], 10/05/2023 16:23:33 10/05/20 23 10/05/2023 COMPR EHENS DIANNA METAB OLIC PANEL creatinine 0.88 mg/dL 0.66-1 .25 Not Available [facility] (Lab) [address] [place], [address], 10/05/2023 16:23:33 10/05/20 23 10/05/2023 COMPR EHENS DIANNA METAB OLIC PANEL GFR >60 Refer ence Range : Brooks ge GFR Healt hy Adult : >60 [...] calcu lator is avail able on the [facility] websi te: [email or web address] :[email or web address] ankuress ional s/kdo qi/gf r_cal culat or Not Available [facility] (Lab) [address] [place], [address], 10/05/2023 16:23:33 10/05/2010/05/2023 COMPR EHENS DIANNA METAB OLIC PANEL alkaline phosphatase 65 U/L 38-126 Not Available [facility] (Lab) [address] [place], [address], 10/05/2023 16:23:33 10/05/20 23 10/05/2023 COMPR EHENS DIANNA METAB OLIC PANEL alanine aminotransfe rase 13 U/L 0-35 Not Available [facility] (Lab) [address] [place], [address], 10/05/2023 16:23:33 10/05/20 23 10/05/2023 COMPR EHENS DIANNA METAB OLIC PANEL aspartate aminotransfe rase 21 U/L 15-37 Not Available [facility] (Lab) [address] [place], [address], 10/05/2023 16:23:33 10/05/20 23 10/05/2023 COMPR EHENS DIANNA METAB OLIC PANEL bilirubin, total 0.60 mg/dL 0.20-1 .30 Not Available [facility] (Lab) [address] [place], [address], 10/05/2023 16:23:33 10/05/20 23 10/05/2023 COMPR EHENS DIANNA METAB OLIC PANEL calcium 9.7 mg/dL 8.4-10 .2 Not Available [facility] (Lab) [address] [place], [address], 10/05/2023 16:23:33 10/05/20 23 10/05/2023 COMPR EHENS DIANNA METAB OLIC PANEL total protein 7.3 g/dL 6.3-8. 2 Not Available [facility] (Lab) [address] [place], [address], 10/05/2023 16:23:33 10/05/20 23 10/05/2023 COMPR EHENS DIANNA METAB OLIC PANEL albumin 4.2 g/dL 3.4-5. 0 Not Available [facility] (Lab) [address] [place], [address], 10/05/2023 16:23:33 10/05/20 23 10/05/2023 COMPR EHENS DIANNA METAB OLIC PANEL globulin 3.1 g/dL 2.6-4. 2 Not Available [facility] (Lab) [address] [place], [address], 10/05/2023 16:23:33 10/05/20 23 10/05/2023 COMPR EHENS DIANNA METAB OLIC PANEL A/G ratio 1.4 ratio 1.0-2. 0 Not Available [facility] (Lab) [address] [place], [address], 10/05/2023 16:23:33 10/05/20 23 10/05/2023 T4 FREE free T4 1.13 NG/dL 0.78-2 .19 Not Available [facility] (Lab) [address] [place], [address], 10/05/2023 16:34:14 10/05/20 23 10/05/2023 VITAM IN D 25-HY DROXY [id number] 65.8 NG/mL 30-100 Vitam in D Statu s: Defic ient: <20 ng/mL Insuf ficie nt: 20-29 ng/mL Suffi cient : 30-10 0 ng/mL Not Available [facility] (Lab) [address] [place], [address], 10/05/2023 16:36:05 10/05/20 23 10/05/2023 MICRO ALBUM N RNDM W/CRE AT RATIO ur creat 176.89 mg/dL REFER ENCE RANGE NOT ESTAB LISHE D FOR RANDO M URINE CREAT ININE Not Available [facility] (Lab) [address] [place], [address], 10/05/2023 16:45:43 10/05/20 23 10/05/2023 MICRO ALBUM N RNDM W/CRE AT RATIO microalbumin , urine 8.1 mg/L 0.0-16 .6 Not Available [facility] (Lab) [address] [place], [address], 10/05/2023 16:45:43 10/05/20 23 10/05/2023 MICRO ALBUM [...] VOL. 26: S94-S 96, 2002 Not Available [facility] (Lab) [address] [place], [address], 10/05/2023 16:45:43 10/05/20 23 10/05/2023 TSH thyroid-stim ulating hormone 7.630 uIU/m L 0.465- 4.680 high Not Available [facility] (Lab) [address] [place], [address], 10/05/2023 16:42:19 10/05/20 23 10/05/2023 VITAM IN B12 (CAMELIA LARRY ) vb12 233 pg/mL 239-93 1 low Not Available [facility] (Lab) [address] [place], [address], 10/05/2023 17:22:37 10/05/2010/05/2023 FOLAT E, SERUM /PLAS MA folate 12.7 NG/mL 2.76-2 0.0 Not Available [facility] (Lab) [address] [place], [address], 10/05/2023 17:22:42 10/05/20 10/05/2023 HEMOG LOBIN A1C HA1C 7.2 % 4.0-6. 0 high Diabe lashonda Scree cyndi Crite elsy: <5.7% Consi stent with absen ce of diabe lashonda 5.7-6 .4% Consi stent with incre ased risk for diabe lashonda (pred iabet es) >OR=6 .5% Consi stent with diabe lashonda REFER ENCE: Diabe lashonda Care 2016, 39(Rousseau ppl.1 ):s13 -s22 Not Available [facility] (Lab) [address] [place], [address], 10/05/2023 20:06:33 02/12/20 24 02/12/2024 CBC/C OMPLE TE BLD COUNT W/DIF F white blood cells 6.0 x10'3 /uL 4.2-10 .8 Not Available [facility] (Lab) [address] [place], [address], 02/12/2024 13:36:25 02/12/20 24 02/12/2024 CBC/C OMPLE TE BLD COUNT W/DIF F red blood cells 4.86 x10'6 /uL 3.80-5 .20 Not Available [facility] (Lab) [address] [place], [address], 02/12/2024 13:36:25 02/12/20 24 02/12/2024 CBC/C OMPLE TE BLD COUNT W/DIF F hemoglobin 14.7 g/dL 12.0-1 5.6 Not Available [facility] (Lab) [address] [place], [address], 02/12/2024 13:36:25 02/12/20 24 02/12/2024 CBC/C OMPLE TE BLD COUNT W/DIF F hematocrit 46.3 % 35.7-4 5.7 high Not Available [facility] (Lab) [address] [place], [address], 02/12/2024 13:36:25 02/12/20 24 02/12/2024 CBC/C OMPLE TE BLD COUNT W/DIF F mean red cell volume 95.3 fL 82.0-9 9.0 Not Available [facility] (Lab) [address] [place], [address], 02/12/2024 13:36:25 02/12/20 24 02/12/2024 CBC/C OMPLE TE BLD COUNT W/DIF F mean red cell hemoglobin 30.2 pg 27.0-3 3.0 Not Available [facility] (Lab) [address] [place], [address], 02/12/2024 13:36:25 02/12/20 24 02/12/2024 CBC/C OMPLE TE BLD COUNT W/DIF F mean RBC HGB concentratio n 31.7 g/dL 31.0-3 6.0 Not Available [facility] (Lab) [address] [place], [address], 02/12/2024 13:36:25 02/12/20 24 02/12/2024 CBC/C OMPLE TE BLD COUNT W/DIF F red cell distribution width 13.1 % 11.8-1 5.5 Not Available [facility] (Lab) [address] [place], [address], 02/12/2024 13:36:25 02/12/20 24 02/12/2024 CBC/C OMPLE TE BLD COUNT W/DIF F platelets 226 x10'3 /uL 150-40 0 Not Available [facility] (Lab) [address] [place], [address], 02/12/2024 13:36:25 02/12/20 24 02/12/2024 CBC/C OMPLE TE BLD COUNT W/DIF F mean platelet volume 11.1 fL 9.0-12 .4 Not Available [facility] (Lab) [address] [place], [address], 02/12/2024 13:36:25 02/12/20 24 02/12/2024 CBC/C OMPLE TE BLD COUNT W/DIF F neutrophils 62.7 % 39.0-7 2.0 Not Available [facility] (Lab) [address] [place], [address], 02/12/2024 13:36:25 02/12/20 24 02/12/2024 CBC/C OMPLE TE BLD COUNT W/DIF F lymphocytes 28.1 % 16.0-4 7.0 Not Available [facility] (Lab) [address] [place], [address], 02/12/2024 13:36:25 02/12/20 24 02/12/2024 CBC/C OMPLE TE BLD COUNT W/DIF F monocytes 5.5 % 5.0-12 .0 Not Available [facility] (Lab) [address] [place], [address], 02/12/2024 13:36:25 02/12/20 24 02/12/2024 CBC/C OMPLE TE BLD COUNT W/DIF F eosinophils 2.2 % 1.0-7. 0 Not Available [facility] (Lab) [address] [place], [address], 02/12/2024 13:36:25 02/12/20 24 02/12/2024 CBC/C OMPLE TE BLD COUNT W/DIF F basophils 1.3 % 0.0-2. 0 Not Available [facility] (Lab) [address] [place], [address], 02/12/2024 13:36:25 02/12/20 24 02/12/2024 CBC/C OMPLE TE BLD COUNT W/DIF F immature granulocytes 0.2 % 0.00-0 .50 Not Available [facility] (Lab) [address] [place], [address], 02/12/2024 13:36:25 02/12/20 24 02/12/2024 CBC/C OMPLE TE BLD COUNT W/DIF F neutrophils, absolute count 3.74 x10'3 /uL 1.5-8. 0 Not Available [facility] (Lab) [address] [place], [address], 02/12/2024 13:36:25 02/12/20 24 02/12/2024 CBC/C OMPLE TE BLD COUNT W/DIF F lymphocytes, absolute count 1.68 x10'3 /uL 1.07-3 .43 Not Available [facility] (Lab) [address] [place], [address], 02/12/2024 13:36:25 02/12/20 24 02/12/2024 CBC/C OMPLE TE BLD COUNT W/DIF F monocytes, absolute count 0.33 x10'3 /uL 0.29-0 .99 Not Available [facility] (Lab) [address] [place], [address], 02/12/2024 13:36:25 02/12/20 24 02/12/2024 CBC/C OMPLE TE BLD COUNT W/DIF F eosinophils, absolute count 0.13 x10'3 /uL 0.02-0 .53 Not Available [facility] (Lab) [address] [place], [address], 02/12/2024 13:36:25 02/12/20 24 02/12/2024 CBC/C OMPLE TE BLD COUNT W/DIF F basophils, absolute count 0.08 x10'3 /uL 0.01-0 .08 Not Available [facility] (Lab) [address] [place], [address], 02/12/2024 13:36:25 02/12/20 24 02/12/2024 CBC/C OMPLE TE BLD COUNT W/DIF F immature granulocytes ,absolute 0.01 x10'3 /uL 0.00-0 .05 Not Available [facility] (Lab) [address] [place], [address], 02/12/2024 13:36:25 02/12/20 24 02/12/2024 CBC/C OMPLE TE BLD COUNT W/DIF F nucleated red blood cells 0.0 % -0 Not Available [facility] (Lab) [address] [place], [address], 02/12/2024 13:36:25 02/12/20 24 02/12/2024 CBC/C OMPLE TE BLD COUNT W/DIF F NRBC# 0.00 x10'3 /uL Not Available [facility] (Lab) [address] [place], [address], 02/12/2024 13:36:25 02/12/20 24 02/12/2024 LIPID PANEL cholesterol 147 mg/dL 140-19 9 [facility] REGGIE NSUS RECOM MENDA TION FOR YAW STERO L: ADULT CHILD LOW RISK: <200 <170 BORDE RLINE : <200- 239 ----- HIGH RISK: >240 >200 Not Available [facility] (Lab) [address] [place], [address], 02/12/2024 13:55:39 02/12/20 24 02/12/2024 LIPID PANEL triglyceride s 84 mg/dL 0-150 NIH REGGIE NSUS REPOR T RECOM MENDA TION FOR TRIGL YCERI JAKE: ADULT CHILD LOW RISK: <150 ----- BODER LINE: 150-1 99 ----- HIGH RISK: >200 ----- Not Available [facility] (Lab) [address] [place], [address], 02/12/2024 13:55:39 02/12/20 24 02/12/2024 LIPID PANEL HDL cholesterol 66 mg/dL 40- Not Available [facility] (Lab) [address] [place], [address], 02/12/2024 13:55:39 02/12/20 24 02/12/2024 LIPID PANEL [...] WILL NOT BE REPOR MARCEL. Not Available [facility] (Lab) [address] [place], [address], 02/12/2024 13:55:39 02/12/20 24 02/12/2024 COMPR EHENS DIANNA METAB OLIC PANEL sodium 140 mmol/ L 137-14 5 Not Available [facility] (Lab) [address] [place], [address], 02/12/2024 13:55:51 02/12/20 24 02/12/2024 COMPR EHENS DIANNA METAB OLIC PANEL potassium 4.2 mmol/ L 3.5-5. 1 Not Available [facility] (Lab) [address] [place], [address], 02/12/2024 13:55:51 02/12/20 24 02/12/2024 COMPR EHENS DIANNA METAB OLIC PANEL chloride 110 mmol/ L 98-107 high Not Available [facility] (Lab) [address] [place], [address], 02/12/2024 13:55:51 02/12/20 24 02/12/2024 COMPR EHENS DIANNA METAB OLIC PANEL carbon dioxide 22 mmol/ L 22-30 Not Available [facility] (Lab) [address] [place], [address], 02/12/2024 13:55:51 02/12/20 24 02/12/2024 COMPR EHENS DIANNA METAB OLIC PANEL anion gap 12.2 mmol/ L 14-22 low Not Available [facility] (Lab) [address] [place], [address], 02/12/2024 13:55:51 02/12/20 24 02/12/2024 COMPR EHENS DIANNA METAB OLIC PANEL glucose 200 mg/dL 70-99 high Not Available [facility] (Lab) [address] [place], [address], 02/12/2024 13:55:51 02/12/20 24 02/12/2024 COMPR EHENS DIANNA METAB OLIC PANEL BUN 10 mg/dL 8-19 Not Available [facility] (Lab) [address] [place], [address], 02/12/2024 13:55:51 02/12/20 24 02/12/2024 COMPR EHENS DIANNA METAB OLIC PANEL creatinine 0.69 mg/dL 0.66-1 .25 Not Available [facility] (Lab) [address] [place], [address], 02/12/2024 13:55:51 02/12/20 24 02/12/2024 COMPR EHENS DIANNA METAB OLIC PANEL GFR >60 Refer ence Range : Brooks ge GFR Healt hy Adult : >60 [...] calcu lator is avail able on the [facility] websi te: [email or web address] :[email or web address]/kdo qi/gf r_cal culat or Not Available [facility] (Lab) [address] [place], [address], 02/12/2024 13:55:51 02/12/20 24 02/12/2024 COMPR EHENS DIANNA METAB OLIC PANEL alkaline phosphatase 75 U/L 38-126 Not Available [facility] (Lab) [address] [place], [address], 02/12/2024 13:55:51 02/12/20 24 02/12/2024 COMPR EHENS DIANNA METAB OLIC PANEL alanine aminotransfe rase 14 U/L 0-35 Not Available [facility] (Lab) [address] [place], [address], 02/12/2024 13:55:51 02/12/20 24 02/12/2024 COMPR EHENS DIANNA METAB OLIC PANEL aspartate aminotransfe rase 23 U/L 15-37 Not Available [facility] (Lab) [address] [place], [address], 02/12/2024 13:55:51 02/12/20 24 02/12/2024 COMPR EHENS DIANNA METAB OLIC PANEL bilirubin, total 0.80 mg/dL 0.20-1 .30 Not Available [facility] (Lab) [address] [place], [address], 02/12/2024 13:55:51 02/12/20 24 02/12/2024 COMPR EHENS DIANNA METAB OLIC PANEL calcium 9.2 mg/dL 8.4-10 .2 Not Available [facility] (Lab) [address] [place], [address], 02/12/2024 13:55:51 02/12/20 24 02/12/2024 COMPR EHENS DIANNA METAB OLIC PANEL total protein 6.9 g/dL 6.3-8. 2 Not Available [facility] (Lab) [address] [place], [address], 02/12/2024 13:55:51 02/12/20 24 02/12/2024 COMPR EHENS DIANNA METAB OLIC PANEL albumin 4.0 g/dL 3.4-5. 0 Not Available [facility] (Lab) [address] [place], [address], 02/12/2024 13:55:51 02/12/20 24 02/12/2024 COMPR EHENS DIANNA METAB OLIC PANEL globulin 2.9 g/dL 2.6-4. 2 Not Available [facility] (Lab) [address] [place], [address], 02/12/2024 13:55:51 02/12/20 24 02/12/2024 COMPR EHENS DIANNA METAB OLIC PANEL A/G ratio 1.4 ratio 1.0-2. 0 Not Available [facility] (Lab) [address] [place], [address], 02/12/2024 13:55:51 02/12/20 24 02/12/2024 MICRO ALBUM N RNDM W/CRE AT RATIO ur creat 289.30 mg/dL REFER ENCE RANGE NOT ESTAB LISHE D FOR RANDO M URINE CREAT ININE Not Available [facility] (Lab) [address] [place], [address], 02/12/2024 14:53:00 02/12/20 24 02/12/2024 MICRO ALBUM N RNDM W/CRE AT RATIO microalbumin , urine 35.0 mg/L 0.0-16 .6 high Not Available [facility] (Lab) [address] [place], [address], 02/12/2024 14:53:00 02/12/20 24 02/12/2024 MICRO ALBUM [...] ENCE: DIABE LASHONDA CARE, VOL. 26: S94-S 2002 Not Available [facility] (Lab) [address] [place], [address], 02/12/2024 14:53:00 02/12/20 24 02/12/2024 VITAM IN D 25-HY DROXY vd25oh 80.6 NG/mL 30-100 Vitam in D Statu s: Defic ient: <20 ng/mL Insuf ficie nt: 20-29 ng/mL Suffi cient : 30-10 0 ng/mL Not Available [facility] (Lab) [address] [place], [address], 02/12/2024 14:45:01 02/12/20 24 02/12/2024 HEMOG LOBIN A1C HA1C 7.1 % 4.0-6. 0 high Diabe lashonda Scree cyndi Crite elsy: <5.7% Consi stent with absen ce of diabe lashonda 5.7-6 .4% Consi stent with incre ased risk for diabe lashonda (pred iabet es) >OR=6 .5% Consi stent with diabe lashonda REFER ENCE: Diabe lashonda Care 2016, 39(Rousseau ppl.1 ):s13 -s22 Not Available [facility] (Lab) [address] [place], [address], 02/12/2024 15:15:49 02/12/20 24 02/12/2024 TSH W/REF RAJ FT4 TSH with reflex free T4 0.146 uIU/m L 0.465- 4.680 low Not Available [facility] (Lab) [address] [place], [address], 02/12/2024 18:19:22 02/12/20 24 02/12/2024 T4 FREE free T4 1.36 NG/dL 0.78-2 .19 Not Available [facility] (Lab) [address] [place], [address], 02/12/2024 19:06:47 02/12/20 24 02/12/2024 DEXA, axial skele ton [facility] [address] [place], [place] [id number] [phone] Patien t Name: KENDY HOOK ion #: [id number] Sex: F : 1960 5 Dictat [...] fractu re: severe osteop orosis Page 1 [facility] [address] [address] Patien t Name: KENDY HOOK Access ion #: [id number] Sex: F : 1960 5 Dictat ed By: Shelton Florez Attend ing Physic enoc: MARI MILLS [facility] Physic enoc: SHAHID COSTELLO Exam Date: 2023 [...] at 2023 15:46: 39 PM Page 2 [email or web address] [facility] (Imaging) [address] [place], [address], 09/10/2025 17:08:45 Result Notes Documentation Provider Name and Address Organization Details Recorded Time Dexa, Axial Skeleton : [facility] [address] [place] [address] Patient Name: KENDY HOOK Sex: F : [...] plus fragility fracture: severe osteoporosis Page [address] [facility] [address] [place] [address] Patient Name: KENDY HOOK Sex: F : 1960 Dictated By: Shelton Folrez Attending Physician: ELIDIA FISHER Ordering Physician: PHILLIP SANTO Exam Date: 02/12/2024 12:00 PM Exam Name: XR DEXA-HIPS PELVIS SPINE Admitting Diagnosis(es): Z-score: compared by SD to an age, sex, and ethnicity population (used for premenopausal women, men <50 years, and children instead of T-score WHO criteria 4) <-2.0: below expected range/low bone density for age, and a cause should be sought Page 2 NIKI Harrington MD [employer] 09/10/2025 17:08:45 Problems Name Problem SNOMED Code Status Onset Date Resolution Date Notes Provider Name and Address Organization Details Recorded Time Acquired trigger finger 5504704 Active Not Available [facility] 3 06:12:27 Enlarged uterus 529928943 Active Not Available [employer] 3 06:12:27 Polyp of cervix 02089050 Active Not Available [facility] 3 06:12:28 Dyspareun ia 86417640 Active Not Available [facility] 3 06:12:28 Type 1 diabetes mellitus 64350256 Active 1969 Not Available [facility] 3 06:12:27 Mixed anxiety and depressiv e disorder 528561526 Active [address] Geiger p2unzeuw Not Available [facility] 3 06:12:27 Hypothyro idism 32587151 Active 2014 Not Available [facility] 3 06:12:27 Ganglion cyst 801427086 Active 2020 Not Available [facility] 3 06:12:27 Vitamin D deficienc y 50005202 Active 2020 Not Available [facility] 3 06:12:27 Thoracic back pain 883972149 Active 2020 Not Available [facility] 3 06:12:27 Nicotine dependenc e with current use 867376929 Active 2020 Not Available [facility] 3 06:12:28 Arthritis of spine 702661693 Active 2020 Not Available [facility] 3 06:12:27 Disorder of parathyro id gland 43300090 Active 2021 Not Available [facility] 3 06:12:28 Hyperlipi demia 67383145 Active 2021 Not Available [facility] 3 06:12:28 Pain of ear 455035354 Active 2021 Not Available [facility] 3 06:12:27 Otalgia 48775032 Active 2021 Not Available [facility] 3 06:12:27 Dyslipide joce 685776322 Active 2021 [facility] Available [facility] 3 06:12:27 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 518079313 Active 2021 Not Available [facility] 3 06:12:27 Vitamin B12 deficienc y (non anemic) 09673406 Active 2021 Not Available [facility] 3 06:12:28 Eczema of external auditory canal 37794909 Active 2021 Not Available [facility] 3 06:12:28 Diabetes mellitus 23491357 Active 2021 Not Available [facility] 3 06:12:28 Pain of right hand 89325234737 9109 Active 2021 Not Available [facility] 3 06:12:27 Acquired trigger finger of right ring finger 08163760878 9108 Active 2021 Not Available [facility] 3 06:12:27 Chronic otitis media 06964456 Active 2021 Not Available [facility] 3 06:12:27 Cobalamin deficienc y 391096505 Active 2022 Not Available [facility] 3 06:12:27 Major depressiv e disorder 803336322 Active 2022 Not Available [facility] 3 06:12:27 Osteoporo sis 15976351 Active 2022 Not Available [facility] 3 06:12:28 Migraine 09099445 Active 2022 Not Available [facility] 3 06:12:27 Urinary symptoms 041850546 Active 2022 Not Available [facility] 3 06:12:27 Pharyngit is 840568201 Active 2022 Not Available [facility] 3 06:12:27 Fracture of pelvis 19072928 Active 2022 Not Available [facility] 3 06:12:28 Spinal stenosis of lumbar region 83537992 Active 2022 Not Available [facility] 3 06:12:27 Onychomyc osis of toenails 297195026 Active 2022 Not Available [facility] 3 06:12:27 Cataract 867317092 Active 2022 Not Available [facility] 3 06:12:27 Type 2 diabetes mellitus without complicat ion 023925994 Active 2023 Phillip ruelas MD [address], [address], [place], [address] , [employer] 4 11:18:30 Low back pain 816377319 Active 2023 Phillip ruelas MD [address], [place], [address] , [employer] 4 11:20:23 Upper respirato ry infection 77602700 Active 2023 Phillip ruelas MD [address], [place], [address] , [employer] 4 11:40:27 Proteinur ia 97508125 Active 2023 Venita Greco MA [facility], [email or web address] [facility] [employer] [facility] 4 12:40:52 Notes:Some problems listed i n Document: #[id number] could not be added to this patient's chart. Please review this document and add these problems to the patient's chart manually as needed. Problem Notes None recorded. Procedures Surgical History Date Name Laterality Status Provider Name and Address Organization Details Recorded Time 01/18/20 24 Colonoscopy completed ITZ Bhardwaj [email or web address] [facility] [employer] 01/29/2024 11:07:41 10/02/20 23 release of trigger finger completed ITZ Bhardwaj [email or web address] [facility] [employer] 10/05/2023 12:06:04 Hand completed Not Available [facility] 11/2022 16:42:38 Imaging Results None recorded. Procedure [...] pk by oral route as directed . 06/24 completed Not Available Not Available Not Available Glucagon Emergency Kit 1 mg solution [...] Insulin 100 unit/mL subcutane ous solution INJECT SUBCUTAN EOUSLY UP TO 100 UNITS EVERY 3 DAYS VIA PUMP active Not Available Not Available No t Available Kenalog 10 mg/mL suspensio n for injection In office injectio n administ ered by the provider 06/28 completed [facility]: 0003-049 03-16 Not Available Not Available Not [...] completed Not Available Not Available Not Available [employer]Star U-300 Insulin 300 unit/mL (1.5 mL) subcutane ous pen inject 4 units in morning and 5 units at bedtime 08/28 completed Not Available Not Available Not Available OneTouch Ultra Blue Test Strip 06/28 completed Not Available Not Available Not Available Dexcom G6 Sensor device CHANGE SENSOR EVERY 10 DAYS 2023 active Not Available Not Available Not Avai lable 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 [employer] 4 11:11:52 Date Recorded Body height Body mass index (BMI) Body weight Body temperature Provider Name and Address Organization Details Last Updated DateTime 06/28/2023 154.94 cm 25.8 kg/m2 07287.44 g 97.8 [degF] Rebeka Redding RN [place] [employer] [facility] [employer] 06/28/2023 10:51:08 Date Recorded Body height Body mass index (BMI) Body weight Heart rate Respiratory rate Systolic And Diastolic Provider Name and Address Organization Details Last Updated DateTime 3 154.94 cm 25.9 kg/m2 63540.8 7 g 95 /min 71 /min 143/76 mm[Hg] Piedad Concepcion [place] [employer] [facility] [employer] 3 12:58:23 Date Recorded Body height Body mass index (BMI) Body weight Provider Name and Address Organization Details Last Updated DateTime 08/17/2023 160.02 cm 23.9 kg/m2 32330.97 g Sherice Tavarez CNA [place] [employer] [facility] [employer] 08/17/2023 15:03:54 Date Recorded Body height Body mass index (BMI) Body weight Body temperature Heart rate Systolic And Diastolic Provider Name and Address Organization Details Last Updated DateTime 3 160.02 cm 24.3 kg/m2 76824.1 5 g 97.3 [degF] 78 /min 126/68 mm[Hg] ITZ Bhardwaj [place] - [facility] [employer] 12:08:04 Social History Question Answer Notes LastModified by Organizat ion Details LastModified Time Tobacco Smoking Status Former Smoker quit 2013 ITZ Bhardwaj, NIKI BADILLO MD [employer] 01/29/2024 11:09:06 Do You Have An Advance Directive? No MIGRATION.[id number] 7722 Information not available 01/25/2023 What Is Your Level Of Caffeine Consumption? Moderate MIGRATION.750832 5876 Information not available 01/25/2023 In The 14 Days Before Symptom Onset, Have You Had Close Contact With A Laboratory-confir med COVID-19 While That Case Was Ill? No MIGRATION.656996 0941 Information not available 01/25/2023 In The 14 Days Before Symptom Onset, Have You Had Close Contact With A Person Who Is Under Investigation For COVID-19 While That Person Was Ill? No MIGRATION.511591 0644 Information not available 01/25/2023 What Type Of Diet Are You Following? REGULAR MIGRATION.218842 5375 Information not available 01/25/2023 Which Illicit Or Recreational Drugs Have You Used? No MIGRATION.636850 8463 Information not available 01/25/2023 Have There Been Any Changes To Your Family Or Social Situation? No MIGRATION.298496 8540 Information not available 01/25/2023 What Is The Fluoride Status Of Your Home? Unknown MIGRATION.527817 5669 Information not available 01/25/2023 When Did You Quit Smoking? 11-15yearssi ncelastcandelaria faust Information not available 01/29/2024 Are There Any Guns Present In Your Home? Yes MIGRATION.918200 8122 Information not available 01/25/2023 Do You Use Insect Repellent Routinely? No MIGRATION.255673 0131 Information not available 01/25/2023 Are You Following A Low Salt Diet? No MIGRATION.778925 0080 Information not available 01/25/2023 Do You Have A Medical Power Of Import Coordinator? No MIGRATION.036549 9196 Information not available 01/25/2023 What Was The Date Of Your Most Recent Tobacco Screening? 01/29/2024 Information not available 01/29/2024 Do You Have Any Pets? Yes MIGRATION.027629 8212 Information not available 01/25/2023 What Is Your Relationship Status? MIGRATION.436892 1034 Information not available 01/25/2023 Do You Use Your Seat Belt Or Car Seat Routinely? Yes MIGRATION.134917 7179 Information not available 01/25/2023 Do You Have Smoke And Carbon Monoxide Detectors In Your Home? Yes MIGRATION.445263 4802 Information not available 01/25/2023 Are You Passively Exposed To Smoke? No MIGRATION.837321 0394 Information not available 01/25/2023 Are There Any Smokers In Your House? Yes MIGRATION.418257 6117 Information not available 01/25/2023 Do You Participate In Social Media? No MIGRATION.846848 7989 Information not available 01/25/2023 Do You Use Sunscreen Routinely? No MIGRATION.116469 4576 Information not available 01/25/2023 Has Tobacco Cessation Counseling Been Provided? No MIGRATION.527391 5486 Information not available 01/25/2023 Have You Recently Traveled Abroad? No MIGRATION.029986 6427 Information not available 01/25/2023 Do You Have Any Dietary Restrictions? Yes Diabetic MIGRATION.169065 0505 Information not available 01/25/2023 Sex: Female Functional Status Question Answer Note LastModified by Organizat ion Details LastModified Time Do you use any illicit or recreational drugs? No MIGRATION.757262 1782 Information not available 01/25/2023 Do you or have you ever used any other forms of tobacco or nicotine? Yes Information not available 01/29/2024 What is your level of alcohol consumption? None MIGRATION.733325 1513 Information not available 01/25/2023 Do you or have you ever used smokeless tobacco? Never used smokeless tobacco Information not available 01/29/2024 Are you currently employed? No Information not available 01/29/2024 What is your occupation? Unemployed MIGRATION.587180 2333 Information not available 01/25/2023 Do you or have you ever used e-cigarettes or vape? Current user of electronic cigarettes MIGRATION.005561 9352 Information not available 01/25/2023 What is your exercise level? None MIGRATION.036070 1478 Information not available 01/25/2023 Mental Status Question Answer Note LastModified by Organizat ion Details LastModified Time Do you feel stressed (tense, restless, nervous, or anxious, or unable to sleep at night)? [id number] MIGRATION.[id number] 6 Information not available 01/25/2023 Family History Relationship Description Onset Age of this Age Resolved Age Notes LastModified by Organization Details LastModified Time Father Harmful pattern of use of alcohol MIGRATION.010 [id number] Not available 01/25/2023 16:42:39 Father Diabetes mellitus MIGRATION.328 6015124 Not available 01/25/2023 16:42:39 Father Family history of stroke MIGRATION.493 [id number] Not available 01/25/2023 16:42:39 Mother Malignant neoplasm of lung MIGRATION.306 1421125 Not available 01/25/2023 16:42:39 Notes:NO ENT Medical History Condition Response MRSA N SLEEP APNEA N ALLERGIES/HAYFEVER N LUNG DISEASE/DISORDER N INSOMNIA N HISTORY OF DRUG ABUSE N RADIATION / CHEMOTHERAPY N COPD N HIGH CHOLESTEROL / HYPERLIPIDEMIA Y HYPERTHYROIDISM N BLOOD DISEASES N EAR OR HEARING PROBLEMS N HYPOTHYROIDISM Y SHINGLES Y DEPRESSION (INCLUDING POST ) Y HAVE YOU BEEN HOSPITALIZED OR SEEN IN [facility] ER IN THE PAST YEAR ? N STROKE/TIA Y THYROID DISEASE Y ULCERS N OBESITY N ANEURYSM N HISTORY WITH COMPLICATIONS WITH ANESTHES IA ? N USE OF BLOOD THINNERS N NO SIGNIFICANT PAST MEDICAL HISTORY N DIABETES, TYPE Y PARATHYROID DISEASE N ENT N SEASONAL ALLERGIES N HEARTBURN / REFLUX N HEPATITIS / LIVER DISEASE N SLEEP DISORDER N HEADACHES/MIGRAINES Y SEIZURES/EPILEPSY Y CHF N PACEMAKER N DIZZINESS N HEART DISEASE/HEART PROBLEMS N AIDS/HIV N FRACTURES N HYPERTENSION N CANCER: SPECIFY N TOURETTE'S N BLOOD TRANSFUSION N ANESTHESIA COMPLICATIONS N ANEMIA/BLOOD DISORDER Y CHRONIC EAR INFECTIONS N AUTOIMMUNE DISEASE N TUBERCULOSIS N Gynecological History Statement/Question Response Date of Last Mammogram 05/20/2021 Obstetrics History GPAL:G 0 P 0 0 0 0 Immunizations Vaccine Type Date Status Note Provider Nam e and Address Organization Details Recorded Time COVID-19, mRNA, LNP-S, PF, 100 mcg/0.5mL dose or 50 mcg/0.25mL dose 02/01/2021 completed Not Available [facility] 3 06:12:28 Influenza, split virus, quadrivalent, PF 09/16/2021 completed Not Available [facility] 3 06:12:28 Past Encounters Encounter ID Performer Location Encounter Start Date Encounter Closed Date Diagnosis/Indication Diagnosis SNOMED-CT Code Diagnosis ICD10 Code Diagnosis IMO Codes Diagnosis Note [id number] [facility] _ATHENA_M IGRATION_ DEFAULT_1 _1 , 02/03/2021 00:00:00 02/03/2021 22:56:18 [id number] [facility] _ATHENA_M IGRATION_ DEFAULT_1 _1 , 04/05/2021 00:00:00 04/05/2021 17:44:39 [id number] [facility] S_[facility] [place] [address] [place] [address] 04/20/2021 00:00:00 04/20/2021 12:16:38 [id number] Danny [address]on MD [facility]_[address] [address] 04/29/2021 00:00:00 04/29/2021 13:50:56 [id number] MD NIRAV Zavala IGRATION_ DEFAULT_1 _1 , 06/17/2021 00:00:00 06/17/2021 14:56:03 [id number] [address] Stat[address] [facility]_[address] [address] 07/08/2021 00:00:00 07/08/2021 16:18:21 [id number] Danny Staton MD [address] [address] 07/29/2021 00:00:00 07/29/2021 16:01:14 [id number] MD NIRAV Zavala IGRATION_ DEFAULT_1 _1 , 08/05/2021 00:00:00 08/05/2021 20:37:26 [id number] Phillip ruelas MD [facility] Internal Med [facility] [address] [place] [address], [address] [address] 09/16/2021 00:00:00 09/17/2021 16:40:09 [id number] Phillip ruelas MD [facility] [address] [facility] [address] [place] [address] 10/28/2021 00:00:00 10/28/2021 19:59:09 [id number] Layla Acharya MD _NADEEM IGRATION_ DEFAULT_1 _1 , 12/09/2021 00:00:00 12/09/2021 11:51:22 [id number] Phillip ruelas MD [facility] [address] [address] 12/16/2021 00:00:00 12/16/2021 16:54:20 [id number] MD EMEKA MonrealS_GMG Internal Med [facility] [address] [facility] [place] [address] 1 04/05/2022 00:00:00 04/05/2022 15:15:08 [id number] [facility] _JESENIA_Laura IGRATION_ DEFAULT_1 _1 , 05/05/2022 00:00:00 05/05/2022 10:22:13 [id number] Sixto Ness MD [facility] [place] [address] [place] [address] 06/07/2022 00:00:00 06/07/2022 15:30:44 [id number] DAINA Garcia [facility] [address] [address] 06/17/2022 00:00:00 06/17/2022 16:48:46 [id number] Phillip ruelas MD [facility] [address] [facility] [address] [address] 07/26/2022 00:00:00 07/26/2022 13:25:34 [id number] [facility] [place] [address] [place] [address] 09/09/2022 00:00:00 09/09/2022 13:36:39 [id number] Luis Carlos Montague MD [facility] Ortho [place] [address] [facility] [address] [place] [address] 10/13/2022 00:00:00 10/13/2022 15:27:[id number] [facility] ENT M[place] [address] [place] [address] 11/24/2022 00:00:00 11/24/2022 15:47:57 [id number] Phillip ruelas MD [facility] Internal Med [facility] [address] [facility] [address] [place] [address] 01/20/2023 00:00:00 01/20/2023 14:03:37 [id number] Phillip ruelas MD [facility] Internal Med 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 Velázquez omnipod pump and CGM needs to get her eye exam done- has referral, encouraged her to schedule, she missed her last appt- she states she will call Hypothyroidism 07878083 E03.9 follows endocrinol ogyon levothyrox ine Cobalamin deficiency 190 697726 E53.8 managed by endocrinol ogmarianna B12 shots Major depr essive disorder [id number] F32.9 follows psychiatry - Dr. Janki espana citalopram and hydroxyzin eshe states she will call him about the panic attackcall office if any change in mood or behavior Fracture of pelvis 13215 009 S32.9XXD s/p hospitaliz ationshe and her are aware that I do not write for chronic pain medsNow has HH and PT with [facility] Osteoporosis 43977299 M8 1.0 noted on BMD 09/2021on alendronat e Spinal pawel nosis of lumbar region 70815896 M48.061 following neurosurge ry- Dr. Marvin at [facility] patient, no surgery for now, is doing PTER precaution s discussed Migraine 91465795 G43.90 9 on ubrelvy- she is aware of side effects, risks, and benefitsER precaution s discussed referral as above to eye MD for ocular sx Pain of ear 760056314 H9 2.09 on mometasone cream from ENT- Dr. Ness Onychomyco sis of toenails 916650052 B35.1 get appt with podiatry Cataract 866029686 H26.9 get appt with opthalamol ogy as above- has been referred [id number] Sixto Ness MD [facility] [place] [address] [place] [employer] [place] [address] 06/28/2023 10:36:20 06/28/2023 11:33:48 Pain of ear 913930400 H92.09 Eczema of external auditory canal 52698914 H60.549 193039 Layla Acharya MD [facility] [place] [address] [place] [employer] [place] [address] 06/29/2023 12:36:01 06/29/2023 13:29:37 Latent autoimmune diabetes mellitus in adult 923568902 E13.9 A1C of 7.1% down from 8% [...] sensor/tra nsmitters/ pods per patient request. Hypothyroidism 04190023 E03.9 FT4 in range- continue on LT4 [...] and minerals and reduce inflammati on. Dyslipidemia 195747953 E 78.5 Continue on atorvastat in 20 [...] answered and refills necessary at visit today. [id number] Luis Carlos Montague MD [facility] [place] [address] [place] [address] 08/17/2023 15:00:06 08/17/2023 15:35:41 Acquired trigger finger 4141955 M65.30 Right 4th finger Pain of right hand 90759 30687 85736 M79.693 [id number] Phillip r[address] [facility] Internal Med [address] 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 Cruz- has first appt in 2 weekson omnipod pump and CGM needs to get her eye exam done- has referral, encouraged her to schedule, she missed her last appt- she states she will call Hypothyroidism 34738691 E03.9 follows endocrinol carito levothyrox ine Cobalamin deficiency 190 658829 E53.8 managed by endocrinol carito B12 shots Major depr essive disorder 635844440 F32.9 follows psychiatry - Dr. Muddasanio n citalopram and hydroxyzin alyssa states she will call him about the panic attackcall office if any change in mood or behavior Osteoporosis 10440232 M8 1.0 noted on BMD 09/2021ins urance would not cover proliaon alendronat eshe is aware to take with a full glass of water and remain upright for 60min after taking it Spinal pawel nosis of lumbar region 59932361 M48.061 following neurosurge ry- Dr. Marvin at [facility] patient, no surgery for now, is doing PTER precaution s discussed Migraine 88554676 G43.90 9 on ubrelvy- she is aware of side effects, risks, and benefitsER precaution s discussed referral as above to eye MD for ocular sx Pain of ear 739427494 H9 2.09 on mometasone cream from ENT- Dr. Ness Onychomyco sis of toenails 159670630 B35.1 get appt with podiatry- has been referred to Dr. Burgess Dyslipidemia 685200118 E 78.5 [id number] Phillip ruelas MD [facility] Internal Med [place] singh [address] [place] [address] 01/29/2024 10:53:24 01/29/2024 11:44:07 Screening - NAD 629156760 Z13.9 C-scope: Get the report, done by [...] ing of the above Screening mammography 24 034297 Z12.31 Screening for osteoporosis 404727219 Z13.820 Gynecologi c examination 60611033 Z01.419 Hyperlipidemia 90098304 E78.5 On atorvastat in 20mg dailyGet labs 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 457695800 E11.9 Dr Shell ZAMORANOOn Omnipad pump: Huumalog Hypothyroidism 00301252 E03.9 On synthroid 88mcgs dailyGet labs Major depr essive disorder 864402869 F32.9 On citalopram 20mg dailyOn hydroxyzin e 50g dailySees Dr Edi rodriguez suicidal or homicidal Low back pain 605542559 M54.[address] Yon Cannon well Migraine 47637546 G43.90 9 On ubrelvyDoe s well Eczema of external auditory canal 60534030 H60.549 On mometasone creamUse as needed Upper resp iratory infection 18303338 J06.9 Health Concerns Section Related Observation LastModified by Organization Detai ls LastModified Time None Recorded Concern Status LastModified by Organization Details LastModified Time None Recorded Advance Directives Directive N: Payers Insurance Date Sequence Insurance Name Policy Number Policy Marin Covered Member ID Marin Member ID Guarantor Name 04/12/2024 1 [facility] (MEDICARE REPLACEMENT/A DVANTAGE - HMO) [id number] Kendy House Monster [id number] Kendy House Monster 04/12/2024 2 MEDICARE-[place] (MEDICARE) Kendy Harsh Monster [id number] Kendy D Monster 10/05/2023 1 [facility] [id number] Bryce J Monster [id number] Kendy D Monster 04/12/2024 2 [facility] (INDEMNITY) [id number] Bryce J Monster [id number] Kendy D Monster 01/29/2024 1 [facility] (MEDICARE REPLACEMENT/A DVANTAGE - HMO) [id number] Kendy Harsh Monster [id number] Kendy House Monster Notes Date Note Type Note Provider Name and Address Organization Details Recorded Time 06/28/2023 text/html This patient ran out of her mometasone for eczema and needs a refill. She also reports some nonspecific swelling in her neck bilaterally Sixto Ness MD [address] [place] [address], [place] [address], [place], [address], [facility] [employer] 06/28/2023 11:33:02 06/29/2023 text/html ROS as noted in the HPI 62 yo female comes in for follow up in management of well controlled TAYLOR (A1C of 7.1% down from 8.2%), hypothyroidism and dyslipidemia. last seen in Oct at that time time we had patient [...] normalmicroalbumin <6 ug/mg Layla Acharya MD [address] [facility], [facility] [address], [place], [address], [facility] [employer] 06/29/2023 13:52:15 08/17/2023 text/html the patient is [...] the right 4th finger. SARITA Rodriguez [address], [facility] [address], [place], [address], [email or web address] [facility] [employer] [facility] 08/17/2023 15:23:03 10/05/2023 text/html Kendy presents today for follow-up. She has been lost to care for few months as she had an insurance change. She is here today with her . Her blowing weasand left the practice. She was referred to new blowing weasand and she has an appointment with them [...] may have had her flu shot at [facility], she is going to check with them because she is unsure. Heidi Moore, ANNA-Beto [address], [facility] [address], [place], [address], [email or web address] [facility] [employer] [facility] 10/05/2023 13:06:14 01/29/2024 text/html OV 01/29/2024:Here to establish care Past Hx:DepressionOPDMIIMigr ainesHypothyroidism Here to discuss above, she wells c/o URI symptoms, +ve cough, no fevers or chills, no chest pain or SOB, she is here with her Phillip Santo MD [address], [facility] [address], [place], [address], [email or web address] [facility] [employer] [facility] 01/29/2024 18:30:21 OBGyn Episode No OBEpisode recorded.
== END 2025-09-23 15:00 | disposition home or self-care (01) ==
LOC: ANHLAB 15:01
PROVIDERS: PCP Nurse Practitioner Family; Visit Provider Nurse Practitioner Family
DX: R35.0 Frequency of micturition (principal)
CPT/HCPCS: 81001

== ENCOUNTER 2025-10-06 14:00 | Outpatient (CLI) | payer MEDICARE, SELFPAY ==
--- OUTSIDE RECORDS SUMMARY | 2025-10-06 14:12 | XMS_ITS | Clinical Summary ---
Author Organization [facility] Address [address] [place] [address] Care Team Providers Care Surgical Services Director Name Role Phone Merry Julien APRN-DOCTOR OF PODIATRIC MEDICINE Unavailable Source Comments [facility],non-owned Affiliates and Associated Physician Practices is amultiple site organization consisting of ambulatory clinics and hospital sitesin [place], [place], [place] and [place]. This disclosure is being madepursuant to the Care Everywhere program and may not contain all information available regarding this patient. Last updated 18.[facility] [employer] Allergies No known active allergies Active Problems Problem Noted Date Diagnosed Date Polyp of cervix 10/27/2021 Enlarged uterus 10/27/2021 Dyspareunia 10/27/2021 Acquired trigger finger 10/27/2021 Personal history of transien t ischemic attack (TIA), and cerebral infarction without residual deficits 09/01/2021 Essential hypertension 09/01/2021 Presence of insulin pump (external) (internal) 1 Gastro-esophageal reflux disease without esophag itis 09/01/2021 Drug induced constipation 09/01/2021 snf (current) use of aspirin 09/01/2021 Unspecified fracture [...] on file 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
[2025-10-06 15:15] LABS: Hematocrit 38.5 % (37.0-47.0); Hemoglobin 12.7 g/dL (12.0-15.0); Immature Granulocyte Percent A 0.2 % (0-0.5); Lymphocytes Absolute Auto 1.77 K/mm3 (0.9-3.2); Mean Corpuscular HGB Conc 33.0 g/dl (32-36); Mean Corpuscular Hemoglobin 30.2 pg (26-34); Mean Corpuscular Volume 91.7 fl (80-100); Nucleated Red Blood Cells Absolute Auto 0.000 K/mm3 (0.0-0.012); Nucleated Red Blood Cells Perc 0.0 % (0.0-0.2); Platelet Count Result 195 k/mm3 (150-375); Red Blood Count 4.20 M/mm3 (4.2-5.4); White Blood Count 4.9 K/mm3 (4.5-10.0)
[2025-10-06 15:29] LABS: Alanine Aminotransferase 15 U/L (6-35); Albumin Level 4.2 g/dL (3.5-5.1); Alkaline Phosphatase 56 U/L (38-126); Anion Gap 4 mmol/L (4-12); Aspartate Amino Transferase 23 U/L (14-36); Bilirubin,Total 0.5 mg/dL (0.2-1.3); Blood Urea Nitrogen 11 mg/dL (7-17); Calcium 9.3 mg/dL (8.4-10.2); Carbon Dioxide 29 mmol/L (22-30); Chloride 106 mmol/L (98-107); Cholesterol 136 mg/dL (0-200); Estimated Glomerular Filt Rate > 60; Glucose 85 mg/dL (65-110); HDL Direct 67 mg/dL; Potassium 3.6 mmol/L (3.4-5.0); Sodium 139 mmol/L (137-145); Total Protein 7.1 g/dL (6.3-8.2); Triglycerides 70 mg/dL (<150)
[2025-10-06 15:53] LABS: Free T4 Free Thyroxine 1.41 ng/dL (0.78-2.19)
[2025-10-06 15:58] LABS: Thyroid Stimulating Hormone 0.225 uIU/mL (0.465-4.680)
[2025-10-06 16:22] LABS: Vitamin B12 > 1000.0 pg/mL (239-931)
== END 2025-10-06 14:01 | disposition home or self-care (01) ==
PROVIDERS: PCP Nurse Practitioner Family; Visit Provider Internal Medicine
DX: E11.9 Type 2 diabetes mellitus without complications (principal); E53.8 Deficiency of other specified B group vitamins; M81.0 Age-related osteoporosis without current pathological fracture; F41.9 Anxiety disorder, unspecified; F32.A Depression, unspecified; Z82.49 Family history of ischemic heart disease and other diseases of the circulatory system
CPT/HCPCS: 36415; 80053; 80061; 82306; 82607; 84439; 84443; 85025

== ENCOUNTER 2025-10-28 09:26 | Outpatient (CLI) | payer MEDICARE, SELFPAY ==
--- NOTE | ~2025-10-28 | MR_ITS ---
EXAMINATION: MR brain/brain stem wo con DATE: 10/28/2025 10:12 INDICATION: Other amnesia. TECHNIQUE: Magnetic resonance imaging (MRI) of the brain and brainstem was performed without intravenous contrast. COMPARISON: Brain MRI 11/23/20, head CT 08/30/2021 FINDINGS: There is an old infarct in the right frontoparietal kauffman radiata. There are old lacunar infarcts in the thalami bilaterally. There are scattered areas of nonspecific increased T2-weighted signal intensity in the cerebral white matter. There is no intracranial hemorrhage, acute infarction, or abnormal intracranial mass lesion. The ventricles are normal in size. There are likely changes of ocular lens replacement surgeries. There is mild mucosal thickening in the paranasal sinuses. The mastoid air cells are normal. IMPRESSION: 1. Old infarcts involving the right frontoparietal kauffman radiata and bilateral thalami. 2. Mild nonspecific cerebral white matter disease, which likely represents chronic small vessel ischemic disease. Reviewed, dictated and finalized at location E. ITY SYSTEM MANAGER IMPRESSION: 1. Old infarcts involving the right frontoparietal kauffman radiata and bilateral thalami. 2. Mild nonspecific cerebral white matter disease, which likely represents it trainee marvin small vessel ischemic disease.
--- OUTSIDE RECORDS SUMMARY | 2025-10-28 10:06 | XMS_ITS | Clinical Summary ---
Author Organization [facility] Address [address] [place] [address] Care Team Providers Care Shredder Tender Name Role Phone Merry Julien APRN-YARD GENERAL CAR SUPERVISOR Unavailable [phone] Source Comments [facility],non-owned Affiliates and Associated Physician Practices is amultiple site organization consisting of ambulatory clinics and hospital sitesin [place], [place], [place] and [place]. This disclosure is being madepursuant to the Care Everywhere program and may not contain all information available regarding this patient. Last updated 18.[facility] [employer] Allergies No known active allergies Active Problems Problem Noted Date Diagnosed Date Polyp of cervix 10/27/2021 Enlarged uterus 10/27/2021 Dyspareunia 10/27/2021 Acquired trigger finger 10/27/2021 Personal history of transien t ischemic attack (TIA), and cerebral infarction without residual deficits 09/01/2021 Essential hypertension 09/01/2021 Presence of insulin pump (external) (internal) 1 Gastro-esophageal reflux disease without esophag itis 09/01/2021 Drug induced constipation 09/01/2021 intermediate accountant (current) use of aspirin 09/01/2021 Unspecified fracture [...] on file 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
== END 2025-10-28 09:27 | disposition home or self-care (01) ==
PROVIDERS: PCP Nurse Practitioner Family; Visit Provider Nurse Practitioner Family
DX: R41.3 Other amnesia (principal); R90.82 White matter disease, unspecified
CPT/HCPCS: 70551

== ENCOUNTER 2025-11-14 11:21 | Observation (INO) | payer MEDICARE, SELFPAY ==
--- OUTSIDE RECORDS SUMMARY | 2024-07-03 09:15 | XMS_ITS ---
Author Organization [facility] Address [address] [facility] [address] [facility] [address] [place] [address] Care Team Providers Care Furrier Designer Name Role Phone Leo Cardona Unavailable [phone] Social History Sex Assigned At : Social History Observation Description Sex Assigned At Female Encounters Encounter Location Date Provider Diagnosis [place] [facility] [address] [facility] [address] [place] [address] 07/03/2024 Leo Cardona Plan Of Treatment No Information Progress Notes * Consuelo HOOKOB:1960 ( 64 yo F)Acc No.[id number]:07/03/2024 Progress Notes Patient: Kendy ALBARADO Provider: Natasha LA MD, Cristal.Catrina.C.P, F.A.S.N. :1960 A ge:63 Y S ex:Female Date:07/03/2024 Address:[address] , [place] [address] Subjective: * Chief Complaints: * * Medical History: Objective: * Vitals: Assessment: Plan: * Treatment: * Billing Information: * Visit Code: * Procedure Codes: * Electronic signature of Patsy Cardona MD on 11/14/2025 at 11:47 AM BULLET ASSEMBLY PRESS SETTER OPERATOR Sign off status: Pending * Provider: Natasha LA MD, Cristal.Catrina.C.P, F.A.S.N. Date: 0 07/03/2024 Generated for Printing/Faxing/eTransmitting on: 01/15/2025 11:47 AM BULLET ASSEMBLY PRESS SETTER OPERATOR
[2025-11-14] VITALS (27 sets, daily range): BP systolic 110–154; BP diastolic 54–89; PULSE 56–74; RESP 9–23; TEMP 35.9–36.9; O2SAT 92–100; BMI 20.3
--- NOTE | ~2025-11-14 | XR_ITS ---
EXAMINATION: XR chest 1V DATE: 11/14/2025 12:35 INDICATION: Weakness TECHNIQUE: A single frontal view of the chest was obtained. COMPARISON: November 22, 2020 FINDINGS: Heart size is borderline enlarged. Minimal atelectatic changes and/or scarring left midlung. The lungs are otherwise appear clear. No pneumothorax or subphrenic free air. IMPRESSION: 1. Minimal atelectatic changes or scarring in the left midlung; otherwise no focal acute process. Reviewed, dictated and finalized at location A. [employer] MEMBER IMPRESSION: 1. Minimal atelectatic changes or scarring in the left midlung; otherwise no fo rosana acute process.
--- NOTE | ~2025-11-14 | MR_ITS ---
EXAMINATION: MR brain/brain stem wo con DATE: 11/15/2025 16:28 INDICATION: Headache, blurred vision. Dizziness. TECHNIQUE: Magnetic resonance imaging (MRI) of the brain and brainstem was performed without intravenous contrast. COMPARISON: CT brain dated 11/14/2025. FINDINGS: No acute ischemia on the diffusion sequence. T2*gradient sequence shows no intracranial bleed or extra-axial collections. No evidence of ventriculomegaly. Extensive chronic small vessel ischemic change of periventricular white matter on the FLAIR sequence. Pituitary gland is normal. IMPRESSION: 1. No evidence of acute ischemia or intracranial bleed. 2. Chronic small vessel ischemic change of periventricular white matter on both sides, especially in the occipital lobes.. 3. Normal pituitary gland. Reviewed, dictated and finalized at location T. SOLUTION ARCHITECT
--- NOTE | ~2025-11-14 | CT_ITS ---
EXAMINATION: CT brain wo con DATE: 11/14/2025 12:28 INDICATION: Dizziness TECHNIQUE: Computed tomography (CT) of the head was performed without intravenous contrast. Sagittal and coronal reconstructions were performed. The mA was adjusted according to patient size. Iterative reconstruction technique was employed. The dose-length product was 605.33 mGy-cm. COMPARISON: head CT dated 08/30/2021 and brain MR dated 10/28/2025 FINDINGS: Small old lacunar infarct in the right frontal lobe kauffman radiata. No acute intracranial hemorrhage, acute infarction or abnormal extra axial fluid collection. There is mild scattered white matter hypoattenuation consistent with chronic small vessel ischemic disease. Symmetric prominence of the sulci consistent with mild age-appropriate diffuse cerebral volume loss. Ventricles are normal and symmetric. No mass/mass effect. Changes of bilateral intraocular lens replacement. The orbits, paranasal sinuses and mastoid air cells are normal. Intracranial calcified cerebral atherosclerosis is noted. IMPRESSION: 1. Small old lacunar infarct in the right frontal lobe kauffman radiata. No acute intracranial process. 2. Scattered nonspecific white matter hypoattenuation consistent with chronic small vessel ischemic disease. Reviewed, dictated and finalized at location A. DESIGN ENGINEER IMPRESSION: 1. Small old lacunar infarct in the right frontal lobe kauffman radiata. No acute intracranial process. 2. Scattered nonspecific white matter hypoattenuation consistent with chronic s mall vessel ischemic disease.
--- OUTSIDE RECORDS SUMMARY | 2025-11-14 11:47 | XMS_ITS | Patient Health Record ---
Author Organization [facility] Address [address] [facility] [address] [place] [address] Reason For Referral No Information Social History Sex Assigned At : Social History Observation Description Sex Assigned At Female Problems Problem Type SNOMED Code ICD Code Onset Dates Problem Status W/U Status Risk Notes Problem Anxiety disorder (670593747) Anxiety disorder, unspecified (F41.9) Active confirmed Problem Essential hypertension (00297128) Essential (primary) hypertension (I10) Active confirmed Problem Hematuria (82744986) Hematuria, unspecified (R31.9) Active confirmed Problem Chronic fatigue syndrome (disorder) (21222843) Chronic fatigue, unspecified (R53.82) Active confirmed Problem Chronic kidney disease stage 3A (disorder) (526590251) Chronic kidney disease, stage 3a (N18.31) Active confirmed Plan Of Treatment No Information
--- OUTSIDE RECORDS SUMMARY | 2025-11-14 11:47 | XMS_ITS | Clinical Summary ---
Author Organization [facility] Address [address] [place] [address] Care Team Providers Care Gas Line Repairer Name Role Phone Merry Julien APRN-CRIMINOLOGY TEACHER Unavailable [phone] Source Comments [facility],non-owned Affiliates and Associated Physician Practices is amultiple site organization consisting of ambulatory clinics and hospital sitesin [place], [place], [place] and [place]. This disclosure is being madepursuant to the Care Everywhere program and may not contain all information available regarding this patient. Last updated 18.[facility] [employer] Allergies No known active allergies Active Problems Problem Noted Date Diagnosed Date Polyp of cervix 10/27/2021 Enlarged uterus 10/27/2021 Dyspareunia 10/27/2021 Acquired trigger finger 10/27/2021 Personal history of transien t ischemic attack (TIA), and cerebral infarction without residual deficits 09/01/2021 Essential hypertension 09/01/2021 Presence of insulin pump (external) (internal) 1 Gastro-esophageal reflux disease without esophag itis 09/01/2021 Drug induced constipation 09/01/2021 care home (current) use of aspirin 09/01/2021 Unspecified fracture [...] on file 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
--- NOTE | 2025-11-14 12:10 | PC.NURSE ---
At 1157, pt was getting IV attempted, during iv insertion pt head drifted to Left side, ben arms were raised, unable to follow direction, pt was unresponsive for 2 seconds. P woke up right away with sternal rub and asked what happened. Pt denies any aura or smell, no PMH of seizures. pt states she felt like she was dying, pt was clammy and warm after episode. reported blood sugar of 103, however PMH of seizure like activity when pt is at 20-30 BS.
--- NOTE | 2025-11-14 12:12 | ECG_ITS ---
Test Date: 2025-11-14 12:04:33 Measurements Intervals Bascom Rate: 68 P: -51 MA: 100 QRS: 18 QRSD: 76 T: 40 QT: 413 QTc: 441 Interpretive Statements ECTOPIC ATRIAL RHYTHM MINIMAL Q WAVES- INFERIOR LEADS BASELINE ARTIFACT- I, II, AVR, AVL, AVF ABNORMAL ECG No previous ECG available for comparison Electronically Signed On 11-14-2025 12:56:24 UNARMED SECURITY GUARD by Ryan Lim D.O.
--- NOTE | 2025-11-14 12:12 | ED.DIZZY ---
HPI - Dizziness General Chief Complaint: Dizziness Stated Complaint: dizzy, blurred vision, ORTEGA x couple weeks Time Seen by Provider: 11/14/25 12:09 Source: patient Mode of arrival: ambulatory Limitations: no limitations History of Present Illness HPI Narrative: 64 years old white female came to the ED by private car with her from home complaining of dizziness for the last 2 weeks with headache, steady, nothing make it worse, sleeping make it better. Patient believed that she you have unsteady gait and blurry vision . Patient is telling me sometime does not understand what is going on on the TV. Poor concentration. Patient denies any fever, chills, nausea vomiting, chest pain, shortness of breath or focal neuro deficit. Related Data Home Medications ?Medication ?Instructions ?Recorded ?Confirmed ?Last Taken ?Type insulin pump cart,cont inf,BT 10/25/23 11/14/25 Unknown History (Omnipod Dash Pods (Gen 4) subcutaneous cartridge) calcium carbonate 500 tablet PO BID 09/23/25 11/14/25 Unknown History cholecalciferol (vitamin D3) 25 25 mcg PO DAILY 09/23/25 11/14/25 Unknown History mcg (1,000 unit) capsule hydroxyzine HCl 25 mg PO DAILY PRN itching 09/23/25 11/14/25 Unknown History no.144-folic acid 1 tablet PO DAILY 09/23/25 11/14/25 Unknown History insulin lispro 100 unit/mL See Rx Instructions .Route .COMPLEX 11/14/25 11/14/25 Unknown History subcutaneous solution (Humalog U-100 Insulin) Allergies Allergy/AdvReac Type Severity Reaction Status Date / Time No Known Allergies Allergy Verified 11/14/25 17:25 Review of Systems Review of Systems: All systems reviewed & are unremarkable except as noted in HPI and below PMFSH Past Medical History Medical History Acute alteration in mental status Sepsis Dehydration Acute dehydration Hypomagnesemia Nausea and vomiting Gastroenteritis Nausea & vomiting Strep throat Diabetic ketoacidosis DKA (diabetic ketoacidoses) Memory changes Family history of cardiovascular disease Anxiety and depression Depression Urinary frequency Pain in pelvis Lumbar spine pain Anxiety Kidney stones Diabetic retinopathy Hypertension Dyslipidemia Cerebrovascular accident (10/2020) Small right occipital lobe infarction, no physical deficits however her memory has been affected somewhat. COVID-19 (11/2020) Aseptic meningitis (08/2020) Shingles Hypothyroidism Diabetes mellitus type 1 Surgical History Surgical History H/O cervical polypectomy H/O tubal ligation History of hysteroscopy Family History Family History Mother Lung cancer Father Cerebrovascular accident Alcohol abuse Grandparent Diabetes mellitus Social History Social History Social History: Surrogate decision maker: [place], . Code status: Full code. Smoking packs per day: 1 Smoking cigarettes per day: 20.0 Years smoked: 15 Smoking pack-years: 15.00 Smoking status: Current every day smoker Tobacco type: e-cigarettes/vaping Smokeless tobacco user: other Second hand tobacco smoke exposure: No Additional smoking assessment comments: vapes daily Alcohol intake: never Substance use: never Lack of Transportation: No Lack of Food: Never True Current Housing: I Have Housing Concerned About Future Housing: No Difficulty Paying Gas/Electric Bills: No Difficulty Paying for Meds: No Currently Unemployed: No Education: Decline to Answer Difficulty w/ Childcare or Family Care: No Living arrangements: with family Additional living arrangements comments: Lives with . Occupation/Education: unemployed Additional occupation/education comments: Unemployed. Gender identity (if verbalized by the patient): Female Sexual Orientation (if Verbalized by the Patient): Straight or Heterosexual Spiritual care concerns: No Exam Narrative: General appearance: Well-developed, well-nourished, looks ill Skin: Normal color Head: Normocephalic, nontraumatic Eyes: Clear conjunctiva ENT: Oropharynx normal, ears normal, nose normal Neck: Supple, nontender Chest and respiratory: Airway patent, no respiratory distress, no accessory muscle use Heart: Regular rate/rhythm Abdomen: Soft, nontender, no organomegaly, quiet bowel sounds Vascular: Normal peripheral pulses, normal capillary refill. Musculoskeletal: Normal range of motion, nontender back Neurologic: Alert and oriented ?3, TECHNICAL SUPPORT SPECIALIST is normal as tested, no gross motor deficit Course Vital Signs Vital signs: Vital Signs Temperature 36.4 C 11/14/25 11:23 Pulse Rate 74 11/14/25 11:23 Respiratory Rate 18 11/14/25 11:23 Blood Pressure 135/62 11/14/25 11:23 Pulse Oximetry 97 11/14/25 11:23 Oxygen Delivery Room Air 11/14/25 11:23 Temperature 36.7 C 11/14/25 22:00 Pulse Rate 62 11/14/25 22:00 Respiratory Rate 18 11/14/25 22:00 Blood Pressure 139/54 L 11/14/25 22:00 Pulse Oximetry 99 11/14/25 22:00 Oxygen Delivery Room Air 11/14/25 22:15 MDM MDM Narrative Medical decision making narrative: patient presents with dizziness, not feeling well, blurry vision, unsteady gait Vital signs are stable Physical examination unremarkable Differential diagnosis include CVA, electrolyte imbalance, dehydration, urinary tract infection, less likely orthostatic hypotension. Blood workup today includes CBC, CMP, troponin, TSH showed Insignificant abnormality Chest x-ray showed no acute abnormality Urinalysis showedNO ACUTE ABNORMALITY CT head without contrast showed no acute abnormality DIAGNOSIS DIZZINESS , ORTHOSTATIC HYPERTENSION ADMIT TO HOSPITALIST Differential Diagnosis Differential Diagnosis: as above Medical Records I have reviewed the following patient records and this information was taken into consideration when formulating the assessment and plan.: previous labs, previous ER visits and previous hospitalizations Lab Data 11/14/25 12:18 11/14/25 12:18 Labs: Lab Results 11/14/25 11/14/25 11/14/25 Range/Units 12:03 12:18 13:22 WBC 4.6 (4.5-10.0) K/mm3 RBC 4.68 (4.2-5.4) M/mm3 Hgb 14.1 (12.0-15.0) g/dL Hct 43.1 (37.0-47.0) % MCV 92.1 (80-100) fl MCH 30.1 (26-34) pg MCHC 32.7 (32-36) g/dl RDW 12.8 (11.5-14.5) % Plt Count 216 (150-375) k/mm3 MPV 10.4 (7.4-10.4) fl Immature Gran % (Auto) 0.0 (0-0.5) % Neut % (Auto) 55.9 (45.5-73.1) % Lymph % (Auto) 33.4 (18.3-44.2) % [place] % (Auto) 7.0 (2.6-8.5) % Eos % (Auto) 2.8 (0-4.4) % Baso % (Auto) 0.9 (0.2-1.2) % Lymph # (Auto) 1.53 (0.9-3.2) K/mm3 [place] # (Auto) 0.3 (0.1-0.6) K/mm3 Eos # (Auto) 0.1 (0-0.3) K/mm3 Baso # (Auto) 0.0 (0.0-0.1) K/mm3 Abs Immat Gran (auto) 0.00 (0.00-0.031) K/mm3 Absolute Neuts (auto) 2.6 (1.3-6.7) K/mm3 Absolute Nucleated RBC 0.000 (0.0-0.012) K/mm3 Nucleated RBC % 0.0 (0.0-0.2) % PT 13.4 (11.1-14.7) Seconds INR 1.0 APTT 30.8 (22.3-36.8) Seconds Sodium 139 (137-145) mmol/L Potassium 4.2 (3.4-5.0) mmol/L Chloride 110 H (98-107) mmol/L Carbon Dioxide 22 (22-30) mmol/L Anion Gap 7 (4-12) mmol/L BUN 9 (7-17) mg/dL Creatinine 0.81 (0.7-1.0) mg/dL Estim Creat Clear Calc 53 ml/min Estimated GFR > 60 (59 - ) Glucose 84 (65-110) mg/dL POC Capillary Glucose 106 H (65-105) mg/dl Lactic Acid 1.1 (0.7-2.0) mmol/L Calcium 9.2 (8.4-10.2) mg/dL Total Bilirubin 0.5 (0.2-1.3) mg/dL AST 23 (14-36) U/L ALT 12 (6-35) U/L Alkaline Phosphatase 56 (38-126) U/L Troponin I < 0.012 (0.000-0.034) ng/mL Total Protein 7.0 (6.3-8.2) g/dL Albumin 4.1 (3.5-5.1) g/dL TSH 0.412 L (0.465-4.680) uIU/mL Urine Color Yellow (Yellow) Urine Appearance Clear (Clear) Urine pH 7.0 (5.0-9.0) Ur Specific [place] 1.016 (1.001-1.035) Urine Protein Negative (Negative) mg/dL Urine Glucose (UA) Negative (Negative) mg/dL Urine Ketones Trace H (Negative) mg/dL Ur Blood (Man) Negative (Negative) Urine Nitrate Negative (Negative) Urine Bilirubin Negative (Negative) Urine Urobilinogen 0.2 (<2.0) mg/dL Leukocyte Esterase Rfl Negative (Negative) EDDIE/UL Imaging Data Radiologist's impression: ITS Impressions Head CT 11/14/25 12:29 IMPRESSION: 1. Small old lacunar infarct in the right frontal lobe kauffman radiata. No acute intracranial process. 2. Scattered nonspecific white matter hypoattenuation consistent with chronic small vessel ischemic disease. Chest X-Ray 11/14/25 12:37 IMPRESSION: 1. Minimal atelectatic changes or scarring in the left midlung; otherwise no focal acute process. ECG Data EKG #1: Attestation: I personally reviewed and interpreted this ECG as follows: ECG completion date: 11/14/25 Interpretation: NORMAL SINUS RHYTHM AT 68 BEATS PER MINUTE, ECTOPIC ATRIAL RHYTHM, MINIMAL Q-WAVES INFERIOR LEADS, BASELINE ARTIFACT, ABNORMAL EKG, NO PREVIOUS EKG AVAILABLE FOR COMPARISON Critical Care Time Critical Care Time Critical Care Time: No Discharge Plan Discharge Clinical Impression: Dizziness, Orthostatic hypotension Patient Disposition: Still a Patient Condition: Stable
[2025-11-14 12:25] LABS: Hematocrit 43.1 % (37.0-47.0); Hemoglobin 14.1 g/dL (12.0-15.0); Immature Granulocyte Percent A 0.0 % (0-0.5); Lymphocytes Absolute Auto 1.53 K/mm3 (0.9-3.2); Mean Corpuscular HGB Conc 32.7 g/dl (32-36); Mean Corpuscular Hemoglobin 30.1 pg (26-34); Mean Corpuscular Volume 92.1 fl (80-100); Nucleated Red Blood Cells Absolute Auto 0.000 K/mm3 (0.0-0.012); Nucleated Red Blood Cells Perc 0.0 % (0.0-0.2); Platelet Count Result 216 k/mm3 (150-375); Red Blood Count 4.68 M/mm3 (4.2-5.4); White Blood Count 4.6 K/mm3 (4.5-10.0)
[2025-11-14 12:42] LABS: Alanine Aminotransferase 12 U/L (6-35); Albumin Level 4.1 g/dL (3.5-5.1); Alkaline Phosphatase 56 U/L (38-126); Anion Gap 7 mmol/L (4-12); Aspartate Amino Transferase 23 U/L (14-36); Bilirubin,Total 0.5 mg/dL (0.2-1.3); Blood Urea Nitrogen 9 mg/dL (7-17); Calcium 9.2 mg/dL (8.4-10.2); Carbon Dioxide 22 mmol/L (22-30); Chloride 110 mmol/L (98-107); Estimated CRCL calculation 53 ml/min; Estimated Glomerular Filt Rate > 60; Glucose 84 mg/dL (65-110); Potassium 4.2 mmol/L (3.4-5.0); Sodium 139 mmol/L (137-145); Total Protein 7.0 g/dL (6.3-8.2)
[2025-11-14 12:47] LABS: INR 1.0; Prothrombin Time 13.4 Seconds (11.1-14.7)
[2025-11-14 12:48] LABS: Partial Thromboplastin Time 30.8 Seconds (22.3-36.8); Troponin I < 0.012 ng/mL (0.000-0.034)
[2025-11-14 13:06] LABS: Thyroid Stimulating Hormone 0.412 uIU/mL (0.465-4.680)
[2025-11-14 13:47] LABS: Add Urine Microscopic? NO; Appearance Urine Clear (Clear); Glucose Urine UA Negative (Negative); Leukocyte Esterase Ur Negative LEU/UL (Negative); Nitrate Urine Negative (Negative); Specific Grav Ur 1.016 (1.001-1.035)
[2025-11-14] MEDS: SODIUM CHLORIDE 0.9% IV 1,000 ML 999 ML IV CONT (14:42)
--- NOTE | 2025-11-14 15:00 | WPCEDHO ---
ED Hand Off Checklist All vitals saved:y IV Site documented:y All med administrations documented:y Triage Note Triage Note Patient to the ED from home with 11/14/25 11:52 complaints of dizziness, blurry vision, weakness, and not feeling well for a couple weeks. Denies N,V, or diarrhea. Denies any known sick exposures. Patient is A&Ox4. Allergies No Known Allergies Allergy (Verified 11/14/25 11:51) Family History (Last Reviewed 11/14/25 @ 12:55 by Kamille Iraheta MD) Mother Lung cancer Father Cerebrovascular accident Alcohol abuse Grandparent Diabetes mellitus Active Medications including assessments/comments Sodium Chloride (Normal Saline Iv) 1,000 mls @ 999 mls/hr IV CONT .Q1H1M STA Stop: 11/14/25 15:34 Last Admin: 11/14/25 14:42 Dose: 999 mls/hr Documented By: LEXY Infusion/Titration Document 11/14/25 14:42 LEXY (Rec: 11/14/25 14:42 LEXY [id number]) Intake IV Site Peripheral Access Right Wrist Container Volume 1,000 Waste Amount 0 Dosing Infusion Rate 999 Cumulative Dose Not Applicable Increase/Decrease Started Elapsed Time Elapsed Time ( 0m minutes) Notes 11/14/25 12:10 Nurse Note by Maryann Natarajan At 1157, pt was getting IV attempted, during iv insertion pt head drifted to Left side, ben arms were raised, unable to follow direction, pt was unresponsive for 2 seconds. P woke up right away with sternal rub and asked what happened. Pt denies any aura or smell, no PMH of seizures. pt states she felt like she was dying, pt was clammy and warm after episode. reported blood sugar of 103, however PMH of seizure like activity when pt is at 20-30 BS. Initialized on 11/14/25 12:10 - END OF NOTE Interventions/Assessments Cardiac Monitoring Start: 11/14/25 11:21 Freq: Status: Active Protocol: Document 11/14/25 11:52 AMR (Rec: 11/14/25 11:52 AMR [id number]) Hall Director Assessment Hall Director Yes Applied Pulse Rate (60-100) 70 EKG Rythm Sinus Rhythm IV / Saline Lock, Insert Start: 11/14/25 11:21 Freq: Status: Active Protocol: Document 11/14/25 12:07 AMR (Rec: 11/14/25 12:08 AMR [id number]) IV Assessment Peripheral Access Right Wrist IV Catheter Access Initiated IV Insertion Date 11/14/25 IV Insertion Time 12:07 Catheter Gauge 18 IV Insertion 2 Attempts Ultrasound Used for No Placement IV Site Assessment WNL IV Care and WNL,Access Locked Maintenance IV / Saline Lock, Insert Start: 11/14/25 11:51 Freq: STAT Status: Active Protocol: Document 11/14/25 12:18 AMR (Rec: 11/14/25 12:18 AMR [id number]) IV Assessment Peripheral Access Right Wrist IV Catheter Access Initiated IV Insertion Date 11/14/25 IV Insertion Time 12:07 Catheter Gauge 18 IV Insertion 2 Attempts Ultrasound Used for No Placement IV Site Assessment WNL IV Care and WNL,Access Locked Maintenance PA: Cardiovascular Assessment Start: 11/14/25 11:21 Freq: Status: Active Protocol: Document 11/14/25 11:55 AMR (Rec: 11/14/25 12:01 AMR [id number]) Cardiovascular Assessment Cardiovascular Dizziness,Lightheadedness Symptoms Skin Description Clammy,Dry Heart Sounds Normal Rhythm/Strength Apical Monitor Rhythm Irregular EKG Rythm Sinus Bradycardia Capillary Refill Bilateral Lower Extremity Capillary Refill Greater than or Equal to 2 Seconds Edema Assessment Bilateral None Edema Degree None PA: Neurological Assessment Start: 11/14/25 11:21 Freq: Status: Active Protocol: Document 11/14/25 12:08 AMR (Rec: 11/14/25 12:10 AMR [id number]) Neurological Assessment Arousable to Verbal Orientation Oriented to Person,Oriented to Place,Oriented to Time Neurological Abnormal Movements,Confusion,Dizziness Symptoms Hallucination Type None Unable to Redirect No Behavior Behavior Anxious,Crying Patient Able to Comprehend Comprehension Memory Description Intact Ability to Maintain Normal Balance Speech Pattern Clear Tongue Position Midline Facial Symmetry Symmetrical Ability to Swallow Normal All Extremities Extremity Movement Strong Front Desk Attendant,Strong Push Description All Extremities Sensation Normal Description Neurological Reflexes Corneal Reflex Present Bilateral Response Jl Coma Scale Eyes Open Verbal Oriented and Alert Motor Follows Commands [place] Coma Total 15 Score Last Vital Signs Temperature 98.5 F 11/14/25 14:39 Pulse Rate 70 11/14/25 14:39 Respiratory Rate 18 11/14/25 14:39 Pulse Oximetry 93 11/14/25 14:39 Blood Pressure 143/89 H 11/14/25 14:39 Blood Pressure Mean 107 11/14/25 14:39 Blood Pressure Position Standing 11/14/25 12:46 Oxygen Delivery Room Air 11/14/25 11:52 Weight 54 kg 11/14/25 11:52 Last Result - Abnormals Only Chloride 110 mmol/L (98-107) H 11/14/25 12:18 POC Capillary Glucose 106 mg/dl (65-105) H 11/14/25 12:03 TSH 0.412 uIU/mL (0.465-4.680) L 11/14/25 12:18 Urine Ketones Trace mg/dL (Negative) H 11/14/25 13:22 Most Recent Suicide Severity Rating Suicide Severity Rating NO RISK INDICATED 11/14/25 11:52
--- NOTE | 2025-11-14 16:44 | P.HP_ITS ---
H&P: HPI History of Present Illness Date/Time: 11/14/25 16:44 Chief Complaint: Dizziness blurred vision headache Narrative: 64-year-old female presents the hospital with dizziness, blurred vision and headaches. Patient states that this has been going on her about 2 weeks without improvement. Patient states that she just woke up 1 day with blurry vision slightly improved in the mornings that worsened evenings. She states that she was trying to get outpatient workup but no one would be able see her till February. So she presented to the hospital. She states that she gets her hemoglobin A1c checked every 3 months. Patient states that she had her cataracts fixed back in January and had 40/20 vision after that. Patient states that she has had a constant headache since then with sensitivity to light and dizziness with neck pain. She denies nausea or vomiting. Lab work in the ED is essentially within normal limits, TSH 0.412, UA negative for infection. Head CT shows no acute findings. Chest x-ray shows minimal atelectasis. EKG shows ectopic rhythm rate 68. Patient being admitted for overnight monitoring and MRI. Review of Systems Review of Systems: 12 systems were reviewed and are negativ e except for as per HPI. [facility] Past Medical History Medical History Acute alteration in mental status Sepsis Dehydration Acute dehydration Hypomagnesemia Nausea and vomiting Gastroenteritis Nausea & vomiting Strep throat Diabetic ketoacidosis DKA (diabetic ketoacidoses) Memory changes Family history of cardiovascular disease Anxiety and depression Depression Urinary frequency Pain in pelvis Lumbar spine pain Anxiety Kidney stones Diabetic retinopathy Hypertension Dyslipidemia Cerebrovascular accident (10/2020) Small right occipital lobe infarction, no physical deficits however her memory has been affected somewhat. COVID-19 (11/2020) Aseptic meningitis (08/2020) Shingles Hypothyroidism Diabetes mellitus type 1 Surgical History Surgical History H/O cervical polypectomy H/O tubal ligation History of hysteroscopy Family History Family History Mother Lung cancer Father Cerebrovascular accident Alcohol abuse Grandparent Diabetes mellitus Social History Social History Social History: Surrogate decision maker: [place]ce [place], . Code status: Full code. Smoking packs per day: 1 Smoking cigarettes per day: 20.0 Years smoked: 15 Smoking pack-years: 15.00 Smoking status: Current every day smoker Tobacco type: e-cigarettes/vaping Smokeless tobacco user: other Second hand tobacco smoke exposure: No Additional smoking assessment comments: vapes daily Alcohol intake: never Substance use: never Lack of Transportation: No Lack of Food: Never True Current Housing: I Have Housing Concerned About Future Housing: No Difficulty Paying Gas/Electric Bills: No Difficulty Paying for Meds: No Currently Unemployed: No Education: Decline to Answer Difficulty w/ Childcare or Family Care: No Living arrangements: with family Additional living arrangements comments: Lives with . Occupation/Education: unemployed Additional occupation/education comments: Unemployed. Gender identity (if verbalized by the patient): Female Sexual Orientation (if Verbalized by the Patient): Straight or Heterosexual Spiritual care concerns: No Meds Home Medications and Allergies Home Medications ?Medication ?Instructions ?Recorded ?Confirmed ?Type glucagon 1 mg/0.2 mL subcutaneous 1 mg (0.2 mL) subcut ONCE #0.4 mL 10/25/23 11/14/25 Rx auto-injector (Gvoke HypoPen 2-Pack) insulin pump cart,cont inf,BT 10/25/23 11/14/25 Histo ry (Omnipod Dash Pods (Gen 4) subcutaneous cartridge) mecobalamin (vitamin B12) 5,000 5,000 mcg PO DAILY #90 tabs 10/25/23 11/14/25 Rx mcg chewable tablet insulin pump cartridge,auto #1 ea 04/02/24 11/14/25 Rx dose,BT,G6/G7 with controller subcutaneous (Omnipod 5 G6-G7 Intro Kit(Gen 5) subcutaneous cartridge and controller) blood-glucose sensor (Dexcom G6 #9 ea 02/12/25 5 Rx Sensor device) Synthroid 100 mcg tablet 100 mcg PO DAILY #90 tabs 11/14/25 Rx (levothyroxine) atorvastatin 20 mg tablet See Rx Instructions .Route 1 11/14/25 Rx .COMPLEX #100 tabs insulin pump cart,auto,BT,G6/7 #30 ea 09/11/25 5 Rx (Omnipod 5 G6-G7 Pods (Gen 5) subcutaneous cartridge) calcium carbonate 500 tablet PO BID 09/23/25 1 01/15/25 History cholecalciferol (vitamin D3) 25 25 mcg PO DAILY 11/14/25 History mcg (1,000 unit) capsule hydroxyzine HCl 25 mg PO DAILY PRN itching 1 11/14/25 History no.144-folic acid 1 tablet PO DAILY 09/23/25 11/14/25 History blood-glucose transmitter (Dexcom #1 ea 10/07/2511/14 Rx G6 Transmitter device) insulin lispro 100 unit/mL See Rx Instructions .Route .COMPLEX 11/14/25 11/14/25 History subcutaneous solution (Humalog U-100 Insulin) Allergies Allergy/AdvReac Type Severity Reaction Status Date / Time No Known Allergies Allergy Verified 11/14/25 17:25 Vital Signs Vital Signs - 24 hr 11/14/25 11:23 11/14/25 11:48 11/14/25 11:49 Temperature 97.6 F Pulse Rate 74 70 Respiratory Rate 18 14 18 Blood Pressure 135/62 148/81 H Pulse Oximetry 97 98 100 Oxygen Delivery Room Air 11/14/25 11:52 11/14/25 11:52 11/14/25 12:00 Temperature Pulse Rate 70 69 73 Respiratory Rate 19 21 H Blood Pressure 148/81 H 110/72 Pulse Oximetry 99 99 Oxygen Delivery Room Air 11/14/25 12:01 11/14/25 12:18 11/14/25 12:33 Temperature 97.9 F Pulse Rate 69 63 60 Respiratory Rate 23 H 20 15 Blood Pressure 122/68 Pulse Oximetry 99 99 98 Oxygen Delivery 11/14/25 12:37 11/14/25 12:39 11/14/25 12:41 Temperature Pulse Rate 56 L 61 66 Respiratory Rate 9 L 16 21 H Blood Pressure 142/74 H 118/69 127/73 Pulse Oximetry 92 99 100 Oxygen Delivery 11/14/25 12:45 11/14/25 12:45 11/14/25 12:46 Temperature Pulse Rate 56 L 62 61 Respiratory Rate 15 Blood Pressure 142/74 H 141/71 H 118/69 Pulse Oximetry 98 Oxygen Delivery 11/14/25 12:46 11/14/25 13:07 11/14/25 13:10 Temperature Pulse Rate 62 62 63 Respiratory Rate 22 H 19 Blood Pressure 127/73 138/78 Pulse Oximetry 93 95 Oxygen Delivery 11/14/25 13:15 11/14/25 13:16 11/14/25 13:30 Temperature Pulse Rate 63 62 64 Respiratory Rate 18 13 14 Blood Pressure 154/81 H 139/72 Pulse Oximetry 99 94 96 Oxygen Delivery 11/14/25 13:31 11/14/25 13:45 11/14/25 13:46 Temperature Pulse Rate 63 66 64 Respiratory Rate 16 18 16 Blood Pressure 119/59 L Pulse Oximetry 95 Oxygen Delivery 11/14/25 14:00 11/14/25 14:30 11/14/25 14:39 Temperature 98.5 F 98.5 F Pulse Rate 65 64 70 Respiratory Rate 18 12 18 Blood Pressure 138/73 141/65 H 143/89 H Pulse Oximetry 94 97 93 Oxygen Delivery Exam Narrative: General: well appearing, appears stated age. HEENT: normocephalic, atraumatic. Mucous membranes moist. EOMI, PERRLA, bilateral sclera anicteric, no conjunctival injection. Neck supple without JVD, lymphadenopathy, or bruit. Respiratory: clear bilaterally. No rales/rhonic/wheezes. Cardiovascular: Regular rate and rhythm, normal S1-S2. No murmurs, rubs, or clicks. PMI is nondisplaced, capillary refill less than 3 second. Abdomen: Soft, round, no pulsatile masses, nondistended and nontender. No rebound, no guarding. Bowel sounds present to all four quadrants. No high pitch or tinkling sounds, resonant to percussion. Extremities: No cyanosis, clubbing, or edema present. Pulses are palpable 2/2. Active ROM to all four extremities. Neuro: Alert and orientated x 4. PERRLA. Cranial nerves 2-12 intact without focal deficit. Skin: Warm, dry, and intact, without rash, erythema, or lesion. Psych: pleasant, cooperative, normal speech, normal affect, no hallucinations, no dysarthia Results Labs Labs: Short CBC 11/14/25 Range/Units 12:18 WBC 4.6 (4.5-10.0) K/mm3 Hgb 14.1 (12.0-15.0) g/dL Hct 43.1 (37.0-47.0) % Plt Count 216 (150-375) k/mm3 BMP 11/14/25 12:18 Sodium 139 Potassium 4.2 Chloride 110 H Carbon Dioxide 22 BUN 9 Creatinine 0.81 Glucose 84 Calcium 9.2 Cardiac Enzymes 11/14/25 Range/Units 12:18 Troponin I < 0.012 (0.000-0.034) ng/mL Liver Function 11/14/25 Range/Units 12:18 Total Bilirubin 0.5 (0.2-1.3) mg/dL AST 23 (14-36) U/L ALT 12 (6-35) U/L Alkaline Phosphatase 56 (38-126) U/L Albumin 4.1 (3.5-5.1) g/dL Urine 11/14/25 Range/Units 13:22 Urine Color Yellow (Yellow) Urine Appearance Clear (Clear) Urine pH 7.0 (5.0-9.0) Ur Specific [place] 1.016 (1.001-1.035) Urine Protein Negative (Negative) mg/dL Urine Glucose (UA) Negative (Negative) mg/dL Attestation: I personally reviewed all lab results Imaging Head CT: Attestation: I personally reviewed this imaging study Radiologist's impression: 1. Small old lacunar infarct in the right frontal lobe kauffman radiata. No acute intracranial process. 2. Scattered nonspecific white matter hypoattenuation consistent with chronic small vessel ischemic disease. Chest x-ray: Attestation: I personally reviewed this imaging study Radiologist's impression: 1. Minimal atelectatic changes or scarring in the left midlung; otherwise no focal acute process. Quality VTE Prophylaxis VTE prophylaxis: mechanical ordered Stroke Scale Stroke scale date:: 11/14/25 Stroke scale time:: 22:10 1a Level of conciousness: alert-0 1b Level of consciousness: answers both correctly-0 1c Level of consciousness: obeys both correctly-0 2 Best gaze: normal-0 3 Visual: no visual loss-0 4 Facial palsy: normal-0 5a Motor: left arm: no drift-0 5b Motor: right arm: no drift-0 6a Motor: left leg: no drift-0 6b Motor: right leg: no drift-0 7 Limb ataxia: absent-0 8 Sensory: normal-0 9 Best language: no aphasia-0 10 Dysarthria: normal-0 11 Extinction and inattention: no abnormality-0 Level:: 0 Assessment and Plan Assessment and plan (1) Headache: Code(s): R51.9 - Headache, unspecified Status: Acute Assessment and Plan: CT head with no new acute findings Neurology consulted pending recommendations MRI brain pending Toradol Compazine Fioricet (2) Dizziness: Code(s): R42 - Dizziness and giddiness Status: Acute Assessment and Plan: Orthostatic vital signs Meclizine (3) Blurry vision: Code(s): H53.8 - Other visual disturbances Status: Acute Assessment and Plan: Neurology consulted MRI in the morning (4) Diabetes mellitus type 1: Qualifiers: Diabetic retinopathy severity: with moderate nonproliferative retinopathy Code(s): E10.9 - Type 1 diabetes mellitus without complications Status: Chronic Assessment and Plan: CMG and insulin pump Accu-Cheks a.c. HS Hemoglobin A1c (5) Hypothyroidism: Qualifiers: Hypothyroidism type: unspecified Qualified Code(s): E03.9 - Hypothyroidism, unspecified Code(s): E03.9 - Hypothyroidism, unspecified Status: Chronic Assessment and Plan: TSH slightly low however improved since last month. T3 and T4 pending Prior Studies I have reviewed the following patient records and this information was taken into consideration when formulating the assessment and plan.: previous labs, previous ER visits and previous hospitalizations Time Spent with Patient Time with patient: less than 45 minutes Hospitalist MIPS Advance Care Plan I have confirmed that the patient's Advanced Care Plan is present, code status is documented, or surrogate decision maker is listed in patient medical record.: Yes Medication Reconciliation I have utilized all available resources to obtain, update and review the patients current medications (includes all prescriptions, OTC, herbals, cannabis, and nutritional supplements).: Yes
[2025-11-14] MEDS: SODIUM CHLORIDE 0.9% IV 1,000 ML 150 ML IV CONT (16:57)
[2025-11-14] MEDS: MECLIZINE HCL 6.25 MG TABLET PO (17:41)
[2025-11-15] VITALS (8 sets, daily range): BP systolic 126–154; BP diastolic 54–72; PULSE 58–71; RESP 16–21; TEMP 36.3–36.7; O2SAT 96–100
[2025-11-15] MEDS: ACETAMINOPHEN/BUTALBITAL/CAFFEINE 325-50-40 MG TABLET (FIORICET) 1 TAB PO (04:02)
[2025-11-15 05:42] LABS: Hematocrit 37.0 % (37.0-47.0); Hemoglobin 12.1 g/dL (12.0-15.0); Immature Granulocyte Percent A 0.2 % (0-0.5); Lymphocytes Absolute Auto 2.31 K/mm3 (0.9-3.2); Mean Corpuscular HGB Conc 32.7 g/dl (32-36); Mean Corpuscular Hemoglobin 30.2 pg (26-34); Mean Corpuscular Volume 92.3 fl (80-100); Nucleated Red Blood Cells Absolute Auto 0.000 K/mm3 (0.0-0.012); Nucleated Red Blood Cells Perc 0.0 % (0.0-0.2); Platelet Count Result 185 k/mm3 (150-375); Red Blood Count 4.01 M/mm3 (4.2-5.4); White Blood Count 5.4 K/mm3 (4.5-10.0)
[2025-11-15] MEDS: LEVOTHYROXINE SODIUM 100 MCG TABLET PO (06:07)
[2025-11-15 06:16] LABS: Anion Gap 3 mmol/L (4-12); Blood Urea Nitrogen 8 mg/dL (7-17); Calcium 8.7 mg/dL (8.4-10.2); Carbon Dioxide 24 mmol/L (22-30); Chloride 112 mmol/L (98-107); Estimated CRCL calculation 57 ml/min; Estimated Glomerular Filt Rate > 60; Glucose 122 mg/dL (65-110); Potassium 3.9 mmol/L (3.4-5.0); Sodium 139 mmol/L (137-145)
[2025-11-15 06:18] LABS: Free T4 Free Thyroxine 1.07 ng/dL (0.78-2.19)
[2025-11-15 06:23] LABS: Hemoglobin A1C 6.6 % (<5.7)
[2025-11-15] MEDS: MECLIZINE HCL 6.25 MG TABLET PO ×3 (08:26→17:15)
[2025-11-15] MEDS: ATORVASTATIN 20 MG TABLET BY MOUTH (08:26)
[2025-11-15] MEDS: ENOXAPARIN 40 MG/0.4 ML SYRINGE SUB-Q (08:26)
--- NOTE | 2025-11-15 14:05 | P.PNIM_ITS ---
Assessment and Plan Assessment and Plan (1) Blurry vision: Code(s): H53.8 - Other visual disturbances Status: Acute Assessment and Plan: Patient reporting blurry vision and dizziness worsening over the last 2 weeks has previous history of CVA in 2019. Patient also had a outpatient MRI 10/28/2025 that showed old infarcts involving the right fronto partial chorda radial and bilateral thalami. Continues to have worsening bilateral blurry vision patient did report she had cataract surgery about 5 or 6 months ago. 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 evaluation * Echo with bubble study (2) Headache: Code(s): R51.9 - Headache, unspecified Status: Acute Assessment and Plan: Patient with headache secondary to blurry vision and dizziness * Improved with Toradol (3) Dizziness: Code(s): R42 - Dizziness and giddiness Status: Acute Assessment and Plan: Patient did report a previous HX of Vertigo but states this feels differently * Orthostatics negative * Meclazine added (4) Diabetes mellitus type 1: Qualifiers: Diabetic retinopathy severity: with moderate nonproliferative retinopathy Code(s): E10.9 - Type 1 diabetes mellitus without complications Status: Chronic Assessment and Plan: Patient is a type 1 diabetic * A1c 6.6 * CMG and insulin pump * Accu-Cheks a.c. HS * hypoglycemic protocol (5) Hypothyroidism: Qualifiers: Hypothyroidism type: unspecified Qualified Code(s): E03.9 - Hypothyroidism, unspecified Code(s): E03.9 - Hypothyroidism, unspecified Status: Chronic Assessment and Plan: TSH low * Decreased levothyroxine 75 mcg from 100 mcg * Follow-up TSH in 3 months with her clinical research spec * T3 and T4 pending Plan Code status: ?Full code per patient DVT prophylaxis: ?SCD PT/OT notes: ?NA Disposition: ?Patient admitted to the medical unit for further evaluation and treatment of dizziness and blurry vision MRI pending and Neurology consulted plan to return home at discharge when medically stable Medical Record Review I have reviewed the following patient records and this information was taken into consideration when formulating the assessment and plan.: previous labs, previous ER visits and previous hospitalizations Consultations Consultations: I have discussed the care of this pt with the consulting providers. Time Spent With Patient Time with patient: 15 - 25 minutes Subjective Date/time seen: 11/15/25 14:05 Interval history: Patient is a 64-year-old female with HX of diabetes type 1, hypothyroidism, HTN, HLD and previous CVA admitted to the medical unit for further evaluation treatment dizziness with blurred vision with recent MRI brain 10/28 showing old infarctions. MRI pending and consult to Neurology. 11/15/2025: Assumed Care Patient still reporting blurry and double vision. Dizziness is intermittent. Patient denies any deficits or unilateral abnormal strength. Denies any chest pain, shortness a breath, nausea or vomiting. Review of Systems Review of Systems: 12 systems were reviewed and are negativ e except for as per HPI. All systems reviewed & are unremarkable except as noted in HPI and below Exam Const: General: comfortable and no acute distress HENMT: Mouth: Yes moist mucous membranes Eyes: General: appearance normal, both eyes and all related structures Alignment and Position: alignment normal Periorbital: periorbital findings normal Eyelids: eyelids normal Conjunctivae: conjunctivae normal Sclera: sclerae normal Resp: Effort & Inspection: normal respiratory effort Auscultation: clear to auscultation bilaterally Cardio: Rate: regular rate Rhythm: regular rhythm GI: GI Palp: Yes Soft to palpation Auscultation: normal bowel sounds Skin: General skin exam: normal color and no rashes or lesions noted Wounds: no wounds Neuro: General: gait normal Cranial nerves: Yes CN's II-XII intact bilaterally Cognition (Neuro): normal cognition Speech: normal speech Gait exam (Neuro): Normal gait present Motor exam (neuro): 5/5 motor strength present throughout Sensory Exam: normal sensation Extrem: General: normal to inspection Psych: Mental Status: mental status grossly normal Affect: normal affect Objective Data Vital Signs Vital Signs: Vital Signs - 24 hr 11/14/25 14:30 11/14/25 14:39 11/14/25 16:00 Temperature 98.5 F 98.5 F 96.6 F L Pulse Rate 64 70 62 Respiratory Rate 12 18 18 Blood Pressure 141/65 H 143/89 H 124/59 L Pulse Oximetry 97 93 99 Oxygen Delivery 11/14/25 20:00 11/14/25 22:00 11/14/25 22:15 Temperature 98.0 F Pulse Rate 67 62 Respiratory Rate 18 Blood Pressure 139/54 L Pulse Oximetry 99 Oxygen Delivery Room Air 11/15/25 00:00 11/15/25 00:00 11/15/25 04:00 Temperature 98.0 F Pulse Rate 61 62 58 L Respiratory Rate 18 Blood Pressure 139/54 L Pulse Oximetry 99 Oxygen Delivery 11/15/25 04:31 11/15/25 08:00 11/15/25 08:30 Temperature 97.5 F L Pulse Rate 61 64 Respiratory Rate 18 Blood Pressure 154/72 H Pulse Oximetry 96 Oxygen Delivery Room Air Intake/Output Intake/Output: Intake & Output 11/12/25 11/13/25 11/14/25 11/15/25 23:59 23:59 23:59 23:59 Intake Total 1100 300 Balance 1100 300 Meds/Results Medications: Active Medications Generic Name Dose Route Start Last Admin Trade Name Freq PRN Reason Stop Dose Admin Acetaminophen 650 mg 11/15/25 09:25 Acetaminophen 325 Mg Tablet PO Q6H PRN Mild Pain (1-3) or Fever Atorvastatin Calcium 20 mg 11/15/25 09:00 11/15/25 08:26 Atorvastatin 20 Mg Tablet BY MOUTH 20 mg DAILY CHAZ Administration Enoxaparin Sodium 40 mg 11/15/25 09:00 11/15/25 08:26 Enoxaparin 40 Mg/0.4 Ml Syringe SUB-Q 40 mg DAILY CHAZ Administration Hydroxyzine HCl 25 mg 11/14/25 22:05 Hydroxyzine Hcl 25 Mg Tablet PO DAILY PRN itching Ketorolac Tromethamine 15 mg 11/14/25 17:54 Ketorolac 15 Mg/Ml Vial (*Bk) IV PUSH Q6H PRN Pain Rated 4-6 Levothyroxine Sodium 75 mcg 11/16/25 06:30 Levothyroxine Sodium 75 Mcg Tablet PO DAILY@0630 [facility] Meclizine HCl 6.25 mg 11/14/25 17:00 11/15/25 12:42 Meclizine Hcl 6.25 Mg Tablet PO 6.25 mg TID CHAZ Administration Miscellaneous Information 0 each 11/15/25 00:01 Please Re-Enter Using Insulin Pump Order Set With Doses. Thanks XX 12/15/25 00:00 CLARIFY CHAZ Non-Formulary Medication see rx instructions unit 11/15/25 09:30 Insulin Lispro [Humalog U-100 Insulin] SUB-Q 12/15/25 09:29 .COMPLEX CHAZ Prochlorperazine Edisylate 10 mg 11/14/25 16:58 Prochlorperazine Edisylate 10 Mg/2 Ml Vial IV PUSH Q6H PRN Nausea And Vomiting Vitamin D 25 mcg 11/16/25 09:00 Cholecalciferol (Vitamin D3) 25 Mcg (1,000 Units) Tablet PO DAILY [facility] Radiology Results: ITS Impressions Head CT 11/14/25 12:29 IMPRESSION: 1. Small old lacunar infarct in the right frontal lobe kauffman radiata. No acute intracranial process. 2. Scattered nonspecific white matter hypoattenuation consistent with chronic small vessel ischemic disease. Chest X-Ray 11/14/25 12:37 IMPRESSION: 1. Minimal atelectatic changes or scarring in the left midlung; otherwise no focal acute process. Labs Labs: Laboratory Results - last 24 hr 11/14/25 11/15/25 11/15/25 13:22 05:29 08:02 WBC 5.4 RBC 4.01 L Hgb 12.1 Hct 37.0 MCV 92.3 MCH 30.2 MCHC 32.7 RDW 12.7 Plt Count 185 MPV 10.3 Immature Gran % (Auto) 0.2 Neut % (Auto) 45.4 L Lymph % (Auto) 43.2 Beckham % (Auto) 7.5 Eos % (Auto) 2.6 Baso % (Auto) 1.1 Lymph # (Auto) 2.31 Beckham # (Auto) 0.4 Eos # (Auto) 0.1 Baso # (Auto) 0.1 Abs Immat Gran (auto) 0.01 Absolute Neuts (auto) 2.4 Absolute Nucleated RBC 0.000 Nucleated RBC % 0.0 Sodium 139 Potassium 3.9 Chloride 112 H Carbon Dioxide 24 Anion Gap 3 L BUN 8 Creatinine 0.73 Estim Creat Clear Calc 57 Estimated GFR > 60 Glucose 122 H POC Capillary Glucose 97 Hemoglobin A1c 6.6 H Calcium 8.7 Free T4 1.07 Urine Color Yellow Urine Appearance Clear Urine pH 7.0 Ur Specific [place] 1.016 Urine Protein Negative Urine Glucose (UA) Negative Urine Ketones Trace H Ur Blood (Man) Negative Urine Nitrate Negative Urine Bilirubin Negative Urine Urobilinogen 0.2 Leukocyte Esterase Rfl Negative 11/15/25 11:42 WBC RBC Hgb Hct MCV MCH MCHC RDW Plt Count MPV Immature Gran % (Auto) Neut % (Auto) Lymph % (Auto) Beckham % (Auto) Eos % (Auto) Baso % (Auto) Lymph # (Auto) Beckham # (Auto) Eos # (Auto) Baso # (Auto) Abs Immat Gran (auto) Absolute Neuts (auto) Absolute Nucleated RBC Nucleated RBC % Sodium Potassium Chloride Carbon Dioxide Anion Gap BUN Creatinine Estim Creat Clear Calc Estimated GFR Glucose POC Capillary Glucose 123 H Hemoglobin A1c Calcium Free T4 Urine Color Urine Appearance Urine pH Ur Specific [place] Urine Protein Urine Glucose (UA) Urine Ketones Ur Blood (Man) Urine Nitrate Urine Bilirubin Urine Urobilinogen Leukocyte Esterase Rfl Attestation: I personally reviewed all lab results Imaging Attestation: I personally reviewed this imaging study Quality VTE Prophylaxis VTE prophylaxis: mechanical ordered - Patient's previous records reviewed on admission -ER notes reviewed in detail on admission -discussed all findings and current treatment plan with patient/Family/POA -Consultations reviewed for recommendations -Patient's disposition for safe discharge discussed with family service caseworker -radiology imaging, EKG and test results I have personally reviewed and interpreted unless otherwise specified Dictation performed by [employer] direct speech recognition software, therefore intelligence intern variants and typographical errors may occur. Hospitalist MIPS Advance Care Plan I have confirmed that the patient's Advanced Care Plan is present, code status is documented, or surrogate decision maker is listed in patient medical record.: Yes Medication Reconciliation I have utilized all available resources to obtain, update and review the patients current medications (includes all prescriptions, OTC, herbals, cannabis, and nutritional supplements).: Yes The patient is not eligible for med reconciliation; the patient is in a emergent medical situation where delaying treatment would jeopardize the patients health.: No
--- NOTE | 2025-11-15 14:33 | WPDNEURCNPN ---
Consult date: 11/15/25 HPI: Kendy Hook is a 64 year old female admitted to the hospital for the complaints of dizziness along with the blurred vision and headaches of couple of weeks duration. Patient brought to the ER by the private car with her and also with information that she had been experiencing dizziness for the last couple of weeks with headaches of his steady in nature and with improvement with sleep. Her medications were listed as insulin, hydroxyzine, and she is not allergic to any medications. She has ongoing history of multiple problems in the past particularly 1. Recurrent nausea and vomiting 2. History of diabetic ketoacidosis and diabetes mellitus type 1. 3. Anxiety with depression 4. Diabetic retinopathy and 5. Hypertension 6.she has had COVID also in 2020 7. Aseptic meningitis in September 15 She has history of smoking packs per day 1, ears smoke 15, and smoking pack years of 15 also currently everyday smoker. On initial exam in the emergency room she has no focal abnormalities. Her vital signs were normal P CBC was normal, BMP was normal, UA was normal, and mast scan was normal except TSH of 0.[address] scan of the head documented small old lacunar infarct in the right frontal lobe coronal radiata and scattered nonspecific white matter hypoattenuation consistent with chronic small vessel ischemic disease. Chest x-ray with minimal atelectatic changes or scabbing the left midlung, EKG without any atrial fibrillation. Review of Systems Review of Systems: All systems reviewed & are unremarkable except as noted in HPI and below PMFSH Past Medical History Medical History Acute alteration in mental status Sepsis Dehydration Acute dehydration Hypomagnesemia Nausea and vomiting Gastroenteritis Nausea & vomiting Strep throat Diabetic ketoacidosis DKA (diabetic ketoacidoses) Memory changes Family history of cardiovascular disease Anxiety and depression Depression Urinary frequency Pain in pelvis Lumbar spine pain Anxiety Kidney stones Diabetic retinopathy Hypertension Dyslipidemia Cerebrovascular accident (10/2020) Small right occipital lobe infarction, no physical deficits however her memory has been affected somewhat. COVID-19 (11/2020) Aseptic meningitis (08/2020) Shingles Hypothyroidism Diabetes mellitus type 1 Surgical History Surgical History H/O cervical polypectomy H/O tubal ligation History of hysteroscopy Family History Family History Mother Lung cancer Father Cerebrovascular accident Alcohol abuse Grandparent Diabetes mellitus Social History Social History Social History: Surrogate decision maker: Bryce Hook, . Code status: Full code. Smoking packs per day: 1 Smoking cigarettes per day: 20.0 Years smoked: 15 Smoking pack-years: 15.00 Smoking status: Current every day smoker Tobacco type: e-cigarettes/vaping Smokeless tobacco user: other Second hand tobacco smoke exposure: No Additional smoking assessment comments: vapes daily Alcohol intake: never Substance use: never Lack of Transportation: No Lack of Food: Never True Current Housing: I Have Housing Concerned About Future Housing: No Difficulty Paying Gas/Electric Bills: No Difficulty Paying for Meds: No Currently Unemployed: No Education: Decline to Answer Difficulty w/ Childcare or Family Care: No Living arrangements: with family Additional living arrangements comments: Lives with . Occupation/Education: unemployed Additional occupation/education comments: Unemployed. Gender identity (if verbalized by the patient): Female Sexual Orientation (if Verbalized by the Patient): Straight or Heterosexual Spiritual care concerns: No Meds Home Medications and Allergies Home Medications ?Medication ?Instructions ?Recorded ?Confirmed ?Type glucagon 1 mg/0.2 mL subcutaneous 1 mg (0.2 mL) subcut ONCE #0.4 mL 10/25/23 11/14/25 Rx auto-injector (Gvoke HypoPen 2-Pack) insulin pump cart,cont inf,BT 10/25/23 11/14/25 History (Omnipod Dash Pods (Gen 4) subcutaneous cartridge) mecobalamin (vitamin B12) 5,000 5,000 mcg PO DAILY #90 tabs 10/25/23 11/14/25 Rx mcg chewable tablet insulin pump cartridge,auto #1 ea 04/02/24 11/14/25 Rx dose,BT,G6/G7 with controller subcutaneous (Omnipod 5 G6-G7 Intro Kit(Gen 5) subcutaneous cartridge and controller) blood-glucose sensor (Dexcom G6 #9 ea 02/12/25 11/14/25 Rx Sensor device) Synthroid 100 mcg tablet 100 mcg PO DAILY #90 tabs 08/25/25 11/14/25 Rx (levothyroxine) atorvastatin 20 mg tablet See Rx Instructions .Route 09/01/25 11/14/25 Rx .COMPLEX #100 tabs insulin pump cart,auto,BT,G6/7 #30 ea 09/11/25 11/14/25 Rx (Omnipod 5 G6-G7 Pods (Gen 5) subcutaneous cartridge) calcium carbonate 500 tablet PO BID 09/23/25 11/14/25 History cholecalciferol (vitamin D3) 25 25 mcg PO DAILY 09/23/25 11/14/25 History mcg (1,000 unit) capsule hydroxyzine HCl 25 mg PO DAILY PRN itching 09/23/25 11/14/25 History no.144-folic acid 1 tablet PO DAILY 09/23/25 11/14/25 History blood-glucose transmitter (Dexcom #1 ea 10/07/25 11/14/25 Rx G6 Transmitter device) insulin lispro 100 unit/mL See Rx Instructions .Route .COMPLEX 11/14/25 11/14/25 History subcutaneous solution (Humalog U-100 Insulin) Allergies Allergy/AdvReac Type Severity Reaction Status Date / Time No Known Allergies Allergy Verified 11/14/25 17:25 Vital Signs Vital Signs - 24 hr 11/14/25 14:39 11/14/25 16:00 11/14/25 20:00 Temperature 36.9 C 35.9 C L Pulse Rate 70 62 67 Respiratory Rate 18 18 Blood Pressure 143/89 H 124/59 L Pulse Oximetry 93 99 Oxygen Delivery 11/14/25 22:00 11/14/25 22:15 11/15/25 00:00 Temperature 36.7 C Pulse Rate 62 61 Respiratory Rate 18 Blood Pressure 139/54 L Pulse Oximetry 99 Oxygen Delivery Room Air 11/15/25 00:00 11/15/25 04:00 11/15/25 04:31 Temperature 36.7 C 36.4 C L Pulse Rate 62 58 L 61 Respiratory Rate 18 18 Blood Pressure 139/54 L 154/72 H Pulse Oximetry 99 96 Oxygen Delivery 11/15/25 08:00 11/15/25 08:30 Temperature Pulse Rate 64 Respiratory Rate Blood Pressure Pulse Oximetry Oxygen Delivery Room Air Results Labs 11/15/25 05:29 11/15/25 05:29 Labs: Short CBC 11/15/25 Range/Units 05:29 WBC 5.4 (4.5-10.0) K/mm3 Hgb 12.1 (12.0-15.0) g/dL Hct 37.0 (37.0-47.0) % Plt Count 185 (150-375) k/mm3 [facility] 11/15/25 05:29 Sodium 139 Potassium 3.9 Chloride 112 H Carbon Dioxide 24 BUN 8 Creatinine 0.73 Glucose 122 H Calcium 8.7
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
[2025-11-16] VITALS: BP 138/65; PULSE 62; PULSE 73; RESP 16; TEMP 36.6; O2SAT 98
[2025-11-16 04:00] VITALS: PULSE 59
[2025-11-16 05:22] VITALS: BP 154/68; PULSE 64; RESP 20; TEMP 36.2; O2SAT 98
[2025-11-16] MEDS: LEVOTHYROXINE SODIUM 75 MCG TABLET PO (05:30)
[2025-11-16 05:38] LABS: Triiodothyronine (T3), Free 2.5 pg/mL (2.0-4.4)
[2025-11-16 06:33] LABS: Hematocrit 40.0 % (37.0-47.0); Hemoglobin 12.8 g/dL (12.0-15.0); Mean Corpuscular HGB Conc 32.0 g/dl (32-36); Mean Corpuscular Hemoglobin 30.0 pg (26-34); Mean Corpuscular Volume 93.9 fl (80-100); Platelet Count Result 200 k/mm3 (150-375); Red Blood Count 4.26 M/mm3 (4.2-5.4); White Blood Count 5.4 K/mm3 (4.5-10.0)
[2025-11-16 06:57] LABS: Alanine Aminotransferase 12 U/L (6-35); Albumin Level 3.8 g/dL (3.5-5.1); Alkaline Phosphatase 46 U/L (38-126); Anion Gap 4 mmol/L (4-12); Aspartate Amino Transferase 22 U/L (14-36); Bilirubin,Total 0.4 mg/dL (0.2-1.3); Blood Urea Nitrogen 8 mg/dL (7-17); Calcium 8.9 mg/dL (8.4-10.2); Carbon Dioxide 25 mmol/L (22-30); Chloride 111 mmol/L (98-107); Estimated CRCL calculation 55 ml/min; Estimated Glomerular Filt Rate > 60; Glucose 79 mg/dL (65-110); Magnesium 1.9 mg/dL (1.6-2.3); Potassium 3.7 mmol/L (3.4-5.0); Sodium 140 mmol/L (137-145); Total Protein 6.5 g/dL (6.3-8.2)
[2025-11-16 08:00] VITALS: PULSE 64
[2025-11-16] MEDS: MECLIZINE HCL 6.25 MG TABLET PO ×2 (08:14→12:45)
[2025-11-16] MEDS: ASPIRIN 81 MG ENTERIC TABLET PO (08:14)
[2025-11-16] MEDS: CHOLECALCIFEROL (VITAMIN D3) 25 MCG (1,000 UNITS) TABLET PO (08:14)
[2025-11-16] MEDS: ENOXAPARIN 40 MG/0.4 ML SYRINGE SUB-Q (08:14)
[2025-11-16] MEDS: ATORVASTATIN 20 MG TABLET BY MOUTH (08:14)
--- NOTE | 2025-11-16 11:20 | P.DS_ITS ---
DS: Admitting Diagnosis Discharge Date 11/16/2025 Admitting Diagnosis Blurry vision/ dizziness DS: Discharge Diagnosis Discharge Diagnosis (1) Blurry vision: Code(s): H53.8 - Other visual disturbances Status: Acute (2) Headache: Code(s): R51.9 - Headache, unspecified Status: Acute (3) Dizziness: Code(s): R42 - Dizziness and giddiness Status: Acute (4) Diabetes mellitus type 1: Qualifiers: Diabetic retinopathy severity: with moderate nonproliferative retinopathy Code(s): E10.9 - Type 1 diabetes mellitus without complications Status: Chronic (5) Hypothyroidism: Qualifiers: Hypothyroidism type: unspecified Qualified Code(s): E03.9 - Hypothyroidism, unspecified Code(s): E03.9 - Hypothyroidism, unspecified Status: Chronic DS: Summary Hospital Course Reason for hospitalization: Blurry vision/ dizziness Hospital Course: The patient is a 64-year-old female with a history of type 1 diabetes mellitus, hypothyroidism, hypertension, dyslipidemia, diabetic retinopathy, and prior CVA (2019) who presented with two weeks of worsening dizziness, blurred/double vision, and headaches. Symptoms were progressive and interfered with outpatient evaluation, prompting hospital admission. Initial ED workup showed stable vital signs and no focal neurologic deficits. Laboratory studies including CBC, BMP, troponin, liver function tests, and urinalysis were largely unremarkable. TSH was low at 0.412. CT head showed no acute intracranial process, with chronic findings of an old lacunar infarct and small vessel ischemic disease. Chest X-ray demonstrated minimal left mid-lung atelectasis. Neurology was consulted. MRI brain was ordered to further evaluate symptoms given prior stroke history. Headache improved with ketorolac. Dizziness was intermittent and treated with meclizine. Orthostatic vitals were negative. Levothyroxine dose was reduced due to suppressed TSH. Blood glucose was well controlled on insulin pump therapy with A1c of 6.6. The patient remained neurologically intact throughout hospitalization without progression of symptoms and was deemed stable for discharge with outpatient follow-up. Recommended outpatient follow-up with ENT and e commerce web developer for further evaluation she was also started on 81mg ASA daily and continued on her current dose of atorvastatin. Status at Discharge Functional status at discharge: independent ambulation Overall status at discharge: patient is progressing back to baseline Time Spent with Patient Time attestation: Total time spent providing and/or coordinating discharge services: Time spent: Less than 30 minutes Exam Const: General: comfortable and no acute distress HENMT: Mouth: Yes moist mucous membranes Eyes: General: appearance normal, both eyes and all related structures Alignment and Position: alignment normal Periorbital: periorbital findings normal Eyelids: eyelids normal Conjunctivae: conjunctivae normal Sclera: sclerae normal Resp: Effort & Inspection: normal respiratory effort Auscultation: clear to auscultation bilaterally Cardio: Rate: regular rate Rhythm: regular rhythm GI: Auscultation: normal bowel sounds Skin: General skin exam: normal color and no rashes or lesions noted Wounds: no wounds Neuro: General: gait normal Cranial nerves: Yes CN's II-XII intact bilaterally Cognition (Neuro): normal cognition Speech: normal speech Gait exam (Neuro): Normal gait present Motor exam (neuro): 5/5 motor strength present throughout Sensory Exam: normal sensation Extrem: General: normal to inspection Psych: Mental Status: mental status grossly normal Affect: normal affect DS: Data Data Completed and Pending Labs on day of discharge: Labs from last 24 hours 11/16/25 11/16/25 11/15/25 07:39 05:30 22:17 WBC 5.4 RBC 4.26 Hgb 12.8 Hct 40.0 MCV 93.9 MCH 30.0 MCHC 32.0 RDW 12.6 Plt Count 200 MPV 10.7 H Sodium 140 Potassium 3.7 Chloride 111 H Carbon Dioxide 25 Anion Gap 4 BUN 8 Creatinine 0.76 Estim Creat Clear Calc 55 Estimated GFR > 60 Glucose 79 POC Capillary Glucose 121 H 71 Calcium 8.9 Magnesium 1.9 Total Bilirubin 0.4 AST 22 ALT 12 Alkaline Phosphatase 46 Total Protein 6.5 Albumin 3.8 Free T3 pg/mL 11/15/25 11/15/25 11/15/25 16:35 14:41 14:20 WBC RBC Hgb Hct MCV MCH MCHC RDW Plt Count MPV Sodium Potassium Chloride Carbon Dioxide Anion Gap BUN Creatinine Estim Creat Clear Calc Estimated GFR Glucose POC Capillary Glucose 140 H 118 H 59 L* Calcium Magnesium Total Bilirubin AST ALT Alkaline Phosphatase Total Protein Albumin Free T3 pg/mL 11/15/25 11/15/25 11:42 05:29 WBC RBC Hgb Hct MCV MCH MCHC RDW Plt Count MPV Sodium Potassium Chloride Carbon Dioxide Anion Gap BUN Creatinine Estim Creat Clear Calc Estimated GFR Glucose POC Capillary Glucose 123 H Calcium Magnesium Total Bilirubin AST ALT Alkaline Phosphatase Total Protein Albumin Free T3 pg/mL 2.5 Imaging Attestation: I personally reviewed and interpreted this imaging study as follows: Radiologist's impression: EXAMINATION: MR brain/brain stem wo con DATE: 11/15/2025 16:28 INDICATION: Headache, blurred vision. Dizziness. TECHNIQUE: Magnetic resonance imaging (MRI) of the brain and brainstem was performed without intravenous contrast. COMPARISON: CT brain dated 11/14/2025. FINDINGS: No acute ischemia on the diffusion sequence. T2*gradient sequence shows no intracranial bleed or extra-axial collections. No evidence of ventriculomegaly. Extensive chronic small vessel ischemic change of periventricular white matter on the FLAIR sequence. Pituitary gland is normal. IMPRESSION: 1. No evidence of acute ischemia or intracranial bleed. 2. Chronic small vessel ischemic change of periventricular white matter on both sides, especially in the occipital lobes.. 3. Normal pituitary gland. Reviewed, dictated and finalized at location T. [facility] Discharge Plan Discharge Attending physician on discharge: Triston Johnson Consulting providers: Sweetie Cabrera; Shayan Arshad; Cathryn Montaño; Jassi Saini; Mark Perrin; Eddy Boyce Discharging Clinician: Sweetie Cabrera Anticipated Discharge Date/Time: 11/16/25 11:22 Patient Disposition: Home Activity: may shower and as tolerated Diet: diabetic Discharge Instructions: 1). Blurry Vision * MRI showed previous infarction * I recommend follow-up with your aircraft navigator Patient Instructions: Antibiotic Form Patient Language: Mosotho Stand Alone Forms: General Discharge Information Follow-up/Referrals: Sofía Yang APRN [Primary Care Provider, [facility]] - 2 Weeks Discharge Medications: New aspirin 81 mg Tablet,Delayed Release (Dr/Ec) 81 mg PO QAM Qty: 30 0RF Continued (DME) Omnipod Dash Pods (Gen 4) Cartridge See Rx Instructions .Route Rx Instructions: As directed Gvoke HypoPen 2-Pack 1 mg/0.2 mL auto-injector 1 mg subcut ONCE Qty: 0.4 0RF Rx Instructions: as a single dose; may repeat once after 15 minutes if no response mecobalamin (vitamin B12) 5,000 mcg tablet,chewable 5,000 mcg PO DAILY Qty: 90 0RF (DME) Dexcom G6 Sensor Device See Rx Instructions .Route Qty: 9 4RF Rx Instructions: Change every 10 days cholecalciferol (vitamin D3) 25 mcg (1,000 unit) capsule 25 mcg PO DAILY no.144-folic acid [] 1 tablet PO DAILY calcium carbonate 500 tablet PO BID hydroxyzine HCl 25 mg PO DAILY PRN (Reason: itching) (DME) Omnipod 5 G6-G7 Intro Kt(Gen5) Cartridge See Rx Instructions .Route Qty: 1 0RF Rx Instructions: As directed insulin lispro [Humalog U-100 Insulin] 100 unit/mL solution See Rx Instructions .ROUTE .COMPLEX Rx Instructions: INJECT SUBCUTANEOUSLY VIA INSULIN PUMP MAXIMUM DAILY DOSE: UNFORSURE OF EXACT PARAMETERS BUT SAYS TAKES 100 UNITS EVERY 3 DAYS. levothyroxine [Synthroid] 100 mcg tablet 100 mcg PO DAILY Qty: 90 2RF atorvastatin 20 mg tablet See Rx Instructions .ROUTE .COMPLEX Qty: 100 2RF Dose Instruction: TAKE 1 TABLET BY MOUTH DAILY Rx Instructions: TAKE 1 TABLET BY MOUTH DAILY (DME) Omnipod 5 G6-G7 Pods (Gen 5) Cartridge See Rx Instructions .Route Qty: 30 2RF Rx Instructions: every 3 days (DME) Dexcom G6 Transmitter Device See Rx Instructions .ROUTE .COMPLEX Qty: 1 3RF Dose Instruction: CHANGE EVERY 90 DAYS Rx Instructions: CHANGE EVERY 90 DAYS Date of admission: 11/14/25 14:32 Primary Care Provider: Sofía Yang Admitting Provider: Sridhar Moya Attending physician on admission: Triston Johnson Condition: Stable Quality VTE Prophylaxis VTE prophylaxis: mechanical ordered -Patient's previous records reviewed on admission -ER notes reviewed in detail on admission -discussed all findings and current treatment plan with patient/Family/POA -Consultations reviewed for recommendations -Patient's disposition for safe discharge discussed with casey saw operator -radiology imaging, EKG and test results I have personally reviewed and interpreted unless otherwise specified Dictation performed by MT[employer]or direct speech recognition software, therefore unit manager variants and typographical errors may occur. Hospitalist MIPS Heart Failure (Exclusion) Patient has history of Heart Transplant or Left Ventricular Assistive Device?: No IF YES, STOP HERE Heart Failure (Qualifier) Patient has current or prior documentation of LVEF less than or equal to 40%, or mod/servere depressed LVSF?: No IF NO, STOP HERE
[2025-11-16 14:00] VITALS: BP 142/72; PULSE 68; RESP 20; TEMP 36.8; O2SAT 98
--- NOTE | 2025-11-17 15:12 | PCCDE ---
11/17/25: DM educator courtesy call placed. Pt wears Omnipod 5 with Dexcom 6 CGM. Feels there are things she doesn't know about the Omnipod, denies company educator or previous Endo office education. She has apparently switched endo's a few times recently, (on this pump x ~ 4 yrs) unable to state name of current Endo but not Eddi. Discussed I:C due to asking about what to do if ate too much. States to entering carbs in pump. Asking about correction. - enc'd to reach out to Endo with current DM/pump dosing concerns - Advised re: OmniPod customer service - consider Omnipod insulin pump educator.
== END 2025-11-16 15:43 | disposition home or self-care (01) ==
LOC: ANHED 13:58 → ANH3MEDSUR 16:45
PROVIDERS: Nurse Practitioner Family; Nurse Practitioner Gerontology; Admitting Provider General Practice; Emergency Provider Emergency Medicine; PCP Nurse Practitioner Family; Visit Provider Internal Medicine
DX: R51.9 Headache, unspecified (principal); R42 Dizziness and giddiness; H53.8 Other visual disturbances; E10.3399 Type 1 diabetes mellitus with moderate nonproliferative diabetic retinopathy without macular edema, unspecified eye; E03.9 Hypothyroidism, unspecified; R94.31 Abnormal electrocardiogram [ECG] [EKG]; J98.4 Other disorders of lung; I67.89 Other cerebrovascular disease; E78.5 Hyperlipidemia, unspecified; F17.290 Nicotine dependence, other tobacco product, uncomplicated; F41.8 Other specified anxiety disorders; Z79.4 Long term (current) use of insulin; Z96.41 Presence of insulin pump (external) (internal); Z86.73 Personal history of transient ischemic attack (TIA), and cerebral infarction without residual deficits; Z86.79 Personal history of other diseases of the circulatory system; Z87.442 Personal history of urinary calculi; Z98.49 Cataract extraction status, unspecified eye; Z82.3 Family history of stroke; Z83.3 Family history of diabetes mellitus
CPT/HCPCS: 36415; 70450; 70551; 71045; 80048; 80053; 81003; 82948; 83036; 83605; 83735; 84439; 84443; 84481; 84484; 85025; 85027; 85610; 85730; 93005; 96361; 99285; A9270; J1650; J7030